=== PATIENT | female | born 1935 | race Caucasian/White ===

== ENCOUNTER → 2017-09-13 | Outpatient (CLI) | payer MEDICARE ==
--- NOTE | 2017-09-13 11:01 | US ---
EXAMINATION TYPE: US carotid duplex BILAT DATE OF EXAM: 09/13/2017 COMPARISON: NONE CLINICAL HISTORY: I10 Hypertension, R55 Syncope and collapse. Dizziness. Endarterectomy in the per patient. EXAM MEASUREMENTS: RIGHT: Peak Systolic Velocity (PSV) cm/sec ----- Right CCA: 43.5 ----- Right ICA: 120.0 ----- Right ECA: 59.2 ICA/CCA ratio: 2.8 RIGHT: End Diastole cm/sec ----- Right CCA: 9.5 ----- Right ICA: 27.4 ----- Right ECA: 5.4 LEFT: Peak Systolic Velocity (PSV) cm/sec ----- Left CCA: 72.3 ----- Left ICA: 87.1 ----- Left ECA: 61.1 ICA/CCA ratio: 0.8 LEFT: End Diastole cm/sec ----- Left CCA: 15.4 ----- Left ICA: 16.2 ----- Left ECA: 6.7 VERTEBRALS (direction of flow): Right Vertebral: Antegrade Left Vertebral: Antegrade Rhythm: Normal Tortuous vessels visualized on the right. Moderate amount of plaque visualized on the right. Severe a mount of plaque visualized on the left. Elevated velocities visualized in the left bulb. Elevated ICA /CCA ratio on the right. IMPRESSION: 1. Atherosclerotic plaque bilaterally with findings suggestive of a 50-69% stenosis involving the pro ximal right ICA. 2. Extensive atherosclerotic plaque in the left. Consider follow-up CTA of the carotid bifurcations.
--- NOTE | 2017-09-14 08:57 | ECHOF ---
Referral Reason:I10 Hypertension, R55 Syncope and collapse MEASUREMENTS -------- HEIGHT: 152.4 cm WEIGHT: 70.3 kg BP: RVIDd: 3.3 cm (< 3.3) IVSd: 1.4 cm (0.6 - 1.1) LVIDd: 4.4 cm (3.9 - 5.3) LVPWd: 1.0 cm (0.6 - 1.1) IVSs: 1.7 cm LVIDs: 3.6 cm LVPWs: 0.8 cm LA Diam: 4.7 cm (2.7 - 3.8) LAESV Index (A-L): 46.52 ml/m Ao Diam: 2.8 cm (2.0 - 3.7) AV Cusp: 1.5 cm (1.5 - 2.6) LA Diam: 4.3 cm (2.7 - 3.8) MV EXCURSION: 17.332 mm (> 18.000) MV EF SLOPE: 107 mm/s (70 - 150) EPSS: 1.1 cm MV E Himanshu: 0.75 m/s MV DecT: 200 ms MV A Himanshu: 0.86 m/s MV E/A Ratio: 0.87 AV maxP.97 mmHg AV meanP.36 mmHg RAP: 5.00 mmHg RVSP: 40.47 mmHg FINDINGS -------- Undetermined rhythm. This was a technically adequate study. The left ventricular size is normal. There is mild concentric left ventricular hypertrophy. Overa ll left ventricular systolic function is low-normal with, an EF between 50 - 55 %. The right ventricle is normal in size. LA is severely dilated >40 ml/m2 The right atrial size is normal. Peak/mean gradient across the Aortic Valve is 4.97mmHg / 2.36mmHg. Normally functioning bioprosthet ic valve. Mild mitral annular calcification present. Mild mitral regurgitation is present. Mild tricuspid regurgitation present. There is mild pulmonary hypertension. The right ventricular systolic pressure, as measured by Doppler, is 40.47mmHg. Trace/mild (physiologic) pulmonic regurgitation. The aortic root size is normal. There is no pericardial effusion. CONCLUSIONS -------- 1. The left ventricular size is normal. 2. There is mild concentric left ventricular hypertrophy. 3. Overall left ventricular systolic function is low-normal with, an EF between 50 - 55 %. 4. LA is severely dilated >40 ml/m2 5. Peak/mean gradient across the Aortic Valve is 4.97mmHg / 2.36mmHg. 6. Normally functioning bioprosthetic valve. 7. Mild mitral annular calcification present. 8. Mild mitral regurgitation is present. 9. Mild tricuspid regurgitation present. 10. There is mild pulmonary hypertension. 11. The right ventricular systolic pressure, as measured by Doppler, is 40.47mmHg. 12. Trace/mild (physiologic) pulmonic regurgitation. 13. The aortic root size is normal. 14. There is no pericardial effusion. GRIDDLE COOK: Jumana Knox RDCS
== END | disposition home or self-care (01) ==
LOC: RADECHMAIN 10:05
PROVIDERS: ATTEND Family Medicine
DX: I08.1 Rheumatic disorders of both mitral and tricuspid valves (principal); I65.23 Occlusion and stenosis of bilateral carotid arteries; I48.0 Paroxysmal atrial fibrillation; I27.20 Pulmonary hypertension, unspecified
CPT/HCPCS: 93225; 93226; 93306; 93880

== ENCOUNTER 2017-10-04 17:49 | Inpatient (IN) | payer MEDICARE ==
[2017-10-04] MEDS ORDERED: SODIUM CHLORIDE 0.9% 1,000 ML IV STA (18:13)
[2017-10-04] MEDS: ACETAMINOPHEN TAB 500 MG TAB PO STA ×2 (18:25→19:01)
[2017-10-04 18:30] LABS: Basophils # (A) 0.1 k/uL (0-0.2); Basophils % (A) 0 %; Eosinophils # (A) 0.1 k/uL (0-0.7); Eosinophils % (A) 1 %; HCT 43.4 % (34.0-46.0); HGB 14.3 gm/dL (11.4-16.0); Lymphocytes # (A) 0.8 k/uL (1.0-4.8); Lymphocytes % (A) 4 %; MCH 27.7 pg (25.0-35.0); MCHC 32.9 g/dL (31.0-37.0); MCV 84.3 fL (80.0-100.0); Mean Platelet Volume 6.4; Monocytes # (A) 0.7 k/uL (0-1.0); Monocytes % (A) 4 %; Neutrophils # (A) 16.3 k/uL (1.3-7.7); Neutrophils % (A) 91 %; Platelet Count 301 k/uL (150-450); RBC 5.15 m/uL (3.80-5.40); RDW 13.7 % (11.5-15.5)
[2017-10-04] MEDS ORDERED: ONDANSETRON 4 MG/2 ML VIAL IVP STA (18:35)
[2017-10-04] MEDS ORDERED: ACETAMINOPHEN IV (For NPO) 1,000 MG in EMPTY BAG 1 BAG IVPB STA (18:35)
--- NOTE | 2017-10-04 18:39 | ED ---
Weakness HPI - General Chief complaint: Weakness Stated complaint: poss CVA Time Seen by Provider: 10/04/17 18:05 Source: patient, family, RN notes reviewed Mode of arrival: wheelchair Limitations: no limitations - History of Present Illness Initial comments: This an 82-year-old female presents emergency department with family chief complaint weakness. Patient reportedly has been unsteady on her feet today, more weak than usual. Patient had no symptoms yesterday she does complain of a headache but has no specific focal weakness. Patient and family state that she started a fall earlier though sat down they did try to help her and they noticed that she seemed to be weak to her legs but not localized to one side. Patient states that she is unable to make it to the bathroom because of the weakness. She does complain of some lower abdominal and epigastric discomfort. Patient did not know that she had a fever at home she is febrile here she states that she has a slight cough. Denies back pain, chest pain, shortness of breath or any sick contacts. Family states that she had a brief period of confusion at home though she seems to be at her baseline currently. Patient is not taking any recent Tylenol Motrin. - Related Data Home Medications Medication Instructions Recorded Confirmed Clopidogrel [Plavix] 75 mg PO DAILY 11/06/15 10/04/17 Levothyroxine Sodium [Synthroid] 112 mcg PO DAILY 11/06/15 10/04/17 Metoprolol Tartrate [Lopressor] 25 mg PO BID 11/06/15 10/04/17 Pravastatin Sodium [Pravachol] 20 mg PO DAILY 11/06/15 10/04/17 Sertraline [Zoloft] 50 mg PO DAILY 11/06/15 10/04/17 Tiotropium 18 Mcg/Puff [Spiriva] 1 puff INHALATION RT-DAILY PRN 11/06/15 amLODIPine [Norvasc] 5 mg PO DAILY 11/06/15 10/04/17 Allergies Allergy/AdvReac Type Severity Reaction Status Date / Time Penicillins Allergy Swelling Verified 10/04/17 18:32 Review of Systems ROS Statement: Those systems with pertinent positive or pertinent negative responses have been documented in the HPI. ROS Other: All systems not noted in ROS Statement are negative. Past Medical History Past Medical History: Hypertension, Thyroid Disorder History of Any Multi-Drug Resistant Organisms: None Reported Past Surgical History: Cholecystectomy, Hysterectomy Additional Past Surgical History / Comment(s): aorta aneurysm repair Past Psychological History: No Psychological Hx Reported Smoking Status: Former smoker Past Alcohol Use History: None Reported Past Drug Use History: None Reported General Exam Limitations: no limitations General appearance: alert, in no apparent distress Head exam: Present: atraumatic, normocephalic, normal inspection Eye exam: Present: normal appearance, PERRL, EOMI. Absent: scleral icterus, conjunctival injection, periorbital swelling ENT exam: Present: normal exam, normal oropharynx, mucous membranes moist, TM's normal bilaterally, normal external ear exam Neck exam: Present: normal inspection, full ROM. Absent: tenderness, meningismus, lymphadenopathy Respiratory exam: Present: normal lung sounds bilaterally. Absent: respiratory distress, wheezes, rales, rhonchi, stridor Cardiovascular Exam: Present: regular rate, normal rhythm, normal heart sounds. Absent: systolic murmur, diastolic murmur, rubs, gallop, clicks GI/Abdominal exam: Present: soft, tenderness (Mild epigastric and suprapubic), normal bowel sounds. Absent: distended, guarding, rebound, rigid Extremities exam: Present: normal inspection, full ROM, normal capillary refill. Absent: tenderness, pedal edema, joint swelling, calf tenderness Neurological exam: Present: alert, oriented X3, CN II-XII intact, reflexes normal, other (Finger to nose intact bilaterally without over shooting.). Absent: motor sensory deficit Skin exam: Present: warm, dry, intact, normal color. Absent: rash Course Vital Signs 10/04/17 10/04/17 17:52 18:36 Temperature 101.1 F H Pulse Rate 87 81 Respiratory 20 18 Rate Blood Pressure 153/73 141/64 O2 Sat by Pulse 96 95 Oximetry EKG Findings - EKG Comments: EKG Findings:: EKG shows performed at 18:32 normal sinus rhythm with a left bundle, rate of 83 CA interval 176 QRS 152 QT/QTC 420 650 to Medical Decision Making - Medical Decision Making 82-year-old female presented for generalized weakness not feeling well. Patient 's found to have right midlung pneumonia. Patient will be started on Levaquin admitted for IV antibiotics, hydration. - Lab Data Result diagrams: 10/04/17 18:21 02/08/18 18:21 Lab Results 10/04/17 10/04/17 10/04/17 Range/Units 18:21 18:21 18:21 WBC 18.0 H (3.8-10.6) k/uL RBC 5.15 (3.80-5.40) m/uL Hgb 14.3 (11.4-16.0) gm/dL Hct 43.4 (34.0-46.0) % MCV 84.3 (80.0-100.0) fL MCH 27.7 (25.0-35.0) pg MCHC 32.9 (31.0-37.0) g/dL RDW 13.7 (11.5-15.5) % Plt Count 301 (150-450) k/uL Neutrophils % 91 % Lymphocytes % 4 % Monocytes % 4 % Eosinophils % 1 % Basophils % 0 % Neutrophils # 16.3 H (1.3-7.7) k/uL Lymphocytes # 0.8 L (1.0-4.8) k/uL Monocytes # 0.7 (0-1.0) k/uL Eosinophils # 0.1 (0-0.7) k/uL Basophils # 0.1 (0-0.2) k/uL PT (9.0-12.0) sec INR (<1.2) APTT (22.0-30.0) sec Sodium 136 L (137-145) mmol/L Potassium 5.2 H (3.5-5.1) mmol/L Chloride 102 (98-107) mmol/L Carbon Dioxide 23 (22-30) mmol/L Anion Gap 11 mmol/L BUN 28 H (7-17) mg/dL Creatinine 1.00 (0.52-1.04) mg/dL Est GFR (MDRD) Af Amer >60 (>60 ml/min/1.73 sqM) Est GFR (MDRD) Non-Af 53 (>60 ml/min/1.73 sqM) Glucose 136 H (74-99) mg/dL Plasma Lactic Acid Miguel (0.7-2.0) mmol/L Calcium 9.8 (8.4-10.2) mg/dL Magnesium 1.9 (1.6-2.3) mg/dL Total Bilirubin 0.7 (0.2-1.3) mg/dL AST 51 H (14-36) U/L ALT 32 (9-52) U/L Alkaline Phosphatase 131 H (38-126) U/L Total Creatine Kinase 53 (30-135) U/L CK-MB (CK-2) 0.8 (0.0-2.4) ng/mL CK-MB (CK-2) Rel Index 1.5 Troponin I <0.012 (0.000-0.034) ng/mL Total Protein 7.8 (6.3-8.2) g/dL Albumin 3.9 (3.5-5.0) g/dL Influenza Type A RNA (Not Detectd) Influenza Type B (PCR) (Not Detectd) 10/04/17 10/04/17 10/04/17 Range/Units 18:21 18:21 18:21 WBC (3.8-10.6) k/uL RBC (3.80-5.40) m/uL Hgb (11.4-16.0) gm/dL Hct (34.0-46.0) % MCV (80.0-100.0) fL MCH (25.0-35.0) pg MCHC (31.0-37.0) g/dL RDW (11.5-15.5) % Plt Count (150-450) k/uL Neutrophils % % Lymphocytes % % Monocytes % % Eosinophils % % Basophils % % Neutrophils # (1.3-7.7) k/uL Lymphocytes # (1.0-4.8) k/uL Monocytes # (0-1.0) k/uL Eosinophils # (0-0.7) k/uL Basophils # (0-0.2) k/uL PT 10.0 (9.0-12.0) sec INR 1.0 (<1.2) APTT 21.4 L (22.0-30.0) sec Sodium (137-145) mmol/L Potassium (3.5-5.1) mmol/L Chloride (98-107) mmol/L Carbon Dioxide (22-30) mmol/L Anion Gap mmol/L BUN (7-17) mg/dL Creatinine (0.52-1.04) mg/dL Est GFR (MDRD) Af Amer (>60 ml/min/1.73 sqM) Est GFR (MDRD) Non-Af (>60 ml/min/1.73 sqM) Glucose (74-99) mg/dL Plasma Lactic Acid Miguel 1.4 (0.7-2.0) mmol/L Calcium (8.4-10.2) mg/dL Magnesium (1.6-2.3) mg/dL Total Bilirubin (0.2-1.3) mg/dL AST (14-36) U/L ALT (9-52) U/L Alkaline Phosphatase (38-126) U/L Total Creatine Kinase (30-135) U/L CK-MB (CK-2) (0.0-2.4) ng/mL CK-MB (CK-2) Rel Index Troponin I (0.000-0.034) ng/mL Total Protein (6.3-8.2) g/dL Albumin (3.5-5.0) g/dL Influenza Type A RNA Not Detected (Not Detectd) Influenza Type B (PCR) Not Detected (Not Detectd) Disposition Clinical Impression: Generalized weakness, Pneumonia, Fever Disposition: ADMITTED IP TO THIS HOSP Condition: Fair Referrals: Dao Art Jr, [Primary Care Provider] - 1-2 days
[2017-10-04 18:42] LABS: ALT 32 U/L (9-52); AST 51 U/L (14-36); Albumin 3.9 g/dL (3.5-5.0); Alkaline Phosphatase 131 U/L (38-126); Anion Gap 11 mmol/L; Blood Urea Nitrogen 28 mg/dL (7-17); Calcium 9.8 mg/dL (8.4-10.2); Carbon Dioxide 23 mmol/L (22-30); Chloride 102 mmol/L (98-107); Glucose 136 mg/dL (74-99); Magnesium 1.9 mg/dL (1.6-2.3); Potassium 5.2 mmol/L (3.5-5.1); Sodium 136 mmol/L (137-145); Total Bilirubin 0.7 mg/dL (0.2-1.3); Total Protein 7.8 g/dL (6.3-8.2)
[2017-10-04 18:50] LABS: Creatine Kinase 53 U/L (30-135)
--- NOTE | 2017-10-04 18:58 | XR ---
EXAMINATION TYPE: XR chest 2V DATE OF EXAM: 10/04/2017 COMPARISON: Chest x-ray February 19, 2015 HISTORY: Weakness and fever. TECHNIQUE: Frontal and lateral views of the chest are obtained. FINDINGS: Osseous structures remain demineralized. Mild multilevel compression type fracture deformi ties in the thoracic spine are redemonstrated. Sternal wires are redemonstrated. There is persisting cardiomegaly with atherosclerotic and aneurysmal thoracic aorta redemonstrated. There is background c hronic emphysematous change with new right midlung opacity seen on frontal view less well-seen on lat eral view. Left lung remains clear. No pleural effusion or pneumothorax is seen bilaterally. Rounded density left axilla is redemonstrated of uncertain etiology presumed benign given no significant inte rval change perhaps postsurgical. IMPRESSION: Chronic emphysematous change and cardiomegaly with new right lateral midlung infiltrate and/or atelectasis.
--- NOTE | 2017-10-04 19:00 | CT ---
EXAMINATION TYPE: CT brain wo con DATE OF EXAM: 10/04/2017 HISTORY: WEAKNESS. CT DLP: 956.4 mGycm. Automated Exposure Control for Dose Reduction was Utilized. TECHNIQUE: CT scan of the head is performed without contrast. COMPARISON: None. FINDINGS: There is no acute intracranial hemorrhage or midline shift identified. There is diffuse v entricular and sulcal prominence consistent with diffuse age-related cerebral atrophy. There is low- attenuation in the periventricular white matter consistent with chronic small vessel ischemic change. Some scattered sulcal calcifications are noted bilaterally. These could be product of in utero infec tion. The globes are intact and the visualized sinuses are clear. Suspect tiny osteoma right ethmoi d sinuses axial image 6. Patchy opacity bilateral mastoid air cells is likely product of retained sec retions or chronic mastoiditis as there is some sclerosis seen inferiorly. There is vascular calcific ation distal internal carotid and vertebral arteries bilaterally. IMPRESSION: No acute intracranial hemorrhage or midline shift. There is diffuse mild age-related ce rebral atrophy and moderate to severe chronic small vessel ischemic change noted.
[2017-10-04 19:03] LABS: Creatine Kinase MB 0.8 ng/mL (0.0-2.4); Troponin I <0.012 ng/mL (0.000-0.034)
[2017-10-04] MEDS ORDERED: LEVOFLOXACIN 750MG-D5W PMX 750 MG in DEXTROSE/WATER 1 150ML.BAG IVPB STA ×2 (19:03→19:34)
[2017-10-04 19:14] LABS: Partial Thromboplastin Time 21.4 sec (22.0-30.0)
[2017-10-04] MEDS ORDERED: PNEUMONIA PROTOCOL UTILIZED 1 EACH MISC PO PRN (19:34)
[2017-10-04] MEDS ORDERED: IPRATROPIUM-ALBUTEROL 3 ML NEB INHALATION PRN (19:34)
[2017-10-04 21:47] VITALS: BMI 22.1
[2017-10-04] MEDS: SODIUM CHLORIDE 0.9% 1,000 ML IV SCH (22:08)
[2017-10-05] MEDS: HEPARIN SODIUM,PORCINE 5,000 UNIT/ML 1 ML VIAL SQ SCH ×3 (00:20→16:08)
[2017-10-05 08:43] LABS: Basophils % (A) 0 %; Eosinophils % (A) 0 %; HCT 41.7 % (34.0-46.0); Hypochromasia Slight; Lymphocytes # (A) 1.2 k/uL (1.0-4.8); Lymphocytes % (A) 9 %; MCH 27.8 pg (25.0-35.0); MCHC 31.2 g/dL (31.0-37.0); Mean Platelet Volume 6.5; Monocytes # (A) 0.9 k/uL (0-1.0); Monocytes % (A) 7 %; Neutrophils # (A) 10.7 k/uL (1.3-7.7); Neutrophils % (A) 82 %; Platelet Count 265 k/uL (150-450); RBC 4.68 m/uL (3.80-5.40); RDW 14.1 % (11.5-15.5); WBC 12.9 k/uL (3.8-10.6)
[2017-10-05] MEDS: SODIUM CHLORIDE 0.9% 1,000 ML IV SCH (09:05)
[2017-10-05] MEDS: PANTOPRAZOLE 40 MG TABLET PO SCH (09:05)
[2017-10-05 09:08] LABS: ALT 32 U/L (9-52); AST 46 U/L (14-36); Albumin 3.4 g/dL (3.5-5.0); Alkaline Phosphatase 98 U/L (38-126); Anion Gap 10 mmol/L; Blood Urea Nitrogen 26 mg/dL (7-17); Calcium 9.5 mg/dL (8.4-10.2); Carbon Dioxide 27 mmol/L (22-30); Chloride 104 mmol/L (98-107); Glucose 92 mg/dL (74-99); Potassium 4.3 mmol/L (3.5-5.1); Sodium 141 mmol/L (137-145); Total Bilirubin 0.8 mg/dL (0.2-1.3); Total Protein 6.8 g/dL (6.3-8.2)
--- NOTE | 2017-10-05 09:08 | XR ---
EXAMINATION TYPE: XR chest 2V DATE OF EXAM: 10/05/2017 COMPARISON: 10/04/2017 TECHNIQUE: PA and lateral views submitted. HISTORY: Fever and weakness FINDINGS: Hyperinflation suggests COPD. There is postsurgical changes. Aneurysm of the thoracic aorta suspected . Calcified mass overlying the left scapula. Cardiomegaly and underlying COPD noted with suspected right upper lobe infiltrate stable in appearanc e. Asymmetric edema less likely. Follow resolution to exclude underlying neoplasm. IMPRESSION: 1. Cardiomegaly, COPD and suspected right upper lobe infiltrate. 2. Correlate for thoracic aortic aneurysm. 3. Calcified mass overlying the left scapula
[2017-10-05 10:35] LABS: Appearance,Urine Clear (Clear); Bilirubin,Urine Negative (Negative); Blood,Urine Negative (Negative); Color,Urine Yellow; Glucose,Urine (UA) Negative (Negative); Ketones,Urine Negative (Negative); Leukocyte Esterase,Urine Negative (Negative); Nitrite,Urine Negative (Negative); Protein,Urine Trace (Negative); Specific Gravity,Urine 1.012 (1.001-1.035)
[2017-10-05] MEDS ORDERED: NON-FORMULARY DRUG (Tiotropium 18 Mcg/Puff 1 PUFF) INHALATION PRN (12:46)
[2017-10-05] MEDS ORDERED: IPRATROPIUM-ALBUTEROL 3 ML NEB INHALATION PRN (14:38)
--- NOTE | 2017-10-05 14:41 | P.HPIM ---
History of Present Illness H&P Date: 10/05/17 Chief Complaint: Shortness of breath 82-year-old female who presented to the emergency room with a chief complaint of shortness of breath and weakness. Patient also complaining of a nonproductive cough. Family states that they believe the patient has been confused the last few days. The patient has a history of hypertension, hypothyroidism, aortic aneurysm repair. The patient is a former cigarette smoker. Chest x-ray: Chronic emphysematous changes and cardiomegaly with new right lateral mid lung infiltrate and/or atelectasis CT of the brain: No acute intracranial hemorrhage or midline shift. There is diffuse mild age-related cerebral atrophy and moderate to severe chronic small vessel ischemic changes noted. Laboratory data: WBC 18. Hemoglobin 14.3. Platelet count 301. Sodium 136. Potassium 5.2. BUN 28. Creatinine 1.0. Glucose 136. Magnesium 1.9. Troponins negative 1 Testing for influenza A and B was negative Urinalysis reveals: Trace proteinuria, but otherwise negative The patient was admitted to the hospital under the care of Dr. Art. Review of Systems GENERAL: Positive for generalized weakness. Patient denies fever. Denies chills. EYES: Denies blurred vision. Denies vision changes. Denies eye pain. EARS, NOSE, MOUTH, & THROAT: Denies headache. Denies sore throat. Denies ear pain. RESPIRATORY: Positive for cough. Positive for shortness of breath. Denies sputum production. Denies hemoptysis. CARDIOVASCULAR: Denies chest pain or pressure. Denies palpitations. Denies arrhythmias. GASTROINTESTINAL: Denies abdominal pain. Denies diarrhea. Denies constipation. Denies nausea. Denies vomiting. Denies heartburn. Denies blood in the stool. GENITOURINARY: Denies urinary frequency. Denies burning. Denies dysuria. Denies cloudy urine. Denies blood in the urine. MUSCULOSKELETAL: Denies myalgias. Denies joint swelling. Denies decreased range of motion beyond patients baseline. INTEGUMENTARY: Denies pruitis. Denies rash. PSYCHIATRIC: Denies suicidal or homicial ideations. ENDOCRINE: Denies weight change. Denies polydipsia. Denies polyuria. HEMATOLOGIC: Denies bleeding disorders. Past Medical History Past Medical History: Hypertension, Thyroid Disorder History of Any Multi-Drug Resistant Organisms: None Reported Past Surgical History: Cholecystectomy, Hysterectomy Additional Past Surgical History / Comment(s): aorta aneurysm repair Past Psychological History: No Psychological Hx Reported Smoking Status: Former smoker Past Alcohol Use History: None Reported Past Drug Use History: None Reported Medications and Allergies Home Medications Medication Instructions Recorded Confirmed Type Clopidogrel [Plavix] 75 mg PO DAILY 11/06/15 10/04/17 History Levothyroxine Sodium [Synthroid] 112 mcg PO DAILY 11/06/15 10/04/17 History Metoprolol Tartrate [Lopressor] 25 mg PO BID 11/06/15 10/04/17 History Pravastatin Sodium [Pravachol] 20 mg PO DAILY 11/06/15 10/04/17 History Sertraline [Zoloft] 50 mg PO DAILY 11/06/15 10/04/17 History Tiotropium 18 Mcg/Puff [Spiriva] 1 puff INHALATION RT-DAILY PRN 11/06/15 History amLODIPine [Norvasc] 5 mg PO DAILY 11/06/15 10/04/17 History Allergies Allergy/AdvReac Type Severity Reaction Status Date / Time Penicillins Allergy Swelling Verified 10/04/17 18:32 Physical Exam Vitals: Vital Signs Temp Pulse Pulse Resp BP BP Pulse Ox 10/05/17 11:10 97 10/05/17 08:18 117/59 10/05/17 07:00 97.0 F L 66 18 117/59 98 10/05/17 02:20 18 10/04/17 22:00 97.6 F 72 16 104/54 92 L 10/04/17 19:58 100 F H 73 18 108/57 98 10/04/17 19:37 75 18 103/56 94 L 10/04/17 18:36 81 18 141/64 95 10/04/17 17:52 101.1 F H 87 20 153/73 96 Intake and Output 10/04/17 10/05/17 10/05/17 22:59 06:59 14:59 Other: # Voids 1 1 # Bowel Movements 1 Weight 70 kg GENERAL: This is a 82-year-old female in no apparent distress at the time of examination. Pleasant and cooperative. HEENT: Head is atraumatic, normocephalic. Pupils are equal, round, and reactive to light. Sclerae anicteric. Conjunctivae are clear. Mucus membranes of the mouth are moist. Neck is supple. RESPIRATORY: Frequent coughing noted. Respirations equal bilaterally. Left lung with rhonchi and expiratory wheezing. No use of accessory muscles. Patient maintaining oxygen saturation greater than 92% on 2L. No chest wall tenderness is noted on palpation or with deep breathing. CARDIOVASCULAR: Regular rate and rhythm. S1 and S2 noted. No systolic or diastolic murmur auscultated. No JVD noted. No S3 or S4 noted. GASTROINTESTINAL: No distention noted. Abdomen soft and round. Normal active bowel sounds auscultated x 4 quadrants. No pain or tenderness noted upon palpation. INTEGUMENTARY: No cyanosis. No jaundice. No rashes noted. No cellulitis noted. EXTREMITIES: 2+ peripheral pulses. No evidence of peripheral edema. No calf tenderness noted. NEUROLOGIC: Cranial nerves II-XII intact. PSYCHIATRIC: Awake, alert, and oriented X 3. Appropriate affect. Intact judgement and insight. Results CBC & Chem 7: 10/05/17 08:06 10/05/17 08:06 Labs: Abnormal Lab Results - Last 24 Hours (Table) 10/04/17 10/04/17 10/04/17 Range/Units 18:21 18:21 18:21 WBC 18.0 H (3.8-10.6) k/uL Neutrophils # 16.3 H (1.3-7.7) k/uL Lymphocytes # 0.8 L (1.0-4.8) k/uL APTT 21.4 L (22.0-30.0) sec Sodium 136 L (137-145) mmol/L Potassium 5.2 H (3.5-5.1) mmol/L BUN 28 H (7-17) mg/dL Creatinine (0.52-1.04) mg/dL Glucose 136 H (74-99) mg/dL AST 51 H (14-36) U/L Alkaline Phosphatase 131 H (38-126) U/L Albumin (3.5-5.0) g/dL Urine Protein (Negative) 10/05/17 10/05/17 10/05/17 Range/Units 08:06 08:06 10:05 WBC 12.9 H (3.8-10.6) k/uL Neutrophils # 10.7 H (1.3-7.7) k/uL Lymphocytes # (1.0-4.8) k/uL APTT (22.0-30.0) sec Sodium (137-145) mmol/L Potassium (3.5-5.1) mmol/L BUN 26 H (7-17) mg/dL Creatinine 1.05 H (0.52-1.04) mg/dL Glucose (74-99) mg/dL AST 46 H (14-36) U/L Alkaline Phosphatase (38-126) U/L Albumin 3.4 L (3.5-5.0) g/dL Urine Protein Trace H (Negative) Thrombosis Risk Factor Assmnt - Choose All That Apply Each Factor Represents 1 point: Sepsis (< 1month) Each Risk Factor Represents 3 Points: Age 75 years or older Thrombosis Risk Factor Assessment Total Risk Factor Score: 4 Thrombosis Risk Factor Assessment Level: Moderate Risk Assessment and Plan Plan: ASSESSMENT: Right midlung community acquired pneumonia, present on admission, sputum culture pending Essential hypertension Hypothyroidism Hyperkalemia, resolved History of aortic aneurysm repair History of nicotine dependence, in remission, patient is a former cigarette smoker PLAN: Continue Levaquin 750 mg daily Continue DuoNeb 4 times a day scheduled and PRN Await results of urine culture Await results of blood culture Await results of sputum culture Consults physical therapy and occupational therapy Home meds as appropriate Monitor labs GI prophylaxis: Protonix 40 mg PO Daily DVT prophylaxis: Heparin 5000 units subcu every 8 hours Monitor vital signs and address as appropriate Further recommendations pending patient's course Nurse practitioner note has been reviewed by physician. Signing provider agrees with the documented findings, assessment, and plan of care.
[2017-10-05] MEDS: ACETAMINOPHEN TAB 325 MG TAB PO PRN (15:05)
[2017-10-05] MEDS: IPRATROPIUM-ALBUTEROL 3 ML NEB INHALATION SCH ×2 (15:53→19:40)
[2017-10-05] MEDS: LEVOTHYROXINE 112 MCG TAB PO SCH (16:07)
[2017-10-05] MEDS: SERTRALINE 50 MG TAB PO SCH (16:07)
[2017-10-05] MEDS: amLODIPine 5 MG TAB PO SCH (16:07)
[2017-10-05] MEDS: METOPROLOL TARTRATE 25 MG TAB PO SCH ×2 (16:07→20:52)
[2017-10-05] MEDS: CLOPIDOGREL 75 MG TAB PO SCH (16:11)
[2017-10-05] MEDS: LEVOFLOXACIN 750MG-D5W PMX 750 MG in DEXTROSE/WATER 1 150ML.BAG IVPB SCH (20:43)
[2017-10-05] MEDS ORDERED: METOPROLOL TARTRATE 25 MG TAB PO SCH (21:00)
[2017-10-06] MEDS: HEPARIN SODIUM,PORCINE 5,000 UNIT/ML 1 ML VIAL SQ SCH ×4 (01:18→23:35)
[2017-10-06] MEDS: SODIUM CHLORIDE 0.9% 1,000 ML IV SCH ×2 (01:24→14:11)
[2017-10-06] MEDS: LEVOTHYROXINE 112 MCG TAB PO SCH (06:05)
[2017-10-06] MEDS ORDERED: LEVOTHYROXINE 112 MCG TAB PO SCH (06:30)
[2017-10-06] MEDS: IPRATROPIUM-ALBUTEROL 3 ML NEB INHALATION SCH ×4 (07:31→19:35)
[2017-10-06] MEDS: ONDANSETRON 4 MG/2 ML VIAL IVP PRN ×2 (08:52→20:44)
[2017-10-06] MEDS: PANTOPRAZOLE 40 MG TABLET PO SCH (08:54)
[2017-10-06] MEDS: METOPROLOL TARTRATE 25 MG TAB PO SCH ×2 (08:54→20:32)
[2017-10-06] MEDS: SERTRALINE 50 MG TAB PO SCH (08:54)
[2017-10-06] MEDS: amLODIPine 5 MG TAB PO SCH (08:54)
[2017-10-06] MEDS: CLOPIDOGREL 75 MG TAB PO SCH (08:55)
[2017-10-06] MEDS ORDERED: SERTRALINE 50 MG TAB PO SCH (09:00)
[2017-10-06] MEDS ORDERED: CLOPIDOGREL 75 MG TAB PO SCH (09:00)
[2017-10-06] MEDS ORDERED: amLODIPine 5 MG TAB PO SCH (09:00)
[2017-10-06 09:03] LABS: Basophils % (A) 0 %; Eosinophils % (A) 0 %; HCT 38.9 % (34.0-46.0); Lymphocytes # (A) 1.4 k/uL (1.0-4.8); Lymphocytes % (A) 14 %; MCH 26.8 pg (25.0-35.0); MCHC 30.8 g/dL (31.0-37.0); MCV 86.9 fL (80.0-100.0); Mean Platelet Volume 6.9; Monocytes # (A) 0.5 k/uL (0-1.0); Monocytes % (A) 5 %; Neutrophils # (A) 8.3 k/uL (1.3-7.7); Neutrophils % (A) 80 %; Platelet Count 248 k/uL (150-450); RBC 4.47 m/uL (3.80-5.40); RDW 13.8 % (11.5-15.5); WBC 10.3 k/uL (3.8-10.6)
[2017-10-06 09:13] LABS: ALT 39 U/L (9-52); AST 33 U/L (14-36); Albumin 2.9 g/dL (3.5-5.0); Alkaline Phosphatase 94 U/L (38-126); Anion Gap 9 mmol/L; Blood Urea Nitrogen 19 mg/dL (7-17); Calcium 9.2 mg/dL (8.4-10.2); Carbon Dioxide 25 mmol/L (22-30); Chloride 106 mmol/L (98-107); Glucose 134 mg/dL (74-99); Potassium 3.9 mmol/L (3.5-5.1); Sodium 140 mmol/L (137-145); Total Bilirubin 0.7 mg/dL (0.2-1.3); Total Protein 6.1 g/dL (6.3-8.2)
--- NOTE | 2017-10-06 13:23 | P.PN ---
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 Patient also complaining of a nonproductive cough. Family states that they believe the patient has been confused the last few days. The patient has a history of hypertension, hypothyroidism, aortic aneurysm repair. The patient is a former cigarette smoker. Chest x-ray: Chronic emphysematous changes and cardiomegaly with new right lateral mid lung infiltrate and/or atelectasis CT of the brain: No acute intracranial hemorrhage or midline shift. There is diffuse mild age-related cerebral atrophy and moderate to severe chronic small vessel ischemic changes noted. Laboratory data: WBC 18. Hemoglobin 14.3. Platelet count 301. Sodium 136. Potassium 5.2. BUN 28. Creatinine 1.0. Glucose 136. Magnesium 1.9. Troponins negative 1 Testing for influenza A and B was negative Urinalysis reveals: Trace proteinuria, but otherwise negative The patient was admitted to the hospital under the care of Dr. Art. 10/06/2017: Patient is feeling bit better, she continues to cough quite a bit. She is getting up without physical therapy and nursing. She is feeling better today than she did before admission. Objective - Vital Signs Vital signs: Vital Signs Temp 97.8 F 10/06/17 07:00 Pulse 77 10/06/17 11:20 Resp 16 10/06/17 07:00 BP 110/53 10/06/17 09:03 Pulse Ox 94 L 10/06/17 07:00 Intake & Output 10/05/17 10/06/17 10/06/17 18:59 06:59 18:59 Intake Total 680 Balance 680 Intake: Oral 680 Other: Voiding Method Bedside Commode # Voids 1 2 1 # Bowel Movements 0 - Exam General: The patient is awake and alert, in no distress, and looks her stated age Neck: The neck is supple, there is no thyromegaly, lymphadenopathy, tenderness or JVD. Cardiovascular: S1S2 is normal, There is a regular rate and rhythm. No murmur, rub or gallop is appreciated. Respiratory: Lungs are course with poor air exchange bilaterally due to her underlying lung disease, no active wheezes, respirations are non-labored, breath sounds are equal. Gastrointestinal: Soft, non-distended, non-tender abdomen without masses or organomegaly noted. There is no rebound or guarding present. Bowel sounds are unremarkable. Musculoskeletal: Normal ROM, no tenderness, There is no pedal edema. There is no calf tenderness or swelling. No cords were appreciated. Neurological: CN II-XII intact, there are no obvious motor or sensory deficits. Coordination appears grossly intact. Speech is normal. Skin: Skin is warm and dry and no rashes or lesions are noted. - Labs CBC & Chem 7: 10/06/17 08:41 10/06/17 08:41 Labs: Abnormal Lab Results - Last 24 Hours (Table) 10/06/17 10/06/17 Range/Units 08:41 08:41 MCHC 30.8 L (31.0-37.0) g/dL Neutrophils # 8.3 H (1.3-7.7) k/uL BUN 19 H (7-17) mg/dL Glucose 134 H (74-99) mg/dL Total Protein 6.1 L (6.3-8.2) g/dL Albumin 2.9 L (3.5-5.0) g/dL Microbiology - Last 24 Hours (Table) 10/04/17 18:21 Blood Culture - Preliminary Blood No Growth after 24 hours 10/05/17 10:05 Urine Culture - Preliminary Urine,Voided Assessment and Plan Plan: ASSESSMENT: Right midlung community acquired pneumonia, present on admission: sputum culture pending, DD Lan and Gita, we'll add some by mouth steroids Essential hypertension: Continue Lopressor , Plavix, aspirinand amlodipine Hypothyroidism: Continue Synthroid Hyperlipidemia: Continue pravastatin Hyperkalemia, resolved History of aortic aneurysm repair: Monitor History of nicotine dependence, in remission, patient is a former cigarette smoker depression: Continue sertraline GI prophylaxis: Continue point troponins all. DVT prophylaxis:continue heparin subcutaneous PLAN: continue physical therapy,continue current medications and treatments. We'll add some oral prednisone to her regimen. Urine and blood cultures. She will be reevaluated in the next 24 hours.
[2017-10-06] MEDS: predniSONE 10 MG TAB PO SCH (14:11)
[2017-10-06] MEDS: LEVOFLOXACIN 750MG-D5W PMX 750 MG in DEXTROSE/WATER 1 150ML.BAG IVPB SCH (20:33)
[2017-10-06] MEDS: PRAVASTATIN SODIUM 20 MG TAB PO SCH (20:33)
[2017-10-06] MEDS: ACETAMINOPHEN TAB 325 MG TAB PO PRN (20:44)
[2017-10-07] MEDS: SODIUM CHLORIDE 0.9% 1,000 ML IV SCH ×2 (01:49→15:44)
[2017-10-07] MEDS: LEVOTHYROXINE 112 MCG TAB PO SCH (06:01)
[2017-10-07] MEDS: predniSONE 10 MG TAB PO SCH (07:42)
[2017-10-07] MEDS: PANTOPRAZOLE 40 MG TABLET PO SCH (07:43)
[2017-10-07] MEDS: amLODIPine 5 MG TAB PO SCH (07:43)
[2017-10-07] MEDS: SERTRALINE 50 MG TAB PO SCH (07:43)
[2017-10-07] MEDS: HEPARIN SODIUM,PORCINE 5,000 UNIT/ML 1 ML VIAL SQ SCH ×3 (07:43→22:38)
[2017-10-07] MEDS: CLOPIDOGREL 75 MG TAB PO SCH (07:43)
[2017-10-07] MEDS: METOPROLOL TARTRATE 25 MG TAB PO SCH ×2 (07:43→20:29)
[2017-10-07] MEDS: IPRATROPIUM-ALBUTEROL 3 ML NEB INHALATION SCH ×4 (08:30→19:55)
[2017-10-07 09:59] LABS: WBC 7.5 k/uL (3.8-10.6)
[2017-10-07 10:00] LABS: Basophils % (A) 0 %; Eosinophils % (A) 0 %; HCT 37.8 % (34.0-46.0); HGB 11.7 gm/dL (11.4-16.0); Lymphocytes # (A) 0.8 k/uL (1.0-4.8); Lymphocytes % (A) 10 %; MCH 27.1 pg (25.0-35.0); MCHC 31.1 g/dL (31.0-37.0); MCV 87.1 fL (80.0-100.0); Mean Platelet Volume 6.8; Monocytes # (A) 0.4 k/uL (0-1.0); Monocytes % (A) 6 %; Neutrophils # (A) 6.3 k/uL (1.3-7.7); Neutrophils % (A) 83 %; Platelet Count 251 k/uL (150-450); RBC 4.33 m/uL (3.80-5.40); RDW 13.7 % (11.5-15.5)
[2017-10-07 10:14] LABS: Anion Gap 8 mmol/L; Carbon Dioxide 24 mmol/L (22-30); Chloride 109 mmol/L (98-107); Glucose 131 mg/dL (74-99); Sodium 141 mmol/L (137-145); Total Protein 6.3 g/dL (6.3-8.2)
[2017-10-07 10:15] LABS: ALT 30 U/L (9-52); AST 29 U/L (14-36); Alkaline Phosphatase 101 U/L (38-126); Blood Urea Nitrogen 20 mg/dL (7-17); Calcium 9.5 mg/dL (8.4-10.2); Total Bilirubin 0.4 mg/dL (0.2-1.3)
--- NOTE | 2017-10-07 11:18 | P.PN ---
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 Patient also complaining of a nonproductive cough. Family states that they believe the patient has been confused the last few days. The patient has a history of hypertension, hypothyroidism, aortic aneurysm repair. The patient is a former cigarette smoker. Chest x-ray: Chronic emphysematous changes and cardiomegaly with new right lateral mid lung infiltrate and/or atelectasis CT of the brain: No acute intracranial hemorrhage or midline shift. There is diffuse mild age-related cerebral atrophy and moderate to severe chronic small vessel ischemic changes noted. Laboratory data: WBC 18. Hemoglobin 14.3. Platelet count 301. Sodium 136. Potassium 5.2. BUN 28. Creatinine 1.0. Glucose 136. Magnesium 1.9. Troponins negative 1 Testing for influenza A and B was negative Urinalysis reveals: Trace proteinuria, but otherwise negative The patient was admitted to the hospital under the care of Dr. Art. 10/06/2017: Patient is feeling bit better, she continues to cough quite a bit. She is getting up without physical therapy and nursing. She is feeling better today than she did before admission. 10/07/2017: Patient continues feel better. I discussed her coughing up food with her nurse, Lindsey. Does have a long-standing history of this for the past 6 years and worked up at [facility] with swallow studies and multiple other evaluations. The patient does feel better. She's not had a bowel movement in several days. She denies any significant chest pains, pressures, or shortness of breath at this time. Objective - Vital Signs Vital signs: Vital Signs Temp 96.8 F L 10/07/17 07:00 Pulse 80 10/07/17 08:43 Resp 20 10/07/17 07:00 BP 143/70 10/07/17 07:00 Pulse Ox 97 10/07/17 08:33 Intake & Output 10/06/17 10/07/17 10/07/17 18:59 06:59 18:59 Intake Total 400 Balance 400 Weight 70 kg 70 kg Intake: Intake, IV Titration 400 Amount Sodium Chloride 0.9% 1, 400 000 ml @ 75 mls/hr IV . [id number] [facility] Rx#:[id number] Other: Voiding Method Bedside Commode Bedside Commode # Voids 2 2 1 - Labs CBC & Chem 7: 10/07/17 06:00 10/07/17 09:30 Labs: Abnormal Lab Results - Last 24 Hours (Table) 10/07/17 10/07/17 Range/Units 06:00 09:30 Lymphocytes # 0.8 L (1.0-4.8) k/uL Chloride 109 H (98-107) mmol/L BUN 20 H (7-17) mg/dL Glucose 131 H (74-99) mg/dL Albumin 3.0 L (3.5-5.0) g/dL Microbiology - Last 24 Hours (Table) 10/04/17 18:21 Blood Culture - Preliminary Blood No Growth after 48 hours 10/05/17 10:05 Urine Culture - Final Urine,Voided
--- NOTE | 2017-10-07 11:21 | P.PN ---
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 Patient also complaining of a nonproductive cough. Family states that they believe the patient has been confused the last few days. The patient has a history of hypertension, hypothyroidism, aortic aneurysm repair. The patient is a former cigarette smoker. Chest x-ray: Chronic emphysematous changes and cardiomegaly with new right lateral mid lung infiltrate and/or atelectasis CT of the brain: No acute intracranial hemorrhage or midline shift. There is diffuse mild age-related cerebral atrophy and moderate to severe chronic small vessel ischemic changes noted. Laboratory data: WBC 18. Hemoglobin 14.3. Platelet count 301. Sodium 136. Potassium 5.2. BUN 28. Creatinine 1.0. Glucose 136. Magnesium 1.9. Troponins negative 1 Testing for influenza A and B was negative Urinalysis reveals: Trace proteinuria, but otherwise negative The patient was admitted to the hospital under the care of Dr. Art. 10/06/2017: Patient is feeling bit better, she continues to cough quite a bit. She is getting up without physical therapy and nursing. She is feeling better today than she did before admission. 10/07/2017: Patient continues feel better. I discussed her coughing up food with her nurse, Lindsey. Does have a long-standing history of this for the past 6 years and worked up at [facility] with swallow studies and multiple other evaluations. The patient does feel better. She's not had a bowel movement in several days. She denies any significant chest pains, pressures, or shortness of breath at this time. The previous progress note was discontinued and saved accidentally: Please refer to this note for 10/07/2017 Objective - Vital Signs Vital signs: Vital Signs Temp 96.8 F L 10/07/17 07:00 Pulse 80 10/07/17 08:43 Resp 20 10/07/17 07:00 BP 143/70 10/07/17 07:00 Pulse Ox 97 10/07/17 08:33 Intake & Output 10/06/17 10/07/17 10/07/17 18:59 06:59 18:59 Intake Total 400 Balance 400 Weight 70 kg 70 kg Intake: Intake, IV Titration 400 Amount Sodium Chloride 0.9% 1, 400 000 ml @ 75 mls/hr IV . [id number] [facility] Rx#:[id number] Other: Voiding Method Bedside Commode Bedside Commode # Voids 2 2 1 - Exam General: The patient is awake and alert, in no distress, and looks her stated age Neck: The neck is supple, there is no thyromegaly, lymphadenopathy, tenderness or JVD. Cardiovascular: S1S2 is normal, There is a regular rate and rhythm. No murmur, rub or gallop is appreciated. Respiratory: Lungs are course with improved air exchange bilaterally due to her underlying lung disease, no active wheezes, respirations are non-labored, breath sounds are equal. Gastrointestinal: Soft, non-distended, non-tender abdomen without masses or organomegaly noted. There is no rebound or guarding present. Bowel sounds are unremarkable. Musculoskeletal: Normal ROM, no tenderness, There is no pedal edema. There is no calf tenderness or swelling. No cords were appreciated. Neurological: CN II-XII intact, there are no obvious motor or sensory deficits. Coordination appears grossly intact. Speech is normal. Skin: Skin is warm and dry and no rashes or lesions are noted. - Labs CBC & Chem 7: 10/07/17 06:00 10/07/17 09:30 Labs: Abnormal Lab Results - Last 24 Hours (Table) 10/07/17 10/07/17 Range/Units 06:00 09:30 Lymphocytes # 0.8 L (1.0-4.8) k/uL Chloride 109 H (98-107) mmol/L BUN 20 H (7-17) mg/dL Glucose 131 H (74-99) mg/dL Albumin 3.0 L (3.5-5.0) g/dL Microbiology - Last 24 Hours (Table) 10/04/17 18:21 Blood Culture - Preliminary Blood No Growth after 48 hours 10/05/17 10:05 Urine Culture - Final Urine,Voided Assessment and Plan Plan: ASSESSMENT: Right midlung community acquired pneumonia, present on admission: sputum culture pending, on Levaquin and DuoNeb, tinea by mouth steroids, blood and urine cultures are negative. Essential hypertension: Continue Lopressor , Plavix, aspirinand amlodipine Hypothyroidism: Continue Synthroid Hyperlipidemia: Continue pravastatin Hyperkalemia, resolved History of aortic aneurysm repair: Monitor History of nicotine dependence, in remission, patient is a former cigarette smoker depression: Continue sertraline GI prophylaxis: Continue point troponins all. DVT prophylaxis:continue heparin subcutaneous PLAN: continue physical therapy,continue current medications and treatments. She will be reevaluated in the next 24 hours. I'll review her office notes regarding her dysphagia.
[2017-10-07] MEDS: DOCUSATE 100 MG CAP PO SCH ×2 (13:31→20:28)
[2017-10-07] MEDS: PRAVASTATIN SODIUM 20 MG TAB PO SCH (20:28)
[2017-10-07] MEDS: LEVOFLOXACIN 750MG-D5W PMX 750 MG in DEXTROSE/WATER 1 150ML.BAG IVPB SCH (20:29)
[2017-10-08] MEDS: SODIUM CHLORIDE 0.9% 1,000 ML IV SCH (06:26)
[2017-10-08] MEDS: LEVOTHYROXINE 112 MCG TAB PO SCH (06:26)
[2017-10-08] MEDS: METOPROLOL TARTRATE 25 MG TAB PO SCH ×2 (07:50→22:44)
[2017-10-08] MEDS: CLOPIDOGREL 75 MG TAB PO SCH (07:50)
[2017-10-08] MEDS: DOCUSATE 100 MG CAP PO SCH ×2 (07:50→22:45)
[2017-10-08] MEDS: SERTRALINE 50 MG TAB PO SCH (07:50)
[2017-10-08] MEDS: PANTOPRAZOLE 40 MG TABLET PO SCH (07:50)
[2017-10-08] MEDS: amLODIPine 5 MG TAB PO SCH (07:50)
[2017-10-08] MEDS: predniSONE 10 MG TAB PO SCH (07:50)
[2017-10-08] MEDS: HEPARIN SODIUM,PORCINE 5,000 UNIT/ML 1 ML VIAL SQ SCH ×2 (07:51→15:29)
[2017-10-08 08:18] LABS: Basophils % (A) 0 %; Eosinophils % (A) 0 %; HCT 42.4 % (34.0-46.0); HGB 12.8 gm/dL (11.4-16.0); Hypochromasia Slight; Lymphocytes # (A) 1.1 k/uL (1.0-4.8); Lymphocytes % (A) 8 %; MCHC 30.3 g/dL (31.0-37.0); Mean Platelet Volume 6.6; Monocytes % (A) 7 %; Neutrophils # (A) 12.5 k/uL (1.3-7.7); Neutrophils % (A) 84 %; Platelet Count 315 k/uL (150-450); RBC 4.76 m/uL (3.80-5.40); RDW 13.8 % (11.5-15.5); WBC 14.8 k/uL (3.8-10.6)
[2017-10-08 08:30] LABS: Anion Gap 10 mmol/L; Blood Urea Nitrogen 21 mg/dL (7-17); Calcium 9.9 mg/dL (8.4-10.2); Carbon Dioxide 24 mmol/L (22-30); Chloride 108 mmol/L (98-107); Glucose 78 mg/dL (74-99); Magnesium 1.7 mg/dL (1.6-2.3); Potassium 4.6 mmol/L (3.5-5.1); Sodium 142 mmol/L (137-145)
--- NOTE | 2017-10-08 08:42 | XR ---
EXAMINATION TYPE: XR chest 2V DATE OF EXAM: 10/08/2017 COMPARISON: 10/05/2017 TECHNIQUE: PA and lateral views submitted. HISTORY: Pneumonia FINDINGS: Right-sided infiltrate is stable. There is atherosclerotic change aorta and suggestion of aneurysm. P ostsurgical changes are noted. Calcified mass overlying the left shoulder stable. Underlying COPD chaka pected. IMPRESSION: 1. Cardiomegaly, COPD and right-sided diffuse infiltrates are stable. 2. Correlate for thoracic aortic aneurysm.
[2017-10-08] MEDS: IPRATROPIUM-ALBUTEROL 3 ML NEB INHALATION SCH ×4 (09:06→21:34)
--- NOTE | 2017-10-08 12:42 | P.PN ---
Subjective Progress Note Date: 10/08/17 82-year-old female who presented to the emergency room with a chief complaint of shortness of breath and weakness. Patient also complaining of a nonproductive cough. Family states that they believe the patient has been confused the last few days. The patient has a history of hypertension, hypothyroidism, aortic aneurysm repair. The patient is a former cigarette smoker. Chest x-ray: Chronic emphysematous changes and cardiomegaly with new right lateral mid lung infiltrate and/or atelectasis CT of the brain: No acute intracranial hemorrhage or midline shift. There is diffuse mild age-related cerebral atrophy and moderate to severe chronic small vessel ischemic changes noted. Laboratory data: WBC 18. Hemoglobin 14.3. Platelet count 301. Sodium 136. Potassium 5.2. BUN 28. Creatinine 1.0. Glucose 136. Magnesium 1.9. Troponins negative 1 Testing for influenza A and B was negative Urinalysis reveals: Trace proteinuria, but otherwise negative The patient was admitted to the hospital under the care of Dr. Art. 10/06/2017: Note per Dr. Guardado Patient is feeling bit better, she continues to cough quite a bit. She is getting up without physical therapy and nursing. She is feeling better today than she did before admission. 10/07/2017: Note per Dr. uGardado Patient continues feel better. I discussed her coughing up food with her nurse , Lindsey. Does have a long-standing history of this for the past 6 years and worked up at [facility] with swallow studies and multiple other evaluations. The patient does feel better. She's not had a bowel movement in several days. She denies any significant chest pains, pressures, or shortness of breath at this time. 10/08/2017 Patient seen and examined at the bedside on rounds with Dr. Guardado. Patient is awake and alert. Patient denies shortness of breath. Denies chest pain or pressure. She continues to have cough and is bringing up her food at times. Patient states she had workup multiple times at [facility] she thinks. She states all studies came back normal. Dr. Guardado states he will review records at their office and will likely continue workup on an outpatient basis. Patient continues to require supplmental oxygen to maintain oxygen saturations greater than 92%. PT and OT have been consulted. Objective - Vital Signs Vital signs: Vital Signs Temp 97.2 F L 10/08/17 06:51 Pulse 80 10/08/17 09:16 Resp 16 10/08/17 09:16 BP 153/78 10/08/17 06:51 Pulse Ox 80 L 10/08/17 10:32 Intake & Output 10/07/17 10/08/17 10/08/17 18:59 06:59 18:59 Intake Total 1140 Balance 1140 Weight 70 kg Intake: Intake, IV Titration 900 Amount Sodium Chloride 0.9% 1, 900 000 ml @ 75 mls/hr IV . [id number] [facility] Rx#:[id number] Oral 240 Other: Voiding Method Bedside Commode Bedside Commode # Voids 1 3 - Exam GENERAL: This is a 82-year-old female in no apparent distress at the time of examination. Pleasant and cooperative. HEENT: Head is atraumatic, normocephalic. Pupils are equal, round, and reactive to light. Sclerae anicteric. Conjunctivae are clear. Mucus membranes of the mouth are moist. Neck is supple. RESPIRATORY: Frequent coughing noted. Respirations equal bilaterally. Lungs are coarse but significantly improved. No use of accessory muscles. Patient maintaining oxygen saturation greater than 92% on 5L. No chest wall tenderness is noted on palpation or with deep breathing. CARDIOVASCULAR: Regular rate and rhythm. S1 and S2 noted. No systolic or diastolic murmur auscultated. No JVD noted. No S3 or S4 noted. GASTROINTESTINAL: No distention noted. Abdomen soft and round. Normal active bowel sounds auscultated x 4 quadrants. No pain or tenderness noted upon palpation. INTEGUMENTARY: No cyanosis. No jaundice. No rashes noted. No cellulitis noted. EXTREMITIES: 2+ peripheral pulses. No evidence of peripheral edema. No calf tenderness noted. NEUROLOGIC: Cranial nerves II-XII intact. PSYCHIATRIC: Awake, alert, and oriented X 3. Appropriate affect. Intact judgement and insight. - Labs CBC & Chem 7: 10/08/17 07:54 10/08/17 07:54 Labs: Abnormal Lab Results - Last 24 Hours (Table) 10/08/17 10/08/17 Range/Units 07:54 07:54 WBC 14.8 H (3.8-10.6) k/uL MCHC 30.3 L (31.0-37.0) g/dL Neutrophils # 12.5 H (1.3-7.7) k/uL Chloride 108 H (98-107) mmol/L BUN 21 H (7-17) mg/dL Microbiology - Last 24 Hours (Table) 10/04/17 18:21 Blood Culture - Preliminary Blood No Growth after 72 hours Assessment and Plan Plan: ASSESSMENT: Right midlung community acquired pneumonia, present on admission, sputum culture pending Acute hypoxic respiratory failure, requiring supplemental oxygen to maintain saturations greater than 92% Essential hypertension Hypothyroidism Hyperkalemia, resolved History of aortic aneurysm repair History of nicotine dependence, in remission, patient is a former cigarette smoker Depression, unspecified PLAN: Continue Levaquin 750 mg daily Continue oral steroids Continue DuoNeb 4 times a day scheduled and PRN Patient will likely require home oxygen at the time of discharge Perform home oxygen assessment Will obtain nebulizer machine for patient at the time of discharge Spoke with piano case maker, Iman, regarding home oxygen and nebulizer machine PT/OT Home meds as appropriate Monitor labs GI prophylaxis: Protonix 40 mg PO Daily DVT prophylaxis: Heparin 5000 units subcu every 8 hours Monitor vital signs and address as appropriate Further recommendations pending patient's course Anticipate discharge home tomorrow if patient remains stable Nurse practitioner note has been reviewed by physician. Signing provider agrees with the documented findings, assessment, and plan of care.
[2017-10-08] MEDS ORDERED: LEVOFLOXACIN 750 MG TAB PO SCH (20:00)
[2017-10-08] MEDS: PRAVASTATIN SODIUM 20 MG TAB PO SCH (22:45)
[2017-10-09] MEDS: HEPARIN SODIUM,PORCINE 5,000 UNIT/ML 1 ML VIAL SQ SCH ×3 (00:19→16:50)
[2017-10-09] MEDS: LEVOTHYROXINE 112 MCG TAB PO SCH (06:41)
[2017-10-09] MEDS: PANTOPRAZOLE 40 MG TABLET PO SCH (06:41)
[2017-10-09] MEDS: IPRATROPIUM-ALBUTEROL 3 ML NEB INHALATION SCH ×3 (07:28→15:04)
[2017-10-09 08:11] VITALS: TEMP 97.9
[2017-10-09] MEDS: amLODIPine 5 MG TAB PO SCH (08:11)
[2017-10-09] MEDS: CLOPIDOGREL 75 MG TAB PO SCH (08:11)
[2017-10-09] MEDS: SERTRALINE 50 MG TAB PO SCH (08:12)
[2017-10-09] MEDS: METOPROLOL TARTRATE 25 MG TAB PO SCH (08:12)
[2017-10-09] MEDS: DOCUSATE 100 MG CAP PO SCH (08:12)
[2017-10-09] MEDS ORDERED: predniSONE 20 MG TAB PO SCH (09:00)
--- NOTE | 2017-10-09 10:01 | P.DS ---
Providers Date of admission: 10/04/17 19:42 Expected date of discharge: 10/09/17 Attending physician: Dao Art Primary care physician: [facility] Course: 82-year-old female who presented to the emergency room with a chief complaint of shortness of breath and weakness. Patient also complaining of a nonproductive cough. Family states that they believe the patient has been confused the last few days. The patient has a history of hypertension, hypothyroidism, aortic aneurysm repair. The patient is a former cigarette smoker. Chest x-ray: Chronic emphysematous changes and cardiomegaly with new right lateral mid lung infiltrate and/or atelectasis CT of the brain: No acute intracranial hemorrhage or midline shift. There is diffuse mild age-related cerebral atrophy and moderate to severe chronic small vessel ischemic changes noted. Laboratory data: WBC 18. Hemoglobin 14.3. Platelet count 301. Sodium 136. Potassium 5.2. BUN 28. Creatinine 1.0. Glucose 136. Magnesium 1.9. Troponins negative 1 Testing for influenza A and B was negative Urinalysis reveals: Trace proteinuria, but otherwise negative The patient was admitted to the hospital under the care of Dr. Art. The patient was started on levaquin, oral steroids, and breathing treatments. The patient continued to improve during hospitalization. Blood cultures have been negative. urine culture is negative. Patient has been afebrile. She continues to have a cough and is bringing up her food at times. Patient states she had workup multiple times at [facility] she thinks. She states all studies came back normal. Dr. Guardado states he will review records at their office and will likely continue workup on an outpatient basis. Speech was consulted and recommended modified barium swallow. Patient is to have modified barium swallow performed today before discharge. The patient was found to be hypoxic on room air. Arrangements were made for the patient to receive home oxygen at the time of discharge and a nebulizer machine. Physical therapy evaluated patient and recommended subacute rehab. Patient originally stated she had family at home 19/03 to help her and did not want to go to [facility]. However, patient changed her mind and is now agreeable to subacute rehab and states her family is usually working during the day. The patient was deemed stable for discharge per Dr. Guardado. DISCHARGE DIAGNOSIS: Right midlung community acquired pneumonia, present on admission, sputum culture pending Acute hypoxic respiratory failure, requiring supplemental oxygen to maintain saturations greater than 92% Leukocytosis, likely secondary to steroid initiation, no evidence of sepsis Essential hypertension Hypothyroidism Hyperkalemia, resolved History of aortic aneurysm repair History of nicotine dependence, in remission, patient is a former cigarette smoker Depression, unspecified Nurse practitioner note has been reviewed by physician. Signing provider agrees with the documented findings, assessment, and plan of care. Patient Condition at Discharge: Fair Plan - Discharge Summary Discharge Rx Participant: Yes New Discharge Prescriptions: New Ipratropium-Albuterol Nebulize [Duoneb 0.5 mg-3 mg/3 ml Soln] 3 ml INHALATION Q4H PRN #60 ampul.neb PRN Reason: shortness of breath Levofloxacin [Levaquin] 750 mg PO DAILY #7 tab predniSONE See Taper PO DIRECTED #30 tab Continue Clopidogrel [Plavix] 75 mg PO DAILY amLODIPine [Norvasc] 5 mg PO DAILY Levothyroxine Sodium [Synthroid] 112 mcg PO DAILY Sertraline [Zoloft] 50 mg PO DAILY Pravastatin Sodium [Pravachol] 20 mg PO DAILY Metoprolol Tartrate [Lopressor] 25 mg PO BID Tiotropium 18 Mcg/Puff [Spiriva] 1 puff INHALATION RT-DAILY PRN PRN Reason: Shortness Of Breath Discharge Medication List Clopidogrel [Plavix] 75 mg PO DAILY 11/06/15 [History] Levothyroxine Sodium [Synthroid] 112 mcg PO DAILY 11/06/15 [History] Metoprolol Tartrate [Lopressor] 25 mg PO BID 11/06/15 [History] Pravastatin Sodium [Pravachol] 20 mg PO DAILY 11/06/15 [History] Sertraline [Zoloft] 50 mg PO DAILY 11/06/15 [History] Tiotropium 18 Mcg/Puff [Spiriva] 1 puff INHALATION RT-DAILY PRN 11/06/15 [ History] amLODIPine [Norvasc] 5 mg PO DAILY 11/06/15 [History] Ipratropium-Albuterol Nebulize [Duoneb 0.5 mg-3 mg/3 ml Soln] 3 ml INHALATION Q4H PRN #60 ampul.neb 10/08/17 [Rx] Levofloxacin [Levaquin] 750 mg PO DAILY #7 tab 10/08/17 [Rx] predniSONE See Taper PO DIRECTED #30 tab 10/08/17 [Rx] Follow up Appointment(s)/Referral(s): Dao Art Jr, [Primary Care Provider] - 1 Week (one week after DC from ECF) Activity/Diet/Wound Care/Special Instructions: Activity as tolerated Nasal cannula to maintain oxygen saturations greater than 92% heart healthy diet Discharge Disposition: TRANSFER TO SNF/ECF
[2017-10-09 15:20] VITALS: BP 124/65; PULSE 83; RESP 18
--- NOTE | 2017-10-09 15:33 | FL ---
Modified barium swallow. HISTORY: Dysphagia. Modified barium swallow was performed with the department of speech pathology. The patient was prese nted with various consistencies of barium. Mild aspiration with thin liquid barium. Dilated piriform sinuses with pooling of ingested material n oted. Full report is to follow from the department of speech pathology. Impression: Mild aspiration with thin liquid barium. Prominence of the piriform sinuses.
== END 2017-10-09 17:42 | DRG 193 ==
LOC: EC 17:49 → 4MS4W 19:42
PROVIDERS: ADMIT Family Medicine; ATTEND Family Medicine
DX: J18.9 Pneumonia, unspecified organism (principal); J96.01 Acute respiratory failure with hypoxia; E03.9 Hypothyroidism, unspecified; E78.5 Hyperlipidemia, unspecified; E87.5 Hyperkalemia; F32.9 Major depressive disorder, single episode, unspecified; I10 Essential (primary) hypertension; T38.0X5A Adverse effect of glucocorticoids and synthetic analogues, initial encounter; Z79.899 Other long term (current) drug therapy; Z79.02 Long term (current) use of antithrombotics/antiplatelets; Z86.79 Personal history of other diseases of the circulatory system; Z87.891 Personal history of nicotine dependence; Z90.710 Acquired absence of both cervix and uterus; Z79.890 Hormone replacement therapy
CPT/HCPCS: 36415; 70450; 71046; 74230; 80048; 80053; 81003; 82550; 82553; 83605; 83735; 84484; 85025; 85610; 85730; 87040; 87070; 87086; 87205; 87502; 93005; 94640; 94760; 96360; 96365; 96367; 96375; 99285

== ENCOUNTER → 2017-10-23 | Outpatient (CLI) | payer MEDICARE ==
--- NOTE | 2017-10-23 20:53 | PN ---
PROGRESS NOTE Jennifer is 82, and the patient has obstructive sleep apnea severe with an AHI of 51, and the patient is currently on CPAP therapy at a pressure of 11 cm of water. She is currently in [facility] where she is rehabilitating from a recent hospitalization of a right lower lobe pneumonia. I checked her CPAP machine. The patient is wearing a CPAP every night. Her compliancy has been adequate and the patient has been averaging around 8.9 hours of CPAP use per night. Never the less, the mask that she is utilizing is quite dirty and needs to be replaced and this could have been possibly source of pneumonia or infection. No leaks around the mask. Her AHI while on treatment is down to 2.4 and the patient has is still benefitting from the treatment. No cough or sputum production. She has been having occasional difficulty with swallowing and she has been having occasional difficulty with swallowing. PHYSICAL EXAMINATION: BP is 123/53, pulse 72, respirations 16, temperature 98.2, saturation 93% on room air. Weight is 156, height is 5 feet 7 inches, BMI 23.4. General appearance: Calm and comfortable in no acute distress. Head is atraumatic, normocephalic. Neck is supple. There is no JVD. No goiter or neck masses. LUNGS: Diminished breath sounds bilaterally. Otherwise clear. Heart sounds are regular rate and rhythm. Normal S1, S2. No S3. No murmurs. Abdomen is soft, nontender. No organomegaly. EXTREMITIES: No edema. No cyanosis or clubbing. IMPRESSION: 1. Severe symptomatic obstructive sleep apnea with an AHI of 51. The patient continues to be successfully treated and she is benefitting from the treatment. 2. Recent hospitalization for pneumonia recovered. 3. Hypertension. 4. Hyperlipidemia. 5. Hypothyroidism. 6. Hiatal hernia. 7. Dysphagia. PLAN: 1. Provide the patient a new Simplus mask. 2. Continue CPAP therapy. 3. Follow up with the home treatment. If successful and the patient is compliant, then we will continue the treatment and the patient will be seen back in followup in the Pulmonary Clinic. TIMOTHY / RENUN: [id number] /
== END | disposition home or self-care (01) ==
LOC: SLEEP 15:32
PROVIDERS: ATTEND Internal Medicine Critical Care Medicine
DX: G47.33 Obstructive sleep apnea (adult) (pediatric) (principal); I10 Essential (primary) hypertension; E78.5 Hyperlipidemia, unspecified; E03.9 Hypothyroidism, unspecified; Z87.01 Personal history of pneumonia (recurrent); Z99.89 Dependence on other enabling machines and devices

== ENCOUNTER 2018-03-26 14:43 | Emergency (ER) | payer MEDICARE ==
[2018-03-26 14:54] VITALS: RESP 18
--- NOTE | 2018-03-26 17:07 | XR ---
EXAMINATION TYPE: XR knee complete RT DATE OF EXAM: 03/26/2018 CLINICAL HISTORY: Right knee pain. No stated injury. TECHNIQUE: Three views of the right knee are obtained. COMPARISON: None. FINDINGS: There is diffuse osseous demineralization of the right knee limiting evaluation. Additional ly there is moderate tricompartmental arthrosis with joint space narrowing, opposing surface sclerosi s and marginal osteophytes. Extensive atherosclerosis is also noted. There is a small suprapatellar j oint effusion seen. IMPRESSION: 1. No acute fracture or dislocation in the right knee. 2. Extensive osseous demineralization, moderate tricompartmental arthropathy and extensive atheroscle rosis. Small suprapatellar joint effusion.
--- NOTE | 2018-03-26 17:14 | ED ---
General Adult HPI - General Chief complaint: Extremity Problem,Nontraumatic Stated complaint: Dr Sent/Leg Pain Time Seen by Provider: 03/26/18 15:14 Source: patient, RN notes reviewed, old records reviewed Mode of arrival: wheelchair Limitations: physical limitation - History of Present Illness Initial comments: This is an 83-year-old female the ER for evaluation of a knee pain significant right knee pain and edema. Difficulty with ambulation. They were able to actively patient house and go to the emergency room but currently patient's pain is increasing in that right lower extremity. Patient has right knee edema. No significant recent travel history, she did have a drive up [place] and back, does complain of some swelling into her leg. Denies any trauma. Concern for blood clot. No shortness of breath no chest pain. No prior history of blood clot - Related Data Home Medications Medication Instructions Recorded Confirmed Clopidogrel [Plavix] 75 mg PO DAILY 11/06/15 03/26/18 Levothyroxine Sodium [Synthroid] 112 mcg PO DAILY 11/06/15 03/26/18 Metoprolol Tartrate [Lopressor] 25 mg PO BID 11/06/15 03/26/18 Pravastatin Sodium [Pravachol] 20 mg PO DAILY 11/06/15 03/26/18 Sertraline [Zoloft] 50 mg PO DAILY 11/06/15 03/26/18 Tiotropium 18 Mcg/Puff [Spiriva] 1 puff INHALATION RT-DAILY PRN 11/06/15 amLODIPine [Norvasc] 5 mg PO DAILY 11/06/15 03/26/18 HYDROcodone/APAP 7.5-325MG [Megargel 1 tab PO DIRECTED PRN 03/26/18 03/26/18 7.5-325] Ipratropium-Albuterol Nebulize 3 ml INHALATION RT-Q4H PRN 03/26/18 03/26/18 [Duoneb 0.5 mg-3 mg/3 ml Soln] Allergies Allergy/AdvReac Type Severity Reaction Status Date / Time Penicillins Allergy Swelling Verified 03/26/18 15:19 Review of Systems ROS Statement: Those systems with pertinent positive or pertinent negative responses have been documented in the HPI. ROS Other: All systems not noted in ROS Statement are negative. Past Medical History Past Medical History: Hypertension, Thyroid Disorder History of Any Multi-Drug Resistant Organisms: None Reported Past Surgical History: Cholecystectomy, Hysterectomy Additional Past Surgical History / Comment(s): aorta aneurysm repair Past Psychological History: No Psychological Hx Reported Smoking Status: Former smoker Past Alcohol Use History: None Reported Past Drug Use History: None Reported General Exam - General Exam Comments Initial Comments: Right significant knee edema Limitations: physical limitation General appearance: alert, in no apparent distress Head exam: Present: atraumatic, normocephalic, normal inspection Eye exam: Present: normal appearance, PERRL, EOMI. Absent: scleral icterus, conjunctival injection, periorbital swelling ENT exam: Present: normal exam, mucous membranes moist Neck exam: Present: normal inspection. Absent: tenderness, meningismus, lymphadenopathy Respiratory exam: Present: normal lung sounds bilaterally. Absent: respiratory distress, wheezes, rales, rhonchi, stridor Cardiovascular Exam: Present: regular rate, normal rhythm, normal heart sounds. Absent: systolic murmur, diastolic murmur, rubs, gallop, clicks GI/Abdominal exam: Present: soft, normal bowel sounds. Absent: distended, tenderness, guarding, rebound, rigid Extremities exam: Present: normal inspection, full ROM, normal capillary refill. Absent: tenderness, pedal edema, joint swelling, calf tenderness Back exam: Present: normal inspection Neurological exam: Present: alert, oriented X3, CN II-XII intact Psychiatric exam: Present: normal affect, normal mood Skin exam: Present: warm, dry, intact, normal color. Absent: rash Course Vital Signs 03/26/18 14:51 Temperature 98.2 F Pulse Rate 78 Respiratory 18 Rate Blood Pressure 165/74 O2 Sat by Pulse 96 Oximetry - Reevaluation(s) Reevaluation #1: 03/26/18 18:42 Patient's pain is improved prior to emergency room secondary to pain medication. Medical Decision Making - Medical Decision Making 83 female the ER with right knee effusion and pain. Patient can be discharged home follow-up with orthopedics. - Radiology Data Radiology results: report reviewed (Ultrasound right lower Shorty negative for acute disease, x-ray knee show significant arthritis but no significant disease) , image reviewed Disposition Clinical Impression: Effusion, right knee, Knee pain, right, Osteoarthritis Disposition: HOME SELF-CARE Condition: Good Instructions: Knee Pain (ED), Swollen Knee Joint (ED) Is patient prescribed a controlled substance at d/c from ED?: No Referrals: Rafael Guardado MD [Primary Care Provider] - 1-2 days
--- NOTE | 2018-03-26 18:39 | US ---
EXAMINATION TYPE: US venous doppler duplex LE RT DATE OF EXAM: 03/26/2018 4:05 PM COMPARISON: NONE CLINICAL HISTORY: Right lower extremity pain. SIDE PERFORMED: Right TECHNIQUE: The lower extremity deep venous system is examined utilizing real time linear array sonog jessica with graded compression, doppler sonography and color-flow sonography. VESSELS IMAGED: External Iliac Vein (EIV) Common Femoral Vein Deep Femoral Vein Greater Saphenous Vein * Femoral Vein Popliteal Vein Small Saphenous Vein * Proximal Calf Veins (* superficial vessels) Technically difficult study, patient scanned in wheelchair. Patient unable to get into a bed due to p ain Right Leg: Negative for DVT There appears to be 3 separate masses in the popliteal fossa. The more superior mass is more complex, largest mass is hypoechoic measuring 4.1 x 2.6 x 4.0cm. This does not have the typical appearance of a Ridley's cyst. Grayscale, color doppler, spectral doppler imaging performed of the deep veins of the right lower ext remity. There is normal flow, compressibility, vascular waveforms. IMPRESSION: 1. Technically limited evaluation, however there is no gross evidence of deep venous arthrosis within the right lower extremity. 2. Solid-appearing right popliteal fossa mass with peripheral vascular flow. This could represent a h ematoma or neoplasm and full evaluation with enhanced MRI is recommended on a nonemergent basis.
[2018-03-26] MEDS ORDERED: HYDROmorphone 1 MG/ML 1 ML SYRINGE IM STA (18:49)
[2018-03-26] MEDS ORDERED: predniSONE 20 MG TAB PO STA (18:51)
[2018-03-26 19:06] VITALS: BP 134/80; PULSE 88; TEMP 98
== END 2018-03-26 19:06 | disposition home or self-care (01) ==
LOC: EC 14:43
DX: M17.11 Unilateral primary osteoarthritis, right knee (principal); R60.0 Localized edema; I10 Essential (primary) hypertension; E07.9 Disorder of thyroid, unspecified; Z87.891 Personal history of nicotine dependence; Z79.01 Long term (current) use of anticoagulants; Z79.899 Other long term (current) drug therapy; Z88.0 Allergy status to penicillin
CPT/HCPCS: 99284 ×2; 96372 ×2; 73562; 93971; J1170; J7512

== ENCOUNTER → 2018-12-17 | Outpatient (CLI) | payer MEDICARE | LOC: RADMRIMAIN 10:09 | PROVIDERS: ATTEND Family Medicine | DX: Z53.9 Procedure and treatment not carried out, unspecified reason (principal) ==

== ENCOUNTER → 2019-02-03 | Outpatient (CLI) | payer MEDICARE ==
--- NOTE | 2019-02-03 12:32 | FL ---
MODIFIED SWALLOW / DEGLUTITION STUDY DATE OF EXAM: 02/03/2019 CLINICAL HISTORY: 84-year-old female with recent stroke with feeding tube. Dysphagia. TECHNIQUE: Deglutition study is performed utilizing thin liquid barium, nectar thick liquid barium, and barium thick pudding. COMPARISON: None. Total fluoroscopy time: 3 minutes 3 seconds. Total images: None. Real-time fluoroscopy support was provided to speech pathology. FINDINGS: There is premature spillage into the piriform sinuses with profound, progressively increasing pirifor m sinus residuals especially with higher viscosity substances. Large vallecular residuals are also no vishnu along with absent pharyngeal peristalsis and incomplete swallow at times. Thin liquids demonstrat ed deep penetration to the level of the vocal folds. IMPRESSION: 1. Deep penetration to the level of the vocal folds with thin liquids. 2. Premature spillage to the piriform sinuses with profound, progressively increasing piriform sinus residuals especially with higher viscosity substances. 3. Absent pharyngeal peristalsis and incomplete swallow at times. Please refer to speech therapist notes for further details if necessary.
== END | disposition home or self-care (01) ==
LOC: RADFLMAIN 11:35
PROVIDERS: ATTEND Nurse Practitioner Acute Care
DX: R13.10 Dysphagia, unspecified (principal); Z88.0 Allergy status to penicillin
CPT/HCPCS: 74230

== ENCOUNTER 2019-03-18 07:07 | Inpatient (IN) | payer MEDICARE ==
[2019-03-18] MEDS ORDERED: PANTOPRAZOLE 40 MG/10 ML VIAL IVP STA (07:46)
[2019-03-18] MEDS ORDERED: ONDANSETRON 4 MG/2 ML VIAL IVP STA (07:46)
[2019-03-18] MEDS ORDERED: MORPHINE SULFATE 2 MG/ML SYRINGE IVP STA (07:46)
[2019-03-18] MEDS ORDERED: SODIUM CHLORIDE 0.9% 1,000 ML IV STA (07:46)
[2019-03-18] MEDS ORDERED: IPRATROPIUM-ALBUTEROL 3 ML NEB INHALATION STA (07:50)
--- NOTE | 2019-03-18 07:51 | ED ---
Abdominal Pain HPI - General Source: patient, EMS, RN notes reviewed Mode of arrival: EMS Limitations: no limitations <Ton Longo - Last Filed: 03/18/19 12:05> <Pavan Shay - Last Filed: 03/18/19 12:14> - General Chief Complaint: Abdominal Pain Stated Complaint: abdominal pain Time Seen by Provider: 03/18/19 07:35 - History of Present Illness Initial Comments: 84-year-old female presents emergency department via EMS chief complaint of left lower quadrant abdominal pain. Patient reportedly has been having worsening pain in this area. Family states that she seems to be pale just on her usual self. Patient states the pain is left side and she feels constipated. Patient does have history of CVA early feet on a feeding tube. Patient said no reported fever. Patient denies any dysuria or hematuria. Patient has a brief on with stool in it. Patient states nothing makes the pain feel better or worse. Patient denies any current chest pain. Patient has underlying COPD, has constant shortness of breath. Patient's had no prior bowel obstructions. Family states that they believe that she has a history of diverticulitis. (Ton Longo) - Related Data Home Medications Medication Instructions Recorded Confirmed Sertraline [Zoloft] 75 mg PO DAILY 11/06/15 03/18/19 Ipratropium-Albuterol Nebulize 3 ml INHALATION RT-Q4H PRN 03/26/18 03/18/19 [Duoneb 0.5 mg-3 mg/3 ml Soln] Apixaban [Eliquis] 5 mg PO BID 03/18/19 03/18/19 Aspirin EC [Ecotrin Low Dose] 81 mg PO W/SUPPER 03/18/19 03/18/19 Atorvastatin Calcium [Lipitor] 40 mg PO HS 03/18/19 03/18/19 Carboxymethylcellulose Sodium 1 drop BOTH EYES DAILY PRN 03/18/19 03/18/19 [Refresh Tears] Famotidine 20 mg PO DAILY 03/18/19 03/18/19 Furosemide [Lasix] 40 mg PO DAILY 03/18/19 03/18/19 Levothyroxine Sodium [Synthroid] 100 mcg PO DAILY 03/18/19 03/18/19 Lidocaine 5% Patch [Lidoderm] 1 patch TOPICAL DAILY 03/18/19 03/18/19 Metoprolol Tartrate [Lopressor] 75 mg PO BID 03/18/19 03/18/19 Mometasone/Formoterol [Dulera 100 2 puff INHALATION BID 03/18/19 03/18/19 Mcg/5 Mcg Inhaler] Allergies Allergy/AdvReac Type Severity Reaction Status Date / Time Penicillins Allergy Swelling Verified 03/18/19 07:54 Review of Systems ROS Other: All systems not noted in ROS Statement are negative. <Ton Longo - Last Filed: 03/18/19 12:05> ROS Other: All systems not noted in ROS Statement are negative. <Pavan Shay - Last Filed: 03/18/19 12:14> ROS Statement: Those systems with pertinent positive or pertinent negative responses have been documented in the HPI. Past Medical History Past Medical History: CVA/TIA, Hypertension, Thyroid Disorder Additional Past Medical History / Comment(s): feeding tube History of Any Multi-Drug Resistant Organisms: None Reported Past Surgical History: Cholecystectomy, Hysterectomy Additional Past Surgical History / Comment(s): aorta aneurysm repair Past Psychological History: No Psychological Hx Reported Smoking Status: Former smoker Past Alcohol Use History: None Reported Past Drug Use History: None Reported <Ton Longo - Last Filed: 03/18/19 12:05> General Exam Limitations: no limitations General appearance: alert, in no apparent distress Head exam: Present: atraumatic, normocephalic, normal inspection ENT exam: Present: normal exam, mucous membranes moist Neck exam: Present: normal inspection, full ROM. Absent: tenderness, meningismus, lymphadenopathy Respiratory exam: Present: wheezes. Absent: normal lung sounds bilaterally, respiratory distress, rales, rhonchi, stridor Cardiovascular Exam: Present: regular rate, normal rhythm, normal heart sounds. Absent: systolic murmur, diastolic murmur, rubs, gallop, clicks GI/Abdominal exam: Present: soft, tenderness (Moderate left lower quadrant tenderness), normal bowel sounds. Absent: distended, guarding, rebound, rigid Back exam: Absent: CVA tenderness (R), CVA tenderness (L) Neurological exam: Present: alert, oriented X3, CN II-XII intact Skin exam: Present: warm, dry, intact, normal color. Absent: rash <Ton Longo - Last Filed: 03/18/19 12:05> Course <Pavan Shay - Last Filed: 03/18/19 12:14> Vital Signs 03/18/19 03/18/19 03/18/19 07:10 08:03 09:20 Temperature 98.2 F Pulse Rate 74 68 67 Respiratory 20 16 Rate Blood Pressure 164/96 136/63 O2 Sat by Pulse 100 Oximetry 03/18/19 03/18/19 03/18/19 09:30 09:40 10:00 Temperature 97.4 F L 97.4 F L 97.5 F L Pulse Rate 66 65 66 Respiratory 14 15 16 Rate Blood Pressure 134/40 127/47 120/83 O2 Sat by Pulse 100 99 Oximetry 03/18/19 03/18/19 03/18/19 10:30 11:00 11:37 Temperature 97.6 F 97 F L 97 F L Pulse Rate 68 75 74 Respiratory 16 18 18 Rate Blood Pressure 135/68 146/66 135/64 O2 Sat by Pulse 100 100 100 Oximetry - Reevaluation(s) Reevaluation #1: 03/18/19 12:13 PA supervision: I proceeded [id number] evaluation the patient discussed findings with the patient family members. Patient be admitted the case is discussed with Dr. Art. (Pavan Shay) Medical Decision Making - Lab Data Result diagrams: 03/18/19 07:25 03/18/19 07:25 <Ton Longo - Last Filed: 03/18/19 12:05> - Lab Data Result diagrams: 03/18/19 07:25 03/18/19 07:25 <Pavan Shay - Last Filed: 03/18/19 12:14> - Medical Decision Making 84-year-old female presented for abdominal pain. Patient and hemoglobin 5.6. Patient will be admitted for transfusion, further evaluation. There is no evidence of diverticulitis or bowel obstruction Patient stable for admission (Ton Longo) - Lab Data Lab Results 03/18/19 03/18/19 03/18/19 Range/Units 07:20 07:25 07:25 WBC 11.9 H (3.8-10.6) k/uL RBC 2.32 L (3.80-5.40) m/uL Hgb 5.6 L* D (11.4-16.0) gm/dL Hct 19.3 L* (34.0-46.0) % MCV 83.0 (80.0-100.0) fL MCH 24.0 L (25.0-35.0) pg MCHC 28.9 L (31.0-37.0) g/dL RDW 17.7 H (11.5-15.5) % Plt Count 574 H (150-450) k/uL Neutrophils % 82 % Lymphocytes % 9 % Monocytes % 7 % Eosinophils % 1 % Basophils % 0 % Neutrophils # 9.8 H (1.3-7.7) k/uL Lymphocytes # 1.1 (1.0-4.8) k/uL Monocytes # 0.8 (0-1.0) k/uL Eosinophils # 0.1 (0-0.7) k/uL Basophils # 0.1 (0-0.2) k/uL Hypochromasia Marked Poikilocytosis Moderate Anisocytosis Slight PT (9.0-12.0) sec INR (<1.2) APTT (22.0-30.0) sec Sodium 136 L (137-145) mmol/L Potassium 4.3 (3.5-5.1) mmol/L Chloride 97 L (98-107) mmol/L Carbon Dioxide 28 (22-30) mmol/L Anion Gap 11 mmol/L BUN 60 H (7-17) mg/dL Creatinine 0.85 (0.52-1.04) mg/dL Est GFR (CKD-EPI)AfAm 73 (>60 ml/min/1.73 sqM) Est GFR (CKD-EPI)NonAf 63 (>60 ml/min/1.73 sqM) Glucose 169 H (74-99) mg/dL Lactic Ac Sepsis Rflx Plasma Lactic Acid Miguel (0.7-2.0) mmol/L Calcium 9.2 (8.4-10.2) mg/dL Total Bilirubin 0.6 (0.2-1.3) mg/dL AST 24 (14-36) U/L ALT 15 (9-52) U/L Alkaline Phosphatase 101 (38-126) U/L Troponin I (0.000-0.034) ng/mL Total Protein 7.1 (6.3-8.2) g/dL Albumin 3.7 (3.5-5.0) g/dL Amylase 95 (30-110) U/L Lipase 173 (23-300) U/L Urine Color Urine Appearance (Clear) Urine pH (5.0-8.0) Ur Specific [place] (1.001-1.035) Urine Protein (Negative) Urine Glucose (UA) (Negative) Urine Ketones (Negative) Urine Blood (Negative) Urine Nitrite (Negative) Urine Bilirubin (Negative) Urine Urobilinogen (<2.0) mg/dL Ur Leukocyte Esterase (Negative) Urine RBC (0-5) /hpf Urine WBC (0-5) /hpf Ur Squamous Epith Cells (0-4) /hpf Urine Bacteria (None) /hpf Urine Mucus (None) /hpf Stool Occult Blood (Negative) Blood Type O Positive Blood Type Confirm Blood Type Recheck CABO Indicated Antibody Screen NEGATIVE Crossmatch See Detail Spec Expiration Date 03/21/2019232403/18/19 03/18/19 03/18/19 Range/Units 07:25 07:25 07:25 WBC (3.8-10.6) k/uL RBC (3.80-5.40) m/uL Hgb (11.4-16.0) gm/dL Hct (34.0-46.0) % MCV (80.0-100.0) fL MCH (25.0-35.0) pg MCHC (31.0-37.0) g/dL RDW (11.5-15.5) % Plt Count (150-450) k/uL Neutrophils % % Lymphocytes % % Monocytes % % Eosinophils % % Basophils % % Neutrophils # (1.3-7.7) k/uL Lymphocytes # (1.0-4.8) k/uL Monocytes # (0-1.0) k/uL Eosinophils # (0-0.7) k/uL Basophils # (0-0.2) k/uL Hypochromasia Poikilocytosis Anisocytosis PT 10.6 (9.0-12.0) sec INR 1.0 (<1.2) APTT 22.6 (22.0-30.0) sec Sodium (137-145) mmol/L Potassium (3.5-5.1) mmol/L Chloride (98-107) mmol/L Carbon Dioxide (22-30) mmol/L Anion Gap mmol/L BUN (7-17) mg/dL Creatinine (0.52-1.04) mg/dL Est GFR (CKD-EPI)AfAm (>60 ml/min/1.73 sqM) Est GFR (CKD-EPI)NonAf (>60 ml/min/1.73 sqM) Glucose (74-99) mg/dL Lactic Ac Sepsis Rflx Plasma Lactic Acid Miguel 2.7 H* (0.7-2.0) mmol/L Calcium (8.4-10.2) mg/dL Total Bilirubin (0.2-1.3) mg/dL AST (14-36) U/L ALT (9-52) U/L Alkaline Phosphatase (38-126) U/L Troponin I <0.012 (0.000-0.034) ng/mL Total Protein (6.3-8.2) g/dL Albumin (3.5-5.0) g/dL Amylase (30-110) U/L Lipase (23-300) U/L Urine Color Urine Appearance (Clear) Urine pH (5.0-8.0) Ur Specific [place] (1.001-1.035) Urine Protein (Negative) Urine Glucose (UA) (Negative) Urine Ketones (Negative) Urine Blood (Negative) Urine Nitrite (Negative) Urine Bilirubin (Negative) Urine Urobilinogen (<2.0) mg/dL Ur Leukocyte Esterase (Negative) Urine RBC (0-5) /hpf Urine WBC (0-5) /hpf Ur Squamous Epith Cells (0-4) /hpf Urine Bacteria (None) /hpf Urine Mucus (None) /hpf Stool Occult Blood (Negative) Blood Type Blood Type Confirm Blood Type Recheck Antibody Screen Crossmatch Spec Expiration Date 03/18/19 03/18/19 03/18/19 Range/Units 07:25 07:25 08:56 WBC (3.8-10.6) k/uL RBC (3.80-5.40) m/uL Hgb (11.4-16.0) gm/dL Hct (34.0-46.0) % MCV (80.0-100.0) fL MCH (25.0-35.0) pg MCHC (31.0-37.0) g/dL RDW (11.5-15.5) % Plt Count (150-450) k/uL Neutrophils % % Lymphocytes % % Monocytes % % Eosinophils % % Basophils % % Neutrophils # (1.3-7.7) k/uL Lymphocytes # (1.0-4.8) k/uL Monocytes # (0-1.0) k/uL Eosinophils # (0-0.7) k/uL Basophils # (0-0.2) k/uL Hypochromasia Poikilocytosis Anisocytosis PT (9.0-12.0) sec INR (<1.2) APTT (22.0-30.0) sec Sodium (137-145) mmol/L Potassium (3.5-5.1) mmol/L Chloride (98-107) mmol/L Carbon Dioxide (22-30) mmol/L Anion Gap mmol/L BUN (7-17) mg/dL Creatinine (0.52-1.04) mg/dL Est GFR (CKD-EPI)AfAm (>60 ml/min/1.73 sqM) Est GFR (CKD-EPI)NonAf (>60 ml/min/1.73 sqM) Glucose (74-99) mg/dL Lactic Ac Sepsis Rflx Y Plasma Lactic Acid Miguel (0.7-2.0) mmol/L Calcium (8.4-10.2) mg/dL Total Bilirubin (0.2-1.3) mg/dL AST (14-36) U/L ALT (9-52) U/L Alkaline Phosphatase (38-126) U/L Troponin I (0.000-0.034) ng/mL Total Protein (6.3-8.2) g/dL Albumin (3.5-5.0) g/dL Amylase (30-110) U/L Lipase (23-300) U/L Urine Color Urine Appearance (Clear) Urine pH (5.0-8.0) Ur Specific [place] (1.001-1.035) Urine Protein (Negative) Urine Glucose (UA) (Negative) Urine Ketones (Negative) Urine Blood (Negative) Urine Nitrite (Negative) Urine Bilirubin (Negative) Urine Urobilinogen (<2.0) mg/dL Ur Leukocyte Esterase (Negative) Urine RBC (0-5) /hpf Urine WBC (0-5) /hpf Ur Squamous Epith Cells (0-4) /hpf Urine Bacteria (None) /hpf Urine Mucus (None) /hpf Stool Occult Blood Positive H (Negative) Blood Type Blood Type Confirm O Positive Blood Type Recheck Antibody Screen Crossmatch Spec Expiration Date 03/18/19 Range/Units 11:30 WBC (3.8-10.6) k/uL RBC (3.80-5.40) m/uL Hgb (11.4-16.0) gm/dL Hct (34.0-46.0) % MCV (80.0-100.0) fL MCH (25.0-35.0) pg MCHC (31.0-37.0) g/dL RDW (11.5-15.5) % Plt Count (150-450) k/uL Neutrophils % % Lymphocytes % % Monocytes % % Eosinophils % % Basophils % % Neutrophils # (1.3-7.7) k/uL Lymphocytes # (1.0-4.8) k/uL Monocytes # (0-1.0) k/uL Eosinophils # (0-0.7) k/uL Basophils # (0-0.2) k/uL Hypochromasia Poikilocytosis Anisocytosis PT (9.0-12.0) sec INR (<1.2) APTT (22.0-30.0) sec Sodium (137-145) mmol/L Potassium (3.5-5.1) mmol/L Chloride (98-107) mmol/L Carbon Dioxide (22-30) mmol/L Anion Gap mmol/L BUN (7-17) mg/dL Creatinine (0.52-1.04) mg/dL Est GFR (CKD-EPI)AfAm (>60 ml/min/1.73 sqM) Est GFR (CKD-EPI)NonAf (>60 ml/min/1.73 sqM) Glucose (74-99) mg/dL Lactic Ac Sepsis Rflx Plasma Lactic Acid Miguel (0.7-2.0) mmol/L Calcium (8.4-10.2) mg/dL Total Bilirubin (0.2-1.3) mg/dL AST (14-36) U/L ALT (9-52) U/L Alkaline Phosphatase (38-126) U/L Troponin I (0.000-0.034) ng/mL Total Protein (6.3-8.2) g/dL Albumin (3.5-5.0) g/dL Amylase (30-110) U/L Lipase (23-300) U/L Urine Color Yellow Urine Appearance Clear (Clear) Urine pH 7.0 (5.0-8.0) Ur Specific [place] 1.014 (1.001-1.035) Urine Protein Negative (Negative) Urine Glucose (UA) Negative (Negative) Urine Ketones Negative (Negative) Urine Blood Negative (Negative) Urine Nitrite Negative (Negative) Urine Bilirubin Negative (Negative) Urine Urobilinogen 2.0 (<2.0) mg/dL Ur Leukocyte Esterase Trace H (Negative) Urine RBC 1 (0-5) /hpf Urine WBC 2 (0-5) /hpf Ur Squamous Epith Cells 1 (0-4) /hpf Urine Bacteria Rare H (None) /hpf Urine Mucus Rare H (None) /hpf Stool Occult Blood (Negative) Blood Type Blood Type Confirm Blood Type Recheck Antibody Screen Crossmatch Spec Expiration Date Critical Care Time Critical Care Time: Yes Total Critical Care Time: 35 <Ton Longo - Last Filed: 03/18/19 12:05> Critical Care Time: Total 35 minutes of critical care time were used to initially evaluated patient, review past medical history, discussed patient's history of family. Patient had initial labs including CBC, CMP, lactate, type and screen, urinalysis along with CT abdomen and pelvis and chest x-ray ordered. Patient found to have a hemoglobin less than 6. Patient was ordered 2 units of blood. She is Hemoccult positive Protonix was ordered and will be continuing patient. Patient's case discussed with admitting physician patient be admitted for further evaluation, stabilization and treatment. (Ton Longo) Disposition <Ton Longo - Last Filed: 03/18/19 12:05> <Pavan Shay - Last Filed: 03/18/19 12:14> Clinical Impression: Anemia, GI bleed, Weakness, Abdominal pain Disposition: ADMITTED IP TO THIS HOSP Condition: Fair Referrals: Dao Art Jr, DO [Primary Care Provider] - 1-2 days
[2019-03-18 08:10] LABS: Albumin 3.7 g/dL (3.5-5.0); Calcium 9.2 mg/dL (8.4-10.2); Potassium 4.3 mmol/L (3.5-5.1); Total Bilirubin 0.6 mg/dL (0.2-1.3); Total Protein 7.1 g/dL (6.3-8.2)
[2019-03-18 08:16] LABS: Anisocytosis Slight; Basophils # (A) 0.1 k/uL (0-0.2); Basophils % (A) 0 %; Eosinophils # (A) 0.1 k/uL (0-0.7); Eosinophils % (A) 1 %; Hypochromasia Marked; Lymphocytes # (A) 1.1 k/uL (1.0-4.8); Lymphocytes % (A) 9 %; MCHC 28.9 g/dL (31.0-37.0); Mean Platelet Volume 7.4; Monocytes # (A) 0.8 k/uL (0-1.0); Monocytes % (A) 7 %; Neutrophils # (A) 9.8 k/uL (1.3-7.7); Neutrophils % (A) 82 %; Platelet Count 574 k/uL (150-450); Poikilocytosis Moderate; RBC 2.32 m/uL (3.80-5.40); RDW 17.7 % (11.5-15.5); WBC 11.9 k/uL (3.8-10.6)
[2019-03-18 08:19] LABS: HGB 5.6 gm/dL (11.4-16.0)
[2019-03-18 08:20] LABS: HCT 19.3 % (34.0-46.0)
--- NOTE | 2019-03-18 08:29 | XR ---
EXAMINATION TYPE: XR chest 1V DATE OF EXAM: 03/18/2019 COMPARISON: 10/08/2017 HISTORY: Chest pain TECHNIQUE: Single frontal view of the chest is obtained. FINDINGS: High density lesion again is noted just medial to the coracoid process. This is similar to the prior of 10/08/2017 radiographically. Post CABG changes are seen of the chest. There is an enlarg ed cardiomediastinal silhouette as noted on the prior exam. There is improved aeration of the right l stella-standing comparison to the prior. Interstitial prominence remains throughout. No focal consolidat ion, pleural effusion or pneumothorax. Diffuse osseous demineralization is seen. IMPRESSION: 1. Chronic interstitial prominence. Given cardiomegaly mild interstitial pulmonary edema is possible or interstitial lung disease. 2. Similar appearing high density lesion just medial to the coracoid process. Left shoulder joint bod y is possible. 3. Improved aeration of the right lung base with no remaining focal consolidation.
[2019-03-18] MEDS ORDERED: ACETAMINOPHEN ORAL SUSP 160 MG/5 ML CUP PEG/G-TUBE ONE (08:33)
[2019-03-18 08:42] LABS: Partial Thromboplastin Time 22.6 sec (22.0-30.0); Prothrombin Time 10.6 sec (9.0-12.0)
--- NOTE | 2019-03-18 11:36 | CT ---
EXAMINATION TYPE: CT abdomen pelvis w con DATE OF EXAM: 03/18/2019 HISTORY: LLQ pain history of cholecystectomy, hysterectomy, enteric tube, and abdominal aortic aneury sm repair. History also includes cardiac surgery. CT DLP: 833.8mGycm Automated Exposure Control for Dose Reduction was Utilized. CONTRAST: CT scan of the abdomen and pelvis is performed with IV Contrast, patient injected with 80 mL of Isovu e 300. COMPARISON: None. FINDINGS: VASCULATURE: There is severe calcific and noncalcific atheromatous plaquing of the visualized descend ing thoracic aorta and abdominal aorta. At the diaphragmatic hiatus and the transition between the th oracic aorta and upper abdominal aorta there is a large fusiform aneurysm. Given obliquity this measu res approximately 6.8 x 5.8 x 7.9 cm in transverse by anterior posterior by craniocaudal dimension. A marilu the level of the renal arteries at the takeoff of the SMA and celiac artery the aorta is tortuou s but of normal caliber. At the level the renal arteries there is surgical change with vascular stent graft. The [place] aortic lumen measures 7.2 x 7.7 cm. No priors available for stability of size. Mayo cified chronic dissection flap to the [place] aorta is seen. The [place] common iliac arteries and thei r branches are patent and with stents placed with anastomosis at the femoral arteries. These stents a ppear patent. LUNG BASES: Bibasilar geographic groundglass opacities are present as well as trace pleural effusions and bibasilar atelectasis. The heart is enlarged. Some fluid is seen within the mediastinum surround ing the descending thoracic aorta although no contrast extravasation is seen. LIVER/GB: There is marked intrahepatic biliary ductal dilatation and scattered punctate to small to a ccurately characterize hypoattenuated hepatic lesions. Angiographic phase of the liver slightly limit s evaluation as does delayed phase. Extrahepatic biliary ductal dilatation is also marked. The main p ancreatic duct does not appear dilated. PANCREAS: No main pancreatic ductal dilatation. Extensive atherosclerosis of the splenic artery adjac ent to the pancreas. Pancreas is grossly unremarkable. SPLEEN: No significant abnormality is seen. ADRENALS: Uniform thickening of the adrenal glands likely relates to adrenal gland hyperplasia. KIDNEYS: There are multiple bilateral renal cysts measuring up to 7 cm on the left there is also a 1. 4 cm mid pole left renal lesion that is solid in nature within average Hounsfield unit of 43 and imag e 31. Some smaller subcentimeter too small to accurately characterize cysts are seen. On the right th ere is a 1 cm solid lesion emanating laterally from the inferior pole on image 41. Numerous renal cys ts measure up to 6.0 cm. No hydronephrosis is suspected however there renal pelvises sees are slightl y full and there is minimal uroepithelial thickening on the right. The urinary bladder is distended w ith anterior diverticulum. Ureterovesicular reflux is possible. BOWEL: Severe degree colonic fecal stasis. Sigmoid colon is redundant. Percutaneous enteric gastric t ube is seen. Colonic spasm or possible colonic neoplasm is seen at the splenic flexure as there is fo mayo luminal narrowing on image 13. The cecum is low-lying extending towards the inguinal canal. UTERUS/ADNEXA: Uterus appears surgically absent. There is pelvic floor relaxation. LYMPH NODES: No greater than 1cm abdominal or pelvic lymph nodes are appreciated. OSSEOUS STRUCTURES: Mild multilevel degenerative change of the spine and dextroscoliosis of the thora columbar spine are seen. Old fracture deformity of the right inferior pubic ramus is healed.. OTHER: Surgical clip is present within the pelvis near the sigmoid colon. Phleboliths are seen within the pelvis. Injection granulomas are present within the gluteal folds. There is paraspinal muscular atrophy noted. IMPRESSION: 1. Large fusiform aortic aneurysm at the junction of the thoracic aorta and upper abdominal aorta mian suring up to 6.8 x 5.8 x 7.9 cm in transverse by anterior posterior by craniocaudal dimension. 2. 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 3. Polycystic kidney disease with few solid bilateral renal lesions for which CT with contrast is rec ommended for further evaluation. If the patient cannot undergo exam with contrast initial evaluation with ultrasound would be recommended. 4. Severe degree colonic fecal stasis and colonic spasm versus neoplasm of the splenic flexure. Corre late with any recent colonoscopy to determine the need for colonoscopy. 5. Marked intrahepatic and extra hepatic biliary ductal dilatation. Correlate with serum laboratory v alues or prior outside examinations to determine the need for MRCP. 6. Geographic groundglass opacities of the lung bases could represent fluid overload, atelectasis, or pneumonitis. 7. Limited evaluation for hydronephrosis however uroepithelial thickening is seen within the right re nal pelvis and the urinary bladder is distended. Ureterovesicular reflux is possible.
[2019-03-18] MEDS ORDERED: HYDROmorphone 0.5 MG/0.5 ML SYRINGE IVP STA (11:43)
[2019-03-18] MEDS ORDERED: NALOXONE 0.4 MG/ML 1 ML VIAL IV PRN (11:47)
[2019-03-18 11:51] LABS: Appearance,Urine Clear (Clear); Bacteria,Urine Rare /hpf; Bilirubin,Urine Negative (Negative); Blood,Urine Negative (Negative); Color,Urine Yellow; Glucose,Urine (UA) Negative (Negative); Ketones,Urine Negative (Negative); Leukocyte Esterase,Urine Trace (Negative); Mucus,Urine Rare /hpf; Nitrite,Urine Negative (Negative); Protein,Urine Negative (Negative); RBC,Urine 1 /hpf (0-5); Specific Gravity,Urine 1.014 (1.001-1.035); Squamous Epithelial Cell,Urine 1 /hpf (0-4); WBC,Urine 2 /hpf (0-5)
[2019-03-18] MEDS: SODIUM CHLORIDE 0.9% 1,000 ML IV SCH (15:36)
[2019-03-18] MEDS ORDERED: ARTIFICIAL TEARS-HYPROMELLOSE DROPS 15 ML BTL BOTH EYES PRN (16:15)
[2019-03-18 19:29] LABS: Anisocytosis Slight; Basophils % (A) 0 %; Eosinophils # (A) 0.1 k/uL (0-0.7); Eosinophils % (A) 0 %; HCT 26.6 % (34.0-46.0); Hypochromasia Marked; Lymphocytes # (A) 1.3 k/uL (1.0-4.8); Lymphocytes % (A) 11 %; MCH 26.5 pg (25.0-35.0); MCHC 29.7 g/dL (31.0-37.0); Monocytes # (A) 0.9 k/uL (0-1.0); Monocytes % (A) 8 %; Neutrophils # (A) 9.5 k/uL (1.3-7.7); Neutrophils % (A) 80 %; Platelet Count 418 k/uL (150-450); Poikilocytosis Moderate; RBC 2.98 m/uL (3.80-5.40); RDW 16.9 % (11.5-15.5); WBC 11.9 k/uL (3.8-10.6)
[2019-03-18 19:32] LABS: HGB 7.9 gm/dL (11.4-16.0)
[2019-03-18 19:33] LABS: MCV 89.2 fL (80.0-100.0)
[2019-03-18 19:37] LABS: Calcium 9.1 mg/dL (8.4-10.2); Potassium 5.2 mmol/L (3.5-5.1)
[2019-03-18] MEDS: ATORVASTATIN 40 MG TAB PO SCH (21:28)
[2019-03-18] MEDS: METOPROLOL TARTRATE 25 MG TAB PO SCH (21:28)
[2019-03-18] MEDS: PANTOPRAZOLE 40 MG/10 ML VIAL IV SCH (21:40)
[2019-03-18] MEDS: IPRATROPIUM-ALBUTEROL 3 ML NEB INHALATION SCH (21:44)
[2019-03-18] MEDS: SYMBICORT 80-4.5 MCG INHALER INHALATION SCH (21:53)
--- NOTE | 2019-03-18 22:27 | XR ---
EXAMINATION: XR chest 1V DATE AND TIME: 03/18/2019 7:00 PM CLINICAL INDICATION: PHH; sepsis risk; TECHNIQUE: AP portable upright COMPARISON: 03/18/2019 FINDINGS: When compared to with the study from 8:21 AM this morning the overall lung inflation patter n is unchanged. There is an interstitial pattern with marked enlargement of the cardiac silhouette, s uggesting cardiogenic mild interstitial phase pulmonary edema. There is no focal lung consolidation to suggest pneumonia or atelectasis. The pleural spaces are negative. No acute skeletal or soft tissue findings. IMPRESSION: SIMILAR LUNG INFLATION PATTERN WHEN COMPARED TO THIS MORNING'S EXAMINATION.
[2019-03-19] MEDS: IPRATROPIUM-ALBUTEROL 3 ML NEB INHALATION SCH ×5 (00:59→19:07)
[2019-03-19 01:46] LABS: Appearance,Urine Clear (Clear); Bilirubin,Urine Negative (Negative); Blood,Urine Negative (Negative); Color,Urine Yellow; Glucose,Urine (UA) Negative (Negative); Ketones,Urine Negative (Negative); Leukocyte Esterase,Urine Negative (Negative); Nitrite,Urine Negative (Negative); PH, Urine 7.5 (5.0-8.0); Protein,Urine Negative (Negative); Specific Gravity,Urine 1.018 (1.001-1.035)
[2019-03-19] MEDS: SODIUM CHLORIDE 0.9% 1,000 ML IV SCH ×2 (05:24→18:07)
[2019-03-19] MEDS: LEVOTHYROXINE 100 MCG TAB PO SCH (06:09)
[2019-03-19] MEDS: SYMBICORT 80-4.5 MCG INHALER INHALATION SCH ×2 (07:53→19:07)
[2019-03-19] MEDS: METOPROLOL TARTRATE 25 MG TAB PO SCH ×2 (12:35→21:58)
[2019-03-19] MEDS: SERTRALINE 25 MG TAB PO SCH (12:35)
[2019-03-19] MEDS: PANTOPRAZOLE 40 MG/10 ML VIAL IV SCH ×2 (12:35→21:58)
[2019-03-19] MEDS: FUROSEMIDE 40 MG TAB PO SCH (12:35)
[2019-03-19] MEDS: LIDOCAINE 5% PATCH TOPICAL SCH (17:07)
--- NOTE | 2019-03-19 17:21 | P.HPIM ---
History of Present Illness H&P Date: 03/19/19 Chief Complaint: Shortness of breath anemia Anger is an 84-year-old female well-known to my practice who presented presented to the emergency room , yesterday with complaint of abdominal pain left lower quadrant. Patient states the pain has been worsening over last couple of days family states she was pale and not her usual self. Patient also states she feels constipated. Patient has a history of CVA recently and has a feeding tube patient reports no fever denies dysuria hematuria patient has been moving her bowels she states the bleeding she has been doing his made her feel better or worse denies current chest pain denies underlying nausea or vomiting. Patient has steroid-dependent COPD, O2 dependent COPD however she doesn't like to use her oxygen. Known history of diverticulitis Review of Systems Constitutional: Reports as per HPI, Reports fatigue, Reports malaise Eyes: bilateral bulging eye (Senescent exophthalmos) Ears: bilateral: decreased hearing (Chronic hearing loss) Ears, nose, mouth and throat: Reports as per HPI, Reports dysphagia (Patient is also unable to swallow secondary to previous stroke) Cardiovascular: Reports as per HPI (Known coronary artery bypass surgery, known abdominal aortic aneurysm repair, known recurrent abdominal aortic aneurysm being watched, patient is a poor candidate for repair of both because of advanced age and because of respiratory status) Respiratory: Reports dyspnea, Reports home oxygen, Reports wheezing Gastrointestinal: Reports abdominal pain, Reports hematochezia, Reports melena Genitourinary: Reports as per HPI Menstruation: Reports postmenopausal Musculoskeletal: Reports myalgias Integumentary: Reports as per HPI Neurological: Reports as per HPI Psychiatric: Reports as per HPI Past Medical History Past Medical History: CVA/TIA, Hypertension, Thyroid Disorder Additional Past Medical History / Comment(s): feeding tube History of Any Multi-Drug Resistant Organisms: None Reported Past Surgical History: Cholecystectomy, Coronary Bypass/CABG, Hysterectomy Additional Past Surgical History / Comment(s): aorta aneurysm repair Past Anesthesia/Blood Transfusion Reactions: No Reported Reaction Past Psychological History: No Psychological Hx Reported Smoking Status: Former smoker Past Alcohol Use History: None Reported Past Drug Use History: None Reported - Past Family History Father Family Medical History: Coronary Artery Disease (CAD), Thyroid Disorder Medications and Allergies Home Medications Medication Instructions Recorded Confirmed Type RX: Sertraline [Zoloft] 75 mg PO DAILY 11/06/15 03/18/19 History RX: Ipratropium-Albuterol Nebulize 3 ml INHALATION RT-Q4H PRN 03/26/18 03/18/19 History [Duoneb 0.5 mg-3 mg/3 ml Soln] Apixaban [Eliquis] 5 mg PO BID 03/18/19 03/18/19 History Aspirin EC [Ecotrin Low Dose] 81 mg PO W/SUPPER 03/18/19 03/18/19 History Atorvastatin Calcium [Lipitor] 40 mg PO HS 03/18/19 03/18/19 History Carboxymethylcellulose Sodium 1 drop BOTH EYES DAILY PRN 03/18/19 03/18/19 History [Refresh Tears] Furosemide [Lasix] 40 mg PO DAILY 03/18/19 03/18/19 History Levothyroxine Sodium [Synthroid] 100 mcg PO DAILY 03/18/19 03/18/19 History Lidocaine 5% Patch [Lidoderm] 1 patch TOPICAL DAILY 03/18/19 03/18/19 History Metoprolol Tartrate [Lopressor] 75 mg PO BID 03/18/19 03/18/19 History Mometasone/Formoterol [Dulera 100 2 puff INHALATION BID 03/18/19 03/18/19 History Mcg/5 Mcg Inhaler] RX: Famotidine 20 mg PO DAILY 03/18/19 03/18/19 History Allergies Allergy/AdvReac Type Severity Reaction Status Date / Time Penicillins Allergy Swelling Verified 03/18/19 07:54 Physical Exam Osteopathic Statement: *. No significant issues noted on an osteopathic structural exam other than those noted in the History and Physical/Consult. Vitals: Vital Signs Temp Pulse Pulse Resp BP Pulse Ox 03/19/19 15:36 68 03/19/19 15:27 68 03/19/19 12:00 73 17 141/63 100 03/19/19 11:22 76 03/19/19 11:12 72 03/19/19 08:10 68 03/19/19 08:00 97.5 F L 75 16 136/63 97 03/19/19 07:53 68 03/19/19 00:00 63 17 112/53 97 03/18/19 21:56 70 03/18/19 21:49 68 03/18/19 20:00 98.5 F 81 17 116/59 97 Intake and Output 03/19/19 03/19/19 03/19/19 06:59 14:59 22:59 Intake Total 0 Output Total 300 200 Balance -300 -200 Intake: Oral 0 Output: Urine 300 200 Other: Voiding Method Bedpan # Voids 1 1 Weight 72.5 kg 72.5 kg General: [Patient awake, alert and oriented times 3. Patient in no acute distress.] Pale in color, conjunctiva are pale as well HEENT: [PERRL. EOMI. No pharyngeal erythema or exudate.] Unable to swallow or guard airway Neck: [No adenopathy.] Cardiac: [Heart regular in rate and rhythm. No S3. No S4. No clicks, rubs. No murmur.] Mid sternal scarring mid abdominal scarring from bypass surgery, from aneurysm repair surgery Lungs: Coarse breath sounds but diminished bibasilar wheezes Abdomen: [No mass. No organomegaly. Bowel sounds presnt and normoactive in all 4 quadrants.] Extremes: [No edema no cyanosis no claudication normal pulses] : [] Musculoskeletal: [No joint erythema, edema or tenderness.] Skin: [No rash.] Neurologic: [No lateralizing deficits. CN II - XII grossly intact.] Lymphatic: [No adenopathy.] Results CBC & Chem 7: 03/18/19 17:08 03/18/19 17:08 Labs: Abnormal Lab Results - Last 24 Hours (Table) 03/18/19 03/18/19 03/18/19 Range/Units 17:08 17:08 17:08 WBC 11.9 H (3.8-10.6) k/uL RBC 2.98 L (3.80-5.40) m/uL Hgb 7.9 L D (11.4-16.0) gm/dL Hct 26.6 L (34.0-46.0) % MCHC 29.7 L (31.0-37.0) g/dL RDW 16.9 H (11.5-15.5) % Neutrophils # 9.5 H (1.3-7.7) k/uL Potassium 5.2 H (3.5-5.1) mmol/L BUN 51 H (7-17) mg/dL Glucose 101 H (74-99) mg/dL Plasma Lactic Acid Miguel 4.2 H* (0.7-2.0) mmol/L 03/18/19 Range/Units 20:35 WBC (3.8-10.6) k/uL RBC (3.80-5.40) m/uL Hgb (11.4-16.0) gm/dL Hct (34.0-46.0) % MCHC (31.0-37.0) g/dL RDW (11.5-15.5) % Neutrophils # (1.3-7.7) k/uL Potassium (3.5-5.1) mmol/L BUN (7-17) mg/dL Glucose (74-99) mg/dL Plasma Lactic Acid Miguel 2.2 H* (0.7-2.0) mmol/L Microbiology - Last 24 Hours (Table) 03/19/19 01:14 Urine Culture - Preliminary Urine,Voided Thrombosis Risk Factor Assmnt - DVT/VTE Prophylaxis DVT/VTE Prophylaxis: Contraindicated - See note - Choose All That Apply Each Factor Represents 1 point: Abnormal pulmonary function (COPD) Each Risk Factor Represents 3 Points: Age 75 years or older Thrombosis Risk Factor Assessment Total Risk Factor Score: 4 Thrombosis Risk Factor Assessment Level: Moderate Risk Assessment and Plan (1) Abdominal pain Current Visit: Yes Status: Acute Code(s): R10.9 - UNSPECIFIED ABDOMINAL PAIN SNOMED Code(s): 60076689 (2) Anemia Current Visit: Yes Status: Acute Code(s): D64.9 - ANEMIA, UNSPECIFIED SNOMED Code(s): 801011898 (3) GI bleed Current Visit: Yes Status: Acute Code(s): K92.2 - GASTROINTESTINAL HEMORRHAGE, UNSPECIFIED SNOMED Code(s): 27173488 Plan: Patient admitted Transfused 2 units packed red cells CAT scan from abdomen and pelvis performed and reviewed Consultation with GI requested secondary to anemia and GI bleed At abdominal aortic aneurysm by history, as well as new aneurysmal site Chronic obstructive pulmonary disease O2 dependent steroid-dependent, patient noncompliant at times with oxygen Status post CVA patient unable to guard airway poor swallow, tube feeds PEG tube in place Hypothyroidism Hypertension Abdominal pain possible colonic neoplasm Hypercholesterolemia Plan; Transfuse Consultation with GI Optimize medical therapy Time with Patient: Greater than 30
[2019-03-19 18:48] LABS: Bilirubin, Delta 0.1 mg/dL (0.0-0.2); Bilirubin,Unconjugated 0.8 mg/dL (0.0-1.1); Total Bilirubin 0.9 mg/dL (0.2-1.3)
[2019-03-19] MEDS: ATORVASTATIN 40 MG TAB PO SCH (21:58)
--- NOTE | 2019-03-19 22:57 | P.CONS ---
History of Present Illness - Reason for Consult Consult date: 03/19/19 Anemia Requesting physician: Dao Art Jr - History of Present Illness 84-year-old female with multiple medical comorbidities including diverticulosis, oxygen-dependent COPD, recent CVA with residual oropharyngeal dysphagia requiring PEG tube who presented to the hospital for evaluation of abdominal pain. The patient had been experiencing abdominal pain in her lower abdomen, predominantly left lower quadrant. She felt the pain as cramping in nature and felt it was related to constipation. At baseline the patient suffers from constipation. She denied any bright red blood per rectum but does report that his stools have been dark. The patient has undergone EGD with PEG tube placement after her CVA and is currently receiving feedings through the PEG tube. Currently in bed she is reporting that abdominal pain is improved. Evaluation in the emergency department initially significant for hemoglobin 5.6 which improved to 7.9 after transfusion, WBC 11.9, platelet count 418,000, INR 1, stool positive for occult blood, or enzymes which were initially within normal limits trended up on repeat with total bilirubin 0.6-0.9, alkaline phosphatase 101-152, AST 24-192, and ALT 15-190. Computed tomography scan performed in evaluation with multiple findings including severe colonic stasis, as well as intra-and extra hepatic biliary dilation. Review of Systems REVIEW OF SYSTEMS: CONSTITUTIONAL: Denies any fevers, chills, weight change or fatigue. CARDIOVASCULAR: Denies any chest pain, palpitations high or low blood pressures RESPIRATORY: No history of oxygen-dependent COPD. GENITOURINARY: No dysuria or hematuria. MUSCULOSKELETAL: No weakness reported. SKIN: Denies any new rashes or lesions, jaundice or pallor. PSYCHIATRIC: Denies any depression or anxiety. NEUROLOGY: Denies headache, patient is status post recent CVA with residual deficits including oropharyngeal dysphagia requiring PEG tube. EARS/NOSE/THROAT: No recent hearing change, congestion, nasal discharge or sore throat. EYES: No pain in eyes, discharge or change in vision. GASTROINTESTINAL: As per HPI. Past Medical History Past Medical History: CVA/TIA, Hypertension, Thyroid Disorder Additional Past Medical History / Comment(s): feeding tube History of Any Multi-Drug Resistant Organisms: None Reported Past Surgical History: Cholecystectomy, Coronary Bypass/CABG, Hysterectomy Additional Past Surgical History / Comment(s): aorta aneurysm repair Past Anesthesia/Blood Transfusion Reactions: No Reported Reaction Past Psychological History: No Psychological Hx Reported Smoking Status: Former smoker Past Alcohol Use History: None Reported Past Drug Use History: None Reported - Past Family History Father Family Medical History: Coronary Artery Disease (CAD), Thyroid Disorder Medications and Allergies Home Medications Medication Instructions Recorded Confirmed Type Sertraline [Zoloft] 75 mg PO DAILY 11/06/15 03/18/19 History Ipratropium-Albuterol Nebulize 3 ml INHALATION RT-Q4H PRN 03/26/18 03/18/19 History [Duoneb 0.5 mg-3 mg/3 ml Soln] Apixaban [Eliquis] 5 mg PO BID 03/18/19 03/18/19 History Aspirin EC [Ecotrin Low Dose] 81 mg PO W/SUPPER 03/18/19 03/18/19 History Atorvastatin Calcium [Lipitor] 40 mg PO HS 03/18/19 03/18/19 History Carboxymethylcellulose Sodium 1 drop BOTH EYES DAILY PRN 03/18/19 03/18/19 History [Refresh Tears] Famotidine 20 mg PO DAILY 03/18/19 03/18/19 History Furosemide [Lasix] 40 mg PO DAILY 03/18/19 03/18/19 History Levothyroxine Sodium [Synthroid] 100 mcg PO DAILY 03/18/19 03/18/19 History Lidocaine 5% Patch [Lidoderm] 1 patch TOPICAL DAILY 03/18/19 03/18/19 History Metoprolol Tartrate [Lopressor] 75 mg PO BID 03/18/19 03/18/19 History Mometasone/Formoterol [Dulera 100 2 puff INHALATION BID 03/18/19 03/18/19 History Mcg/5 Mcg Inhaler] Allergies Allergy/AdvReac Type Severity Reaction Status Date / Time Penicillins Allergy Swelling Verified 03/18/19 07:54 Physical Exam Vitals: Vital Signs Temp Pulse Pulse Resp BP BP Pulse Ox 03/19/19 11:22 76 03/19/19 11:12 72 03/19/19 08:10 68 03/19/19 08:00 97.5 F L 75 16 136/63 97 03/19/19 07:53 68 03/19/19 00:00 63 17 112/53 97 03/18/19 21:56 70 03/18/19 21:49 68 03/18/19 20:00 98.5 F 81 17 116/59 97 03/18/19 13:29 98 F 72 18 152/72 100 03/18/19 12:45 97.8 F 72 18 152/72 100 03/18/19 12:43 97.9 F 75 17 148/75 100 03/18/19 12:15 97.5 F L 70 18 140/65 100 Intake and Output 03/18/19 03/19/19 03/19/19 22:59 06:59 14:59 Intake Total 0 Output Total 300 Balance -300 Intake: Oral 0 Output: Urine 300 Other: Voiding Method Bedpan Bedpan # Voids 1 1 Weight 72.5 kg 72.5 kg On physical examination, patient appears comfortable in no apparent distress. HEAD: Normocephalic, atraumatic. EYES: No scleral icterus. No conjunctival injection. MOUTH: No lesions, tongue midline. NECK: Trachea midline, no gross abnormalities. CHEST: Decreased air entry in all lung trevino HEART: S1-S2 appreciated ABDOMEN: Soft, PEG tube in place and appears clean/dry/intact around PEG site. Bowel sounds are positive. No organomegaly. No guarding or rigidity. EXTREMITIES: No pedal edema. SKIN: No rashes, no jaundice. NEUROLOGIC: Alert and oriented x3. Results CBC & Chem 7: 03/18/19 17:08 03/18/19 17:08 Labs: Abnormal Lab Results - Last 24 Hours (Table) 03/18/19 03/18/19 03/18/19 Range/Units 07:20 12:20 17:08 WBC (3.8-10.6) k/uL RBC (3.80-5.40) m/uL Hgb (11.4-16.0) gm/dL Hct (34.0-46.0) % MCHC (31.0-37.0) g/dL RDW (11.5-15.5) % Neutrophils # (1.3-7.7) k/uL Potassium (3.5-5.1) mmol/L BUN (7-17) mg/dL Glucose (74-99) mg/dL Plasma Lactic Acid Miguel 2.1 H* 4.2 H* (0.7-2.0) mmol/L Crossmatch See Detail 03/18/19 03/18/1903/18/19 Range/Units 17:08 17:08 20:35 WBC 11.9 H (3.8-10.6) k/uL RBC 2.98 L (3.80-5.40) m/uL Hgb 7.9 L D (11.4-16.0) gm/dL Hct 26.6 L (34.0-46.0) % MCHC 29.7 L (31.0-37.0) g/dL RDW 16.9 H (11.5-15.5) % Neutrophils # 9.5 H (1.3-7.7) k/uL Potassium 5.2 H (3.5-5.1) mmol/L BUN 51 H (7-17) mg/dL Glucose 101 H (74-99) mg/dL Plasma Lactic Acid Miguel 2.2 H* (0.7-2.0) mmol/L Crossmatch Microbiology - Last 24 Hours (Table) 03/19/19 01:14 Urine Culture - Preliminary Urine,Voided CT scan - abdomen: report reviewed (Computed tomography scan performed in evaluation with multiple findings including severe colonic stasis, as well as intra-and extra hepatic biliary dilation.) Assessment and Plan (1) GI bleed Narrative/Plan: 84-year-old female with multiple medical comorbidities including recent CVA requiring PEG tube for oropharyngeal dysphagia who presented to the hospital with abdominal pain. She was also noted to have stool testing which was positive for occult blood and fall in hemoglobin. Patient is on anticoagulation therapy at home. Unclear etiology, may relate to upper GI pathology including ulceration around PEG tube site, peptic ulcer disease, gastritis/esophagitis or other etiology. Current Visit: Yes Status: Acute Code(s): K92.2 - GASTROINTESTINAL HEMORRHAG E, UNSPECIFIED SNOMED Code(s): 69569686 (2) Elevated liver enzymes Narrative/Plan: Liver enzymes normal on admission, subsequently developed a hepatocellular elevation in liver enzymes. Likely related to hypoperfusion of the liver or medication effects given the acuity of the elevation. She did have findings on computed tomography scan of the intra-and extrahepatic biliary dilation, however bilirubin has remained normal. Further evaluation of CT findings can be performed with MRI. At this time will order acute viral serology. Current Visit: Yes Status: Acute Code(s): R74.8 - ABNORMAL LEVELS OF OTHER SERUM ENZYMES SNOMED Code(s): 032765790 (3) Abdominal pain Narrative/Plan: Likely related to constipation, with patient reporting a regular bowel movements and fecal stasis noted on CT imaging. Current Visit: Yes Status: Acute Code(s): R10.9 - UNSPECIFIED ABDOMINAL PAIN SNOMED Code(s): 23882362 (4) Anemia Current Visit: Yes Status: Acute Code(s): D64.9 - ANEMIA, UNSPECIFIED SNOMED Code(s): 623615931 Plan: Supportive care Nothing by mouth Speech language pathology has evaluated the patient Okay for tube feeds Protonix 40 mg IV twice a day Continue to monitor hemoglobin and hematocrit and transfuse as needed Patient's multiple medical comorbidities per at high risk for endoscopic evaluation, discussed with the patient and her sister at length and at this time we will optimize medical therapy and watch hemoglobin, in the setting of recent EGD with PEG tube placement Bowel regimen started with MiraLAX daily through PEG tube, can titrate to bowel movements Repeat liver enzymes, an acute viral hepatitis panel ordered, suspicion is for medication related etiology of elevated hepatocellular liver enzymes versus hypoperfusion/ischemia, versus other etiology Can consider MRI abdomen if further evaluation of dilated intra-and extrahepatic biliary ducts is desired, however no evidence of obstruction on lab evaluation with normal bilirubin Thank you for allowing us to participate in care of the patient we will continue to follow
[2019-03-20 00:04] LABS: Alpha Fetoprotein, Tumor Mkr 5.7 ng/mL (0.0-7.9)
[2019-03-20 00:35] LABS: Cancer Antigen 19-9 22.9 U/mL (0.0-34.9)
--- NOTE | 2019-03-20 01:04 | P.CONS ---
History of Present Illness - Reason for Consult Consult date: 03/19/19 Sepsis risk Requesting physician: Dao Art Jr - Chief Complaint Abdominal pain x few days - History of Present Illness Patient is 84-year-old female with his been brought into the ER at [facility] for evaluation of abdominal pain that has been going on for a day or 2 before presentation to the hospital patient described the pain to the lower abdominal area he does aching pain intensity 6-7 out of 10 with no radiation some associated nausea but no vomiting and the patient has constipation , pt deneis burning or frequency of urine with the symptoms the patient was evaluated by the ER physician patient did have CT of abdominal pelvis which was some evidence of pneumonitis aortic aneurysm and significant constipation but no evidence of any diverticulitis this patient did have mildly elevated white count and elevated lactic acid UA has been negative ID was consulted for recommendations regarding sepsis risk, patient did have a PEG tube for feeding which according to family member has been secondary to previous oral surgery to decrease her risk of aspiration which apparently did not work patient seemed to have been eating some food at home however speech patholgy who was recommending no oral intake and high risk of aspiration Review of Systems Positive points has been mentioned in HPI rest of the systems are negative Past Medical History Past Medical History: CVA/TIA, Hypertension, Thyroid Disorder Additional Past Medical History / Comment(s): feeding tube History of Any Multi-Drug Resistant Organisms: None Reported Past Surgical History: Cholecystectomy, Coronary Bypass/CABG, Hysterectomy Additional Past Surgical History / Comment(s): aorta aneurysm repair Past Anesthesia/Blood Transfusion Reactions: No Reported Reaction Past Psychological History: No Psychological Hx Reported Smoking Status: Former smoker Past Alcohol Use History: None Reported Past Drug Use History: None Reported - Past Family History Father Family Medical History: Coronary Artery Disease (CAD), Thyroid Disorder Medications and Allergies Home Medications Medication Instructions Recorded Confirmed Type Sertraline [Zoloft] 75 mg PO DAILY 11/06/15 03/18/19 History Ipratropium-Albuterol Nebulize 3 ml INHALATION RT-Q4H PRN 03/26/18 03/18/19 History [Duoneb 0.5 mg-3 mg/3 ml Soln] Apixaban [Eliquis] 5 mg PO BID 03/18/19 03/18/19 History Aspirin EC [Ecotrin Low Dose] 81 mg PO W/SUPPER 03/18/19 03/18/19 History Atorvastatin Calcium [Lipitor] 40 mg PO HS 03/18/19 03/18/19 History Carboxymethylcellulose Sodium 1 drop BOTH EYES DAILY PRN 03/18/19 03/18/19 History [Refresh Tears] Famotidine 20 mg PO DAILY 03/18/19 03/18/19 History Furosemide [Lasix] 40 mg PO DAILY 03/18/19 03/18/19 History Levothyroxine Sodium [Synthroid] 100 mcg PO DAILY 03/18/19 03/18/19 History Lidocaine 5% Patch [Lidoderm] 1 patch TOPICAL DAILY 03/18/19 03/18/19 History Metoprolol Tartrate [Lopressor] 75 mg PO BID 03/18/19 03/18/19 History Mometasone/Formoterol [Dulera 100 2 puff INHALATION BID 03/18/19 03/18/19 History Mcg/5 Mcg Inhaler] Allergies Allergy/AdvReac Type Severity Reaction Status Date / Time Penicillins Allergy Swelling Verified 03/18/19 07:54 Physical Exam Vitals: Vital Signs Temp Pulse Pulse Resp BP Pulse Ox 03/19/19 19:17 76 03/19/19 19:07 72 03/19/19 16:00 65 19 125/78 100 03/19/19 15:36 68 03/19/19 15:27 68 03/19/19 12:00 73 17 141/63 100 03/19/19 11:22 76 03/19/19 11:12 72 03/19/19 08:10 68 03/19/19 08:00 97.5 F L 75 16 136/63 97 03/19/19 07:53 68 03/19/19 00:00 63 17 112/53 97 Intake and Output 03/19/19 03/19/19 03/20/19 14:59 22:59 06:59 Intake Total 0 10 Output Total 300 400 Balance -300 -390 Intake: Oral 0 Tube Feeding 10 Output: Urine 300 400 Other: Voiding Method Bedpan Bedpan # Voids 1 1 Weight 72.5 kg GENERAL DESCRIPTION: An elderly female lying in bed, no distress. No tachypnea or accessory muscle of respiration use. HEENT: Shows Pallor , no scleral icterus. Oral mucous membrane is dry. No phar yngeal erythema or thrush NECK: Trachea central, no thyromegaly. LUNGS: Unlabored breathing. Decreased present at the base. No wheeze or crackle. HEART: S1, S2, regular rate and rhythm. No loud murmur ABDOMEN: Soft, no tenderness , guarding or rigidity, no organomegaly EXTREMITIES: No edema of feet. SKIN: No rash, no masses palpable. NEUROLOGICAL: The patient is awake, alert, oriented x3, mood and affect normal. Results CBC & Chem 7: 03/18/19 17:08 03/18/19 17:08 Labs: Abnormal Lab Results - Last 24 Hours (Table) 03/19/19 Range/Units 16:07 AST 192 H (14-36) U/L ALT 190 H (9-52) U/L Alkaline Phosphatase 152 H (38-126) U/L Microbiology - Last 24 Hours (Table) 03/19/19 01:14 Urine Culture - Preliminary Urine,Voided Assessment and Plan Assessment: 1-patient presenting to the hospital abdominal pain in this patient who did have evidence of constipation on the CT it also shows some evidence of pneumonitis at the lung bases could have been atelectasis as the patient currently not running any fever and no significant cough or sputum production 2-patient did have mildly elevated white count and lactic acid could have been related to underlying dehydration clinically doubt active source of infection in this patient currently with no fever and does not look toxic 3-penicillin ALLERGY--limiting choices of antibiotic Plan: 1-management of underlying constipation abdominal pain per admitting in GI services 2-gentle IV fluid 3-hold on any systemic antibiotics as currently no clinical focus of infection we will follow on clinical condition and culture to further adjust medication if needed Thank you for this consultation will follow this patient along with you Time with Patient: Greater than 30
[2019-03-20] MEDS: SODIUM CHLORIDE 0.9% 1,000 ML IV SCH ×2 (06:26→18:11)
[2019-03-20] MEDS: LEVOTHYROXINE 100 MCG TAB PO SCH (06:26)
[2019-03-20 07:23] LABS: Bilirubin, Delta 0.2 mg/dL (0.0-0.2); Bilirubin,Unconjugated 0.7 mg/dL (0.0-1.1); Total Bilirubin 0.9 mg/dL (0.2-1.3)
[2019-03-20] MEDS: SYMBICORT 80-4.5 MCG INHALER INHALATION SCH ×2 (08:29→20:41)
[2019-03-20] MEDS: IPRATROPIUM-ALBUTEROL 3 ML NEB INHALATION SCH ×4 (08:29→20:42)
[2019-03-20] MEDS ORDERED: POLYETHYLENE GLYCOL 3350 17 GM POWD.PACK PO SCH (09:00)
[2019-03-20] MEDS: SERTRALINE 25 MG TAB PO SCH (09:01)
[2019-03-20] MEDS: METOPROLOL TARTRATE 25 MG TAB PO SCH ×2 (09:02→21:59)
[2019-03-20] MEDS: FUROSEMIDE 40 MG TAB PO SCH (09:03)
[2019-03-20] MEDS: PANTOPRAZOLE 40 MG/10 ML VIAL IV SCH ×2 (09:04→21:59)
[2019-03-20] MEDS: LIDOCAINE 5% PATCH TOPICAL SCH (09:17)
[2019-03-20 12:29] LABS: Hepatitis A Antibody IgM Non-Reactive (Non-Reactive); Hepatitis B Core IgM Non-Reactive (Non-Reactive); Hepatitis B Surface Antigen Non-Reactive (Non-Reactive); Hepatitis C IgG Antibody Non-Reactive (Non-Reactive)
[2019-03-20 13:11] LABS: Potassium 4.4 mmol/L (3.5-5.1)
--- NOTE | 2019-03-20 21:04 | PN ---
PROGRESS NOTE DATE OF SERVICE: 03/20/2019. REASON FOR FOLLOWUP: Leukocytosis, elevated lactic acid and a question of infection. INTERVAL HISTORY: The patient is currently afebrile. Patient has been breathing comfortably. Denies having any chest pain. She did have some cough but not bringing up any sputum. No nausea, vomiting. No abdominal pain or any diarrhea. PHYSICAL EXAMINATION: Blood pressure is 134/63 with a pulse of 72, temperature 98. She is 97% on 2 L nasal cannula. General description is an elderly female, lying in bed in no distress. Respiratory system: Unlabored breathing with decreased breath sounds in the bases. HEART: S1, S2. Regular rate and rhythm. Abdomen soft. No tenderness. Extremities: No edema of the feet. LABS: The patient did have elevated liver enzymes. Urine cultures have been negative so far. DIAGNOSTIC IMPRESSION AND PLAN: Patient admitted to the hospital with abdominal pain, did have evidence of constipation. The patient's abdominal pain has resolved. Did have mildly elevated white count and lactic acid. However, no clinical source of an infection. The patient did have elevated liver enzymes with evidence of marked intrahepatic biliary dilatation. We will obtain ultrasound of the liver, gallbladder area, and monitor clinical course closely. Continue supportive care. MMODL / IJN: [id number] /
[2019-03-20] MEDS: ATORVASTATIN 40 MG TAB PO SCH (21:59)
--- NOTE | 2019-03-20 23:10 | P.PN ---
Subjective Progress Note Date: 03/20/19 Principal diagnosis: GI bleed, abdominal pain, elevated liver enzymes Patient seen lying in bed denying any abdominal pain at this time, but did report some earlier in the day. His tolerated tube feeds. No bowel movements or signs or symptoms of GI bleeding at this time. Objective - Vital Signs Vital signs: Vital Signs Temp 98 F 03/20/19 15:51 Pulse 74 03/20/19 20:57 Resp 20 03/20/19 15:51 BP 134/63 03/20/19 15:51 Pulse Ox 97 03/20/19 16:33 Intake & Output 03/20/19 03/20/19 03/21/19 06:59 18:59 06:59 Intake Total 80 880 Output Total 1000 Balance 80 -120 Intake: Intake, IV Titration 490 Amount Sodium Chloride 0.9% 1, 490 000 ml @ 75 mls/hr IV . [id number] [facility] Rx#:[id number] Tube Feeding 80 390 Output: Urine 1000 Other: Voiding Method Bedside Commode Bedside Commode Bedpan Bedpan # Voids 3 - Exam On physical examination, patient appears comfortable in no apparent distress. HEAD: Normocephalic, atraumatic. EYES: No scleral icterus. No conjunctival injection. MOUTH: No lesions, tongue midline. NECK: Trachea midline, no gross abnormalities. CHEST: Decreased air entry bilaterally. HEART: S1-S2 appreciated. ABDOMEN: Soft, PEG tube site is clean dry and intact. Bowel sounds are positive. No organomegaly. No guarding or rigidity. EXTREMITIES: No pedal edema. SKIN: No rashes, no jaundice. NEUROLOGIC: Alert and oriented to person and place. - Labs CBC & Chem 7: 03/18/19 17:08 03/20/19 06:15 Labs: Abnormal Lab Results - Last 24 Hours (Table) 03/20/19 03/20/19 Range/Units 06:15 06:15 BUN 39 H (7-17) mg/dL Glucose 107 H (74-99) mg/dL AST 127 H (14-36) U/L ALT 152 H (9-52) U/L Alkaline Phosphatase 141 H (38-126) U/L Total Protein 6.0 L (6.3-8.2) g/dL Albumin 3.0 L (3.5-5.0) g/dL Microbiology - Last 24 Hours (Table) 03/19/19 01:14 Urine Culture - Final Urine,Voided Assessment and Plan (1) GI bleed Narrative/Plan: 84-year-old female with multiple medical comorbidities including recent CVA requiring PEG tube for oropharyngeal dysphagia who presented to the hospital with abdominal pain. She was also noted to have stool testing which was positive for occult blood and fall in hemoglobin. Patient is on anticoagulation therapy at home. Unclear etiology, may relate to upper GI pathology including ulceration around PEG tube site, peptic ulcer disease, gastritis/esophagitis or other etiology. Current Visit: Yes Status: Acute Code(s): K92.2 - GASTROINTESTINAL HEMORRHAGE, UNSPECIFIED SNOMED Code(s): 90507060 (2) Elevated liver enzymes Narrative/Plan: Liver enzymes normal on admission, subsequently developed a hepatocellular elevation in liver enzymes. Likely related to hypoperfusion of the liver or medication effects given the acuity of the elevation. She did have findings on computed tomography scan of the intra-and extrahepatic biliary dilation, however bilirubin has remained normal. Further evaluation of CT findings can be performed with MRI. Viral hepatitis panel negative. Current Visit: Yes Status: Acute Code(s): R74.8 - ABNORMAL LEVELS OF OTHER SERUM ENZYMES SNOMED Code(s): 343570725 (3) Abdominal pain Narrative/Plan: Likely related to constipation, with patient reporting a regular bowel movements and fecal stasis noted on CT imaging. Current Visit: Yes Status: Acute Code(s): R10.9 - UNSPECIFIED ABDOMINAL PAIN SNOMED Code(s): 19986486 (4) Anemia Current Visit: Yes Status: Acute Code(s): D64.9 - ANEMIA, UNSPECIFIED SNOMED Code(s): 055979639 Plan: Supportive care Nothing by mouth Speech language pathology has evaluated the patient Okay for tube feeds Protonix 40 mg IV twice a day Continue to monitor hemoglobin and hematocrit and transfuse as needed Patient's multiple medical comorbidities per at high risk for endoscopic evaluat ion, discussed with the patient and her sister at length and at this time we will optimize medical therapy and watch hemoglobin, in the setting of recent EGD with PEG tube placement Bowel regimen started with MiraLAX daily through PEG tube, will increase will increase dosing to twice daily and if no bowel movement tomorrow will consider enema Repeat liver enzymes, an acute viral hepatitis panel negative, suspicion is for medication related etiology of elevated hepatocellular liver enzymes versus hypoperfusion/ischemia, versus other etiology Can consider MRI abdomen if further evaluation of dilated intra-and extrahepatic biliary ducts is desired, however no evidence of obstruction on lab evaluation with normal bilirubin Thank you for allowing us to participate in care of the patient we will continue to follow
[2019-03-21] MEDS: LEVOTHYROXINE 100 MCG TAB PO SCH (06:32)
[2019-03-21 07:08] LABS: African American GFR (CKD) >90 (>60 ml/min/1.73 sqM); Anion Gap 6 mmol/L; Blood Urea Nitrogen 40 mg/dL (7-17); Calcium 8.9 mg/dL (8.4-10.2); Carbon Dioxide 28 mmol/L (22-30); Chloride 106 mmol/L (98-107); Glucose 101 mg/dL (74-99); Non-African American GFR(CKD) 81 (>60 ml/min/1.73 sqM); Potassium 4.1 mmol/L (3.5-5.1); Sodium 140 mmol/L (137-145)
[2019-03-21 07:10] LABS: Anisocytosis Slight; Basophils % (A) 0 %; Eosinophils # (A) 0.1 k/uL (0-0.7); Eosinophils % (A) 1 %; Hypochromasia Marked; Lymphocytes # (A) 0.8 k/uL (1.0-4.8); Lymphocytes % (A) 10 %; MCH 26.2 pg (25.0-35.0); MCHC 29.8 g/dL (31.0-37.0); MCV 87.9 fL (80.0-100.0); Mean Platelet Volume 6.9; Monocytes # (A) 0.7 k/uL (0-1.0); Monocytes % (A) 8 %; Neutrophils # (A) 6.7 k/uL (1.3-7.7); Neutrophils % (A) 79 %; Platelet Count 375 k/uL (150-450); Poikilocytosis Moderate; RDW 16.8 % (11.5-15.5); WBC 8.5 k/uL (3.8-10.6)
[2019-03-21] MEDS: SYMBICORT 80-4.5 MCG INHALER INHALATION SCH ×2 (07:19→20:00)
[2019-03-21] MEDS: IPRATROPIUM-ALBUTEROL 3 ML NEB INHALATION SCH ×4 (07:19→20:00)
[2019-03-21 07:36] LABS: HGB 6.6 gm/dL (11.4-16.0)
[2019-03-21] MEDS: LIDOCAINE 5% PATCH TOPICAL SCH (08:45)
[2019-03-21 08:49] LABS: Anisocytosis Slight; HCT 20.7 % (34.0-46.0); Hypochromasia Marked; MCH 26.1 pg (25.0-35.0); MCHC 30.2 g/dL (31.0-37.0); MCV 86.3 fL (80.0-100.0); Mean Platelet Volume 6.5; Platelet Count 368 k/uL (150-450); Poikilocytosis Moderate; RDW 17.5 % (11.5-15.5); WBC 8.3 k/uL (3.8-10.6)
[2019-03-21] MEDS: METOPROLOL TARTRATE 25 MG TAB PO SCH ×2 (08:50→20:30)
[2019-03-21] MEDS: PANTOPRAZOLE 40 MG/10 ML VIAL IV SCH ×2 (08:50→20:30)
[2019-03-21] MEDS: POLYETHYLENE GLYCOL 3350 17 GM POWD.PACK PO SCH ×2 (08:50→20:31)
[2019-03-21] MEDS: SERTRALINE 25 MG TAB PO SCH (08:50)
[2019-03-21] MEDS: FUROSEMIDE 40 MG TAB PO SCH (08:50)
[2019-03-21 08:51] LABS: HGB 6.3 gm/dL (11.4-16.0)
--- NOTE | 2019-03-21 12:12 | P.PN ---
Subjective Progress Note Date: 03/20/19 Siddhartha is an 84-year-old female well-known to my practice who presented presented to the emergency room , yesterday with complaint of abdominal pain left lower quadrant. Patient states the pain has been worsening over last couple of days family states she was pale and not her usual self. Patient also states she feels constipated. Patient has a history of CVA recently and has a feeding tube patient reports no fever denies dysuria hematuria patient has been moving her bowels she states the bleeding she has been doing his made her feel better or worse denies current chest pain denies underlying nausea or vomiting. Patient has steroid-dependent COPD, O2 dependent COPD however she doesn't like to use her oxygen. Known history of diverticulitis 03/20/2019 abdominal pain resolved .maintained on gentle IV fluid hydration .currently no antibiotics recommended as per ID. Development increased pulmo nary congestion; new onset rhonchi. Failed modified barium swallow, strict nothing by mouth, strict aspiration precautions maintained. PEG tube feedings currently at 30, goal 65. CT suggestive of constipation versus neoplasm mass, will eventually need colonoscopy. No bowel movement today. Bowel movement yesterday, tested positive for occult blood T bili normal,. Elevated LFTs,,hepatitis panel negative Telemetry sinus rhythm. Denies chest pain, palpitations. Objective - Vital Signs Vital signs: Vital Signs Temp 98 F 03/20/19 15:51 Pulse 72 03/20/19 16:46 Resp 20 03/20/19 15:51 BP 134/63 03/20/19 15:51 Pulse Ox 97 03/20/19 16:33 Intake & Output 03/19/19 03/20/19 03/20/19 18:59 06:59 18:59 Intake Total 10 80 880 Output Total 700 1000 Balance -690 80 -120 Weight 72.5 kg Intake: Intake, IV Titration 490 Amount Sodium Chloride 0.9% 1, 490 000 ml @ 75 mls/hr IV . [id number] [facility] Rx#:[id number] Oral 0 Tube Feeding 10 80 390 Output: Urine 700 1000 Other: Voiding Method Bedpan Bedside Commode Bedside Commode Bedpan Bedpan # Voids 1 3 - Exam General: awake, alert and oriented times 3, no acute distress HEENT: [PERRL. pale conjunctiva, EOMI. No pharyngeal erythema or exudate.] Unable to swallow or guard airway Neck: [No adenopathy.] Cardiac: [Heart regular in rate and rhythm. No S3. No S4. No clicks, rubs. No murmur.] Mid sternal scarring mid abdominal scarring from bypass surgery, from aneurysm repair surgery Lungs: Coarse breath sounds but diminished bibasilar, scattered rhonchi throughout Abdomen: [No mass. No organomegaly. Bowel sounds presnt and normoactive in all 4 quadrants.] Extremes: [No edema no cyanosis no claudication normal pulses] Musculoskeletal: [No joint erythema, edema or tenderness.] Skin: [No rash.] Neurologic: [No lateralizing deficits. CN II - XII grossly intact.] Lymphatic: [No adenopathy.] - Labs CBC & Chem 7: 03/21/19 08:23 03/21/19 05:37 Labs: Abnormal Lab Results - Last 24 Hours (Table) 03/19/19 03/20/19 03/20/19 Range/Units 16:07 06:15 06:15 BUN 39 H (7-17) mg/dL Glucose 107 H (74-99) mg/dL AST 192 H 127 H (14-36) U/L ALT 190 H 152 H (9-52) U/L Alkaline Phosphatase 152 H 141 H (38-126) U/L Total Protein 6.0 L (6.3-8.2) g/dL Albumin 3.0 L (3.5-5.0) g/dL Microbiology - Last 24 Hours (Table) 03/19/19 01:14 Urine Culture - Final Urine,Voided Assessment and Plan Assessment: (1) Abdominal pain Current Visit: Yes Status: Acute Code(s): R10.9 - UNSPECIFIED ABDOMINAL PAIN SNOMED Code(s): 60153754 (2) Anemia Current Visit: Yes Status: Acute Code(s): D64.9 - ANEMIA, UNSPECIFIED SNOMED Code(s): 265411399 (3) GI bleed Current Visit: Yes Status: Acute Code(s): K92.2 - GASTROINTESTINAL HE MORRHAGE, UNSPECIFIED SNOMED Code(s): 84133276 -Dehydration -Possible pneumonitis, doubtful as patient without fever, congestion or cough, probably atelectasis -History of abdominal aortic aneurysm as well as new aneurysmal site -COPD, steroid-dependent -Chronic hypoxic respiratory failure, noncompliant at times with O2 -Status post CVA, failed swallow eval, recent PEG tube placement -Hypothyroidism -Hypertension -Abdominal pain, constipation, possible colonic neoplasm -Hypercholesterolemia -Elevated LFTs, possibly medication induced, possible secondary to hypoperfusion Plan: Continue on current medication regime ,monitoring and symptomatic treatment. Strict aspiration precautions.NPO, PEG tube feedings only. IV fluids KVO'd, developing increased lung congestion. PPI in place. Close monitoring of hemoglobin, electro lites with repeat labs ordered for a.m. High risk for endoscopy, continue monitoring as per GI. Bowel regimen with MiraLAX initiated. Follow closely with GI and infectious disease. Further recommendations to follow. The impression and plan of care has been dictated as directed. : I performed a history and examination of this patient, discussed the same with the dictator. I agree with the dictator's note ,documented as a scribe. Any additional findings or plans will be noted.
[2019-03-21] MEDS ORDERED: NA PHOS,M-B/NA PHOS,DI-BA 133 ML ENEMA RECTAL ONE (12:29)
--- NOTE | 2019-03-21 17:35 | P.PN ---
Subjective Progress Note Date: 03/21/19 Siddhartha is an 84-year-old female well-known to my practice who presented presented to the emergency room , yesterday with complaint of abdominal pain left lower quadrant. Patient states the pain has been worsening over last couple of days family states she was pale and not her usual self. Patient also states she feels constipated. Patient has a history of CVA recently and has a feeding tube patient reports no fever denies dysuria hematuria patient has been moving her bowels she states the bleeding she has been doing his made her feel better or worse denies current chest pain denies underlying nausea or vomiting. Patient has steroid-dependent COPD, O2 dependent COPD however she doesn't like to use her oxygen. Known history of diverticulitis 03/20/2019 abdominal pain resolved .maintained on gentle IV fluid hydration .currently no antibiotics recommended as per ID. Development increased pulmo nary congestion; new onset rhonchi. Failed modified barium swallow, strict nothing by mouth, strict aspiration precautions maintained. PEG tube feedings currently at 30, goal 65. CT suggestive of constipation versus neoplasm mass, will eventually need colonoscopy. No bowel movement today. Bowel movement yesterday, tested positive for occult blood T bili normal,. Elevated LFTs,,hepatitis panel negative Telemetry sinus rhythm. Denies chest pain, palpitations. 03/21/2019 hemoglobin dropped to 6.3, receiving one unit of packed RBCs currently. Denies chest pain, palpitations or shortness of breath.VSS. Objective - Vital Signs Vital signs: Vital Signs Temp 98.1 F 03/21/19 11:49 Pulse 75 03/21/19 11:49 Resp 20 03/21/19 11:49 BP 128/54 03/21/19 11:49 Pulse Ox 99 03/21/19 11:49 Intake & Output 03/20/19 03/21/19 03/21/19 18:59 06:59 18:59 Intake Total 880 140 120 Output Total 1000 500 Balance -120 140 -380 Weight 69.4 kg Intake: Intake, IV Titration 490 Amount Sodium Chloride 0.9% 1, 490 000 ml @ 20 mls/hr IV . Q24H [facility] Rx#:[id number] Tube Feeding 390 140 120 Output: Urine 1000 500 Other: Voiding Method Bedside Commode Bedside Commode Bedside Commode Bedpan Bedpan Bedpan - Exam General: awake, alert and oriented times 3, no acute distress HEENT: [PERRL. pale conjunctiva, EOMI. No pharyngeal erythema or exudate.] Unable to swallow or guard airway Neck: [No adenopathy.] Cardiac: [Heart regular in rate and rhythm. No S3. No S4. No clicks, rubs. No murmur.] Mid sternal scarring mid abdominal scarring from bypass surgery, from aneurysm repair surgery Lungs: Coarse breath sounds but diminished bibasilar, scattered rhonchi throughout Abdomen: [No mass. No organomegaly. Bowel sounds presnt and normoactive in all 4 quadrants.] Extremes: [No edema no cyanosis no claudication normal pulses] Musculoskeletal: [No joint erythema, edema or tenderness.] Skin: [No rash.] Neurologic: [No lateralizing deficits. CN II - XII grossly intact.] Lymphatic: [No adenopathy.] - Labs CBC & Chem 7: 03/21/19 08:23 03/21/19 05:37 Labs: Abnormal Lab Results - Last 24 Hours (Table) 03/20/19 03/21/19 03/21/19 Range/Units 06:15 05:37 05:37 RBC 2.50 L (3.80-5.40) m/uL Hgb 6.6 L* (11.4-16.0) gm/dL Hct 22.0 L (34.0-46.0) % MCHC 29.8 L (31.0-37.0) g/dL RDW 16.8 H (11.5-15.5) % Lymphocytes # 0.8 L (1.0-4.8) k/uL BUN 39 H 40 H (7-17) mg/dL Glucose 107 H 101 H (74-99) mg/dL Crossmatch 03/21/19 03/21/19 Range/Units 08:23 09:09 RBC 2.40 L (3.80-5.40) m/uL Hgb 6.3 L* (11.4-16.0) gm/dL Hct 20.7 L (34.0-46.0) % MCHC 30.2 L (31.0-37.0) g/dL RDW 17.5 H (11.5-15.5) % Lymphocytes # (1.0-4.8) k/uL BUN (7-17) mg/dL Glucose (74-99) mg/dL Crossmatch See Detail Microbiology - Last 24 Hours (Table) 03/19/19 01:14 Urine Culture - Final Urine,Voided Assessment and Plan Assessment: (1) Abdominal pain Current Visit: Yes Status: Acute Code(s): R10.9 - UNSPECIFIED ABDOMINAL PAIN SNOMED Code(s): 28618558 (2) Anemia, acute blood loss, etiology unclear, possible colonic neoplasm. GI following Current Visit: Yes Status: Acute Code(s): D64.9 - ANEMIA, UNSPECIFIED SNOMED Code(s): 737505210 (3) GI bleed Current Visit: Yes Status: Acute Code(s): K92.2 - GASTROINTESTINAL HEMORRHAGE, UNSPECIFIED SNOMED Code(s): 71603908 -Dehydration -Possible pneumonitis, doubtful as patient without fever, congestion or cough, probably atelectasis -History of abdominal aortic aneurysm as well as new aneurysmal site -COPD, steroid-dependent -Chronic hypoxic respiratory failure, noncompliant at times with O2 -Status post CVA, failed swallow eval, recent PEG tube placement -Hypothyroidism -Hypertension -Abdominal pain, constipation, possible colonic neoplasm- -Hypercholesterolemia -Elevated LFTs, possibly medication induced, possible secondary to hypoperfusion -Chronic diastolic CHF Plan: Continue on current medication regime ,monitoring and symptomatic treat ment. Scheduled for EGD tomorrow. Patient will need a colonoscopy, secondary to possible colonic neoplasm, but is high risk as per GI. Maintained Strict aspiration precautions.NPO, PEG tube feedings only. Close monitoring of hemoglobin, electro lites with repeat labs ordered for a.m. Follow closely with GI and infectious disease. Further recommendations to follow. The impression and plan of care has been dictated as directed. : I performed a history and examination of this patient, discussed the same with the dictator. I agree with the dictator's note ,documented as a scribe. Any additional findings or plans will be noted.
[2019-03-21] MEDS: ATORVASTATIN 40 MG TAB PO SCH (20:30)
--- NOTE | 2019-03-21 21:19 | P.PN ---
Subjective Progress Note Date: 03/21/19 Principal diagnosis: GI bleed, abdominal pain, elevated liver enzymes Patient is lying in bed still reporting no bowel movements. Tolerating tube feeds. No nausea or vomiting. Objective - Vital Signs Vital signs: Vital Signs Temp 97.7 F 03/21/19 15:58 Pulse 84 03/21/19 20:10 Resp 20 03/21/19 15:58 BP 144/65 03/21/19 15:58 Pulse Ox 95 03/21/19 20:01 Intake & Output 03/21/19 03/21/19 03/22/19 06:59 18:59 06:59 Intake Total 140 1365 Output Total 1000 Balance 140 365 Weight 69.4 kg Intake: Intake, IV Titration 80 Amount Sodium Chloride 0.9% 1, 80 000 ml @ 20 mls/hr IV . Q24H [facility] Rx#:[id number] Tube Feeding 140 665 Blood Product 620 Rc As-1 Unit 310 [id number] Output: Urine 1000 Other: Voiding Method Bedside Commode Bedside Commode Bedpan Bedpan # Bowel Movements 1 - Exam On physical examination, patient appears comfortable in no apparent distress. HEAD: Normocephalic, atraumatic. EYES: No scleral icterus. No conjunctival injection. MOUTH: No lesions, tongue midline. NECK: Trachea midline, no gross abnormalities. CHEST: Decreased air entry bilaterally. HEART: S1-S2 appreciated. ABDOMEN: Soft, PEG tube site is clean dry and intact. Bowel sounds are positive. No organomegaly. No guarding or rigidity. EXTREMITIES: No pedal edema. SKIN: No rashes, no jaundice. NEUROLOGIC: Alert and oriented to person and place. - Labs CBC & Chem 7: 03/21/19 08:23 03/21/19 05:37 Labs: Abnormal Lab Results - Last 24 Hours (Table) 03/18/19 03/21/19 03/21/19 Range/Units 07:20 05:37 05:37 RBC 2.50 L (3.80-5.40) m/uL Hgb 6.6 L* (11.4-16.0) gm/dL Hct 22.0 L (34.0-46.0) % MCHC 29.8 L (31.0-37.0) g/dL RDW 16.8 H (11.5-15.5) % Lymphocytes # 0.8 L (1.0-4.8) k/uL BUN 40 H (7-17) mg/dL Glucose 101 H (74-99) mg/dL Crossmatch See Detail 03/21/19 03/21/19 Range/Units 08:23 09:09 RBC 2.40 L (3.80-5.40) m/uL Hgb 6.3 L* (11.4-16.0) gm/dL Hct 20.7 L (34.0-46.0) % MCHC 30.2 L (31.0-37.0) g/dL RDW 17.5 H (11.5-15.5) % Lymphocytes # (1.0-4.8) k/uL BUN (7-17) mg/dL Glucose (74-99) mg/dL Crossmatch See Detail Assessment and Plan (1) GI bleed Narrative/Plan: 84-year-old female with multiple medical comorbidities including recent CVA requiring PEG tube for oropharyngeal dysphagia who presented to the hospital with abdominal pain. She was also noted to have stool testing which was positive for occult blood and fall in hemoglobin. Patient is on anticoagulation therapy at home. Unclear etiology, may relate to upper GI pathology including ulceration around PEG tube site, peptic ulcer disease, gastritis/esophagitis or other etiology. Current Visit: Yes Status: Acute Code(s): K92.2 - GASTROINTESTINAL HEMORRHAGE, UNSPECIFIED SNOMED Code(s): 04237118 (2) Elevated liver enzymes Narrative/Plan: Liver enzymes normal on admission, subsequently developed a hepatocellular elevation in liver enzymes. Likely related to hypoperfusion of the liver or medication effects given the acuity of the elevation. She did have findings on computed tomography scan of the intra-and extrahepatic biliary dilation, however bilirubin has remained normal. Further evaluation of CT findings can be performed with MRI. Viral hepatitis panel negative. Improved today. Current Visit: Yes Status: Acute Code(s): R74.8 - ABNORMAL LEVELS OF OTHER SERUM ENZYMES SNOMED Code(s): 207036369 (3) Abdominal pain Narrative/Plan: Likely related to constipation, with patient reporting a regular bowel movements and fecal stasis noted on CT imaging. Current Visit: Yes Status: Acute Code(s): R10.9 - UNSPECIFIED ABDOMINAL PAIN SNOMED Code(s): 35577717 (4) Anemia Current Visit: Yes Status: Acute Code(s): D64.9 - ANEMIA, UNSPECIFIED SNOMED Code(s): 015548360 Plan: Supportive care Nothing by mouth Okay for tube feeds Protonix 40 mg IV twice a day Continue to monitor hemoglobin and hematocrit and transfuse as needed EGD plan for tomorrow for evaluation of anemia If concern for colonic mass persists can consider CT barium enema to rule out malignancy MiraLAX twice daily, with tapwater enema ordered today Repeat liver enzymes improved, an acute viral hepatitis panel negative, suspicion is for medication related etiology of elevated hepatocellular liver enzymes versus hypoperfusion/ischemia, versus other etiology Can consider MRI abdomen if further evaluation of dilated intra-and extrahepatic biliary ducts is desired, however no evidence of obstruction on lab evaluation with normal bilirubin Thank you for allowing us to participate in care of the patient we will continue to follow
[2019-03-22 07:18] LABS: Anisocytosis Slight; Basophils % (A) 1 %; Eosinophils # (A) 0.2 k/uL (0-0.7); Eosinophils % (A) 3 %; Hypochromasia Marked; Lymphocytes # (A) 0.9 k/uL (1.0-4.8); Lymphocytes % (A) 11 %; MCH 27.8 pg (25.0-35.0); MCHC 30.6 g/dL (31.0-37.0); MCV 90.8 fL (80.0-100.0); Mean Platelet Volume 6.8; Monocytes # (A) 0.6 k/uL (0-1.0); Monocytes % (A) 8 %; Neutrophils # (A) 6.5 k/uL (1.3-7.7); Neutrophils % (A) 77 %; Platelet Count 347 k/uL (150-450); Poikilocytosis Moderate; RBC 2.97 m/uL (3.80-5.40); RDW 17.2 % (11.5-15.5); WBC 8.4 k/uL (3.8-10.6)
[2019-03-22 07:22] LABS: HGB 8.3 gm/dL (11.4-16.0)
[2019-03-22 07:40] LABS: African American GFR (CKD) >90 (>60 ml/min/1.73 sqM); Anion Gap 8 mmol/L; Blood Urea Nitrogen 34 mg/dL (7-17); Calcium 9.1 mg/dL (8.4-10.2); Carbon Dioxide 28 mmol/L (22-30); Chloride 106 mmol/L (98-107); Glucose 106 mg/dL (74-99); Non-African American GFR(CKD) 81 (>60 ml/min/1.73 sqM); Potassium 4.2 mmol/L (3.5-5.1); Sodium 142 mmol/L (137-145)
[2019-03-22] MEDS: SYMBICORT 80-4.5 MCG INHALER INHALATION SCH ×2 (08:10→19:16)
[2019-03-22] MEDS: IPRATROPIUM-ALBUTEROL 3 ML NEB INHALATION SCH ×4 (08:10→19:16)
[2019-03-22] MEDS: LEVOTHYROXINE 100 MCG TAB PO SCH (09:46)
[2019-03-22] MEDS: SODIUM CHLORIDE 0.9% 1,000 ML IV SCH ×2 (09:46→19:28)
[2019-03-22] MEDS: LIDOCAINE 5% PATCH TOPICAL SCH (09:51)
[2019-03-22] MEDS: PANTOPRAZOLE 40 MG/10 ML VIAL IV SCH ×2 (09:55→19:57)
[2019-03-22] MEDS ORDERED: PROPOFOL 10 MG/ML 20 ML VIAL IV ONE (10:12)
[2019-03-22] MEDS ORDERED: IV FLUID CONTINUATION 500 ML IV ONE (10:12)
[2019-03-22] MEDS ORDERED: LIDOCAINE 1% INJ 10MG/ML (20 ML MDV) ONE (10:12)
--- NOTE | 2019-03-22 10:43 | P.PCN ---
Date of Procedure: 03/22/19 Description of Procedure: BRIEF HISTORY: 84-year-old female with multiple medical comorbidities including recent CVA requiring PEG tube for oropharyngeal dysphagia who presented to the hospital with abdominal pain. She was also noted to have stool testing which was positive for occult blood and fall in hemoglobin. Patient is on anticoagulation therapy at home. Unclear etiology, may relate to upper GI pathology including ulceration around PEG tube site, peptic ulcer disease, gastritis/esophagitis or other etiology. PROCEDURE PERFORMED: Esophagogastroduodenoscopy. PREOPERATIVE DIAGNOSIS: Anemia of acute blood loss, stool positive for occult blood. ESTIMATED BLOOD LOSS: Minimal. IV sedation per anesthesia. PROCEDURE: After informed consent was obtained, the patient was brought into the endoscopy unit. IV sedation was administered by Anesthesia under continuous monitoring. Initially the Olympus GIF-190 video endoscope was inserted into the mouth. Esophagus intubated without any difficulty. It was gradually advanced into the stomach and duodenum and carefully examined. The bulb and the second part of the duodenum appeared normal. The scope at this time was withdrawn to the stomach, adequately insufflated with air, and upon careful examination, mucosa of the antrum, body, cardia and the fundus appeared normal, with bumper from a PEG tube located in the body of the stomach. The scope was then withdrawn into the esophagus. Small hiatal hernia noted. The GE junction was located at 39 cm from the incisors. The esophagus appeared normal. There were no erosions or ulcerations seen and the patient tolerated the procedure well. IMPRESSION: 1. No active bleeding or old blood noted. 2. PEG tube bumper located in the body of the stomach. 3. Small hiatal hernia. RECOMMENDATIONS: The findings of this examination were discussed with the patient, her sister and brother. Okay to resume tube feeds. Continue Protonix therapy. Continue to monitor hemoglobin and hematocrit and transfuse as needed. Of note, the patient would be high risk for aspiration due to a severely limited gag reflex if attempt is made to prep for colonoscopy, can consider x-ray barium enema for further evaluation of colon if anemia persists.
[2019-03-22] MEDS: POLYETHYLENE GLYCOL 3350 17 GM POWD.PACK PO SCH ×2 (12:02→19:57)
[2019-03-22] MEDS: FUROSEMIDE 40 MG TAB PO SCH (15:42)
[2019-03-22] MEDS: SERTRALINE 25 MG TAB PO SCH (15:42)
[2019-03-22] MEDS: METOPROLOL TARTRATE 25 MG TAB PO SCH ×2 (15:42→19:57)
[2019-03-22] MEDS: ATORVASTATIN 40 MG TAB PO SCH (19:57)
[2019-03-23] MEDS: ACETAMINOPHEN TAB 325 MG TAB PEG/G-TUBE PRN (03:22)
[2019-03-23] MEDS: SYMBICORT 80-4.5 MCG INHALER INHALATION SCH ×2 (06:17→19:42)
[2019-03-23] MEDS: IPRATROPIUM-ALBUTEROL 3 ML NEB INHALATION SCH ×3 (06:17→19:42)
[2019-03-23] MEDS: LEVOTHYROXINE 100 MCG TAB PO SCH (06:26)
[2019-03-23] MEDS: METOPROLOL TARTRATE 25 MG TAB PO SCH ×2 (08:29→20:43)
[2019-03-23] MEDS: PANTOPRAZOLE 40 MG/10 ML VIAL IV SCH ×2 (08:29→20:44)
[2019-03-23] MEDS: SERTRALINE 25 MG TAB PO SCH (08:29)
[2019-03-23] MEDS: POLYETHYLENE GLYCOL 3350 17 GM POWD.PACK PO SCH ×2 (08:30→21:02)
[2019-03-23] MEDS: FUROSEMIDE 40 MG TAB PO SCH (08:30)
[2019-03-23] MEDS: LIDOCAINE 5% PATCH TOPICAL SCH (08:30)
--- NOTE | 2019-03-23 13:07 | P.PN ---
Subjective Progress Note Date: 03/23/19 Principal diagnosis: GI bleed, anemia Mrs. willis well-known patient to [facility] with a GI bleed and abdominal pain and elevated liver enzymes. Patient is feeling improved had recent stroke is not currently guarding airway . Feeding tube in place for tube feeds, patient has poor oral hygiene and comfort, history of AAA repair with a new aneurysm noted, CT dated 03/18/2019 suggests severe degree colonic hemostasis and colonic spasm versus neoplasm of the splenic flexure, she had a tumor markers were completely normal and certainly not within norm for diagnosis for GI cancers however this patient is significantly debilitated and less invasive the procedure the better. We'll recommend her contrast barium enema to at least attempt to identify whether or not patient has neoplasm GI tract or just constipation Objective - Vital Signs Vital signs: Vital Signs Temp 97.9 F 03/23/19 07:00 Pulse 76 03/23/19 11:33 Resp 16 03/23/19 07:00 BP 125/88 03/23/19 07:00 Pulse Ox 96 03/23/19 07:00 Intake & Output 03/22/19 03/23/19 03/23/19 18:59 06:59 18:59 Intake Total 425 220 520 Output Total 400 Balance 425 -180 520 Weight 70 kg Intake: IV 100 Intake, IV Titration 20 Amount Sodium Chloride 0.9% 1, 20 000 ml @ 20 mls/hr IV . Q24H [facility] Rx#:[id number] Tube Feeding 325 130 520 Other 70 Output: Urine 400 Other: Voiding Method Bedside Commode Bedside Commode Bedside Commode Bedpan Bedpan Bedpan - Exam General: [Patient awake, alert and oriented times 3. Patient in no acute distress.] HEENT: [PERRL. EOMI. No pharyngeal erythema or exudate.] Neck: [No adenopathy.] Cardiac: [Heart regular in rate and rhythm. No S3. No S4. No clicks, rubs. No murmur.] Midsternal surgical scar with lower abdominal scar Lungs: Coarse breath sounds improved from yesterday Abdomen: [No mass. No organomegaly. Bowel sounds presnt and normoactive in all 4 quadrants.] Animal tenderness Extremes: [No edema no cyanosis no claudication normal pulses] : normal female genitalia Musculoskeletal: [No joint erythema, edema or tenderness.] Skin: [No rash.] Neurologic: [No lateralizing deficits. CN II - XII grossly intact.] Lymphatic: [No adenopathy.] - Labs CBC & Chem 7: 03/22/19 06:44 03/22/19 06:44 Assessment and Plan (1) Abdominal pain Current Visit: Yes Status: Acute Code(s): R10.9 - UNSPECIFIED ABDOMINAL PAIN SNOMED Code(s): 35560537 (2) Anemia Current Visit: Yes Status: Acute Code(s): D64.9 - ANEMIA, UNSPECIFIED SNOMED Code(s): 101149278 (3) GI bleed Current Visit: Yes Status: Acute Code(s): K92.2 - GASTROINTESTINAL HEMORRHAGE, UNSPECIFIED SNOMED Code(s): 98156255 Plan: EGD yesterday essentially unremarkable Patient improved hemoglobin stable Recommend air-contrast PE to assess for possible lower GI neoplasm versus fecal stasis We will also obtain repeat CBC to assess bleeding Reevaluate in the morning Time with Patient: Greater than 30
--- NOTE | 2019-03-23 19:45 | P.PN ---
Subjective Progress Note Date: 03/23/19 Principal diagnosis: GI bleed, abdominal pain, elevated liver enzymes Patient seen lying in bed with her son and [id number] bedside. No signs or symptoms of GI bleeding reported. She is tolerated tube feeds. No abdominal pain reported. Objective - Vital Signs Vital signs: Vital Signs Temp 97.9 F 03/23/19 15:00 Pulse 72 03/23/19 19:42 Resp 16 03/23/19 15:00 BP 146/63 03/23/19 15:00 Pulse Ox 98 03/23/19 15:00 Intake & Output 03/23/19 03/23/19 03/24/19 06:59 18:59 06:59 Intake Total 220 780 Output Total 400 900 Balance -180 -120 Weight 70 kg Intake: Intake, IV Titration 20 Amount Sodium Chloride 0.9% 1, 20 000 ml @ 20 mls/hr IV . Q24H [facility] Rx#:[id number] Tube Feeding 130 780 Other 70 Output: Urine 400 900 Other: Voiding Method Bedside Commode Bedside Commode Bedpan Bedpan - Exam On physical examination, patient appears comfortable in no apparent distress. HEAD: Normocephalic, atraumatic. EYES: No scleral icterus. No conjunctival injection. MOUTH: No lesions, tongue midline. NECK: Trachea midline, no gross abnormalities. CHEST: Decreased air entry bilaterally. HEART: S1-S2 appreciated. ABDOMEN: Soft, PEG tube site is clean dry and intact. Bowel sounds are positive. No organomegaly. No guarding or rigidity. EXTREMITIES: No pedal edema. SKIN: No rashes, no jaundice. NEUROLOGIC: Alert and oriented to person and place. - Labs CBC & Chem 7: 03/22/19 06:44 03/22/19 06:44 Assessment and Plan (1) GI bleed Narrative/Plan: 84-year-old female with multiple medical comorbidities including recent CVA requiring PEG tube for oropharyngeal dysphagia who presented to the hospital with abdominal pain. She was also noted to have stool testing which was positive for occult blood and fall in hemoglobin. Patient is on anticoagulation therapy at home. No findings of old blood or active bleeding on EGD, the patient has plan for a barium enema for further evaluation of stool versus rectal mass seen on computed tomography scan. Current Visit: Yes Status: Acute Code(s): K92.2 - GASTROINTESTINAL HEMORRHAGE, UNSPECIFIED SNOMED Code(s): 75795832 (2) Elevated liver enzymes Narrative/Plan: Liver enzymes normal on admission, subsequently developed a hepatocellular elevation in liver enzymes. Likely related to hypoperfusion of the liver or medication effects given the acuity of the elevation. She did have findings on computed tomography scan of the intra-and extrahepatic biliary dilation, however bilirubin has remained normal. Further evaluation of CT findings can be performed with MRI. Viral hepatitis panel negative. Improved today. Current Visit: Yes Status: Acute Code(s): R74.8 - ABNORMAL LEVELS OF OTHER SERUM ENZYMES SNOMED Code(s): 959283953 (3) Abdominal pain Narrative/Plan: Likely related to constipation, with patient reporting a regular bowel movements and fecal stasis noted on CT imaging. Current Visit: Yes Status: Acute Code(s): R10.9 - UNSPECIFIED ABDOMINAL PAIN SNOMED Code(s): 49457847 (4) Anemia Current Visit: Yes Status: Acute Code(s): D64.9 - ANEMIA, UNSPECIFIED SNOMED Code(s): 366696539 Plan: Supportive care Nothing by mouth Okay for tube feeds Protonix 40 mg IV twice a day Continue to monitor hemoglobin and hematocrit and transfuse as needed X-ray barium enema plan for tomorrow for further evaluation of possible colonic mass seen on computed tomography scan MiraLAX twice daily Repeat liver enzymes improved, an acute viral hepatitis panel negative, suspicion is for medication related etiology of elevated hepatocellular liver enzymes versus hypoperfusion/ischemia, versus other etiology Thank you for allowing us to participate in care of the patient we will continue to follow
[2019-03-23] MEDS: ATORVASTATIN 40 MG TAB PO SCH (20:44)
[2019-03-24] MEDS: IPRATROPIUM-ALBUTEROL 3 ML NEB INHALATION SCH ×5 (02:36→19:46)
[2019-03-24] MEDS: SODIUM CHLORIDE 0.9% 1,000 ML IV SCH ×2 (04:53→19:11)
[2019-03-24] MEDS: LEVOTHYROXINE 100 MCG TAB PO SCH (06:32)
[2019-03-24] MEDS: SYMBICORT 80-4.5 MCG INHALER INHALATION SCH ×2 (07:23→19:46)
[2019-03-24 07:37] LABS: Anisocytosis Slight; Basophils % (A) 0 %; Eosinophils # (A) 0.3 k/uL (0-0.7); Eosinophils % (A) 3 %; HCT 28.2 % (34.0-46.0); HGB 8.5 gm/dL (11.4-16.0); Hypochromasia Marked; Lymphocytes # (A) 1.1 k/uL (1.0-4.8); Lymphocytes % (A) 12 %; MCH 27.2 pg (25.0-35.0); MCHC 30.3 g/dL (31.0-37.0); MCV 89.8 fL (80.0-100.0); Monocytes # (A) 0.7 k/uL (0-1.0); Monocytes % (A) 8 %; Neutrophils # (A) 6.9 k/uL (1.3-7.7); Neutrophils % (A) 76 %; Platelet Count 323 k/uL (150-450); Poikilocytosis Moderate; RBC 3.14 m/uL (3.80-5.40); RDW 17.3 % (11.5-15.5); WBC 9.2 k/uL (3.8-10.6)
[2019-03-24] MEDS: FUROSEMIDE 40 MG TAB PO SCH (09:02)
[2019-03-24] MEDS: SERTRALINE 25 MG TAB PO SCH (09:02)
[2019-03-24] MEDS: METOPROLOL TARTRATE 25 MG TAB PO SCH ×2 (09:02→20:17)
[2019-03-24] MEDS: LIDOCAINE 5% PATCH TOPICAL SCH (09:03)
[2019-03-24] MEDS: PANTOPRAZOLE 40 MG/10 ML VIAL IV SCH ×2 (09:04→20:17)
[2019-03-24] MEDS: POLYETHYLENE GLYCOL 3350 17 GM POWD.PACK PO SCH ×2 (09:04→20:17)
[2019-03-24] MEDS ORDERED: MAGNESIUM CITRATE 296 ML BOTTLE PO ONE (18:53)
[2019-03-24] MEDS: DEXTROSE 5%-0.9% NACL 1,000 ML IV SCH (19:10)
[2019-03-24] MEDS: ATORVASTATIN 40 MG TAB PO SCH (20:17)
[2019-03-25] MEDS: LEVOTHYROXINE 100 MCG TAB PO SCH (05:53)
[2019-03-25] MEDS: IPRATROPIUM-ALBUTEROL 3 ML NEB INHALATION SCH ×4 (08:20→21:07)
[2019-03-25] MEDS: SYMBICORT 80-4.5 MCG INHALER INHALATION SCH ×2 (08:20→21:07)
--- NOTE | 2019-03-25 10:13 | FL ---
EXAMINATION TYPE: FL barium enema w air contrast DATE OF EXAM: 03/25/2019 COMPARISON: CT 03/18/2019 HISTORY: Anemia, abnormal CT TECHNIQUE: A single contrast barium enema study is performed. FINDINGS: Ict Help Desk Officer view of the abdomen shows overall non-obstructive bowel gas pattern. There is abdomi nal aortic aneurysm, thoracic aortic aneurysm. Postop changes are noted to the abdomen aortic aneurys m. Surgical clips present in the left and right groin and pelvis. There is a feeding tube present in the left upper quadrant. There is a spinal curvature. 1 minute 54 seconds fluoroscopy time. 18 intraoperative images. Patient's colon was filled in a retrograde manner with high density barium. There is no obstruction t o flow. No extravasation or fistula formation. Exam is limited by patient's inability to retain the c ontrast material. At the level of the splenic fracture I question a persistent area of reduced calibe r within the colon. IMPRESSION: Exam is limited by patient's inability to cooperate with exam. Cannot exclude annular le teddy at the splenic flexure as noted on CT. Consider direct visualization for better evaluation. Abdo kalia and thoracic aortic aneurysms.
[2019-03-25] MEDS: DEXTROSE 5%-0.9% NACL 1,000 ML IV SCH ×2 (10:36→19:08)
[2019-03-25] MEDS: TETRAHYDROZOLINE 0.05% OPHTH DROPS 15 ML BTL BOTH EYES PRN ×2 (10:54→20:16)
[2019-03-25] MEDS: LIDOCAINE 5% PATCH TOPICAL SCH (10:54)
[2019-03-25] MEDS: PANTOPRAZOLE 40 MG/10 ML VIAL IV SCH ×2 (12:24→20:17)
[2019-03-25] MEDS: POLYETHYLENE GLYCOL 3350 17 GM POWD.PACK PO SCH ×2 (12:24→20:17)
[2019-03-25] MEDS: FUROSEMIDE 40 MG TAB PO SCH (12:24)
[2019-03-25] MEDS: METOPROLOL TARTRATE 25 MG TAB PO SCH ×2 (12:24→20:17)
--- NOTE | 2019-03-25 12:42 | P.PN ---
Subjective Progress Note Date: 03/25/19 Principal diagnosis: GI bleed anemia elevated liver enzymes No active bleeding per nursing. Barium enema study today to cannot definitively rule out colonic lesion. Hemoglobin yesterday 8.5. Denies abdominal pain. Receiving tube feeds via G-tube. Afebrile. No current CMP to review. CEA, CA-19-9, AFP within normal limits. Objective - Vital Signs Vital signs: Vital Signs Temp 98.7 F 03/25/19 09:48 Pulse 94 03/25/19 12:22 Resp 14 03/25/19 09:48 BP 130/76 03/25/19 12:22 Pulse Ox 100 03/25/19 09:48 Intake & Output 03/24/19 03/25/19 03/25/19 18:59 06:59 18:59 Intake Total 30 1200 Output Total 1000 1300 Balance -970 -100 Weight 67.6 kg 67.6 kg Intake: IV 30 Invasive Line 2 30 Intake, IV Titration 1000 Amount Dextrose 5%-0.9% NaCl 1, 1000 000 ml @ 75 mls/hr IV . [id number] [facility] Rx#:[id number] Other 200 Output: Urine 1000 300 Stool 1000 Other: Voiding Method Bedside Commode Bedpan Bedpan Incontinent # Voids 2 1 - Exam General appearance: The patient is alert, oriented, in no acute distress. HET: Head is normocephalic and atraumatic. Pupils are equal and reactive. Oropharynx is clear without lesions. Neck: Supple without lymphadenopathy. Trachea midline. Heart: S1 S2. Regular rate and rhythm. Lungs: No crackles or wheezes are heard. Abdomen: Soft, nontender, nondistended with bowel sounds. G-tube with feeds. No peritoneal signs. No palpable organomegaly or masses. Extremities: Normal skin color and turgor. No cyanosis, rash, ulceration, clubbing, or edema. Radial and pedal pulses are 2/4 bilaterally. Neurological: No focal deficits. Strength and sensation are grossly intact. - Labs CBC & Chem 7: 03/24/19 06:38 03/22/19 06:44 Assessment and Plan (1) Normocytic hypochromic anemia Narrative/Plan: 84 year old female admitted with acute abdominal pain acute hypochromic normocytic anemia positive guaiac with reports of dark-colored bowel movements suggestive of an underlying acute GI bleed with a component of acute blood loss anemia. Status post inpatient EGD with no evidence of GI bleeding or sources of bleeding. Clinically no evidence of active GI bleeding. Underlying history of CVA oropharyngeal dysphagia requiring PEG tube and colonic diverticulosis. CT abdomen and pelvis could not rule out colonic lesion. Barium enema exam limited patient's inability to cooperate could not exclude an underlying colonic lesion. Current Visit: Yes Status: Acute Code(s): D50.9 - IRON DEFICIENCY ANEMIA, UNSPECIFIED SNOMED Code(s): 75739792 (2) Transaminitis Narrative/Plan: Hepatocellular elevation since admission possible medication-induced possible hypoperfusion versus other etiology. CT reported extra and intrahepatic biliary dilatation with normal bilirubin. Hepatitis serology nonreactive. Current Visit: Yes Status: Acute Code(s): R74.0 - NONSPEC ELEV OF LEVELS OF TRANSAMNS & LACTIC ACID DEHYDRGNSE SNOMED Code(s): 605886823 (3) Oropharyngeal dysphagia Current Visit: Yes Status: Acute Code(s): R13.12 - DYSPHAGIA, OROPHARYNGEAL PHASE SNOMED Code(s): 63898185 (4) G tube feedings Current Visit: Yes Status: Acute Code(s): Z93.1 - GASTROSTOMY STATUS SNOMED Code(s): 574123909 (5) History of CVA (cerebrovascular accident) Current Visit: Yes Status: Acute Code(s): Z86.73 - PRSNL HX OF TIA (TIA), AND CEREB INFRC W/O RESID DEFICITS SNOMED Code(s): 095862962 (6) Colon, diverticulosis Current Visit: Yes Status: Acute Code(s): K57.30 - DVRTCLOS OF LG INT W/O PERFORATION OR ABSCESS W/O BLEEDING SNOMED Code(s): 626915422 (7) COPD (chronic obstructive pulmonary disease) Current Visit: Yes Status: Acute Code(s): J44.9 - CHRONIC OBSTRUCTIVE PULMONARY DISEASE, UNSPECIFIED SNOMED Code(s): 65273201 (8) O2 dependent Current Visit: Yes Status: Acute Code(s): Z99.81 - DEPENDENCE ON SUPPLEMENTAL OXYGEN SNOMED Code(s): 320538022734 Plan: 1. Continue with tube feeds. CBC CMP monitoring. Colonoscopy recommended patient would to like to think it over and discussed with family. We'll continue to follow with you. Assessment and plan a care discussed with Dr. Luther
[2019-03-25] MEDS: SODIUM CHLORIDE 0.9% 1,000 ML IV SCH (14:18)
[2019-03-25] MEDS: SERTRALINE 25 MG TAB PO SCH (14:19)
--- NOTE | 2019-03-25 16:31 | P.PN ---
Subjective Progress Note Date: 03/24/19 Siddhartha is an 84-year-old female well-known to my practice who presented presented to the emergency room , yesterday with complaint of abdominal pain left lower quadrant. Patient states the pain has been worsening over last couple of days family states she was pale and not her usual self. Patient also states she feels constipated. Patient has a history of CVA recently and has a feeding tube patient reports no fever denies dysuria hematuria patient has been moving her bowels she states the bleeding she has been doing his made her feel better or worse denies current chest pain denies underlying nausea or vomiting. Patient has steroid-dependent COPD, O2 dependent COPD however she doesn't like to use her oxygen. Known history of diverticulitis 03/20/2019 abdominal pain resolved .maintained on gentle IV fluid hydration .currently no antibiotics recommended as per ID. Development increased pulmo nary congestion; new onset rhonchi. Failed modified barium swallow, strict nothing by mouth, strict aspiration precautions maintained. PEG tube feedings currently at 30, goal 65. CT suggestive of constipation versus neoplasm mass, will eventually need colonoscopy. No bowel movement today. Bowel movement yesterday, tested positive for occult blood T bili normal,. Elevated LFTs,,hepatitis panel negative Telemetry sinus rhythm. Denies chest pain, palpitations. 03/21/2019 hemoglobin dropped to 6.3, receiving one unit of packed RBCs currently. Denies chest pain, palpitations or shortness of breath.VSS. 03/24/19 status post EGD over the weekend, and slightly unremarkable receiving prep for a BE with air contrast to rule out possible colonic neoplasm. Tumor markers within normal limits. Denies abdominal pain. Hemoglobin 8.5. Denies chest pain, palpitations or shortness of breath. Objective - Vital Signs Vital signs: Vital Signs Temp 98.2 F 03/24/19 15:36 Pulse 65 03/24/19 16:00 Resp 16 03/24/19 16:00 BP 127/58 03/24/19 15:36 Pulse Ox 98 03/24/19 15:36 Intake & Output 03/23/19 03/24/19 03/24/19 18:59 06:59 18:59 Intake Total 780 30 Output Total 900 1000 Balance -120 -970 Weight 67.6 kg 67.6 kg Intake: IV 30 Invasive Line 2 30 Tube Feeding 780 Output: Urine 900 1000 Other: Voiding Method Bedside Commode Bedside Commode Bedpan Bedpan # Voids 2 2 # Bowel Movements 4 - Exam General: awake, alert and oriented times 3, no acute distress HEENT: [PERRL. pale conjunctiva, EOMI. No pharyngeal erythema or exudate.] Unable to swallow or guard airway Neck: Supple, No adenopathy. Cardiac: [Heart regular in rate and rhythm. No S3. No S4. No clicks, rubs. No murmur.] Mid sternal scarring mid abdominal scarring from bypass surgery, from aneurysm repair surgery Lungs: Coarse breath sounds but diminished bibasilar, scattered rhonchi throughout Abdomen: Soft, nontender, nondistended, no palpable mass. No organomegaly. Positive bowel sounds. Extremes: [No edema, no cyanosis, no claudication normal pulses] Skin: [No rash.] Neurologic: [No lateralizing deficits. CN II - XII grossly intact.] - Labs CBC & Chem 7: 03/24/19 06:38 03/22/19 06:44 Labs: Abnormal Lab Results - Last 24 Hours (Table) 03/24/19 Range/Units 06:38 RBC 3.14 L (3.80-5.40) m/uL Hgb 8.5 L (11.4-16.0) gm/dL Hct 28.2 L (34.0-46.0) % MCHC 30.3 L (31.0-37.0) g/dL RDW 17.3 H (11.5-15.5) % Assessment and Plan Assessment: (1) Abdominal pain Current Visit: Yes Status: Acute Code(s): R10.9 - UNSPECIFIED ABDOMINAL PAIN SNOMED Code(s): 26321214 (2) Anemia, acute blood loss, etiology unclear, possible colonic neoplasm. GI following Current Visit: Yes Status: Acute Code(s): D64.9 - ANEMIA, UNSPECIFIED SNOMED Code(s): 208568207 (3) GI bleed Current Visit: Yes Status: Acute Code(s): K92.2 - GASTROINTESTINAL HEMORRHAGE, UNSPECIFIED SNOMED Code(s): 18272130 -Dehydration -Possible pneumonitis, doubtful as patient without fever, congestion or cough, probably atelectasis -History of abdominal aortic aneurysm as well as new aneurysmal site -COPD, steroid-dependent -Chronic hypoxic respiratory failure, noncompliant at times with O2 -Status post CVA, failed swallow eval, recent PEG tube placement -Hypothyroidism -Hypertension -Abdominal pain, constipation, possible colonic neoplasm- -Hypercholesterolemia -Elevated LFTs, possibly medication induced, possible secondary to hypoperfusion -Hepatitis serology nonreactive -Chronic diastolic CHF Plan: Continue on current medication regime ,monitoring and symptomatic treatment. BE with air contrast pending. Maintain strict aspiration precau tions. Close monitoring of electrolytes, hemoglobin, LFTs with labs ordered for a.m. follow closely with GI. Further recommendations to follow. The impression and plan of care has been dictated as directed. : I performed a history and examination of this patient, discussed the same with the dictator. I agree with the dictator's note ,documented as a scribe. Any additional findings or plans will be noted.
--- NOTE | 2019-03-25 16:54 | P.PN ---
Subjective Progress Note Date: 03/25/19 Siddhartha is an 84-year-old female well-known to my practice who presented presented to the emergency room , yesterday with complaint of abdominal pain left lower quadrant. Patient states the pain has been worsening over last couple of days family states she was pale and not her usual self. Patient also states she feels constipated. Patient has a history of CVA recently and has a feeding tube patient reports no fever denies dysuria hematuria patient has been moving her bowels she states the bleeding she has been doing his made her feel better or worse denies current chest pain denies underlying nausea or vomiting. Patient has steroid-dependent COPD, O2 dependent COPD however she doesn't like to use her oxygen. Known history of diverticulitis 03/20/2019 abdominal pain resolved .maintained on gentle IV fluid hydration .currently no antibiotics recommended as per ID. Development increased pulmo nary congestion; new onset rhonchi. Failed modified barium swallow, strict nothing by mouth, strict aspiration precautions maintained. PEG tube feedings currently at 30, goal 65. CT suggestive of constipation versus neoplasm mass, will eventually need colonoscopy. No bowel movement today. Bowel movement yesterday, tested positive for occult blood T bili normal,. Elevated LFTs,,hepatitis panel negative Telemetry sinus rhythm. Denies chest pain, palpitations. 03/21/2019 hemoglobin dropped to 6.3, receiving one unit of packed RBCs currently. Denies chest pain, palpitations or shortness of breath.VSS. 03/24/19 status post EGD over the weekend, and slightly unremarkable receiving prep for a BE with air contrast to rule out possible colonic neoplasm. Tumor markers within normal limits. Denies abdominal pain. Hemoglobin 8.5. Denies chest pain, palpitations or shortness of breath. 03/25/19 BE completed today, limited exam, cannot rule out colonic lesion at the splenic flexure as noted on CT. Colonoscopy recommended as per GI. Patient discussed with family and wishes to proceed, but not until -Requesting a short break from the prep, which is reasonable. Labs pending. No active bleeding reported. Denies abdominal pain. Objective - Vital Signs Vital signs: Vital Signs Temp 98.7 F 03/25/19 09:48 Pulse 90 03/25/19 09:48 Resp 14 03/25/19 09:48 BP 154/81 03/25/19 09:16 Pulse Ox 100 03/25/19 09:48 Intake & Output 03/24/19 03/25/19 03/25/19 18:59 06:59 18:59 Intake Total 30 1200 Output Total 1000 1300 Balance -970 -100 Weight 67.6 kg 67.6 kg Intake: IV 30 Invasive Line 2 30 Intake, IV Titration 1000 Amount Dextrose 5%-0.9% NaCl 1, 1000 000 ml @ 75 mls/hr IV . [id number] NO Rx#:[id number] Other 200 Output: Urine 1000 300 Stool 1000 Other: Voiding Method Bedside Commode Bedpan Bedpan Incontinent # Voids 2 1 - Exam General: awake, alert and oriented times 3, no acute distress HEENT: [PERRL. pale conjunctiva, EOMI. No pharyngeal erythema or exudate.] Unable to swallow or guard airway Neck: Supple, No adenopathy. Cardiac: [Heart regular in rate and rhythm. No S3. No S4. No clicks, rubs. No murmur.] Mid sternal scarring mid abdominal scarring from bypass surgery, from aneurysm repair surgery Lungs: Coarse breath sounds but diminished bibasilar, scattered rhonchi throughout Abdomen: Soft, nontender, nondistended, no palpable mass. No organomegaly. Positive bowel sounds. Extremes: [No edema, no cyanosis, no claudication normal pulses] Skin: [No rash.] Neurologic: [No lateralizing deficits. CN II - XII grossly intact. No focal deficits] - Labs CBC & Chem 7: 03/24/19 06:38 03/22/19 06:44 Assessment and Plan Assessment: (1) Abdominal pain Current Visit: Yes Status: Acute Code(s): R10.9 - UNSPECIFIED ABDOMINAL PAIN SNOMED Code(s): 65877425 (2) Anemia, acute blood loss, etiology unclear, possible colonic neoplasm. GI following Current Visit: Yes Status: Acute Code(s): D64.9 - ANEMIA, UNSPECIFIED SNOMED Code(s): 230693719 (3) GI bleed Current Visit: Yes Status: Acute Code(s): K92.2 - GASTROINTESTINAL HEMORRHAGE, UNSPECIFIED SNOMED Code(s): 72172023 -Dehydration -Possible pneumonitis, doubtful as patient without fever, congestion or cough, probably atelectasis -History of abdominal aortic aneurysm as well as new aneurysmal site -COPD, steroid-dependent -Chronic hypoxic respiratory failure, noncompliant at times with O2 -Status post CVA, failed swallow eval, recent PEG tube placement -Hypothyroidism -Hypertension -Abdominal pain, constipation, possible colonic neoplasm. -BE Limited exam, unable to rule out underlying colonic lesion. -Hypercholesterolemia -Elevated LFTs, possibly medication induced, possible secondary to hypoperfusion -Hepatitis serology nonreactive -Chronic diastolic CHF Plan: Continue on current medication regime ,monitoring and symptomatic treatment.Strict aspiration precautions. PEG tube feedings have been resumed . no prep for colonoscopy until tomorrow as per GI with colonoscopy scheduled for . Labs pending. Close monitoring of electrolytes, hemoglobin, LFTs with labs ordered for a.m. follow closely with GI. The impression and plan of care has been dictated as directed. : I performed a history and examination of this patient, discussed the same with the dictator. I agree with the dictator's note ,documented as a scribe. Any additional findings or plans will be noted.
[2019-03-25 17:34] LABS: Anisocytosis Slight; HCT 27.9 % (34.0-46.0); HGB 8.5 gm/dL (11.4-16.0); Hypochromasia Marked; MCH 27.6 pg (25.0-35.0); MCHC 30.5 g/dL (31.0-37.0); MCV 90.6 fL (80.0-100.0); Mean Platelet Volume 7.1; Platelet Count 344 k/uL (150-450); Poikilocytosis Moderate; RBC 3.08 m/uL (3.80-5.40); RDW 17.1 % (11.5-15.5); WBC 12.4 k/uL (3.8-10.6)
[2019-03-25 17:44] LABS: ALT 32 U/L (9-52); AST 21 U/L (14-36); African American GFR (CKD) >90 (>60 ml/min/1.73 sqM); Albumin 3.3 g/dL (3.5-5.0); Alkaline Phosphatase 93 U/L (38-126); Anion Gap 8 mmol/L; Blood Urea Nitrogen 23 mg/dL (7-17); Calcium 8.9 mg/dL (8.4-10.2); Carbon Dioxide 28 mmol/L (22-30); Chloride 103 mmol/L (98-107); Glucose 119 mg/dL (74-99); Non-African American GFR(CKD) 81 (>60 ml/min/1.73 sqM); Potassium 3.9 mmol/L (3.5-5.1); Sodium 139 mmol/L (137-145); Total Bilirubin 0.8 mg/dL (0.2-1.3); Total Protein 6.6 g/dL (6.3-8.2)
[2019-03-25] MEDS: ATORVASTATIN 40 MG TAB PO SCH (20:17)
[2019-03-26] MEDS: IPRATROPIUM-ALBUTEROL 3 ML NEB INHALATION PRN ×2 (00:38→05:34)
[2019-03-26] MEDS: LEVOTHYROXINE 100 MCG TAB PO SCH (07:06)
[2019-03-26] MEDS: SYMBICORT 80-4.5 MCG INHALER INHALATION SCH ×2 (07:11→19:19)
[2019-03-26] MEDS: IPRATROPIUM-ALBUTEROL 3 ML NEB INHALATION SCH ×4 (07:11→19:19)
[2019-03-26 08:41] LABS: ALT 30 U/L (9-52); AST 19 U/L (14-36); African American GFR (CKD) >90 (>60 ml/min/1.73 sqM); Albumin 3.1 g/dL (3.5-5.0); Alkaline Phosphatase 99 U/L (38-126); Anion Gap 8 mmol/L; Blood Urea Nitrogen 25 mg/dL (7-17); Calcium 8.8 mg/dL (8.4-10.2); Carbon Dioxide 26 mmol/L (22-30); Chloride 105 mmol/L (98-107); Glucose 135 mg/dL (74-99); Non-African American GFR(CKD) 79 (>60 ml/min/1.73 sqM); Potassium 3.9 mmol/L (3.5-5.1); Sodium 139 mmol/L (137-145); Total Bilirubin 0.6 mg/dL (0.2-1.3); Total Protein 6.4 g/dL (6.3-8.2)
[2019-03-26] MEDS: DEXTROSE 5%-0.9% NACL 1,000 ML IV SCH (09:00)
[2019-03-26] MEDS: FUROSEMIDE 40 MG TAB PO SCH (09:03)
[2019-03-26] MEDS: METOPROLOL TARTRATE 25 MG TAB PO SCH ×2 (09:03→20:07)
[2019-03-26] MEDS: LIDOCAINE 5% PATCH TOPICAL SCH (09:03)
[2019-03-26] MEDS: TETRAHYDROZOLINE 0.05% OPHTH DROPS 15 ML BTL BOTH EYES PRN ×2 (09:03→20:24)
[2019-03-26] MEDS: PANTOPRAZOLE 40 MG/10 ML VIAL IV SCH ×2 (09:03→20:06)
[2019-03-26] MEDS: SERTRALINE 25 MG TAB PO SCH (09:04)
[2019-03-26] MEDS: POLYETHYLENE GLYCOL 3350 17 GM POWD.PACK PO SCH ×2 (09:04→20:54)
[2019-03-26 09:05] LABS: Anisocytosis Slight; Basophils % (A) 0 %; Eosinophils # (A) 0.1 k/uL (0-0.7); Eosinophils % (A) 1 %; HCT 26.5 % (34.0-46.0); HGB 7.8 gm/dL (11.4-16.0); Hypochromasia Marked; Lymphocytes # (A) 0.7 k/uL (1.0-4.8); Lymphocytes % (A) 7 %; MCH 26.7 pg (25.0-35.0); MCHC 29.5 g/dL (31.0-37.0); MCV 90.5 fL (80.0-100.0); Mean Platelet Volume 7.3; Monocytes # (A) 0.8 k/uL (0-1.0); Monocytes % (A) 7 %; Neutrophils # (A) 9.1 k/uL (1.3-7.7); Neutrophils % (A) 84 %; Platelet Count 296 k/uL (150-450); Poikilocytosis Moderate; RBC 2.93 m/uL (3.80-5.40); RDW 17.3 % (11.5-15.5); WBC 10.9 k/uL (3.8-10.6)
--- NOTE | 2019-03-26 10:01 | XR ---
EXAMINATION TYPE: XR chest 2V DATE OF EXAM: 03/26/2019 COMPARISON: Prior chest x-ray 03/18/2019 HISTORY: Shortness of breath TECHNIQUE: Frontal and lateral views of the chest are obtained. FINDINGS: There are prominent lung volume suggesting underlying COPD. Patient is post median sternoto my. Aorta is dense. The heart is enlarged. Interstitium is increased. No evident pneumothorax. No siz able effusion. Patchy basilar airspace disease is present greater on the right as well as some right upper lobe patchy density. There are coronary artery calcifications. There is a thoracic aortic aneur ysm. 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 There is contrast within the bowel in the abdomen. IMPRESSION: Findings could represent an atypical presentation of congestive heart failure patient wi th pre-existing COPD, pneumonia is not excluded. Thoracic aortic aneurysm.
--- NOTE | 2019-03-26 10:51 | P.PN ---
Subjective Progress Note Date: 03/26/19 Siddhartha is an 84-year-old female well-known to my practice who presented presented to the emergency room , yesterday with complaint of abdominal pain left lower quadrant. Patient states the pain has been worsening over last couple of days family states she was pale and not her usual self. Patient also states she feels constipated. Patient has a history of CVA recently and has a feeding tube patient reports no fever denies dysuria hematuria patient has been moving her bowels she states the bleeding she has been doing his made her feel better or worse denies current chest pain denies underlying nausea or vomiting. Patient has steroid-dependent COPD, O2 dependent COPD however she doesn't like to use her oxygen. Known history of diverticulitis 03/20/2019 abdominal pain resolved .maintained on gentle IV fluid hydration .currently no antibiotics recommended as per ID. Development increased pulmo nary congestion; new onset rhonchi. Failed modified barium swallow, strict nothing by mouth, strict aspiration precautions maintained. PEG tube feedings currently at 30, goal 65. CT suggestive of constipation versus neoplasm mass, will eventually need colonoscopy. No bowel movement today. Bowel movement yesterday, tested positive for occult blood T bili normal,. Elevated LFTs,,hepatitis panel negative Telemetry sinus rhythm. Denies chest pain, palpitations. 03/21/2019 hemoglobin dropped to 6.3, receiving one unit of packed RBCs currently. Denies chest pain, palpitations or shortness of breath.VSS. 03/24/19 status post EGD over the weekend, and slightly unremarkable receiving prep for a BE with air contrast to rule out possible colonic neoplasm. Tumor markers within normal limits. Denies abdominal pain. Hemoglobin 8.5. Denies chest pain, palpitations or shortness of breath. 03/25/19 BE completed today, limited exam, cannot rule out colonic lesion at the splenic flexure as noted on CT. Colonoscopy recommended as per GI. Patient discussed with family and wishes to proceed, but not until -Requesting a short break from the prep, which is reasonable. Labs pending. No active bleeding reported. Denies abdominal pain. 03/26/2019 early this morning developed an episode of shortness of breath, received nebulized bronchodilators in a dose of Lasix IV push. Currently wheezy, exhausted from loss of sleep. Maintaining O2 sats of high 90s on 2 L nasal cannula. Outpatient colonoscopy offered but patient requesting to proceed with colonoscopy tomorrow. Denies abdominal pain. LFTs within normal limits .Denies chest pain, palpitations or increased shortness of breath. Denies lightheadedness, dizziness or focal deficits. Objective - Vital Signs Vital signs: Vital Signs Temp 97.9 F 03/26/19 07:28 Pulse 80 03/26/19 08:59 Resp 16 03/26/19 07:28 BP 135/80 03/26/19 08:59 Pulse Ox 97 03/26/19 08:59 Intake & Output 03/25/19 03/26/19 03/26/19 18:59 06:59 18:59 Intake Total 870 90 285 Output Total 300 Balance 570 90 285 Weight 70.5 kg Intake: Intake, IV Titration 650 Amount Dextrose 5%-0.9% NaCl 1, 650 000 ml @ 75 mls/hr IV . [id number] [facility] Rx#:[id number] Tube Feeding 220 285 Other 90 Output: Urine 300 Other: Voiding Method Bedpan Bedpan # Voids 1 - Exam General: awake, alert and oriented times 3, no acute distress, fatigued HEENT: [PERRL. pale conjunctiva, EOMI. No pharyngeal erythema or exudate.] Unable to swallow or guard airway Neck: Supple, No adenopathy. Cardiac: [Heart regular in rate and rhythm. No S3. No S4. No clicks, rubs. No murmur.] Mid sternal scarring mid abdominal scarring from bypass surgery, from aneurysm repair surgery Lungs: Coarse breath sounds but diminished bibasilar, scattered rhonchi throughout with expiratory wheezing Abdomen: Soft, nontender, nondistended, no palpable mass. No organomegaly. Positive bowel sounds. Extremes: [No edema, no cyanosis, no claudication normal pulses] Skin: [No rash.] Neurologic: [No lateralizing deficits. CN II - XII grossly intact. No focal deficits] - Labs CBC & Chem 7: 03/26/19 07:33 03/26/19 07:33 Labs: Abnormal Lab Results - Last 24 Hours (Table) 03/25/19 03/25/19 03/26/19 Range/Units 16:56 16:56 07:33 WBC 12.4 H 10.9 H (3.8-10.6) k/uL RBC 3.08 L 2.93 L (3.80-5.40) m/uL Hgb 8.5 L 7.8 L (11.4-16.0) gm/dL Hct 27.9 L 26.5 L (34.0-46.0) % MCHC 30.5 L 29.5 L (31.0-37.0) g/dL RDW 17.1 H 17.3 H (11.5-15.5) % Neutrophils # 9.1 H (1.3-7.7) k/uL Lymphocytes # 0.7 L (1.0-4.8) k/uL BUN 23 H (7-17) mg/dL Glucose 119 H (74-99) mg/dL Albumin 3.3 L (3.5-5.0) g/dL 03/26/19 Range/Units 07:33 WBC (3.8-10.6) k/uL RBC (3.80-5.40) m/uL Hgb (11.4-16.0) gm/dL Hct (34.0-46.0) % MCHC (31.0-37.0) g/dL RDW (11.5-15.5) % Neutrophils # (1.3-7.7) k/uL Lymphocytes # (1.0-4.8) k/uL BUN 25 H (7-17) mg/dL Glucose 135 H (74-99) mg/dL Albumin 3.1 L (3.5-5.0) g/dL Assessment and Plan Assessment: (1) Abdominal pain Current Visit: Yes Status: Acute Code(s): R10.9 - UNSPECIFIED ABDOMINAL PAIN SNOMED Code(s): 80063818 (2) Anemia, acute blood loss, etiology unclear, possible colonic neoplasm. GI following Current Visit: Yes Status: Acute Code(s): D64.9 - ANEMIA, UNSPECIFIED SNOMED Code(s): 768944544 (3) GI bleed Current Visit: Yes Status: Acute Code(s): K92.2 - GASTROINTESTINAL HEMORRHAGE, UNSPECIFIED SNOMED Code(s): 40126294 -Dehydration -Possible pneumonitis, doubtful as patient without fever, congestion or cough, probably atelectasis -History of abdominal aortic aneurysm as well as new aneurysmal site -COPD, steroid-dependent -Chronic hypoxic respiratory failure, noncompliant at times with O2 -Status post CVA, failed swallow eval, recent PEG tube placement -Hypothyroidism -Hypertension -Abdominal pain, constipation, possible colonic neoplasm. -BE Limited exam, unable to rule out underlying colonic lesion. -Hypercholesterolemia -Elevated LFTs, possibly medication induced, possible secondary to hypoperfusion, resolved -Hepatitis serology nonreactive -Chronic diastolic CHF Plan: Continue on current medication regime ,monitoring and symptomatic treatment.Strict aspiration precautions. Chest x-ray ordered. Prep for colono scopy later today as per GI for colonoscopy tomorrow. Close monitoring of electrolytes, hemoglobin with labs ordered for a.m. follow closely with GI. The impression and plan of care has been dictated as directed. : I performed a history and examination of this patient, discussed the same with the dictator. I agree with the dictator's note ,documented as a scribe. Any additional findings or plans will be noted.
[2019-03-26] MEDS ORDERED: PEG 3350-NA SULF,BICARB,CL/KCL 4,000 ML BOTTLE PO ONE (16:00)
[2019-03-26] MEDS: SODIUM CHLORIDE 0.9% 1,000 ML IV SCH (17:44)
[2019-03-26] MEDS: ATORVASTATIN 40 MG TAB PO SCH (20:07)
[2019-03-27] MEDS: IPRATROPIUM-ALBUTEROL 3 ML NEB INHALATION PRN (02:47)
[2019-03-27 03:02] LABS: Glucose,Whole Blood 109 mg/dL (75-99)
[2019-03-27 03:42] LABS: Potassium 3.8 mmol/L (3.5-5.1)
[2019-03-27 03:43] LABS: African American GFR (CKD) >90 (>60 ml/min/1.73 sqM); Anion Gap 9 mmol/L; Blood Urea Nitrogen 23 mg/dL (7-17); Calcium 8.9 mg/dL (8.4-10.2); Carbon Dioxide 29 mmol/L (22-30); Chloride 100 mmol/L (98-107); Glucose 110 mg/dL (74-99); Non-African American GFR(CKD) 82 (>60 ml/min/1.73 sqM); Sodium 138 mmol/L (137-145)
[2019-03-27] MEDS: DEXTROSE 5%-0.9% NACL 1,000 ML IV SCH ×2 (03:51→16:43)
[2019-03-27] MEDS: LEVOTHYROXINE 100 MCG TAB PO SCH (05:08)
[2019-03-27] MEDS: IPRATROPIUM-ALBUTEROL 3 ML NEB INHALATION SCH ×5 (06:56→22:54)
[2019-03-27] MEDS: SYMBICORT 80-4.5 MCG INHALER INHALATION SCH (06:56)
[2019-03-27] MEDS ORDERED: FUROSEMIDE 10 MG/ML 4 ML VIAL IV STA (08:03)
[2019-03-27] MEDS: POLYETHYLENE GLYCOL LYTES SOLN 4,000 ML SOLN.RECON PO ONE ×2 (08:12→12:26)
[2019-03-27] MEDS: FUROSEMIDE 40 MG TAB PO SCH (08:12)
[2019-03-27] MEDS ORDERED: Potassium Replacement Protocol 1 EACH MISC MISCELLANE PRN (08:45)
[2019-03-27] MEDS ORDERED: PIPERACILLIN-TAZOBACTAM 3.375 GM in SODIUM CHLORIDE 0.9% 100 ML IVPB SCH (09:00)
--- NOTE | 2019-03-27 09:00 | P.PN ---
Subjective Progress Note Date: 03/27/19 Siddhartha is an 84-year-old female well-known to my practice who presented presented to the emergency room , yesterday with complaint of abdominal pain left lower quadrant. Patient states the pain has been worsening over last couple of days family states she was pale and not her usual self. Patient also states she feels constipated. Patient has a history of CVA recently and has a feeding tube patient reports no fever denies dysuria hematuria patient has been moving her bowels she states the bleeding she has been doing his made her feel better or worse denies current chest pain denies underlying nausea or vomiting. Patient has steroid-dependent COPD, O2 dependent COPD however she doesn't like to use her oxygen. Known history of diverticulitis 03/20/2019 abdominal pain resolved .maintained on gentle IV fluid hydration .currently no antibiotics recommended as per ID. Development increased pulmo nary congestion; new onset rhonchi. Failed modified barium swallow, strict nothing by mouth, strict aspiration precautions maintained. PEG tube feedings currently at 30, goal 65. CT suggestive of constipation versus neoplasm mass, will eventually need colonoscopy. No bowel movement today. Bowel movement yesterday, tested positive for occult blood T bili normal,. Elevated LFTs,,hepatitis panel negative Telemetry sinus rhythm. Denies chest pain, palpitations. 03/21/2019 hemoglobin dropped to 6.3, receiving one unit of packed RBCs currently. Denies chest pain, palpitations or shortness of breath.VSS. 03/24/19 status post EGD over the weekend, and slightly unremarkable receiving prep for a BE with air contrast to rule out possible colonic neoplasm. Tumor markers within normal limits. Denies abdominal pain. Hemoglobin 8.5. Denies chest pain, palpitations or shortness of breath. 03/25/19 BE completed today, limited exam, cannot rule out colonic lesion at the splenic flexure as noted on CT. Colonoscopy recommended as per GI. Patient discussed with family and wishes to proceed, but not until -Requesting a short break from the prep, which is reasonable. Labs pending. No active bleeding reported. Denies abdominal pain. 03/26/2019 early this morning developed an episode of shortness of breath, received nebulized bronchodilators in a dose of Lasix IV push. Currently wheezy, exhausted from loss of sleep. Maintaining O2 sats of high 90s on 2 L nasal cannula. Outpatient colonoscopy offered but patient requesting to proceed with colonoscopy tomorrow. Denies abdominal pain. LFTs within normal limits .Denies chest pain, palpitations or increased shortness of breath. Denies lightheadedness, dizziness or focal deficits. 03/27/19 NPO. Aspirated, Colonscopy cancelled. VSS,O2 increased up to 3 l NC to maintain O2 sats in the 90s. Denies Chest pain, palpitations. Denies light headedness.Labs pending. Objective - Vital Signs Vital signs: Vital Signs Temp 99.0 F 03/27/19 07:00 Pulse 106 H 03/27/19 07:09 Resp 21 03/27/19 07:00 BP 148/77 03/27/19 07:00 Pulse Ox 93 L 03/27/19 07:04 Intake & Output 03/26/19 03/27/19 03/27/19 18:59 06:59 18:59 Intake Total 651 Output Total 875 400 Balance -224 -400 Weight 71 kg Intake: Intake, IV Titration 160 Amount Dextrose 5%-0.9% NaCl 1, 160 000 ml @ 75 mls/hr IV . [id number] NO Rx#:[id number] Tube Feeding 491 Output: Urine 875 Stool 400 Other: Voiding Method Bedpan # Voids 1 1 # Bowel Movements 0 1 - Exam General: awake, sitting up in bed, respiratory effort mildly increased,alert and oriented times 3, [place] HEENT: [PERRL. pale conjunctiva, EOMI. No pharyngeal erythema or exudate.] Unable to swallow or guard airway Neck: Supple, No adenopathy. Cardiac: [Heart regular in rate and rhythm. No S3. No S4.Mild tachycardia, No clicks, rubs. No murmur.] Mid sternal scarring mid abdominal scarring from bypass surgery, from aneurysm repair surgery Lungs: Coarse breath sounds but diminished bibasilar, scattered rhonchi And crackles throughout, greater on the right, with expiratory wheezing Abdomen: Soft, nontender, nondistended, no palpable mass. No organomegaly. Positive bowel sounds. Extremes: [No edema, no cyanosis, no claudication normal pulses] Skin: [No rash.] Neurologic: [No lateralizing deficits. CN II - XII grossly intact. No focal deficits] - Labs CBC & Chem 7: 07/31/19 07:33 03/27/19 03:07 Labs: Abnormal Lab Results - Last 24 Hours (Table) 03/26/19 03/27/19 03/27/19 Range/Units 07:33 02:50 03:07 WBC 10.9 H (3.8-10.6) k/uL RBC 2.93 L (3.80-5.40) m/uL Hgb 7.8 L (11.4-16.0) gm/dL Hct 26.5 L (34.0-46.0) % MCHC 29.5 L (31.0-37.0) g/dL RDW 17.3 H (11.5-15.5) % Neutrophils # 9.1 H (1.3-7.7) k/uL Lymphocytes # 0.7 L (1.0-4.8) k/uL BUN 23 H (7-17) mg/dL Glucose 110 H (74-99) mg/dL POC Glucose (mg/dL) 109 H (75-99) mg/dL Assessment and Plan Assessment: (1) Abdominal pain Current Visit: Yes Status: Acute Code(s): R10.9 - UNSPECIFIED ABDOMINAL PAIN SNOMED Code(s): 15993347 (2) Anemia, acute blood loss, etiology unclear, possible colonic neoplasm. GI following Current Visit: Yes Status: Acute Code(s): D64.9 - ANEMIA, UNSPECIFIED SNOMED Code(s): 715793741 (3) GI bleed Current Visit: Yes Status: Acute Code(s): K92.2 - GASTROINTESTINAL HEMORRHAGE, UNSPECIFIED SNOMED Code(s): 48141075 -Dehydration -Possible aspiration Pneumonia, CXR in progress -History of abdominal aortic aneurysm as well as new aneurysmal site -COPD, steroid-dependent -Chronic hypoxic respiratory failure, noncompliant at times with O2 -Status post CVA, failed swallow eval, recent PEG tube placement -Hypothyroidism -Hypertension -Abdominal pain, constipation, possible colonic neoplasm. -BE Limited exam, unable to rule out underlying colonic lesion. -Hypercholesterolemia -Elevated LFTs, possibly medication induced, possible secondary to hypoperfusion, resolved -Hepatitis serology nonreactive -Chronic diastolic CHF Plan: Continue on current medication regime ,monitoring and symptomatic treatment.Strict aspiration precautions. Chest x-ray ordered. Lasix 40mg IVP x 1 now. Empiric Cleocin initiated. NPO, Check residual. STRICT ASPIRATION PRECAUTIONS at all times. Colonoscopy cancelled as per GI. Lytes supplements as per replacement protocols.CBC, magnesium pending. Close monitoring of electrolytes, hemoglobin with labs ordered for a.m. follow closely with GI. The impression and plan of care has been dictated as directed. : I performed a history and examination of this patient, discussed the same with the dictator. I agree with the dictator's note ,documented as a scribe. Any additional findings or plans will be noted.
[2019-03-27 09:04] LABS: Anisocytosis Slight; Basophils % (A) 0 %; Eosinophils # (A) 0.1 k/uL (0-0.7); Eosinophils % (A) 1 %; HGB 8.7 gm/dL (11.4-16.0); Hypochromasia Marked; Lymphocytes # (A) 0.5 k/uL (1.0-4.8); Lymphocytes % (A) 5 %; MCH 26.6 pg (25.0-35.0); MCV 88.8 fL (80.0-100.0); Mean Platelet Volume 7.5; Monocytes # (A) 0.6 k/uL (0-1.0); Monocytes % (A) 6 %; Neutrophils # (A) 9.4 k/uL (1.3-7.7); Neutrophils % (A) 88 %; Platelet Count 315 k/uL (150-450); Poikilocytosis Moderate; RBC 3.27 m/uL (3.80-5.40); RDW 17.2 % (11.5-15.5); WBC 10.7 k/uL (3.8-10.6)
[2019-03-27] MEDS: METOPROLOL TARTRATE 25 MG TAB PO SCH ×2 (10:07→20:45)
[2019-03-27] MEDS: POLYETHYLENE GLYCOL 3350 17 GM POWD.PACK PO SCH ×2 (10:07→21:25)
[2019-03-27] MEDS: PANTOPRAZOLE 40 MG/10 ML VIAL IV SCH ×2 (10:07→20:53)
[2019-03-27] MEDS: SERTRALINE 25 MG TAB PO SCH (10:07)
--- NOTE | 2019-03-27 10:48 | ECHOF ---
Referral Reason:LV fx MEASUREMENTS -------- HEIGHT: 177.8 cm WEIGHT: 70.3 kg BP: 135/80 RVIDd: 3.7 cm (< 3.3) IVSd: 1.2 cm (0.6 - 1.1) LVIDd: 5.1 cm (3.9 - 5.3) LVPWd: 1.3 cm (0.6 - 1.1) IVSs: 1.2 cm LVIDs: 3.8 cm LVPWs: 1.7 cm LA Diam: 4.3 cm (2.7 - 3.8) LAESV Index (A-L): 58.86 ml/m Ao Diam: 3.6 cm (2.0 - 3.7) MV EXCURSION: 13.189 mm (> 18.000) MV EF SLOPE: 100 mm/s (70 - 150) EPSS: 1.3 cm MV E Himanshu: 1.37 m/s MV DecT: 140 ms MV A Himanshu: 0.92 m/s MV E/A Ratio: 1.48 AV maxP.80 mmHg AV meanP.47 mmHg RAP: 5.00 mmHg RVSP: 52.13 mmHg FINDINGS -------- Sinus rhythm. This was a technically adequate study. The left ventricular size is normal. There is mild concentric left ventricular hypertrophy. Overa ll left ventricular systolic function is mild-moderately impaired with, an EF between 40 - 45 %. Se ptal wall motion is delayed and consistent with prior cardiac surgery. The right ventricle is mildly enlarged. LA is severely dilated >40 ml/m2 The right atrium is normal in size. There is mild aortic valve sclerosis. Peak/mean gradient across the Aortic Valve is 10.80mmHg / 4.4 7mmHg. Normally functioning bioprosthetic valve. Afthsuvy-sf-jexhoo mitral regurgitation is present. Moderate tricuspid regurgitation present. There is moderate pulmonary hypertension. The right ranta tricular systolic pressure, as measured by Doppler, is 52.13mmHg. There is no pulmonic regurgitation present. The aortic root size is normal. There is no pericardial effusion. CONCLUSIONS -------- 1. Sinus rhythm. 2. This was a technically adequate study. 3. The left ventricular size is normal. 4. There is mild concentric left ventricular hypertrophy. 5. Septal wall motion is delayed and consistent with prior cardiac surgery. 6. The right ventricle is mildly enlarged. 7. LA is severely dilated >40 ml/m2 8. The right atrium is normal in size. 9. There is mild aortic valve sclerosis. 10. Peak/mean gradient across the Aortic Valve is 10.80mmHg / 4.47mmHg. 11. Normally functioning bioprosthetic valve. 12. Ayvcyzkq-do-cfdnna mitral regurgitation is present. 13. Moderate tricuspid regurgitation present. 14. There is moderate pulmonary hypertension. 15. The right ventricular systolic pressure, as measured by Doppler, is 52.13mmHg. 16. There is no pulmonic regurgitation present. 17. The aortic root size is normal. 18. There is no pericardial effusion. LACER AND TIER: Martha Spear RDCS
--- NOTE | 2019-03-27 12:18 | P.PN ---
Subjective Progress Note Date: 03/27/19 Principal diagnosis: GI bleed anemia elevated liver enzymes No active bleeding per nursing. Patient received full GoLYTELY prep yesterday however still passing bowel movements are not clear. Additional bowel prep ordered however this morning nursing palpation may have aspirated. Per attending Dr. Guardado chest x-ray was reviewed no evidence of aspiration. Patient denies shortness of breath. Oxygen saturations within normal limits. Reports right foot pain. Objective - Vital Signs Vital signs: Vital Signs Temp 99.0 F 03/27/19 07:00 Pulse 104 H 03/27/19 10:45 Resp 21 03/27/19 08:00 BP 148/77 03/27/19 07:00 Pulse Ox 93 L 03/27/19 07:04 Intake & Output 03/26/19 03/27/19 03/27/19 18:59 06:59 18:59 Intake Total 651 Output Total 875 400 Balance -224 -400 Weight 71 kg Intake: Intake, IV Titration 160 Amount Dextrose 5%-0.9% NaCl 1, 160 000 ml @ 75 mls/hr IV . [id number] [facility] Rx#:[id number] Tube Feeding 491 Output: Urine 875 Stool 400 Other: Voiding Method Bedpan # Voids 1 1 1 # Bowel Movements 0 1 1 - Exam General appearance: The patient is alert, oriented, in no acute distress. HET: Head is normocephalic and atraumatic. Pupils are equal and reactive. Oropharynx is clear without lesions. Neck: Supple without lymphadenopathy. Trachea midline. Heart: S1 S2. Regular rate and rhythm. Lungs: No crackles or wheezes are heard. Abdomen: Soft, nontender, nondistended with bowel sounds. G-tube with feeds. No peritoneal signs. No palpable organomegaly or masses. Extremities: Normal skin color and turgor. No cyanosis, rash, ulceration, clubbing, or edema. Radial and pedal pulses are 2/4 bilaterally. Neurological: No focal deficits. Strength and sensation are grossly intact. - Labs CBC & Chem 7: 03/27/19 08:46 03/27/19 03:07 Labs: Abnormal Lab Results - Last 24 Hours (Table) 03/27/19 03/27/19 03/27/19 Range/Units 02:50 03:07 08:46 WBC 10.7 H (3.8-10.6) k/uL RBC 3.27 L (3.80-5.40) m/uL Hgb 8.7 L (11.4-16.0) gm/dL Hct 29.0 L (34.0-46.0) % MCHC 30.0 L (31.0-37.0) g/dL RDW 17.2 H (11.5-15.5) % Neutrophils # 9.4 H (1.3-7.7) k/uL Lymphocytes # 0.5 L (1.0-4.8) k/uL BUN 23 H (7-17) mg/dL Glucose 110 H (74-99) mg/dL POC Glucose (mg/dL) 109 H (75-99) mg/dL Assessment and Plan (1) Normocytic hypochromic anemia Narrative/Plan: 84 year old female admitted with acute abdominal pain acute hypochromic normocytic anemia positive guaiac with reports of dark-colored bowel movements suggestive of an underlying acute GI bleed with a component of acute blood loss anemia. Status post inpatient EGD with no evidence of GI bleeding or sources of bleeding. Clinically no evidence of active GI bleeding. Underlying history of CVA oropharyngeal dysphagia requiring PEG tube and colonic diverticulosis. CT a bdomen and pelvis could not rule out colonic lesion. Barium enema exam limited patient's inability to cooperate could not exclude an underlying colonic lesion. Current Visit: Yes Status: Acute Code(s): D50.9 - IRON DEFICIENCY ANEMIA, UNSPECIFIED SNOMED Code(s): 27082273 (2) Transaminitis Narrative/Plan: Hepatocellular elevation since admission possible medication-induced possible hypoperfusion versus other etiology. CT reported extra and intrahepatic biliary dilatation with normal bilirubin. Hepatitis serology nonreactive. LFTs have normalized. Current Visit: Yes Status: Acute Code(s): R74.0 - NONSPEC ELEV OF LEVELS OF TRANSAMNS & LACTIC ACID DEHYDRGNSE SNOMED Code(s): 832064098 (3) Oropharyngeal dysphagia Current Visit: Yes Status: Acute Code(s): R13.12 - DYSPHAGIA, OROPHARYNGEAL PHASE SNOMED Code(s): 88061601 (4) G tube feedings Current Visit: Yes Status: Acute Code(s): Z93.1 - GASTROSTOMY STATUS SNOMED Code(s): 461043523 (5) History of CVA (cerebrovascular accident) Current Visit: Yes Status: Acute Code(s): Z86.73 - PRSNL HX OF TIA (TIA), AND CEREB INFRC W/O RESID DEFICITS SNOMED Code(s): 840559367 (6) Colon, diverticulosis Current Visit: Yes Status: Acute Code(s): K57.30 - DVRTCLOS OF LG INT W/O PERFORATION OR ABSCESS W/O BLEEDING SNOMED Code(s): 337104480 (7) COPD (chronic obstructive pulmonary disease) Current Visit: Yes Status: Acute Code(s): J44.9 - CHRONIC OBSTRUCTIVE PULMONARY DISEASE, UNSPECIFIED SNOMED Code(s): 46726283 (8) O2 dependent Current Visit: Yes Status: Acute Code(s): Z99.81 - DEPENDENCE ON SUPPLEMENTAL OXYGEN SNOMED Code(s): 845251946178 Plan: 1. Long discussion was held at bedside with family they still want to proceed with colonoscopy evaluation with Dr. Ramos. Clearance was obtained by anesthesia Dr. Bautista as well as the attending Dr. Guardado. Will provide additional 1 hour bowel prep and proceed with inpatient colonoscopy in the next few hours per anesthesia recommendations. Patient is increased risk secondary to her age as well as underlying comorbidities including a AAA patient and family are aware of this but still want to proceed despite known risks. CBC CMP monitoring. 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 The patient has indicated understanding and acceptance of the risks and procedures discussed. Assessment and plan a care discussed with Dr. Luther
[2019-03-27] MEDS: CLINDAMYCIN 600 MG in DEXTROSE 5% IN WATER 50 ML IVPB SCH ×4 (12:25→20:53)
[2019-03-27 12:26] LABS: C Reactive Protein 56.1 mg/L (<10.0); Uric Acid 5.6 mg/dL (3.7-7.4)
[2019-03-27] MEDS ORDERED: PROPOFOL 10 MG/ML 20 ML VIAL IV ONE (13:38)
[2019-03-27] MEDS ORDERED: PHENYLEPHRINE-0.9% NACL SYG 1 MG/10 ML SYRINGE ONE (13:38)
[2019-03-27] MEDS ORDERED: IV FLUID CONTINUATION 700 ML IV ONE (14:01)
[2019-03-27] MEDS ORDERED: Magnesium Replacement Protocol 1 EACH MISC MISCELLANE PRN (14:31)
--- NOTE | 2019-03-27 14:37 | P.PCN ---
Date of Procedure: 03/27/19 Description of Procedure: BRIEF HISTORY: 84 year old female admitted with acute abdominal pain acute hypochromic normocytic anemia positive guaiac with reports of dark-colored bowel movements suggestive of an underlying acute GI bleed with a component of acute blood loss anemia. Status post inpatient EGD with no evidence of GI bleeding or sources of bleeding. Clinically no evidence of active GI bleeding. Underlying history of CVA oropharyngeal dysphagia requiring PEG tube and colonic diverticulosis. CT abdomen and pelvis could not rule out colonic lesion. Barium enema exam limited patient's inability to cooperate could not exclude an underlying colonic lesion. PROCEDURE PERFORMED: Colonoscopy. PREOPERATIVE DIAGNOSIS: Abnormal CT imaging of colon, acute blood loss anemia, melena. ESTIMATED BLOOD LOSS: Minimal. IV sedation per Anesthesia. PROCEDURE: After informed consent was obtained, the patient, was brought into the endoscopy unit. IV sedation was administered by Anesthesia under continuous monitoring. Digital rectal examination was normal. Initially the pediatric flexible video colonoscope was then inserted in the rectum, gradually advanced into the cecum without any difficulty. Careful examination was performed as the scope was gradually being withdrawn. Ileocecal valve and the appendiceal orifice were visualized and appeared normal. Prep was fair, with a large amount of liquid stool throughout the colon which was lavaged and suctioned. Mucosa of the cecum, ascending colon, transverse colon, descending colon, sigmoid colon, and rectum appeared normal. Retroflexion was performed in the rectum and no lesions were seen. The patient tolerated the procedure well. IMPRESSION: No masses or mucosal abnormalities to correlate with CT findings. Fair prep, with a large amount of liquid stool which was lavaged and suctioned. Diverticulosis. Internal hemorrhoids. RECOMMENDATIONS: Findings of this examination were discussed with the patient family. Okay to resume tube feeds. Okay to resume anticoagulation therapy if hemoglobin is stab le. Continue to monitor for signs and symptoms of GI bleeding. No further endoscopy planned at this time.
[2019-03-27] MEDS ORDERED: LORazepam 2 MG/ML INJ IV STA (15:48)
[2019-03-27] MEDS: PROPOFOL 1,000 MG in EMPTY BAG 1 BAG IV SCH ×4 (15:50→23:45)
--- NOTE | 2019-03-27 15:58 | XR ---
EXAMINATION TYPE: XR chest 2V DATE OF EXAM: 03/27/2019 COMPARISON: Prior chest x-ray 03/26/2019, chest x-ray 10/08/2017, CT abdomen 03/18/2019 HISTORY: Possible aspiration TECHNIQUE: Frontal and lateral views of the chest are obtained. FINDINGS: Findings are similar to prior exam. The aorta is aneurysmal. The abnormal density left mamadou g base may be due to some chronic pleural parenchymal changes rather than represent airspace disease. Interstitium remains increased. Patient is post median sternotomy and the heart is enlarged. No pneu mothorax. Density over the left scapula persists. Prominent lung volumes and pulmonary artery may be indicative of underlying COPD, pulmonary artery hypertension. IMPRESSION: Findings could represent pulmonary venous hypertension and interstitial edema. Possible left lower lobe pneumonia posteriorly versus chronic pleural parenchymal changes, correlate. Addition al findings above.
--- NOTE | 2019-03-27 16:16 | XR ---
EXAMINATION TYPE: XR chest 1V DATE OF EXAM: 03/27/2019 COMPARISON: Prior chest x-ray 03/27/2019 at earlier time HISTORY: Status post intubation TECHNIQUE: Single frontal view of the chest is obtained. FINDINGS: There has been interval placement of an endotracheal tube. Patient is post median sternoto my. Tube is overlying the tracheal air column. Perihilar airspace disease has developed in the left. No pneumothorax or sizable effusion. Heart remains enlarged. Interstitium is increased. Aorta is aneu rysmal. IMPRESSION: Endotracheal tube overlying appropriate position. Perihilar airspace disease on the left appears new. Correlate for pneumonia, congestive heart failure. Aortic aneurysm.
[2019-03-27 16:19] LABS: ABG HCO3 28 mmol/L (21-25); ABG PCO2 53 mmHg (35-45); ABG PH 7.33 (7.35-7.45); ABG PO2 74 mmHg (83-108); Allen Test Performed? Yes
[2019-03-27 16:20] LABS: ABG Base Excess 1.9 mmol/L; ABG Oxygen Saturation 93.5 % (94-97); ABG TCO2 29 mmol/L (19-24)
--- NOTE | 2019-03-27 16:21 | XR ---
"Abdomen HISTORY: Abdominal distention following endoscopy Single frontal view of the abdomen Aortic aneurysm is noted in the descending thoracic aorta and abdominal region. Postop changes are no vishnu to the abdominal aneurysm. Surgical clips are present right upper quadrant, feeding tube present in the left upper quadrant. There is a lucency present beneath the left hemidiaphragm on the supine v iew. Gas distended loops of bowel are noted within the abdomen. There are dense vascular calcificatio ns. IMPRESSION: Gas distended loops of bowel likely postprocedural. Lucency beneath the left hemidiaphrag m is indeterminate on the supine view, pneumoperitoneum not excluded. Follow-up recommended. A Red level critical message alert has been initiated for Dao Art Jr, DO via the Load [employer] 36 0 | Critical Results System on 03/27/2019 4:19 PM. This message alert has been sent to Dao bingham DO via the preferences provided by the clinician for the receipt of Radiology Critical Findings. Fernando essage ID [id number]."
[2019-03-27] MEDS ORDERED: AMIODARONE 360 MG in DEXTROSE 5% IN WATER 200 ML IV ONE ×2 (16:24)
[2019-03-27] MEDS ORDERED: DEXTROSE 5% IN WATER 100 ML with AMIODARONE 150 MG IV ONE ×2 (16:24→18:30)
--- NOTE | 2019-03-27 16:28 | XR ---
EXAMINATION TYPE: XR foot complete RT DATE OF EXAM: 03/27/2019 COMPARISON: NONE HISTORY: Swelling TECHNIQUE: Three views are submitted. FINDINGS: Diffuse osteopenia noted with arthropathy of the first MTP joint. Hammertoe deformities result in a m arkedly limited exam of the phalanges. Grossly no destructive changes. Osseous structures grossly int act. Spurring at the base of the fifth metatarsal. Arthropathy of the tarsometatarsal junction. It does ap pear to be soft tissue edema and a moderate-sized plantar calcaneal spur. Soft tissue calcifications are likely vascular. IMPRESSION: 1. No acute fracture or dislocation. If symptoms persist, follow-up exam in 7 to 10 days could be ob tained. 2. Diffuse osteopenia with arthropathy. No destructive changes.
[2019-03-27] MEDS: NOREPINEPHRINE 4 MG in SODIUM CHLORIDE 0.9% 250 ML IV SCH ×2 (16:30→22:19)
[2019-03-27] MEDS ORDERED: SODIUM CHLORIDE 0.9% 1,000 ML IV ONE ×2 (16:30→17:40)
[2019-03-27] MEDS: SODIUM CHLORIDE 0.9% 1,000 ML IV SCH (16:42)
[2019-03-27] MEDS: DICLOFENAC SODIUM GEL 100 GM TUBE TOPICAL SCH ×2 (16:58→21:48)
--- NOTE | 2019-03-27 16:58 | P.CNPUL ---
History of Present Illness Consult date: 03/27/19 Requesting physician: Dao Art Jr Reason for consult: dyspnea, abnormal CXR/CT (Aspiration) Chief complaint: Shortness of breath History of present illness: This is an 84-year-old female patient who follows with Dr. Art as her primary care physician. She has a history of CVA/TIA, dysphagia status post PEG tube insertion, hypertension, hypothyroidism, coronary artery disease with previous coronary artery artery bypass grafting, former smoker, steroid dependent, oxygen dependent COPD. She was admitted back on 03/18/2019 with shortness of breath and anemia. She was having left lower quadrant abdominal pain. Guaiac positive and dark colored bowel movements. Presenting hemoglobin 5.6. She is status post 3 units of packed red blood cells this admission. Current hemoglobin 8.7. This morning she was to go for a colonoscopy however earlier she was found by the nurse laying flat in bed and having cough and congestion with emesis and suspicion for possible aspiration. Chest x-ray was performed and was reviewed by medicine and she was also evaluated by anesthesia and cleared for colonoscopy later today. She did undergo colonoscopy at approximately 2:30 today. There were no masses or mucosal abnormalities. There is a large amount of liquid stool that was lavaged and suctioned. There was some diverticulosis. Internal hemorrhoids. No active bleeding noted. She was returned to the regular medical floor from the endoscopy suite. Shortly after her arrival to the floor she became quite hypoxic and tachypneic. An A team was called and the patient ended up requiring intubation and mechanical ventilation. We are seeing her now in consultation in the ICU. Current vent settings assist-control of 16, tidal volume 400, FiO2 100% and a PEEP of 5. Blood gases reveal a P O2 of 73, pCO2 53 and a pH is 7.33. She is also in atrial fibrillation with a rapid ventricular response. She is hypotensive. Chest x-ray reveals good position of the endotracheal tube. There was some perihilar disease on the left which is new. Suspect aspiration pneumonia. Abdominal x-ray revealed gas distended loops of bowel likely postprocedural. There is lucency beneath the left hemidiaphragm indeterminant. Pneumoperitoneum is not excluded. She is currently sedated on propofol at 40 mcg/kg/m. Receiving 0.9 normal saline at 75 ML's per hour. On antibiotics in the form of Levaquin. Review of Systems ROS unobtainable: due to endotracheal tube Past Medical History Past Medical History: CVA/TIA, Hypertension, Thyroid Disorder Additional Past Medical History / Comment(s): feeding tube History of Any Multi-Drug Resistant Organisms: None Reported Past Surgical History: Cholecystectomy, Coronary Bypass/CABG, Hysterectomy Additional Past Surgical History / Comment(s): aorta aneurysm repair Past Anesthesia/Blood Transfusion Reactions: No Reported Reaction Past Psychological History: No Psychological Hx Reported Smoking Status: Former smoker Past Alcohol Use History: None Reported Past Drug Use History: None Reported - Past Family History Father Family Medical History: Coronary Artery Disease (CAD), Thyroid Disorder Medications and Allergies Home Medications Medication Instructions Recorded Confirmed Type Sertraline [Zoloft] 75 mg PO DAILY 11/06/15 03/18/19 History Ipratropium-Albuterol Nebulize 3 ml INHALATION RT-Q4H PRN 03/26/18 03/18/19 History [Duoneb 0.5 mg-3 mg/3 ml Soln] Apixaban [Eliquis] 5 mg PO BID 03/18/19 03/18/19 History Aspirin EC [Ecotrin Low Dose] 81 mg PO W/SUPPER 03/18/19 03/18/19 History Atorvastatin Calcium [Lipitor] 40 mg PO HS 03/18/19 03/18/19 History Carboxymethylcellulose Sodium 1 drop BOTH EYES DAILY PRN 03/18/19 03/18/19 History [Refresh Tears] Famotidine 20 mg PO DAILY 03/18/19 03/18/19 History Furosemide [Lasix] 40 mg PO DAILY 03/18/19 03/18/19 History Levothyroxine Sodium [Synthroid] 100 mcg PO DAILY 03/18/19 03/18/19 History Lidocaine 5% Patch [Lidoderm] 1 patch TOPICAL DAILY 03/18/19 03/18/19 History Metoprolol Tartrate [Lopressor] 75 mg PO BID 03/18/19 03/18/19 History Mometasone/Formoterol [Dulera 100 2 puff INHALATION BID 03/18/19 03/18/19 History Mcg/5 Mcg Inhaler] Allergies Allergy/AdvReac Type Severity Reaction Status Date / Time Penicillins Allergy Swelling Verified 03/18/19 07:54 Physical Exam Vitals: Vital Signs Temp Pulse Pulse Resp BP Pulse Ox 03/27/19 15:35 125 H 81/51 84 L 03/27/19 15:33 122 H 102/69 92 L 03/27/19 15:30 136 H 140 H 138/86 87 L 03/27/19 15:23 138 H 03/27/19 15:15 133 H 145/66 80 L 03/27/19 15:00 98.7 F 116 H 34 H 145/74 82 L 03/27/19 10:45 104 H 03/27/19 10:36 100 03/27/19 08:00 99 21 03/27/19 07:09 106 H 03/27/19 07:04 114 H 93 L 03/27/19 07:00 99.0 F 99 21 148/77 97 03/27/19 03:12 97.7 F 85 26 H 146/78 96 03/27/19 02:58 92 03/27/19 02:47 88 03/26/19 19:59 97.8 F 83 24 123/70 98 03/26/19 19:35 94 03/26/19 19:19 90 Intake and Output 03/27/19 03/27/19 03/27/19 06:59 14:59 22:59 Intake Total 400 Output Total 400 Balance -400 400 Intake: IV 400 Output: Stool 400 Other: # Voids 1 1 # Bowel Movements 1 1 Weight 71 kg GENERAL EXAM: Intubated, sedated. HEAD: Normocephalic. EYES: Sluggish reaction of pupils, equal size. NOSE: Clear with pink turbinates. THROAT: No erythema or exudates. NECK: No masses, no JVD. CHEST: No chest wall deformity. LUNGS: Equal air entry with bilateral scattered rhonchi more so on the left.. CVS: S1 and S2 normal with no audible murmur, irregular with tachycardia. ABDOMEN: No hepatosplenomegaly, normal bowel sounds, no guarding or rigidity. SPINE: No scoliosis or deformity SKIN: No rashes CENTRAL NERVOUS SYSTEM: Sedated, tone is normal in all 4 extremities. EXTREMITIES: There is no peripheral edema. No clubbing, no cyanosis. Peripheral pulses are intact. Results - Laboratory Findings CBC and BMP: 03/27/19 08:46 03/27/19 03:07 ABG ABG pH 7.33 (7.35-7.45) L 03/27/19 16:13 ABG pCO2 53 mmHg (35-45) H 03/27/19 16:13 ABG pO2 74 mmHg (83-108) L 03/27/19 16:13 ABG O2 Saturation 93.5 % (94-97) L 03/27/19 16:13 PT/INR, D-dimer PT 10.6 sec (9.0-12.0) 03/18/19 07:25 INR 1.0 (<1.2) 03/18/19 07:25 Abnormal lab findings: Abnormal Labs 03/18/19 03/18/19 03/18/19 07:20 07:25 07:25 WBC 11.9 H RBC 2.32 L Hgb 5.6 L* D Hct 19.3 L* MCH 24.0 L MCHC 28.9 L RDW 17.7 H Plt Count 574 H Neutrophils # 9.8 H Lymphocytes # ESR ABG pH ABG pCO2 ABG pO2 ABG HCO3 ABG Total CO2 ABG O2 Saturation Sodium 136 L Potassium Chloride 97 L BUN 60 H Glucose 169 H POC Glucose (mg/dL) Plasma Lactic Acid Miguel AST ALT Alkaline Phosphatase C-Reactive Protein Total Protein Albumin Ur Leukocyte Esterase Urine Bacteria Urine Mucus Stool Occult Blood Crossmatch See Detail 03/18/19 03/18/19 03/18/19 07:25 07:25 11:30 WBC RBC Hgb Hct MCH MCHC RDW Plt Count Neutrophils # Lymphocytes # ESR ABG pH ABG pCO2 ABG pO2 ABG HCO3 ABG Total CO2 ABG O2 Saturation Sodium Potassium Chloride BUN Glucose POC Glucose (mg/dL) Plasma Lactic Acid Miguel 2.7 H* AST ALT Alkaline Phosphatase C-Reactive Protein Total Protein Albumin Ur Leukocyte Esterase Trace H Urine Bacteria Rare H Urine Mucus Rare H Stool Occult Blood Positive H Crossmatch 03/18/19 03/18/19 03/18/19 12:20 17:08 17:08 WBC 11.9 H RBC 2.98 L Hgb 7.9 L D Hct 26.6 L MCH MCHC 29.7 L RDW 16.9 H Plt Count Neutrophils # 9.5 H Lymphocytes # ESR ABG pH ABG pCO2 ABG pO2 ABG HCO3 ABG Total CO2 ABG O2 Saturation Sodium Potassium Chloride BUN Glucose POC Glucose (mg/dL) Plasma Lactic Acid Miguel 2.1 H* 4.2 H* AST ALT Alkaline Phosphatase C-Reactive Protein Total Protein Albumin Ur Leukocyte Esterase Urine Bacteria Urine Mucus Stool Occult Blood Crossmatch 03/18/19 03/18/19 03/19/19 17:08 20:35 16:07 WBC RBC Hgb Hct MCH MCHC RDW Plt Count Neutrophils # Lymphocytes # ESR ABG pH ABG pCO2 ABG pO2 ABG HCO3 ABG Total CO2 ABG O2 Saturation Sodium Potassium 5.2 H Chloride BUN 51 H Glucose 101 H POC Glucose (mg/dL) Plasma Lactic Acid Miguel 2.2 H* AST 192 H ALT 190 H Alkaline Phosphatase 152 H C-Reactive Protein Total Protein Albumin Ur Leukocyte Esterase Urine Bacteria Urine Mucus Stool Occult Blood Crossmatch 03/20/19 03/20/19 03/21/19 06:15 06:15 05:37 WBC RBC 2.50 L Hgb 6.6 L* Hct 22.0 L MCH MCHC 29.8 L RDW 16.8 H Plt Count Neutrophils # Lymphocytes # 0.8 L ESR ABG pH ABG pCO2 ABG pO2 ABG HCO3 ABG Total CO2 ABG O2 Saturation Sodium Potassium Chloride BUN 39 H Glucose 107 H POC Glucose (mg/dL) Plasma Lactic Acid Miguel AST 127 H ALT 152 H Alkaline Phosphatase 141 H C-Reactive Protein Total Protein 6.0 L Albumin 3.0 L Ur Leukocyte Esterase Urine Bacteria Urine Mucus Stool Occult Blood Crossmatch 03/21/19 03/21/19 03/21/19 05:37 08:23 09:09 WBC RBC 2.40 L Hgb 6.3 L* Hct 20.7 L MCH MCHC 30.2 L RDW 17.5 H Plt Count Neutrophils # Lymphocytes # ESR ABG pH ABG pCO2 ABG pO2 ABG HCO3 ABG Total CO2 ABG O2 Saturation Sodium Potassium Chloride BUN 40 H Glucose 101 H POC Glucose (mg/dL) Plasma Lactic Acid Miguel AST ALT Alkaline Phosphatase C-Reactive Protein Total Protein Albumin Ur Leukocyte Esterase Urine Bacteria Urine Mucus Stool Occult Blood Crossmatch See Detail 03/22/19 03/22/19 03/24/19 06:44 06:44 06:38 WBC RBC 2.97 L 3.14 L Hgb 8.3 L D 8.5 L Hct 27.0 L 28.2 L MCH MCHC 30.6 L 30.3 L RDW 17.2 H 17.3 H Plt Count Neutrophils # Lymphocytes # 0.9 L ESR ABG pH ABG pCO2 ABG pO2 ABG HCO3 ABG Total CO2 ABG O2 Saturation Sodium Potassium Chloride BUN 34 H Glucose 106 H POC Glucose (mg/dL) Plasma Lactic Acid Miguel AST ALT Alkaline Phosphatase C-Reactive Protein Total Protein Albumin Ur Leukocyte Esterase Urine Bacteria Urine Mucus Stool Occult Blood Crossmatch 03/25/19 03/25/19 03/26/19 16:56 16:56 07:33 WBC 12.4 H 10.9 H RBC 3.08 L 2.93 L Hgb 8.5 L 7.8 L Hct 27.9 L 26.5 L MCH MCHC 30.5 L 29.5 L RDW 17.1 H 17.3 H Plt Count Neutrophils # 9.1 H Lymphocytes # 0.7 L ESR ABG pH ABG pCO2 ABG pO2 ABG HCO3 ABG Total CO2 ABG O2 Saturation Sodium Potassium Chloride BUN 23 H Glucose 119 H POC Glucose (mg/dL) Plasma Lactic Acid Miguel AST ALT Alkaline Phosphatase C-Reactive Protein Total Protein Albumin 3.3 L Ur Leukocyte Esterase Urine Bacteria Urine Mucus Stool Occult Blood Crossmatch 03/26/19 03/27/19 03/27/19 07:33 02:50 03:07 WBC RBC Hgb Hct MCH MCHC RDW Plt Count Neutrophils # Lymphocytes # ESR ABG pH ABG pCO2 ABG pO2 ABG HCO3 ABG Total CO2 ABG O2 Saturation Sodium Potassium Chloride BUN 25 H 23 H Glucose 135 H 110 H POC Glucose (mg/dL) 109 H Plasma Lactic Acid Miguel AST ALT Alkaline Phosphatase C-Reactive Protein Total Protein Albumin 3.1 L Ur Leukocyte Esterase Urine Bacteria Urine Mucus Stool Occult Blood Crossmatch 03/27/19 03/27/19 03/27/19 08:46 08:46 08:46 WBC 10.7 H RBC 3.27 L Hgb 8.7 L Hct 29.0 L MCH MCHC 30.0 L RDW 17.2 H Plt Count Neutrophils # 9.4 H Lymphocytes # 0.5 L ESR 80 H ABG pH ABG pCO2 ABG pO2 ABG HCO3 ABG Total CO2 ABG O2 Saturation Sodium Potassium Chloride BUN Glucose POC Glucose (mg/dL) Plasma Lactic Acid Miguel AST ALT Alkaline Phosphatase C-Reactive Protein 56.1 H Total Protein Albumin Ur Leukocyte Esterase Urine Bacteria Urine Mucus Stool Occult Blood Crossmatch 03/27/19 16:13 WBC RBC Hgb Hct MCH MCHC RDW Plt Count Neutrophils # Lymphocytes # ESR ABG pH 7.33 L ABG pCO2 53 H ABG pO2 74 L ABG HCO3 28 H ABG Total CO2 29 H ABG O2 Saturation 93.5 L Sodium Potassium Chloride BUN Glucose POC Glucose (mg/dL) Plasma Lactic Acid Miguel AST ALT Alkaline Phosphatase C-Reactive Protein Total Protein Albumin Ur Leukocyte Esterase Urine Bacteria Urine Mucus Stool Occult Blood Crossmatch - Diagnostic Findings Chest x-ray: image reviewed Assessment and Plan Assessment: Impression: #1 Acute hypoxemic respiratory failure secondary to suspected aspiration during or post colonoscopy. #2 Intubation and mechanical ventilatory support, an unexpected outcome of procedure. #3 Atrial fibrillation with a rapid ventricular response. #4 Hypotension requiring norepinephrine. #5 History of CVA with residual dysphagia as with PEG tube placement. #6 Acute blood loss anemia requiring 3 units of packed red blood cells this admission. Current hemoglobin 8.7. #7 History of hypertension. #8 Hypothyroidism. #9 Hyperlipidemia. #10 Poor overall functional performance based on the above-mentioned multiple comorbidities. Plan: The patient was seen and evaluated by Dr. Malone. Chest x-ray, ABGs and labs all reviewed. Ventilator adjustments will include assist-control of 16, increased tidal volume to 450, continue FiO2 and 100%, increase the PEEP to 8. Increase propofol to 75 mcg/kg/m. Initiate amiodarone drip per protocol. Consult cardiology. And clindamycin, continue Levaquin. Continue bronchodilators every 4 hours. Add Pulmicort and Perforomist. Another fluid bolus and increased 0.9 NS to 125 ML's per hour. Initiate Levophed for signifi cant hypotension. Patient's overall prognosis is quite critical at this point. We'll continue to monitor her closely here in the intensive care unit. We'll continue to follow and make further recommendations based on her clinical status. The patient's family has been updated. I, the cosigning physician, performed a history & physical examination of the patient. Lungs sounds with bilateral scattered rhonchi more so on the left Maintaining good O2 saturations in the 90s on 100% FiO2 per mechanical ventilator. I discussed the assessment and plan of care with my nurse pract Leilani mckay. I attest to the above consultation as dictated by her. Time with Patient: Greater than 30
[2019-03-27] MEDS ORDERED: DIGOXIN 250 MCG/ML 2 ML AMP IVP ONE ×2 (17:19→21:51)
[2019-03-27 17:55] LABS: Glucose,Whole Blood 160 mg/dL (75-99)
[2019-03-27] MEDS: POTASSIUM CHLORIDE 10 MEQ in WATER FOR INJECTION 1 100ML.BAG IVPB SCH ×2 (18:23→19:42)
[2019-03-27] MEDS: LEVOFLOXACIN 500MG-D5W PMX 500 MG in DEXTROSE/WATER 1 100ML.BAG IVPB SCH (18:24)
[2019-03-27 18:33] LABS: Anisocytosis Slight; Basophils % (A) 0 %; Eosinophils # (A) 0.1 k/uL (0-0.7); Eosinophils % (A) 1 %; HCT 28.6 % (34.0-46.0); HGB 8.4 gm/dL (11.4-16.0); Hypochromasia Marked; Lymphocytes # (A) 0.4 k/uL (1.0-4.8); Lymphocytes % (A) 3 %; MCH 26.1 pg (25.0-35.0); MCHC 29.4 g/dL (31.0-37.0); MCV 88.9 fL (80.0-100.0); Mean Platelet Volume 7.6; Monocytes # (A) 0.4 k/uL (0-1.0); Monocytes % (A) 3 %; Neutrophils # (A) 11.2 k/uL (1.3-7.7); Neutrophils % (A) 92 %; Platelet Count 333 k/uL (150-450); Poikilocytosis Slight; RBC 3.21 m/uL (3.80-5.40); RDW 17.7 % (11.5-15.5); WBC 12.1 k/uL (3.8-10.6)
[2019-03-27] MEDS: CISATRACURIUM 2 MG/ML 5 ML VIAL IV ONE (18:46)
[2019-03-27 18:48] LABS: African American GFR (CKD) >90 (>60 ml/min/1.73 sqM); Anion Gap 10 mmol/L; Blood Urea Nitrogen 17 mg/dL (7-17); Calcium 7.6 mg/dL (8.4-10.2); Carbon Dioxide 23 mmol/L (22-30); Chloride 102 mmol/L (98-107); Glucose 316 mg/dL (74-99); Magnesium 1.5 mg/dL (1.6-2.3); Non-African American GFR(CKD) 81 (>60 ml/min/1.73 sqM); Phosphorus 3.2 mg/dL (2.5-4.5); Potassium 2.9 mmol/L (3.5-5.1); Sodium 135 mmol/L (137-145)
[2019-03-27] MEDS: BUDESONIDE 1 MG/2 ML NEBU INHALATION SCH (19:17)
[2019-03-27] MEDS: LIDOCAINE 5% PATCH TOPICAL SCH (19:37)
[2019-03-27] MEDS: MAGNESIUM SULFATE-D5W PMX 1 GM in DEXTROSE/WATER 1 100ML.BAG IVPB SCH ×2 (19:42→20:52)
[2019-03-27 19:54] LABS: D-Dimer 15.73 mg/L FEU (<0.60); INR 1.1 (<1.2); Partial Thromboplastin Time 24.1 sec (22.0-30.0); Prothrombin Time 11.1 sec (9.0-12.0)
[2019-03-27 19:59] LABS: ABG Base Excess -2.5 mmol/L; ABG HCO3 25 mmol/L (21-25); ABG Oxygen Saturation 99.4 % (94-97); ABG PCO2 55 mmHg (35-45); ABG PH 7.26 (7.35-7.45); ABG PO2 154 mmHg (83-108); ABG TCO2 26 mmol/L (19-24)
[2019-03-27] MEDS: CHLORHEXIDINE GLUCONATE 15 ML CUP MUCOUS MEM SCH (20:53)
[2019-03-27] MEDS: POTASSIUM CHLORIDE 20 MEQ in WATER FOR INJECTION 1 100ML.BAG IVPB SCH (20:53)
[2019-03-27] MEDS: ATORVASTATIN 40 MG TAB PO SCH (21:49)
[2019-03-27 22:01] LABS: Appearance,Urine Cloudy (Clear); Bilirubin,Urine Negative (Negative); Blood,Urine Trace (Negative); Color,Urine Yellow; Glucose,Urine (UA) Negative (Negative); Hyaline Casts,Urine 18 /lpf (0-2); Ketones,Urine Negative (Negative); Leukocyte Esterase,Urine Small (Negative); Mucus,Urine Rare /hpf; Nitrite,Urine Negative (Negative); Protein,Urine Trace (Negative); RBC,Urine 16 /hpf (0-5); Specific Gravity,Urine 1.009 (1.001-1.035); Squamous Epithelial Cell,Urine 1 /hpf (0-4); Urobilinogen,Urine <2.0 mg/dL (<2.0); WBC,Urine 9 /hpf (0-5)
--- NOTE | 2019-03-27 22:28 | US ---
EXAMINATION TYPE: US venous doppler duplex LE DATE OF EXAM: 03/27/2019 9:50 PM COMPARISON: US CLINICAL HISTORY: elevated d-dimer. Elevated d-dimer. Pt unable to give history. SIDE PERFORMED: Bilateral TECHNIQUE: The lower extremity deep venous system is examined utilizing real time linear array sonog jessica with graded compression, doppler sonography and color-flow sonography. VESSELS IMAGED: External Iliac Vein (EIV) Common Femoral Vein Deep Femoral Vein Greater Saphenous Vein * Femoral Vein Popliteal Vein Proximal Calf Veins (* superficial vessels) Very limited study due to patient's inability to move leg to scan popliteal vein and groin cathete rs. Swelling. RIGHT LOWER EXTREMITY IMPRESSION: No evidence of DVT in vessels imaged, however very limited exam. EIV, CFV, and DFV not visualized. LEFT LOWER EXTREMITY IMPRESSION: No evidence of DVT in vessels imaged, however very limited exam. Color imaging and compressions of po pliteal vein and prox calf veins limited.
--- NOTE | 2019-03-27 22:37 | P.GSCN ---
History of Present Illness Consult date: 03/27/19 History of present illness: CHIEF COMPLAINT: Abnormal CT HISTORY OF PRESENT ILLNESS: The patient is a 84 year old female who initially had a CT of the abdomen and pelvis showing very large abdominal aneurysm. Additionally patient had barium study showing questionable lesion at the splenic flexure. She had a colonoscopy showing moderate stool and no lesions. She then had acute hypoxia with additional abdominal xray showing dilated loops of bowel from colonoscopy and questionable free air. As a result of radiological film, general surgery is consulted for evaluation of free air. PAST MEDICAL HISTORY: See list. PAST SURGICAL HISTORY: See list. MEDICATIONS: See list. ALLERGIES: See list. SOCIAL HISTORY: See list. FAMILY HISTORY: See list. REVIEW OF ORGAN SYSTEMS: CONSTITUTIONAL: No fevers or chills. No recent weight loss. EYES: Denies any trouble with vision. No glasses. HEENT: No difficulties with hearing. No nosebleeds. No difficulty swallowing. RESPIRATORY: Past pneumonia. Has COPD CARDIOVASCULAR: Denies any chest pain, palpitations, or recent heart attacks. GASTROINTESTINAL: Denies fatty food intolerance. Denies change in bowel habits and gas bloat. Has GERD. GENITOURINARY: Denies any blood in urine or increased urinary frequency. NEUROLOGICAL: Denies any numbness or tingling along the distal extremities. No seizure disorders or headaches. MUSCULOSKELETAL: Denies any back pain, stiffness or joint arthritis. SKIN: No current skin cancer. No rash. PSYCHIATRIC: Has depression. No suicidal thoughts. ENDOCRINE: Has thyroid disorders. Denies any blood sugar glucose intolerance. HEME/LYMPHATIC: Denies any lumps and bumps around the neck. No recent deep venous thrombosis. ALLERGY/IMMUNOLOGY: No immunoglobulin therapy. No immune deficiencies. BREAST: Denies current breast lumps, pain or nipple discharge. PHYSICAL EXAM: VITALS: Reviewed CONSTITUTIONAL: Well developed and in no acute distress. EYES: Conjuctivae without sclera icterus. Pupils are equally round and reactive to light. Extraocular movements grossly intact. HEAD, EARS, NOSE, THROAT: Moist buccal mucosa. Head is atraumatic, normocephalic. Hears conversational speech. No nasal drainage NECK: Supple. No JV distention. No thyroidomegaly. RESPIRATORY: Non-labored respirations and equal bilateral excursions. No gross wheezes. CARDIOVASCULAR: Regular rate and rhythm. Extremities without moderate edema. Palpable 2+ radial pulses. ABDOMEN: No hepatomegaly. Soft. Non-tender. Nondistended. LYMPH: No neck lymphadenopathy. No axillary lymphadenopathy. MUSCULOSKELETAL: Nail and fingers with good capillary refill. SKIN: Warm and well perfused with good skin turgor. NEUROLOGIC: Cranial nerves I through XII grossly intact. Sensation upper and extremities intact. No focal or lateralizing signs. PSYCH: Appropriate affect. Alert and oriented to person, place and time. Displays appropriate insight. CLINCAL LABS: Reviewed RADIOLOGY: Report reviewed IMAGING: Independently reviewed alongside with patient. I personally reviewed all studies including CT, barium enema, and colonoscopy including abdominal xray and chest xray, I see no evidence of free air. ASSESSMENT: 1. Abnormal computed tomography scan 2. Abdominal aneurysm 3. Colonic mass/lesion at splenic flexure 4. Aspiration pneumonia PLAN: 1. On clinical exam, abdomen is soft, non-distended and without peritonitis. 2. No need for surgical intervention as there is no clinical exam finding of free air or peritonitis. Thank you for this kind consultation. Past Medical History Past Medical History: CVA/TIA, Hypertension, Thyroid Disorder Additional Past Medical History / Comment(s): feeding tube History of Any Multi-Drug Resistant Organisms: None Reported Past Surgical History: Cholecystectomy, Coronary Bypass/CABG, Hysterectomy Additional Past Surgical History / Comment(s): aorta aneurysm repair Past Anesthesia/Blood Transfusion Reactions: No Reported Reaction Past Psychological History: No Psychological Hx Reported Smoking Status: Former smoker Past Alcohol Use History: None Reported Past Drug Use History: None Reported - Past Family History Father Family Medical History: Coronary Artery Disease (CAD), Thyroid Disorder Medications and Allergies Home Medications Medication Instructions Recorded Confirmed Type Sertraline [Zoloft] 75 mg PO DAILY 11/06/15 03/18/19 History Atorvastatin Calcium [Lipitor] 40 mg PO HS 03/18/19 03/18/19 History Carboxymethylcellulose Sodium 1 drop BOTH EYES DAILY PRN 03/18/19 03/18/19 History [Refresh Tears] Furosemide [Lasix] 40 mg PO DAILY 03/18/19 03/18/19 History Levothyroxine Sodium [Synthroid] 100 mcg PO DAILY 03/18/19 03/18/19 History Lidocaine 5% Patch [Lidoderm 5% 1 patch TOPICAL DAILY 03/18/19 03/18/19 History Patch] Metoprolol Tartrate [Lopressor] 75 mg PO BID 03/18/19 03/18/19 History Mometasone/Formoterol [Dulera 100 2 puff INHALATION BID 03/18/19 03/18/19 History Mcg/5 Mcg Inhaler] Acetaminophen Tab [Tylenol] 650 mg PEG/G-TUBE Q6HR PRN tab 04/07/19 Rx Ipratropium-Albuterol Nebulize 3 ml INHALATION Q4H PRN ampul.neb 04/07/19 Rx [Duoneb 0.5 mg-3 mg/3 ml Soln] Ipratropium-Albuterol Nebulize 3 ml INHALATION RT-QID ampul.neb 04/07/19 Rx [Duoneb 0.5 mg-3 mg/3 ml Soln] Levofloxacin [Levaquin] 500 mg PO Q24H #7 tab 04/07/19 Rx Pantoprazole Sodium [Protonix] 40 mg PO BID #1 tablet.dr 04/07/19 Rx Polyethylene Glycol 3350 [Miralax] 17 gm PO BID powd.pack 04/07/19 Rx amLODIPine [Norvasc] 5 mg PO DAILY tab 04/07/19 Rx hydrALAZINE HCL [Apresoline] 25 mg PO TID tab 04/07/19 Rx predniSONE 10 mg PO DIRECTED #30 tab 04/07/19 Rx Allergies Allergy/AdvReac Type Severity Reaction Status Date / Time Penicillins Allergy Swelling Verified 03/18/19 07:54 Surgical - Exam Vital Signs Pulse Resp BP Pulse Ox 74 20 164/96 100 03/18/19 07:10 03/18/19 07:10 03/18/19 07:10 03/18/19 07:10 Results - Labs 04/04/19 06:56 04/04/19 06:56 Abnormal Lab Results - Last 24 Hours (Table) 03/27/19 03/27/19 03/27/19 Range/Units 02:50 03:07 08:46 WBC 10.7 H (3.8-10.6) k/uL RBC 3.27 L (3.80-5.40) m/uL Hgb 8.7 L (11.4-16.0) gm/dL Hct 29.0 L (34.0-46.0) % MCHC 30.0 L (31.0-37.0) g/dL RDW 17.2 H (11.5-15.5) % Neutrophils # 9.4 H (1.3-7.7) k/uL Lymphocytes # 0.5 L (1.0-4.8) k/uL ESR (0-20) mm/hr D-Dimer (<0.60) mg/L FEU ABG pH (7.35-7.45) ABG pCO2 (35-45) mmHg ABG pO2 (83-108) mmHg ABG HCO3 (21-25) mmol/L ABG Total CO2 (19-24) mmol/L ABG O2 Saturation (94-97) % Sodium (137-145) mmol/L Potassium (3.5-5.1) mmol/L BUN 23 H (7-17) mg/dL Glucose 110 H (74-99) mg/dL POC Glucose (mg/dL) 109 H (75-99) mg/dL Calcium (8.4-10.2) mg/dL Magnesium (1.6-2.3) mg/dL C-Reactive Protein (<10.0) mg/L Urine Appearance (Clear) Urine Protein (Negative) Urine Blood (Negative) Ur Leukocyte Esterase (Negative) Urine RBC (0-5) /hpf Urine WBC (0-5) /hpf Hyaline Casts (0-2) /lpf Urine Mucus (None) /hpf 03/27/19 03/27/19 03/27/19 Range/Units 08:46 08:46 16:13 WBC (3.8-10.6) k/uL RBC (3.80-5.40) m/uL Hgb (11.4-16.0) gm/dL Hct (34.0-46.0) % MCHC (31.0-37.0) g/dL RDW (11.5-15.5) % Neutrophils # (1.3-7.7) k/uL Lymphocytes # (1.0-4.8) k/uL ESR 80 H (0-20) mm/hr D-Dimer (<0.60) mg/L FEU ABG pH 7.33 L (7.35-7.45) ABG pCO2 53 H (35-45) mmHg ABG pO2 74 L (83-108) mmHg ABG HCO3 28 H (21-25) mmol/L ABG Total CO2 29 H (19-24) mmol/L ABG O2 Saturation 93.5 L (94-97) % Sodium (137-145) mmol/L Potassium (3.5-5.1) mmol/L BUN (7-17) mg/dL Glucose (74-99) mg/dL POC Glucose (mg/dL) (75-99) mg/dL Calcium (8.4-10.2) mg/dL Magnesium (1.6-2.3) mg/dL C-Reactive Protein 56.1 H (<10.0) mg/L Urine Appearance (Clear) Urine Protein (Negative) Urine Blood (Negative) Ur Leukocyte Esterase (Negative) Urine RBC (0-5) /hpf Urine WBC (0-5) /hpf Hyaline Casts (0-2) /lpf Urine Mucus (None) /hpf 03/27/19 03/27/19 03/27/19 Range/Units 17:44 18:23 18:23 WBC 12.1 H (3.8-10.6) k/uL RBC 3.21 L (3.80-5.40) m/uL Hgb 8.4 L (11.4-16.0) gm/dL Hct 28.6 L (34.0-46.0) % MCHC 29.4 L (31.0-37.0) g/dL RDW 17.7 H (11.5-15.5) % Neutrophils # 11.2 H (1.3-7.7) k/uL Lymphocytes # 0.4 L (1.0-4.8) k/uL ESR (0-20) mm/hr D-Dimer (<0.60) mg/L FEU ABG pH (7.35-7.45) ABG pCO2 (35-45) mmHg ABG pO2 (83-108) mmHg ABG HCO3 (21-25) mmol/L ABG Total CO2 (19-24) mmol/L ABG O2 Saturation (94-97) % Sodium 135 L (137-145) mmol/L Potassium 2.9 L (3.5-5.1) mmol/L BUN (7-17) mg/dL Glucose 316 H (74-99) mg/dL POC Glucose (mg/dL) 160 H (75-99) mg/dL Calcium 7.6 L (8.4-10.2) mg/dL Magnesium 1.5 L (1.6-2.3) mg/dL C-Reactive Protein (<10.0) mg/L Urine Appearance (Clear) Urine Protein (Negative) Urine Blood (Negative) Ur Leukocyte Esterase (Negative) Urine RBC (0-5) /hpf Urine WBC (0-5) /hpf Hyaline Casts (0-2) /lpf Urine Mucus (None) /hpf 03/27/19 03/27/19 03/27/19 Range/Units 19:15 19:55 21:50 WBC (3.8-10.6) k/uL RBC (3.80-5.40) m/uL Hgb (11.4-16.0) gm/dL Hct (34.0-46.0) % MCHC (31.0-37.0) g/dL RDW (11.5-15.5) % Neutrophils # (1.3-7.7) k/uL Lymphocytes # (1.0-4.8) k/uL ESR (0-20) mm/hr D-Dimer 15.73 H (<0.60) mg/L FEU ABG pH 7.26 L (7.35-7.45) ABG pCO2 55 H (35-45) mmHg ABG pO2 154 H (83-108) mmHg ABG HCO3 (21-25) mmol/L ABG Total CO2 26 H (19-24) mmol/L ABG O2 Saturation 99.4 H (94-97) % Sodium (137-145) mmol/L Potassium (3.5-5.1) mmol/L BUN (7-17) mg/dL Glucose (74-99) mg/dL POC Glucose (mg/dL) (75-99) mg/dL Calcium (8.4-10.2) mg/dL Magnesium (1.6-2.3) mg/dL C-Reactive Protein (<10.0) mg/L Urine Appearance Cloudy H (Clear) Urine Protein Trace H (Negative) Urine Blood Trace H (Negative) Ur Leukocyte Esterase Small H (Negative) Urine RBC 16 H (0-5) /hpf Urine WBC 9 H (0-5) /hpf Hyaline Casts 18 H (0-2) /lpf Urine Mucus Rare H (None) /hpf Microbiology - Last 24 Hours (Table) 03/27/19 15:54 Sputum Culture - Preliminary Sputum Diabetes panel 03/27/19 03/27/19 Range/Units 03:07 18:23 Sodium 138 135 L (137-145) mmol/L Potassium 3.8 2.9 L (3.5-5.1) mmol/L Chloride 100 102 (98-107) mmol/L Carbon Dioxide 29 23 (22-30) mmol/L BUN 23 H 17 (7-17) mg/dL Creatinine 0.64 0.66 (0.52-1.04) mg/dL Glucose 110 H 316 H (74-99) mg/dL Calcium 8.9 7.6 L (8.4-10.2) mg/dL Calcium panel 03/27/19 03/27/19 Range/Units 03:07 18:23 Calcium 8.9 7.6 L (8.4-10.2) mg/dL Phosphorus 3.2 (2.5-4.5) mg/dL Pituitary panel 03/27/19 03/27/19 Range/Units 03:07 18:23 Sodium 138 135 L (137-145) mmol/L Potassium 3.8 2.9 L (3.5-5.1) mmol/L Chloride 100 102 (98-107) mmol/L Carbon Dioxide 29 23 (22-30) mmol/L BUN 23 H 17 (7-17) mg/dL Creatinine 0.64 0.66 (0.52-1.04) mg/dL Glucose 110 H 316 H (74-99) mg/dL Calcium 8.9 7.6 L (8.4-10.2) mg/dL Adrenal panel 03/27/19 03/27/19 Range/Units 03:07 18:23 Sodium 138 135 L (137-145) mmol/L Potassium 3.8 2.9 L (3.5-5.1) mmol/L Chloride 100 102 (98-107) mmol/L Carbon Dioxide 29 23 (22-30) mmol/L BUN 23 H 17 (7-17) mg/dL Creatinine 0.64 0.66 (0.52-1.04) mg/dL Glucose 110 H 316 H (74-99) mg/dL Calcium 8.9 7.6 L (8.4-10.2) mg/dL
[2019-03-27 22:51] LABS: Glucose,Whole Blood 206 mg/dL (75-99)
[2019-03-27] MEDS: AMIODARONE 300 MG in DEXTROSE 5% IN WATER 250 ML IV SCH ×2 (23:40)
[2019-03-28] MEDS: POTASSIUM CHLORIDE 20 MEQ in WATER FOR INJECTION 1 100ML.BAG IVPB SCH (00:12)
[2019-03-28] MEDS: DICLOFENAC SODIUM GEL 100 GM TUBE TOPICAL SCH ×5 (00:15→21:57)
[2019-03-28] MEDS: INSULIN ASPART (NovoLOG) 100 UNIT/ML VIAL SQ SCH ×4 (00:23→18:16)
[2019-03-28 00:33] LABS: Glucose,Whole Blood 174 mg/dL (75-99)
--- NOTE | 2019-03-28 01:33 | PCN ---
PROCEDURE NOTE done of the OR in the operative report with respect to the right femoral triple-lumen catheter. Preop. DIAGNOSES: Acute respiratory failure secondary to aspiration pneumonia and hypotension. POSTOPERATIVE DIAGNOSES: Acute respiratory failure secondary to aspiration pneumonia and hypotension. ANESTHESIA USED: 2 mL of 1% lidocaine. DESCRIPTION OF PROCEDURE: The patient was placed in a supine position, the right groin was prepared in a sterile fashion and drapes were applied. The right femoral vein was easily cannulated, and a guidewire was placed. The area around the guidewire was . A triple-lumen catheter was inserted over the guidewire, the guidewire was removed. Good blood flow noted in the 3 different ports of the triple-lumen catheter and no evidence of any immediate complication. The line was secured using 2-0 silk sutures, and a sterile dressing was applied. TIMOTHY / RENUN: [id number] /
[2019-03-28] MEDS: DEXTROSE 5%-0.9% NACL 1,000 ML IV SCH ×2 (01:40→16:20)
[2019-03-28] MEDS: IPRATROPIUM-ALBUTEROL 3 ML NEB INHALATION SCH ×6 (02:55→22:53)
[2019-03-28] MEDS: CLINDAMYCIN 600 MG in DEXTROSE 5% IN WATER 50 ML IVPB SCH ×6 (03:27→20:40)
[2019-03-28 04:35] LABS: Anisocytosis Slight; Basophils % (A) 0 %; Eosinophils % (A) 0 %; HCT 26.4 % (34.0-46.0); Hypochromasia Marked; Lymphocytes # (A) 0.8 k/uL (1.0-4.8); Lymphocytes % (A) 3 %; MCHC 30.1 g/dL (31.0-37.0); MCV 86.5 fL (80.0-100.0); Mean Platelet Volume 7.2; Monocytes # (A) 1.3 k/uL (0-1.0); Monocytes % (A) 5 %; Neutrophils % (A) 90 %; Platelet Count 289 k/uL (150-450); Poikilocytosis Moderate; RBC 3.06 m/uL (3.80-5.40); WBC 24.4 k/uL (3.8-10.6)
[2019-03-28 04:44] LABS: Calcium 7.8 mg/dL (8.4-10.2); Potassium 3.8 mmol/L (3.5-5.1)
[2019-03-28] MEDS: PROPOFOL 1,000 MG in EMPTY BAG 1 BAG IV SCH ×2 (05:15→22:42)
--- NOTE | 2019-03-28 06:19 | PCN ---
PROCEDURE NOTE The operative report is placement of a left brachial arterial line. PREOPERATIVE DIAGNOSIS: Hypotension and respiratory failure secondary to aspiration pneumonia. POSTOPERATIVE DIAGNOSIS: Hypotension and respiratory failure secondary to aspiration pneumonia. ANESTHESIA USED: None deployed. PROCEDURE: The patient was placed in a supine position, the left arm was placed on the table, and the brachial artery was palpated, cannulated, and a guidewire was placed. A Cook catheter was inserted over the guidewire, and the guidewire was removed. Good blood flow and good waveform were noted. No evidence of any immediate complication. Line was secured using 3.0 silk suture. MMODL / IJN: [id number] /
[2019-03-28 06:55] LABS: Glucose,Whole Blood 151 mg/dL (75-99)
[2019-03-28] MEDS ORDERED: Potassium Replacement Protocol 1 EACH MISC MISCELLANE PRN (06:55)
[2019-03-28] MEDS: NOREPINEPHRINE 4 MG in SODIUM CHLORIDE 0.9% 250 ML IV SCH (07:00)
[2019-03-28] MEDS: LEVOTHYROXINE 100 MCG TAB PO SCH (07:13)
[2019-03-28 07:21] LABS: ABG Base Excess -4.4 mmol/L; ABG HCO3 22 mmol/L (21-25); ABG Oxygen Saturation 98.5 % (94-97); ABG PCO2 43 mmHg (35-45); ABG PH 7.32 (7.35-7.45); ABG PO2 105 mmHg (83-108); ABG TCO2 23 mmol/L (19-24); Allen Test Performed? Yes
[2019-03-28] MEDS: BUDESONIDE 1 MG/2 ML NEBU INHALATION SCH ×2 (08:00→19:24)
--- NOTE | 2019-03-28 08:17 | XR ---
EXAMINATION TYPE: XR chest 1V portable DATE OF EXAM: 03/28/2019 COMPARISON: 03/27/2019 HISTORY: Tube placement TECHNIQUE: Single frontal view of the chest is obtained. FINDINGS: Left-sided consolidation and pleural effusion has progressed. Right lung clear. Underlying COPD noted. Postsurgical changes noted there is prominence of the thoracic aorta with atheroscleroti c changes. Heart size stable. ET tube noted. IMPRESSION: 1. Progression of left-sided consolidation and pleural effusion correlate for pneumonia.
[2019-03-28] MEDS: AMIODARONE 300 MG in DEXTROSE 5% IN WATER 250 ML IV SCH ×2 (09:40)
[2019-03-28] MEDS: FUROSEMIDE 40 MG TAB PO SCH (09:58)
[2019-03-28] MEDS: CHLORHEXIDINE GLUCONATE 15 ML CUP MUCOUS MEM SCH ×3 (09:59→21:55)
[2019-03-28] MEDS: PANTOPRAZOLE 40 MG/10 ML VIAL IV SCH ×2 (10:01→21:55)
[2019-03-28] MEDS: METOPROLOL TARTRATE 25 MG TAB PO SCH ×2 (10:05→21:55)
[2019-03-28] MEDS: POLYETHYLENE GLYCOL 3350 17 GM POWD.PACK PO SCH ×2 (10:08→21:56)
[2019-03-28] MEDS: SERTRALINE 25 MG TAB PO SCH (10:09)
[2019-03-28] MEDS: LIDOCAINE 5% PATCH TOPICAL SCH (10:19)
[2019-03-28] MEDS: CISATRACURIUM 2 MG/ML 5 ML VIAL IV ONE (10:23)
[2019-03-28] MEDS: HYDROmorphone 0.5 MG/0.5 ML SYRINGE IVP PRN (10:24)
[2019-03-28] MEDS: POTASSIUM CHLORIDE 10 MEQ in WATER FOR INJECTION 1 100ML.BAG IVPB SCH ×2 (10:47→11:48)
--- NOTE | 2019-03-28 10:50 | P.PN ---
Subjective Progress Note Date: 03/28/19 Principal diagnosis: GI bleed anemia elevated liver enzymes Status post colonoscopy yesterday with Dr. Boudreaux subsequently developed acute abdominal pain followed by respiratory distress postprocedure transferred to the ICU intubated. Possible aspiration. Presently she is intubated sedated IV pressors. Bronchoscopy scheduled today. Per nursing reports of hematemesis hematochezia or melena. Post-colonoscopy abdominal x-ray could not exclude pneumoperitoneum. Follow-up chest x-rays reported no evidence of pneumoperitoneum. No surgery has evaluated patient no surgical plans at this time. White count 24.4. Hemoglobin 8. Objective - Vital Signs Vital signs: Vital Signs Temp 97.6 F 03/28/19 04:00 Pulse 85 03/28/19 08:27 Resp 34 H 03/28/19 06:00 BP 106/49 03/27/19 20:15 Pulse Ox 97 03/28/19 06:00 Intake & Output 03/27/19 03/28/19 03/28/19 18:59 06:59 18:59 Intake Total 2667.067 2551.093 364.427 Output Total 760 400 Balance 9849.512 0311.093 364.427 Weight 75 kg Intake: IV 2400 1700 Clindamycin 600 mg In 100 Dextrose 5% in Water 50 ml @ 50 mls/hr IVPB Q8H NO Rx#:[id number] Dextrose 5%-0.9% NaCl 1, 525 000 ml @ 75 mls/hr IV . [id number] NO Rx#:[id number] Levofloxacin 500Mg-D5w 100 Pmx 500 mg In Dextrose/ Water 1 100ml.bag @ 100 mls/hr IVPB Q24H NO Rx#: [id number] Magnesium Sulfate-D5w Pmx 200 1 gm In Dextrose/Water 1 100ml.bag @ 100 mls/hr IVPB Q1H NO Rx#: [id number] Potassium Chloride 10 meq 200 In Water For Injection 1 100ml.bag @ 100 mls/hr IVPB Q1H NO Rx#: [id number] Potassium Chloride 20 meq 200 In Water For Injection 1 100ml.bag @ 50 mls/hr IVPB Q2H NO Rx#: [id number] Sodium Chloride 0.9% 1, 375 000 ml @ 75 mls/hr IV . [id number] NO Rx#:[id number] Sodium Chloride 0.9% 1, 2000 000 ml @ 999 mls/hr IV . Q1H1M ONE Rx#:[id number] Intake, IV Titration 267.067 851.093 364.427 Amount Amiodarone 300 mg In 250 Dextrose 5% in Water 250 ml @ 0.5 MG/MIN 25 mls/hr IV .Q10H [facility] Rx#: [id number] Dextrose 5% in Water 100 100 100 ml @ 618 mls/hr IV .Q10M ONE with Amiodarone 150 mg Rx#:[id number] Norepinephrine 4 mg In 43.282 464.718 14.427 Sodium Chloride 0.9% 250 ml @ 0.05 MCG/KG/MIN 13. 526 mls/hr IV .[id number] [facility] Rx#:[id number] Potassium Chloride 10 meq 100 In Water For Injection 1 100ml.bag @ 100 mls/hr IVPB Q1H NO Rx#: [id number] Propofol 1,000 mg In 23.785 286.375 100 Empty Bag 1 bag @ Titrate IV .Q0M [facility] Rx#: [id number] Output: Urine 760 400 Other: Voiding Method Indwelling Catheter Indwelling Catheter # Voids 1 # Bowel Movements 1 ABP, PAP, CO, CI - Last Documented Arterial Blood Pressure 149/63 - Exam General appearance: Intubated sedated HEENT: Head is normocephalic and atraumatic. Pupils are equal and reactive. Th e nares are patent. Endotracheal tube intact. Neck: Supple without lymphadenopathy. Trachea midline. Heart: S1 S2. Regular rate and rhythm. Lungs: Diminished in bases. Abdomen: Soft, G-tube. Without erythema or drainage nontender, nondistended with good bowel sounds. No peritoneal signs. No palpable organomegaly or masses. Extremities: Normal skin color and turgor. No cyanosis, rash, ulceration, clubbing, or edema. Radial and pedal pulses are 2/4 bilaterally. Olsen with clear yellow urine. Neurological: Cannot be assessed at this time since the patient is intubated and sedated.am - Labs CBC & Chem 7: 03/28/19 04:15 03/28/19 04:15 Labs: Abnormal Lab Results - Last 24 Hours (Table) 03/27/19 03/27/19 03/27/19 Range/Units 08:46 08:46 16:13 WBC (3.8-10.6) k/uL RBC (3.80-5.40) m/uL Hgb (11.4-16.0) gm/dL Hct (34.0-46.0) % MCHC (31.0-37.0) g/dL RDW (11.5-15.5) % Neutrophils # (1.3-7.7) k/uL Lymphocytes # (1.0-4.8) k/uL Monocytes # (0-1.0) k/uL ESR 80 H (0-20) mm/hr D-Dimer (<0.60) mg/L FEU ABG pH 7.33 L (7.35-7.45) ABG pCO2 53 H (35-45) mmHg ABG pO2 74 L (83-108) mmHg ABG HCO3 28 H (21-25) mmol/L ABG Total CO2 29 H (19-24) mmol/L ABG O2 Saturation 93.5 L (94-97) % Sodium (137-145) mmol/L Potassium (3.5-5.1) mmol/L Carbon Dioxide (22-30) mmol/L BUN (7-17) mg/dL Glucose (74-99) mg/dL POC Glucose (mg/dL) (75-99) mg/dL Calcium (8.4-10.2) mg/dL Magnesium (1.6-2.3) mg/dL C-Reactive Protein 56.1 H (<10.0) mg/L Urine Appearance (Clear) Urine Protein (Negative) Urine Blood (Negative) Ur Leukocyte Esterase (Negative) Urine RBC (0-5) /hpf Urine WBC (0-5) /hpf Hyaline Casts (0-2) /lpf Urine Mucus (None) /hpf 03/27/19 03/27/19 03/27/19 Range/Units 17:44 18:23 18:23 WBC 12.1 H (3.8-10.6) k/uL RBC 3.21 L (3.80-5.40) m/uL Hgb 8.4 L (11.4-16.0) gm/dL Hct 28.6 L (34.0-46.0) % MCHC 29.4 L (31.0-37.0) g/dL RDW 17.7 H (11.5-15.5) % Neutrophils # 11.2 H (1.3-7.7) k/uL Lymphocytes # 0.4 L (1.0-4.8) k/uL Monocytes # (0-1.0) k/uL ESR (0-20) mm/hr D-Dimer (<0.60) mg/L FEU ABG pH (7.35-7.45) ABG pCO2 (35-45) mmHg ABG pO2 (83-108) mmHg ABG HCO3 (21-25) mmol/L ABG Total CO2 (19-24) mmol/L ABG O2 Saturation (94-97) % Sodium 135 L (137-145) mmol/L Potassium 2.9 L (3.5-5.1) mmol/L Carbon Dioxide (22-30) mmol/L BUN (7-17) mg/dL Glucose 316 H (74-99) mg/dL POC Glucose (mg/dL) 160 H (75-99) mg/dL Calcium 7.6 L (8.4-10.2) mg/dL Magnesium 1.5 L (1.6-2.3) mg/dL C-Reactive Protein (<10.0) mg/L Urine Appearance (Clear) Urine Protein (Negative) Urine Blood (Negative) Ur Leukocyte Esterase (Negative) Urine RBC (0-5) /hpf Urine WBC (0-5) /hpf Hyaline Casts (0-2) /lpf Urine Mucus (None) /hpf 03/27/19 03/27/19 03/27/19 Range/Units 19:15 19:55 21:50 WBC (3.8-10.6) k/uL RBC (3.80-5.40) m/uL Hgb (11.4-16.0) gm/dL Hct (34.0-46.0) % MCHC (31.0-37.0) g/dL RDW (11.5-15.5) % Neutrophils # (1.3-7.7) k/uL Lymphocytes # (1.0-4.8) k/uL Monocytes # (0-1.0) k/uL ESR (0-20) mm/hr D-Dimer 15.73 H (<0.60) mg/L FEU ABG pH 7.26 L (7.35-7.45) ABG pCO2 55 H (35-45) mmHg ABG pO2 154 H (83-108) mmHg ABG HCO3 (21-25) mmol/L ABG Total CO2 26 H (19-24) mmol/L ABG O2 Saturation 99.4 H (94-97) % Sodium (137-145) mmol/L Potassium (3.5-5.1) mmol/L Carbon Dioxide (22-30) mmol/L BUN (7-17) mg/dL Glucose (74-99) mg/dL POC Glucose (mg/dL) (75-99) mg/dL Calcium (8.4-10.2) mg/dL Magnesium (1.6-2.3) mg/dL C-Reactive Protein (<10.0) mg/L Urine Appearance Cloudy H (Clear) Urine Protein Trace H (Negative) Urine Blood Trace H (Negative) Ur Leukocyte Esterase Small H (Negative) Urine RBC 16 H (0-5) /hpf Urine WBC 9 H (0-5) /hpf Hyaline Casts 18 H (0-2) /lpf Urine Mucus Rare H (None) /hpf 03/27/19 03/28/19 03/28/19 Range/Units 22:40 00:20 04:15 WBC 24.4 H (3.8-10.6) k/uL RBC 3.06 L (3.80-5.40) m/uL Hgb 8.0 L (11.4-16.0) gm/dL Hct 26.4 L (34.0-46.0) % MCHC 30.1 L (31.0-37.0) g/dL RDW 18.0 H (11.5-15.5) % Neutrophils # 22.0 H (1.3-7.7) k/uL Lymphocytes # 0.8 L (1.0-4.8) k/uL Monocytes # 1.3 H (0-1.0) k/uL ESR (0-20) mm/hr D-Dimer (<0.60) mg/L FEU ABG pH (7.35-7.45) ABG pCO2 (35-45) mmHg ABG pO2 (83-108) mmHg ABG HCO3 (21-25) mmol/L ABG Total CO2 (19-24) mmol/L ABG O2 Saturation (94-97) % Sodium (137-145) mmol/L Potassium (3.5-5.1) mmol/L Carbon Dioxide (22-30) mmol/L BUN (7-17) mg/dL Glucose (74-99) mg/dL POC Glucose (mg/dL) 206 H 174 H (75-99) mg/dL Calcium (8.4-10.2) mg/dL Magnesium (1.6-2.3) mg/dL C-Reactive Protein (<10.0) mg/L Urine Appearance (Clear) Urine Protein (Negative) Urine Blood (Negative) Ur Leukocyte Esterase (Negative) Urine RBC (0-5) /hpf Urine WBC (0-5) /hpf Hyaline Casts (0-2) /lpf Urine Mucus (None) /hpf 03/28/19 03/28/19 03/28/19 Range/Units 04:15 06:43 07:16 WBC (3.8-10.6) k/uL RBC (3.80-5.40) m/uL Hgb (11.4-16.0) gm/dL Hct (34.0-46.0) % MCHC (31.0-37.0) g/dL RDW (11.5-15.5) % Neutrophils # (1.3-7.7) k/uL Lymphocytes # (1.0-4.8) k/uL Monocytes # (0-1.0) k/uL ESR (0-20) mm/hr D-Dimer (<0.60) mg/L FEU ABG pH 7.32 L (7.35-7.45) ABG pCO2 (35-45) mmHg ABG pO2 (83-108) mmHg ABG HCO3 (21-25) mmol/L ABG Total CO2 (19-24) mmol/L ABG O2 Saturation 98.5 H (94-97) % Sodium (137-145) mmol/L Potassium (3.5-5.1) mmol/L Carbon Dioxide 21 L (22-30) mmol/L BUN 18 H (7-17) mg/dL Glucose 134 H (74-99) mg/dL POC Glucose (mg/dL) 151 H (75-99) mg/dL Calcium 7.8 L (8.4-10.2) mg/dL Magnesium (1.6-2.3) mg/dL C-Reactive Protein (<10.0) mg/L Urine Appearance (Clear) Urine Protein (Negative) Urine Blood (Negative) Ur Leukocyte Esterase (Negative) Urine RBC (0-5) /hpf Urine WBC (0-5) /hpf Hyaline Casts (0-2) /lpf Urine Mucus (None) /hpf Microbiology - Last 24 Hours (Table) 03/27/19 15:54 Gram Stain - Preliminary Sputum Sputum Culture - Preliminary Assessment and Plan (1) Acute respiratory failure Narrative/Plan: Acute respiratory failure secondary to suspected aspiration during or post colonoscopy per pulmonary evaluation presently intubated on IV pressors. Status post colonoscopy yesterday for evaluation of anemia rule out colonic mass per CT findings. Colonoscopy findings indicated no masses or mucosal abnormalities to correlate with CT. Diverticulosis and internal hemorrhoids. Current Visit: Yes Status: Acute Code(s): J96.00 - ACUTE RESPIRATORY FAILURE, UNSP W HYPOXIA OR HYPERCAPNIA SNOMED Code(s): 38888299 (2) Normocytic hypochromic anemia Current Visit: Yes Status: Acute Code(s): D50.9 - IRON DEFICIENCY ANEMIA, UNSPECIFIED SNOMED Code(s): 90316123 (3) Oropharyngeal dysphagia Current Visit: Yes Status: Acute Code(s): R13.12 - DYSPHAGIA, OROPHARYNGEAL PHASE SNOMED Code(s): 60908281 (4) G tube feedings Current Visit: Yes Status: Acute Code(s): Z93.1 - GASTROSTOMY STATUS SNOMED Code(s): 856431546 (5) History of CVA (cerebrovascular accident) Current Visit: Yes Status: Acute Code(s): Z86.73 - PRSNL HX OF TIA (TIA), AND CEREB INFRC W/O RESID DEFICITS SNOMED Code(s): 316711067 (6) Colon, diverticulosis Current Visit: Yes Status: Acute Code(s): K57.30 - DVRTCLOS OF LG INT W/O PERFORATION OR ABSCESS W/O BLEEDING SNOMED Code(s): 842523933 (7) COPD (chronic obstructive pulmonary disease) Current Visit: Yes Status: Acute Code(s): J44.9 - CHRONIC OBSTRUCTIVE PULMONARY DISEASE, UNSPECIFIED SNOMED Code(s): 87596166 (8) O2 dependent Current Visit: Yes Status: Acute Code(s): Z99.81 - DEPENDENCE ON SUPPLEMENTAL OXYGEN SNOMED Code(s): 590218151450 Plan: 1. Bronchoscopy scheduled today. Continue with symptomatic supportive m easures. Multiple consultants following. We'll follow on an as-needed basis. We'll be available for questions and concerns. Assessment and plan a care discussed with Dr. Luther
--- NOTE | 2019-03-28 11:24 | P.PN ---
Subjective Progress Note Date: 03/28/19 CHIEF COMPLAINT: possible free air HISTORY OF PRESENT ILLNESS: Patient examined at the bedside in the ICU. She remains sedated on mechanical ventilation. Remains on vasopressor support with levophed at 0.16mcg/kg/min. PEG to suction. Chest xray this morning is negative for free air. Progression of left sided consolidation and pleural effusion. Correlate for pneumonia. WBC today 24.4. Hemoglobin 8.0. PHYSICAL EXAM: VITAL SIGNS: Reviewed. GENERAL: Well-developed in no acute distress-sedated on mechanical ventilation. HEENT: ET tube noted. No sclera icterus. Extraocular movements grossly intact. Moist buccal mucosa. Head is atraumatic, normocephalic. Hears conversational speech. No nasal drainage. NECK: Supple without lymphadenopathy. CHEST: Non-labored respirations and equal bilateral excursions on mechanical ventilation. CARDIOVASCULAR: Regular rate with regular rhythm. Palpable 2+ radial pulses. ABDOMEN: Soft. Nondistended. Nontender. PEG to suction. Positive bowel sounds. No signs of peritonitis. MUSCULOSKELETAL: No clubbing, cyanosis or edema. NEUROLOGIC: Sedated on mechanical ventilation PSYCH: Sedated on mechanical ventilation SKIN: Well perfused. Good skin turgor. ASSESSMENT: 1. Acute hypoxic respiratory failure 2. S/P colonoscopy PLAN: XR today without evidence of free air. Patients examination negative for clinical signs of free air or peritonitis. No surgical intervention recommended. We will sign off. Please reconsult if needed Nurse practitioner note has been reviewed by physician. Signing provider agrees with the documented findings, assessment, and plan of care. Objective - Vital Signs Vital signs: Vital Signs Temp 97.6 F 03/28/19 04:00 Pulse 85 03/28/19 08:27 Resp 34 H 03/28/19 06:00 BP 106/49 03/27/19 20:15 Pulse Ox 97 03/28/19 06:00 Intake & Output 03/27/19 03/28/19 03/28/19 18:59 06:59 18:59 Intake Total 2667.067 2551.093 114.427 Output Total 760 400 Balance 7969.433 2492.093 114.427 Weight 75 kg Intake: IV 2400 1700 Clindamycin 600 mg In 100 Dextrose 5% in Water 50 ml @ 50 mls/hr IVPB Q8H [facility] Rx#:[id number] Dextrose 5%-0.9% NaCl 1, 525 000 ml @ 75 mls/hr IV . [id number] [facility] Rx#:[id number] Levofloxacin 500Mg-D5w 100 Pmx 500 mg In Dextrose/ Water 1 100ml.bag @ 100 mls/hr IVPB Q24H [facility] Rx#: [id number] Magnesium Sulfate-D5w Pmx 200 1 gm In Dextrose/Water 1 100ml.bag @ 100 mls/hr IVPB Q1H [facility] Rx#: [id number] Potassium Chloride 10 meq 200 In Water For Injection 1 100ml.bag @ 100 mls/hr IVPB Q1H [facility] Rx#: [id number] Potassium Chloride 20 meq 200 In Water For Injection 1 100ml.bag @ 50 mls/hr IVPB Q2H [facility] Rx#: [id number] Sodium Chloride 0.9% 1, 375 000 ml @ 75 mls/hr IV . [id number] [facility] Rx#:[id number] Sodium Chloride 0.9% 1, 2000 000 ml @ 999 mls/hr IV . Q1H1M [facility] Rx#:[id number] Intake, IV Titration 267.067 851.093 114.427 Amount Dextrose 5% in Water 100 100 100 ml @ 618 mls/hr IV .Q10M [facility] with Amiodarone 150 mg Rx#:[id number] Norepinephrine 4 mg In 43.282 464.718 14.427 Sodium Chloride 0.9% 250 ml @ 0.05 MCG/KG/MIN 13. 526 mls/hr IV .[id number] [facility] Rx#:[id number] Potassium Chloride 10 meq 100 In Water For Injection 1 100ml.bag @ 100 mls/hr IVPB Q1H [facility] Rx#: [id number] Propofol 1,000 mg In 23.785 286.375 100 Empty Bag 1 bag @ Titrate IV .Q0M [facility] Rx#: [id number] Output: Urine 760 400 Other: Voiding Method Indwelling Catheter Indwelling Catheter # Voids 1 # Bowel Movements 1 ABP, PAP, CO, CI - Last Documented Arterial Blood Pressure 149/63 - Labs CBC & Chem 7: 03/28/19 04:15 03/28/19 04:15 Labs: Abnormal Lab Results - Last 24 Hours (Table) 03/27/19 03/27/19 03/27/19 Range/Units 08:46 08:46 16:13 WBC (3.8-10.6) k/uL RBC (3.80-5.40) m/uL Hgb (11.4-16.0) gm/dL Hct (34.0-46.0) % MCHC (31.0-37.0) g/dL RDW (11.5-15.5) % Neutrophils # (1.3-7.7) k/uL Lymphocytes # (1.0-4.8) k/uL Monocytes # (0-1.0) k/uL ESR 80 H (0-20) mm/hr D-Dimer (<0.60) mg/L FEU ABG pH 7.33 L (7.35-7.45) ABG pCO2 53 H (35-45) mmHg ABG pO2 74 L (83-108) mmHg ABG HCO3 28 H (21-25) mmol/L ABG Total CO2 29 H (19-24) mmol/L ABG O2 Saturation 93.5 L (94-97) % Sodium (137-145) mmol/L Potassium (3.5-5.1) mmol/L Carbon Dioxide (22-30) mmol/L BUN (7-17) mg/dL Glucose (74-99) mg/dL POC Glucose (mg/dL) (75-99) mg/dL Calcium (8.4-10.2) mg/dL Magnesium (1.6-2.3) mg/dL C-Reactive Protein 56.1 H (<10.0) mg/L Urine Appearance (Clear) Urine Protein (Negative) Urine Blood (Negative) Ur Leukocyte Esterase (Negative) Urine RBC (0-5) /hpf Urine WBC (0-5) /hpf Hyaline Casts (0-2) /lpf Urine Mucus (None) /hpf 03/27/19 03/27/19 03/27/19 Range/Units 17:44 18:23 18:23 WBC 12.1 H (3.8-10.6) k/uL RBC 3.21 L (3.80-5.40) m/uL Hgb 8.4 L (11.4-16.0) gm/dL Hct 28.6 L (34.0-46.0) % MCHC 29.4 L (31.0-37.0) g/dL RDW 17.7 H (11.5-15.5) % Neutrophils # 11.2 H (1.3-7.7) k/uL Lymphocytes # 0.4 L (1.0-4.8) k/uL Monocytes # (0-1.0) k/uL ESR (0-20) mm/hr D-Dimer (<0.60) mg/L FEU ABG pH (7.35-7.45) ABG pCO2 (35-45) mmHg ABG pO2 (83-108) mmHg ABG HCO3 (21-25) mmol/L ABG Total CO2 (19-24) mmol/L ABG O2 Saturation (94-97) % Sodium 135 L (137-145) mmol/L Potassium 2.9 L (3.5-5.1) mmol/L Carbon Dioxide (22-30) mmol/L BUN (7-17) mg/dL Glucose 316 H (74-99) mg/dL POC Glucose (mg/dL) 160 H (75-99) mg/dL Calcium 7.6 L (8.4-10.2) mg/dL Magnesium 1.5 L (1.6-2.3) mg/dL C-Reactive Protein (<10.0) mg/L Urine Appearance (Clear) Urine Protein (Negative) Urine Blood (Negative) Ur Leukocyte Esterase (Negative) Urine RBC (0-5) /hpf Urine WBC (0-5) /hpf Hyaline Casts (0-2) /lpf Urine Mucus (None) /hpf 03/27/19 03/27/19 03/27/19 Range/Units 19:15 19:55 21:50 WBC (3.8-10.6) k/uL RBC (3.80-5.40) m/uL Hgb (11.4-16.0) gm/dL Hct (34.0-46.0) % MCHC (31.0-37.0) g/dL RDW (11.5-15.5) % Neutrophils # (1.3-7.7) k/uL Lymphocytes # (1.0-4.8) k/uL Monocytes # (0-1.0) k/uL ESR (0-20) mm/hr D-Dimer 15.73 H (<0.60) mg/L FEU ABG pH 7.26 L (7.35-7.45) ABG pCO2 55 H (35-45) mmHg ABG pO2 154 H (83-108) mmHg ABG HCO3 (21-25) mmol/L ABG Total CO2 26 H (19-24) mmol/L ABG O2 Saturation 99.4 H (94-97) % Sodium (137-145) mmol/L Potassium (3.5-5.1) mmol/L Carbon Dioxide (22-30) mmol/L BUN (7-17) mg/dL Glucose (74-99) mg/dL POC Glucose (mg/dL) (75-99) mg/dL Calcium (8.4-10.2) mg/dL Magnesium (1.6-2.3) mg/dL C-Reactive Protein (<10.0) mg/L Urine Appearance Cloudy H (Clear) Urine Protein Trace H (Negative) Urine Blood Trace H (Negative) Ur Leukocyte Esterase Small H (Negative) Urine RBC 16 H (0-5) /hpf Urine WBC 9 H (0-5) /hpf Hyaline Casts 18 H (0-2) /lpf Urine Mucus Rare H (None) /hpf 03/27/19 03/28/19 03/28/19 Range/Units 22:40 00:20 04:15 WBC 24.4 H (3.8-10.6) k/uL RBC 3.06 L (3.80-5.40) m/uL Hgb 8.0 L (11.4-16.0) gm/dL Hct 26.4 L (34.0-46.0) % MCHC 30.1 L (31.0-37.0) g/dL RDW 18.0 H (11.5-15.5) % Neutrophils # 22.0 H (1.3-7.7) k/uL Lymphocytes # 0.8 L (1.0-4.8) k/uL Monocytes # 1.3 H (0-1.0) k/uL ESR (0-20) mm/hr D-Dimer (<0.60) mg/L FEU ABG pH (7.35-7.45) ABG pCO2 (35-45) mmHg ABG pO2 (83-108) mmHg ABG HCO3 (21-25) mmol/L ABG Total CO2 (19-24) mmol/L ABG O2 Saturation (94-97) % Sodium (137-145) mmol/L Potassium (3.5-5.1) mmol/L Carbon Dioxide (22-30) mmol/L BUN (7-17) mg/dL Glucose (74-99) mg/dL POC Glucose (mg/dL) 206 H 174 H (75-99) mg/dL Calcium (8.4-10.2) mg/dL Magnesium (1.6-2.3) mg/dL C-Reactive Protein (<10.0) mg/L Urine Appearance (Clear) Urine Protein (Negative) Urine Blood (Negative) Ur Leukocyte Esterase (Negative) Urine RBC (0-5) /hpf Urine WBC (0-5) /hpf Hyaline Casts (0-2) /lpf Urine Mucus (None) /hpf 03/28/19 03/28/19 03/28/19 Range/Units 04:15 06:43 07:16 WBC (3.8-10.6) k/uL RBC (3.80-5.40) m/uL Hgb (11.4-16.0) gm/dL Hct (34.0-46.0) % MCHC (31.0-37.0) g/dL RDW (11.5-15.5) % Neutrophils # (1.3-7.7) k/uL Lymphocytes # (1.0-4.8) k/uL Monocytes # (0-1.0) k/uL ESR (0-20) mm/hr D-Dimer (<0.60) mg/L FEU ABG pH 7.32 L (7.35-7.45) ABG pCO2 (35-45) mmHg ABG pO2 (83-108) mmHg ABG HCO3 (21-25) mmol/L ABG Total CO2 (19-24) mmol/L ABG O2 Saturation 98.5 H (94-97) % Sodium (137-145) mmol/L Potassium (3.5-5.1) mmol/L Carbon Dioxide 21 L (22-30) mmol/L BUN 18 H (7-17) mg/dL Glucose 134 H (74-99) mg/dL POC Glucose (mg/dL) 151 H (75-99) mg/dL Calcium 7.8 L (8.4-10.2) mg/dL Magnesium (1.6-2.3) mg/dL C-Reactive Protein (<10.0) mg/L Urine Appearance (Clear) Urine Protein (Negative) Urine Blood (Negative) Ur Leukocyte Esterase (Negative) Urine RBC (0-5) /hpf Urine WBC (0-5) /hpf Hyaline Casts (0-2) /lpf Urine Mucus (None) /hpf Microbiology - Last 24 Hours (Table) 03/27/19 15:54 Gram Stain - Preliminary Sputum Sputum Culture - Preliminary
--- NOTE | 2019-03-28 11:40 | PCN ---
PROCEDURE NOTE The operative report is a bronchoscopy and bronchoalveolar lavage of the left lower lobe and lingula. PREOPERATIVE DIAGNOSIS: Respiratory failure, aspiration pneumonia, with extensive airspace disease involving the left lower lobe and lingula. POSTOPERATIVE DIAGNOSIS: Respiratory failure, aspiration pneumonia, with extensive airspace disease involving the left lower lobe and lingula. ANESTHESIA USED: Patient was already on mechanical ventilation, propofol drip, and she was given before the procedure 0.5 mg of Dilaudid, and 10 mg of Nimbex. PROCEDURE: Patient was placed in a supine position, she was already on mechanical ventilation, and an adapter was applied to the endotracheal tube. Her FiO2 was placed on 100%. We monitored during the procedure her blood pressure continuously, cardiac rhythm was continuously monitored, and O2 saturation was continuously monitored. After adequate IV conscious sedation and paralysis with Nimbex, the bronchoscope was advanced through the adapter down to the distal end of the endotracheal tube. The radha was noted to be sharp. Thorough examination was done of the distal trachea, radha, right upper lobe, right middle lobe, right lower lobe, left upper lobe, lingula and left lower lobe. There was some minimal purulent secretions noted in the left lower lobe and lingula. Lavage/bronchoalveolar lavage of the left lower lobe and lingula was done. Roughly 30 mL of fluid obtained from the left lower lobe and lingula, and it was sent for different diagnostic studies. No evidence of any immediate complications. Procedure was well tolerated. MMODL / IJN: [id number] /
--- NOTE | 2019-03-28 11:49 | P.PN ---
Subjective Progress Note Date: 03/28/19 Principal diagnosis: Acute GI bleed This is an 84-year-old female patient who follows with Dr. Art as her primary care physician. She has a history of CVA/TIA, dysphagia status post PEG tube insertion, hypertension, hypothyroidism, coronary artery disease with previous coronary artery artery bypass grafting, former smoker, steroid dependent, oxygen dependent COPD. She was admitted back on 03/18/2019 with shortness of breath and anemia. She was having left lower quadrant abdominal pain. Guaiac positive and dark colored bowel movements. Presenting hemoglobin 5.6. She is status post 3 units of packed red blood cells this admission. Current hemoglobin 8.7. This morning she was to go for a colonoscopy however earlier she was found by the nurse laying flat in bed and having cough and congestion with emesis and suspicion for possible aspiration. Chest x-ray was performed and was reviewed by medicine and she was also evaluated by anesthesia and cleared for colonoscopy later today. She did undergo colonoscopy at approximately 2:30 today. There were no masses or mucosal abnormalities. There is a large amount of liquid stool that was lavaged and suctioned. There was some diverticulosis. Internal hemorrhoids. No active bleeding noted. She was returned to the regular medical floor from the endoscopy suite. Shortly after her arrival to the floor she be came quite hypoxic and tachypneic. An A team was called and the patient ended up requiring intubation and mechanical ventilation. We are seeing her now in consultation in the ICU. Current vent settings assist-control of 16, tidal volume 400, FiO2 100% and a PEEP of 5. Blood gases reveal a P O2 of 73, pCO2 53 and a pH is 7.33. She is also in atrial fibrillation with a rapid ventricular response. She is hypotensive. Chest x-ray reveals good position of the endotracheal tube. There was some perihilar disease on the left which is new. Suspect aspiration pneumonia. Abdominal x-ray revealed gas distended loops of bowel likely postprocedural. There is lucency beneath the left hemidiaphragm indeterminant. Pneumoperitoneum is not excluded. She is currently sedated on propofol at 40 mcg/kg/m. Receiving 0.9 normal saline at 75 ML's per hour. On antibiotics in the form of Levaquin. Reevaluated today on 03/28/2019, patient is now in the ICU, mechanically ventilated, her ventilator settings are assist control rate of 20 tidal volume of 450 FiO2 45% and PEEP is 8 however I cut it down to 5 after reviewing her ABG. Patient remains on propofol, 70 mcg/kg/m, norepinephrine at 0.16 mcg/kg/m, she is also on amiodarone 0.5 mg/m. Chest x-ray showed significant airspace disease involving the left lower lobe and lingula, hence I recommended bronchoscopy and lavage of the left lower lobe and lingula, and this was performed. Fluid was sent for different diagnostic studies. Chest x-ray is much worse today compared to yesterday. ABG this morning showed a pO2 of 105 pCO2 of 43 pH of 7.32, hence her PEEP was cut down to 5. CBC showed leukocytosis with WBC count of 24.4 hemoglobin is 8 holding and hematocrit is 26.4. Electrolytes are normal renal profile is normal blood sugar is 134. Today, the patient is not ready for any form of weaning. Chest x-ray is much worse, and she remains relatively hemodynamically unstable requiring norepinephrine. Family was updated on her condition. She was seen by surgery on consultation yesterday for abnormal abdominal film, and clinically it was felt the patient does not have a surgical abdomen. Objective - Vital Signs Vital signs: Vital Signs Temp 97.5 F L 03/28/19 08:00 Pulse 86 03/28/19 11:19 Resp 20 03/28/19 11:00 BP 100/59 03/28/19 06:15 Pulse Ox 99 03/28/19 11:00 Intake & Output 03/27/19 03/28/19 03/28/19 18:59 06:59 18:59 Intake Total 2667.067 2551.093 739.427 Output Total 760 400 375 Balance 6283.661 6392.093 364.427 Weight 75 kg Intake: IV 2400 1700 375 Clindamycin 600 mg In 100 Dextrose 5% in Water 50 ml @ 50 mls/hr IVPB Q8H [facility] Rx#:[id number] Dextrose 5%-0.9% NaCl 1, 525 375 000 ml @ 75 mls/hr IV . [id number] [facility] Rx#:[id number] Levofloxacin 500Mg-D5w 100 Pmx 500 mg In Dextrose/ Water 1 100ml.bag @ 100 mls/hr IVPB Q24H [facility] Rx#: [id number] Magnesium Sulfate-D5w Pmx 200 1 gm In Dextrose/Water 1 100ml.bag @ 100 mls/hr IVPB Q1H [facility] Rx#: [id number] Potassium Chloride 10 meq 200 In Water For Injection 1 100ml.bag @ 100 mls/hr IVPB Q1H [facility] Rx#: [id number] Potassium Chloride 20 meq 200 In Water For Injection 1 100ml.bag @ 50 mls/hr IVPB Q2H [facility] Rx#: [id number] Sodium Chloride 0.9% 1, 375 000 ml @ 75 mls/hr IV . [id number] [facility] Rx#:[id number] Sodium Chloride 0.9% 1, 2000 000 ml @ 999 mls/hr IV . Q1H1M [facility] Rx#:[id number] Intake, IV Titration 267.067 851.093 364.427 Amount Amiodarone 300 mg In 250 Dextrose 5% in Water 250 ml @ 0.5 MG/MIN 25 mls/hr IV .Q10H [facility] Rx#: [id number] Dextrose 5% in Water 100 100 100 ml @ 618 mls/hr IV .Q10M [facility] with Amiodarone 150 mg Rx#:[id number] Norepinephrine 4 mg In 43.282 464.718 14.427 Sodium Chloride 0.9% 250 ml @ 0.05 MCG/KG/MIN 13. 526 mls/hr IV .[id number] [facility] Rx#:[id number] Potassium Chloride 10 meq 100 In Water For Injection 1 100ml.bag @ 100 mls/hr IVPB Q1H [facility] Rx#: [id number] Propofol 1,000 mg In 23.785 286.375 100 Empty Bag 1 bag @ Titrate IV .Q0M [facility] Rx#: [id number] Output: Urine 760 400 375 Other: Voiding Method Indwelling Catheter Indwelling Catheter # Voids 1 # Bowel Movements 1 ABP, PAP, CO, CI - Last Documented Arterial Blood Pressure 111/46 - Exam Physical Exam: Revealed 84-year-old female intubated, on mechanical ventilation, sedated, in no distress. Head: Atraumatic, normocephalic. HEENT:[Neck is supple.] [No neck masses.] [No thyromegaly.] [No JVD.] PERRLA, EOMI, no icterus. Dry mucous membranes. Chest: [Symmetrical chest expansion, scattered rhonchi and crackles at the bases especially at the left base. Cardiac Exam: [Irregular rhythm, Normal S1 and S2, no S3 gallop, 2/6 systolic murmur thought the precordium. Abdomen: [Soft, nontender, no megaly, no rebound, no guarding, normal bowel sounds.] PEG tube is noted. Extremities: [No clubbing, no edema, no cyanosis.] Neurological Exam: Cannot be assessed today, patient is on propofol, fully sedated. Psychiatric cannot be assessed. Skin: No rashes. Lymphatics: No lymphadenopathy. - Labs CBC & Chem 7: 03/28/19 04:15 03/28/19 04:15 Labs: Abnormal Lab Results - Last 24 Hours (Table) 03/27/19 03/27/19 03/27/19 Range/Units 08:46 08:46 16:13 WBC (3.8-10.6) k/uL RBC (3.80-5.40) m/uL Hgb (11.4-16.0) gm/dL Hct (34.0-46.0) % MCHC (31.0-37.0) g/dL RDW (11.5-15.5) % Neutrophils # (1.3-7.7) k/uL Lymphocytes # (1.0-4.8) k/uL Monocytes # (0-1.0) k/uL ESR 80 H (0-20) mm/hr D-Dimer (<0.60) mg/L FEU ABG pH 7.33 L (7.35-7.45) ABG pCO2 53 H (35-45) mmHg ABG pO2 74 L (83-108) mmHg ABG HCO3 28 H (21-25) mmol/L ABG Total CO2 29 H (19-24) mmol/L ABG O2 Saturation 93.5 L (94-97) % Sodium (137-145) mmol/L Potassium (3.5-5.1) mmol/L Carbon Dioxide (22-30) mmol/L BUN (7-17) mg/dL Glucose (74-99) mg/dL POC Glucose (mg/dL) (75-99) mg/dL Calcium (8.4-10.2) mg/dL Magnesium (1.6-2.3) mg/dL C-Reactive Protein 56.1 H (<10.0) mg/L Urine Appearance (Clear) Urine Protein (Negative) Urine Blood (Negative) Ur Leukocyte Esterase (Negative) Urine RBC (0-5) /hpf Urine WBC (0-5) /hpf Hyaline Casts (0-2) /lpf Urine Mucus (None) /hpf 03/27/19 03/27/19 03/27/19 Range/Units 17:44 18:23 18:23 WBC 12.1 H (3.8-10.6) k/uL RBC 3.21 L (3.80-5.40) m/uL Hgb 8.4 L (11.4-16.0) gm/dL Hct 28.6 L (34.0-46.0) % MCHC 29.4 L (31.0-37.0) g/dL RDW 17.7 H (11.5-15.5) % Neutrophils # 11.2 H (1.3-7.7) k/uL Lymphocytes # 0.4 L (1.0-4.8) k/uL Monocytes # (0-1.0) k/uL ESR (0-20) mm/hr D-Dimer (<0.60) mg/L FEU ABG pH (7.35-7.45) ABG pCO2 (35-45) mmHg ABG pO2 (83-108) mmHg ABG HCO3 (21-25) mmol/L ABG Total CO2 (19-24) mmol/L ABG O2 Saturation (94-97) % Sodium 135 L (137-145) mmol/L Potassium 2.9 L (3.5-5.1) mmol/L Carbon Dioxide (22-30) mmol/L BUN (7-17) mg/dL Glucose 316 H (74-99) mg/dL POC Glucose (mg/dL) 160 H (75-99) mg/dL Calcium 7.6 L (8.4-10.2) mg/dL Magnesium 1.5 L (1.6-2.3) mg/dL C-Reactive Protein (<10.0) mg/L Urine Appearance (Clear) Urine Protein (Negative) Urine Blood (Negative) Ur Leukocyte Esterase (Negative) Urine RBC (0-5) /hpf Urine WBC (0-5) /hpf Hyaline Casts (0-2) /lpf Urine Mucus (None) /hpf 03/27/19 03/27/19 03/27/19 Range/Units 19:15 19:55 21:50 WBC (3.8-10.6) k/uL RBC (3.80-5.40) m/uL Hgb (11.4-16.0) gm/dL Hct (34.0-46.0) % MCHC (31.0-37.0) g/dL RDW (11.5-15.5) % Neutrophils # (1.3-7.7) k/uL Lymphocytes # (1.0-4.8) k/uL Monocytes # (0-1.0) k/uL ESR (0-20) mm/hr D-Dimer 15.73 H (<0.60) mg/L FEU ABG pH 7.26 L (7.35-7.45) ABG pCO2 55 H (35-45) mmHg ABG pO2 154 H (83-108) mmHg ABG HCO3 (21-25) mmol/L ABG Total CO2 26 H (19-24) mmol/L ABG O2 Saturation 99.4 H (94-97) % Sodium (137-145) mmol/L Potassium (3.5-5.1) mmol/L Carbon Dioxide (22-30) mmol/L BUN (7-17) mg/dL Glucose (74-99) mg/dL POC Glucose (mg/dL) (75-99) mg/dL Calcium (8.4-10.2) mg/dL Magnesium (1.6-2.3) mg/dL C-Reactive Protein (<10.0) mg/L Urine Appearance Cloudy H (Clear) Urine Protein Trace H (Negative) Urine Blood Trace H (Negative) Ur Leukocyte Esterase Small H (Negative) Urine RBC 16 H (0-5) /hpf Urine WBC 9 H (0-5) /hpf Hyaline Casts 18 H (0-2) /lpf Urine Mucus Rare H (None) /hpf 03/27/19 03/28/19 03/28/19 Range/Units 22:40 00:20 04:15 WBC 24.4 H (3.8-10.6) k/uL RBC 3.06 L (3.80-5.40) m/uL Hgb 8.0 L (11.4-16.0) gm/dL Hct 26.4 L (34.0-46.0) % MCHC 30.1 L (31.0-37.0) g/dL RDW 18.0 H (11.5-15.5) % Neutrophils # 22.0 H (1.3-7.7) k/uL Lymphocytes # 0.8 L (1.0-4.8) k/uL Monocytes # 1.3 H (0-1.0) k/uL ESR (0-20) mm/hr D-Dimer (<0.60) mg/L FEU ABG pH (7.35-7.45) ABG pCO2 (35-45) mmHg ABG pO2 (83-108) mmHg ABG HCO3 (21-25) mmol/L ABG Total CO2 (19-24) mmol/L ABG O2 Saturation (94-97) % Sodium (137-145) mmol/L Potassium (3.5-5.1) mmol/L Carbon Dioxide (22-30) mmol/L BUN (7-17) mg/dL Glucose (74-99) mg/dL POC Glucose (mg/dL) 206 H 174 H (75-99) mg/dL Calcium (8.4-10.2) mg/dL Magnesium (1.6-2.3) mg/dL C-Reactive Protein (<10.0) mg/L Urine Appearance (Clear) Urine Protein (Negative) Urine Blood (Negative) Ur Leukocyte Esterase (Negative) Urine RBC (0-5) /hpf Urine WBC (0-5) /hpf Hyaline Casts (0-2) /lpf Urine Mucus (None) /hpf 03/28/19 03/28/19 03/28/19 Range/Units 04:15 06:43 07:16 WBC (3.8-10.6) k/uL RBC (3.80-5.40) m/uL Hgb (11.4-16.0) gm/dL Hct (34.0-46.0) % MCHC (31.0-37.0) g/dL RDW (11.5-15.5) % Neutrophils # (1.3-7.7) k/uL Lymphocytes # (1.0-4.8) k/uL Monocytes # (0-1.0) k/uL ESR (0-20) mm/hr D-Dimer (<0.60) mg/L FEU ABG pH 7.32 L (7.35-7.45) ABG pCO2 (35-45) mmHg ABG pO2 (83-108) mmHg ABG HCO3 (21-25) mmol/L ABG Total CO2 (19-24) mmol/L ABG O2 Saturation 98.5 H (94-97) % Sodium (137-145) mmol/L Potassium (3.5-5.1) mmol/L Carbon Dioxide 21 L (22-30) mmol/L BUN 18 H (7-17) mg/dL Glucose 134 H (74-99) mg/dL POC Glucose (mg/dL) 151 H (75-99) mg/dL Calcium 7.8 L (8.4-10.2) mg/dL Magnesium (1.6-2.3) mg/dL C-Reactive Protein (<10.0) mg/L Urine Appearance (Clear) Urine Protein (Negative) Urine Blood (Negative) Ur Leukocyte Esterase (Negative) Urine RBC (0-5) /hpf Urine WBC (0-5) /hpf Hyaline Casts (0-2) /lpf Urine Mucus (None) /hpf Microbiology - Last 24 Hours (Table) 03/27/19 15:54 Gram Stain - Preliminary Sputum Sputum Culture - Preliminary Assessment and Plan Assessment: Impression: 1 acute hypoxic respiratory failure secondary to aspiration pneumonia requiring intubation and mechanical ventilation. 2 atrial fibrillation with RVR, presently the patient is on amiodarone, and the rate seems to be much better controlled. 3 hypotension requiring norepinephrine, multifactorial, likely hypovolemic in nature, although sepsis and septic shock is not entirely ruled out but felt to be less likely. It is also related to the atrial fibrillation with RVR. 4 acute GI bleeding and anemia requiring 3 units of packed RBCs since admission, being investigated by gastroenterology on the case. 5 history of dysphagia and previous PEG tube placement. 6 multiple comorbidities including hypertension, hypothyroidism, hyperlipidemia, and overall poor functional performance. Recommendation: Discussed and updated family members on her condition. Continue antibiotics for presumptive aspiration pneumonia. Patient is on clindamycin because she is ALLERGIC to penicillin. She is also on Levaquin. Continue bronchodilators, added steroids/Solu-Medrol, continue GI and DVT prophylaxis, bronchoscopy was performed, and fluid was sent for different diagnostic studies. Titrate norepinephrine down and maintain a mean arterial pressure of 65 or higher. Continue amiodarone for her atrial fibrillation with RVR, and that is being addressed by cardiology on the case. Continue propofol, no plans to wean the patient as her chest x-ray seems to be much worse today. Critical care time is 35 minutes not including time spent on bronchoscopy/procedure. Prognosis is definitely poor and guarded. Time with Patient: Greater than 30
[2019-03-28 11:58] LABS: Glucose,Whole Blood 125 mg/dL (75-99)
[2019-03-28] MEDS: methylPREDNISolone SOD SUCCI 40 MG/ML 1 ML VIAL IV SCH ×2 (12:06→18:16)
[2019-03-28 14:02] LABS: Appearance,BF Cloudy; Color,BF Pink; Nucleated Cells, Body Fluid 1745 /uL; RBC, Body Fluid 1585 /uL
[2019-03-28 14:07] LABS: Mononuclear WBC,Body Fluid 9 %; Polynuclear WBC,Body Fluid 91 %; Total Cells Counted,Body Fluid 100
--- NOTE | 2019-03-28 14:49 | CONS ---
CONSULTATION CHIEF COMPLAINT: Atrial fibrillation. This is an 84-year-old lady who is admitted to hospital with shortness of breath, has history of CVA, had a PEG tube placement, has hypertension, dyslipidemia, known CAD and prior bypass surgery. On initial presentation, she was found to have a hemoglobin of 5.6. She was transfused. Patient had a colonoscopy following which she became hypoxic and tachypneic, ended up being intubated and on vent. Last night she went into atrial fibrillation with poorly controlled ventricular rate for which Cardiology had been consulted. At the time of my evaluation, she is on IV amiodarone with better controlled heart rate. She is not a candidate for anticoagulation at this time. She had an echocardiogram that shows [id number] LV dysfunction with an ejection fraction of around 45%. PAST MEDICAL HISTORY: Significant for hypothyroidism, hypertension and atrial fibrillation along with dyslipidemia. MEDICATIONS: At home include Lopressor 75 b.i.d., Synthroid, Lasix, aspirin, Eliquis, Zoloft, DuoNeb, Lipitor. ALLERGIES: To PENICILLIN. FAMILY HISTORY, SOCIAL HISTORY, REVIEW OF SYSTEMS: I am unable to obtain from the patient. PHYSICAL EXAM: Patient is intubated on vent. Heart rate is 83 beats per minute. Blood pressure is 122/50, respiratory rate is 18. Chest exam reveals diminished air entry at the bases. Heart exam reveals first and second heart sounds. Regular rhythm. No murmur. Abdomen is soft. Exam of the extremities reveals mild edema. Peripheral pulses are diminished. LABS: Show a hemoglobin of 8, potassium is 3.8, creatinine is 0.8. ASSESSMENT: 1. Persistent atrial fibrillation. 2. Anemia secondary to gastrointestinal blood loss. 3. History of paroxysmal atrial fibrillation. 4. Coronary artery disease, status post coronary artery bypass grafting. PLAN: Patient will continue with IV amiodarone for now. If necessary, will start her on intravenous Cardizem. She is not a candidate for anticoagulation. Prognosis is guarded. MMODL / IJN: [id number] /
[2019-03-28] MEDS: LEVOFLOXACIN 500MG-D5W PMX 500 MG in DEXTROSE/WATER 1 100ML.BAG IVPB SCH (16:23)
[2019-03-28 17:08] LABS: Glucose,Whole Blood 129 mg/dL (75-99)
[2019-03-28] MEDS: ATORVASTATIN 40 MG TAB PO SCH (21:56)
[2019-03-29] LABS: Glucose,Whole Blood 126 mg/dL (75-99)
[2019-03-29] MEDS: methylPREDNISolone SOD SUCCI 40 MG/ML 1 ML VIAL IV SCH ×5 (00:12→23:36)
[2019-03-29] MEDS: INSULIN ASPART (NovoLOG) 100 UNIT/ML VIAL SQ SCH ×5 (01:07→23:28)
[2019-03-29] MEDS: NOREPINEPHRINE 4 MG in SODIUM CHLORIDE 0.9% 250 ML IV SCH (02:20)
[2019-03-29] MEDS: IPRATROPIUM-ALBUTEROL 3 ML NEB INHALATION SCH ×6 (02:59→23:04)
[2019-03-29] MEDS: CLINDAMYCIN 600 MG in DEXTROSE 5% IN WATER 50 ML IVPB SCH ×6 (03:45→20:45)
[2019-03-29] MEDS: PROPOFOL 1,000 MG in EMPTY BAG 1 BAG IV SCH ×3 (03:46→09:34)
[2019-03-29] MEDS: DEXTROSE 5%-0.9% NACL 1,000 ML IV SCH ×2 (03:47→09:35)
[2019-03-29] MEDS: LEVOTHYROXINE 100 MCG TAB PO SCH (05:48)
[2019-03-29 05:50] LABS: Glucose,Whole Blood 183 mg/dL (75-99)
[2019-03-29 05:52] LABS: Anisocytosis Slight; Basophils % (A) 0 %; Eosinophils % (A) 0 %; HCT 24.7 % (34.0-46.0); Hypochromasia Marked; Lymphocytes # (A) 0.3 k/uL (1.0-4.8); Lymphocytes % (A) 1 %; MCH 24.5 pg (25.0-35.0); MCHC 28.4 g/dL (31.0-37.0); MCV 86.5 fL (80.0-100.0); Mean Platelet Volume 6.8; Monocytes # (A) 0.4 k/uL (0-1.0); Monocytes % (A) 2 %; Neutrophils # (A) 18.1 k/uL (1.3-7.7); Neutrophils % (A) 96 %; Platelet Count 247 k/uL (150-450); Poikilocytosis Moderate; RBC 2.86 m/uL (3.80-5.40); RDW 17.6 % (11.5-15.5); WBC 18.9 k/uL (3.8-10.6)
[2019-03-29 06:03] LABS: Calcium 8.1 mg/dL (8.4-10.2)
[2019-03-29] MEDS: BUDESONIDE 1 MG/2 ML NEBU INHALATION SCH ×2 (07:06→18:53)
--- NOTE | 2019-03-29 07:30 | XR ---
EXAMINATION TYPE: XR chest 1V portable DATE OF EXAM: 03/29/2019 HISTORY: Tube placement. REFERENCE: Previous study dated 03/28/2019. FINDINGS: There has been a midline sternotomy. Patient remains intubated. ET tube is in satisfactory position and unchanged in appearance. There is extensive left basilar airspace disease. This is very similar to the previous study. I canno t exclude a left-sided effusion. There is a tiny right-sided effusion. Heart size is obscured. IMPRESSION: CONTINUING LEFT BASILAR AIRSPACE DISEASE +/- A SMALL EFFUSION.
[2019-03-29 08:02] LABS: ABG Base Excess -6.8 mmol/L; ABG HCO3 20 mmol/L (21-25); ABG Oxygen Saturation 99.5 % (94-97); ABG PCO2 42 mmHg (35-45); ABG PH 7.29 (7.35-7.45); ABG PO2 138 mmHg (83-108); ABG TCO2 21 mmol/L (19-24); Allen Test Performed? Yes
[2019-03-29] MEDS: CHLORHEXIDINE GLUCONATE 15 ML CUP MUCOUS MEM SCH ×2 (09:34→20:45)
[2019-03-29] MEDS: PANTOPRAZOLE 40 MG/10 ML VIAL IV SCH ×2 (09:34→20:45)
[2019-03-29] MEDS: LIDOCAINE 5% PATCH TOPICAL SCH ×2 (09:34→15:29)
[2019-03-29] MEDS: DICLOFENAC SODIUM GEL 100 GM TUBE TOPICAL SCH ×4 (09:46→20:45)
[2019-03-29 09:56] LABS: Glucose,Whole Blood 158 mg/dL (75-99)
--- NOTE | 2019-03-29 10:21 | P.PN ---
Subjective Progress Note Date: 03/29/19 Principal diagnosis: Acute GI bleed This is an 84-year-old female patient who follows with Dr. Art as her primary care physician. She has a history of CVA/TIA, dysphagia status post PEG tube insertion, hypertension, hypothyroidism, coronary artery disease with previous coronary artery artery bypass grafting, former smoker, steroid dependent, oxygen dependent COPD. She was admitted back on 03/18/2019 with shortness of breath and anemia. She was having left lower quadrant abdominal pain. Guaiac positive and dark colored bowel movements. Presenting hemoglobin 5.6. She is status post 3 units of packed red blood cells this admission. Current hemoglobin 8.7. This morning she was to go for a colonoscopy however earlier she was found by the nurse laying flat in bed and having cough and congestion with emesis and suspicion for possible aspiration. Chest x-ray was performed and was reviewed by medicine and she was also evaluated by anesthesia and cleared for colonoscopy later today. She did undergo colonoscopy at approximately 2:30 today. There were no masses or mucosal abnormalities. There is a large amount of liquid stool that was lavaged and suctioned. There was some diverticulosis. Internal hemorrhoids. No active bleeding noted. She was returned to the regular medical floor from the endoscopy suite. Shortly after her arrival to the floor she be came quite hypoxic and tachypneic. An A team was called and the patient ended up requiring intubation and mechanical ventilation. We are seeing her now in consultation in the ICU. Current vent settings assist-control of 16, tidal volume 400, FiO2 100% and a PEEP of 5. Blood gases reveal a P O2 of 73, pCO2 53 and a pH is 7.33. She is also in atrial fibrillation with a rapid ventricular response. She is hypotensive. Chest x-ray reveals good position of the endotracheal tube. There was some perihilar disease on the left which is new. Suspect aspiration pneumonia. Abdominal x-ray revealed gas distended loops of bowel likely postprocedural. There is lucency beneath the left hemidiaphragm indeterminant. Pneumoperitoneum is not excluded. She is currently sedated on propofol at 40 mcg/kg/m. Receiving 0.9 normal saline at 75 ML's per hour. On antibiotics in the form of Levaquin. Reevaluated today on 03/28/2019, patient is now in the ICU, mechanically ventilated, her ventilator settings are assist control rate of 20 tidal volume of 450 FiO2 45% and PEEP is 8 however I cut it down to 5 after reviewing her ABG. Patient remains on propofol, 70 mcg/kg/m, norepinephrine at 0.16 mcg/kg/m, she is also on amiodarone 0.5 mg/m. Chest x-ray showed significant airspace disease involving the left lower lobe and lingula, hence I recommended bronchoscopy and lavage of the left lower lobe and lingula, and this was performed. Fluid was sent for different diagnostic studies. Chest x-ray is much worse today compared to yesterday. ABG this morning showed a pO2 of 105 pCO2 of 43 pH of 7.32, hence her PEEP was cut down to 5. CBC showed leukocytosis with WBC count of 24.4 hemoglobin is 8 holding and hematocrit is 26.4. Electrolytes are normal renal profile is normal blood sugar is 134. Today, the patient is not ready for any form of weaning. Chest x-ray is much worse, and she remains relatively hemodynamically unstable requiring norepinephrine. Family was updated on her condition. She was seen by surgery on consultation yesterday for abnormal abdominal film, and clinically it was felt the patient does not have a surgical abdomen. Patient was reevaluated and seen today on 03/29/2019, remains in the ICU, mechanically ventilated, and her ventilator settings are tidal volume of 450, assist control rate of 20 FiO2 45%, and PEEP of 5. ABG showed a pO2 of 138 pCO2 of 42 pH of 7.29, hence I cut down her FiO2 to 40%. Patient remains on propofol, and on norepinephrine. Her norepinephrine dose is 0.04 mcg/kg/m, and propofol is 60 mcg/kg/m. Patient is sedated, continues to remain nothing by mouth, PEG tube is connected to suction, her labs showed WBC count of 18.9 hemo globin of 7, her basic metabolic profile is normal renal profile is normal. Bicarb is 20. Since admission the patient had received a total of 3 units of packed RBCs, may consider giving her another unit if her hemoglobin goes down below 7. Urine output is excellent. Patient has been in a positive balance over the last 24 hours. Chest x-ray continues to show extensivedisease involving the left lower lobe and left midlung. Not much change since yesterday. Objective - Vital Signs Vital signs: Vital Signs Temp 97.5 F L 03/29/19 03:30 Pulse 68 03/29/19 08:15 Resp 20 03/29/19 08:15 BP 100/59 03/29/19 08:15 Pulse Ox 100 03/29/19 08:15 Intake & Output 03/28/19 03/29/19 03/29/19 18:59 06:59 18:59 Intake Total 1773.688 7493.570 172.2 Output Total 1120 790 75 Balance 144.427 713.570 97.2 Weight 75 kg Intake: IV 900 1000 75 Clindamycin 600 mg In 100 Dextrose 5% in Water 50 ml @ 50 mls/hr IVPB Q8H NO Rx#:[id number] Dextrose 5%-0.9% NaCl 1, 900 900 75 000 ml @ 75 mls/hr IV . [id number] NO Rx#:[id number] Intake, IV Titration 364.427 503.570 97.2 Amount Amiodarone 300 mg In 250 Dextrose 5% in Water 250 ml @ 0.5 MG/MIN 25 mls/hr IV .Q10H NO Rx#: [id number] Norepinephrine 4 mg In 14.427 344.170 Sodium Chloride 0.9% 250 ml @ 0.05 MCG/KG/MIN 13. 526 mls/hr IV .[id number] NO Rx#:[id number] Propofol 1,000 mg In 100 159.4 97.2 Empty Bag 1 bag @ Titrate IV .Q0M NO Rx#: [id number] Output: Urine 1120 790 75 Other: Voiding Method Indwelling Catheter Indwelling Catheter # Voids 1 ABP, PAP, CO, CI - Last Documented Arterial Blood Pressure 61/56 - Exam Physical Exam: Revealed 84-year-old female intubated, on mechanical ventilation, sedated, in no distress. Head: Atraumatic, normocephalic. HEENT:[Neck is supple.] [No neck masses.] [No thyromegaly.] [No JVD.] Extremely dry mucous membranes noted. Pupils are unequal, right pupil is 3 mm and left is 1. Chest: [Symmetrical chest expansion, good breath sound bilaterally, minimal crackles at the left base Cardiac Exam: [Irregular rhythm, Normal S1 and S2, no S3 gallop, 2/6 systolic murmur thought the precordium. Abdomen: [Soft, nontender, no megaly, no rebound, no guarding, normal bowel sounds.] PEG tube is noted. Extremities: [No clubbing, no edema, no cyanosis.] Neurological Exam: Cannot be assessed today, patient is on propofol, fully sedated. Plan to hold sedation today and assess mental status. Psychiatric cannot be assessed. Skin: No rashes. Lymphatics: No lymphadenopathy. - Labs CBC & Chem 7: 03/29/19 05:40 03/29/19 05:40 Labs: Abnormal Lab Results - Last 24 Hours (Table) 03/28/19 03/28/19 03/28/19 Range/Units 11:46 17:06 23:49 WBC (3.8-10.6) k/uL RBC (3.80-5.40) m/uL Hgb (11.4-16.0) gm/dL Hct (34.0-46.0) % MCH (25.0-35.0) pg MCHC (31.0-37.0) g/dL RDW (11.5-15.5) % Neutrophils # (1.3-7.7) k/uL Lymphocytes # (1.0-4.8) k/uL ABG pH (7.35-7.45) ABG pO2 (83-108) mmHg ABG HCO3 (21-25) mmol/L ABG O2 Saturation (94-97) % Chloride (98-107) mmol/L Carbon Dioxide (22-30) mmol/L Glucose (74-99) mg/dL POC Glucose (mg/dL) 125 H 129 H 126 H (75-99) mg/dL Calcium (8.4-10.2) mg/dL 03/29/19 03/29/19 03/29/19 Range/Units 05:39 05:40 05:40 WBC 18.9 H (3.8-10.6) k/uL RBC 2.86 L (3.80-5.40) m/uL Hgb 7.0 L (11.4-16.0) gm/dL Hct 24.7 L (34.0-46.0) % MCH 24.5 L (25.0-35.0) pg MCHC 28.4 L (31.0-37.0) g/dL RDW 17.6 H (11.5-15.5) % Neutrophils # 18.1 H (1.3-7.7) k/uL Lymphocytes # 0.3 L (1.0-4.8) k/uL ABG pH (7.35-7.45) ABG pO2 (83-108) mmHg ABG HCO3 (21-25) mmol/L ABG O2 Saturation (94-97) % Chloride 113 H (98-107) mmol/L Carbon Dioxide 20 L (22-30) mmol/L Glucose 172 H (74-99) mg/dL POC Glucose (mg/dL) 183 H (75-99) mg/dL Calcium 8.1 L (8.4-10.2) mg/dL 03/29/19 03/29/19 Range/Units 08:00 09:27 WBC (3.8-10.6) k/uL RBC (3.80-5.40) m/uL Hgb (11.4-16.0) gm/dL Hct (34.0-46.0) % MCH (25.0-35.0) pg MCHC (31.0-37.0) g/dL RDW (11.5-15.5) % Neutrophils # (1.3-7.7) k/uL Lymphocytes # (1.0-4.8) k/uL ABG pH 7.29 L (7.35-7.45) ABG pO2 138 H (83-108) mmHg ABG HCO3 20 L (21-25) mmol/L ABG O2 Saturation 99.5 H (94-97) % Chloride (98-107) mmol/L Carbon Dioxide (22-30) mmol/L Glucose (74-99) mg/dL POC Glucose (mg/dL) 158 H (75-99) mg/dL Calcium (8.4-10.2) mg/dL Microbiology - Last 24 Hours (Table) 03/28/19 10:00 Gram Stain - Preliminary Bronchial Washings - Left Bronchial Washings Culture - Preliminary 03/28/19 10:00 Fungal Culture - Preliminary Bronchial Washings - Left 03/27/19 15:54 Gram Stain - Preliminary Sputum Sputum Culture - Preliminary Gram Neg Bacilli Assessment and Plan Assessment: Impression: 1 acute hypoxic respiratory failure secondary to aspiration pneumonia requiring intubation and mechanical ventilation. 2 atrial fibrillation with RVR, presently the patient is off IV amiodarone. On metoprolol. Rate seems to be better controlled. 3 hypotension requiring norepinephrine, remains on norepinephrine at 0.04 mcg/kg/m today. multifactorial, likely hypovolemic in nature, although sepsis and septic shock is not entirely ruled out but felt to be less likely. It is also related to the atrial fibrillation with RVR. We'll likely taper and discontinue norepinephrine today if tolerated. And would hold diuretics. 4 acute GI bleeding and anemia requiring 3 units of packed RBCs since admission, being investigated by gastroenterology on the case. May transfuse the patient if hemoglobin drops below 7. 5 history of dysphagia and previous PEG tube placement. 6 multiple comorbidities including hypertension, hypothyroidism, hyperlipidemia, and overall poor functional performance. Recommendation: Continue ventilatory support Continue antibiotics for presumptive aspiration pneumonia based on the clinical case scenario. Continue hemodynamic support, hopefully taper and discontinue norepinephrine today. Continue GI and DVT prophylaxis Consider transfusing the patient if hemoglobin drops below 7 Hydrate the patient cautiously, will discontinue diuretics, will increase IV fluid rate to 100 mL per hour. Continue bronchodilators and steroids Awaiting cultures from her bronchoscopy and BAL Taper propofol today, and assess mental status,/sedation interruption. Discussed with family her condition and updated on her status, made aware that the patient is not ready to be weaned and extubated at this point, but will likely assess mental status today. Considering the difference in the size of the pupils today, we will arrange for a CT of the brain without contrast make sure there is no evidence of CVA. Critical care time is 34 minutes Time with Patient: Greater than 30
--- NOTE | 2019-03-29 11:40 | CT ---
EXAMINATION TYPE: CT brain wo con DATE OF EXAM: 03/29/2019 COMPARISON: Previous study dated 10/04/2017 HISTORY: Anemia, GI bleed, weakness and abdominal pain. Pupils unequal CT DLP: 1196.4 mGycm Automated exposure control for dose reduction was used. FINDINGS: There are generalized changes of sulcal prominence and ventriculomegaly, compatible with atrophic camila nge. There is diffuse periventricular white matter lucency, compatible with chronic white matter isch emic change. There is no acute focal lesion, mass effect or midline shift identified. I do not see ev idence of intracranial blood. Visualized portions of the paranasal sinuses and mastoids are clear. The bony calvarium is intact. IMPRESSION: 1. NO ACUTE INTRACRANIAL ABNORMALITY. 2. ATROPHIC CHANGE. 3. CHRONIC WHITE MATTER ISCHEMIC CHANGE.
[2019-03-29] MEDS: SERTRALINE 25 MG TAB PO SCH (11:47)
[2019-03-29] MEDS: POLYETHYLENE GLYCOL 3350 17 GM POWD.PACK PO SCH ×2 (11:47→22:03)
[2019-03-29] MEDS: METOPROLOL TARTRATE 25 MG TAB PO SCH ×2 (11:47→20:46)
[2019-03-29 12:20] LABS: Glucose,Whole Blood 158 mg/dL (75-99)
--- NOTE | 2019-03-29 12:30 | P.PN ---
Subjective Progress Note Date: 03/29/19 Jennifer is an 84-year-old female well-known to my practice who presented presented to the emergency room , yesterday with complaint of abdominal pain left lower quadrant. Patient states the pain has been worsening over last couple of days family states she was pale and not her usual self. Patient also states she feels constipated. Patient has a history of CVA recently and has a feeding tube patient reports no fever denies dysuria hematuria patient has been moving her bowels she states the bleeding she has been doing his made her feel better or worse denies current chest pain denies underlying nausea or vomiting. Patient has steroid-dependent COPD, O2 dependent COPD however she doesn't like to use her oxygen. Known history of diverticulitis 03/20/2019 abdominal pain resolved .maintained on gentle IV fluid hydration .currently no antibiotics recommended as per ID. Development increased pulm onary congestion; new onset rhonchi. Failed modified barium swallow, strict nothing by mouth, strict aspiration precautions maintained. PEG tube feedings currently at 30, goal 65. CT suggestive of constipation versus neoplasm mass, will eventually need colonoscopy. No bowel movement today. Bowel movement yesterday, tested positive for occult blood T bili normal,. Elevated LFTs,,hepatitis panel negative Telemetry sinus rhythm. Denies chest pain, palpitations. 03/21/2019 hemoglobin dropped to 6.3, receiving one unit of packed RBCs currently. Denies chest pain, palpitations or shortness of breath.VSS. 03/24/19 status post EGD over the weekend, and slightly unremarkable receiving prep for a BE with air contrast to rule out possible colonic neoplasm. Tumor markers within normal limits. Denies abdominal pain. Hemoglobin 8.5. Denies chest pain, palpitations or shortness of breath. 03/25/19 BE completed today, limited exam, cannot rule out colonic lesion at the splenic flexure as noted on CT. Colonoscopy recommended as per GI. Patient discussed with family and wishes to proceed, but not until -Requesting a short break from the prep, which is reasonable. Labs pending. No active bleeding reported. Denies abdominal pain. 03/26/2019 early this morning developed an episode of shortness of breath, received nebulized bronchodilators in a dose of Lasix IV push. Currently wheezy, exhausted from loss of sleep. Maintaining O2 sats of high 90s on 2 L nasal cannula. Outpatient colonoscopy offered but patient requesting to proceed with colonoscopy tomorrow. Denies abdominal pain. LFTs within normal limits .Denies chest pain, palpitations or increased shortness of breath. Denies lightheadedness, dizziness or focal deficits. 03/27/19 NPO. Aspirated, Colonscopy cancelled. VSS,O2 increased up to 3 l NC to maintain O2 sats in the 90s. Denies Chest pain, palpitations. Denies light headedness.Labs pending. 03/28/2019underwent colonoscopy yesterday reporting no masses, or mucosa abnormalities to correlate with CT, diverticulosis and internal hemorrhoids.[facility] began complaining of abdominal pain. Shortly after transferring patient from stretcher to bed,patient developed acute respiratory distress, required intubation and transferred to ICU. possible aspiration. Maintained on FiO2 45%/+8 of PEEP, Diprovan, Levophed.Post endoscopy procedure, abdominal x-ray reported gas- distended loops of bowel, lightly post- procedural,lucency beneath the left hemidiaphragm,pneumoperitoneum not excluded.Surgery consulted,recommendations noted.patient also developed atrial fibrillation with RVR and was started on amiodarone drip as per cardiology. Patient has since converted to sinus rhythm with paroximal runs of Mar[place] vent[place], controlled.this morning underwent bronchoscopy and lavage reporting aspiration pneumonia with extensive airspace disease involving the left lower lobe and lingula. 03/29/2019: Patient is status post CT brain for regular pupils. My recollection is been ongoing since her CVA. She is intubated and currently sedation is off. Patient remains in intensive care unit. Norepinephrine is on hold as well. Patient's maintaining her blood pressure. Past half hour. She remains on Levaquin and clindamycin antibiotics for aspiration pneumonia. PEG tube is to suction. FiO2 is being maintained at 40%. Family were at bedside and critical care's note was reviewed. Objective - Vital Signs Vital signs: Vital Signs Temp 93.1 F L 03/29/19 08:30 Pulse 79 03/29/19 11:55 Resp 20 03/29/19 10:30 BP 100/59 03/29/19 10:30 Pulse Ox 100 03/29/19 10:30 Intake & Output 0803/29/19 03/29/19 18:59 06:59 18:59 Intake Total 6756.664 8615.570 805.682 Output Total 1120 790 240 Balance 144.427 713.570 565.682 Weight 75 kg 75 kg Intake: IV 900 1000 575 Clindamycin 600 mg In 100 Dextrose 5% in Water 50 ml @ 50 mls/hr IVPB Q8H NO Rx#:[id number] Dextrose 5%-0.9% NaCl 1, 900 900 575 000 ml @ 100 mls/hr IV . Q10H NO Rx#:[id number] Intake, IV Titration 364.427 503.570 230.682 Amount Amiodarone 300 mg In 250 Dextrose 5% in Water 250 ml @ 0.5 MG/MIN 25 mls/hr IV .Q10H NO Rx#: [id number] Norepinephrine 4 mg In 14.427 344.170 68.982 Sodium Chloride 0.9% 250 ml @ 0.05 MCG/KG/MIN 13. 526 mls/hr IV .[id number] NO Rx#:[id number] Propofol 1,000 mg In 100 159.4 161.70 Empty Bag 1 bag @ Titrate IV .Q0M NO Rx#: [id number] Output: Urine 1120 790 240 Other: Voiding Method Indwelling Catheter Indwelling Catheter # Voids 1 ABP, PAP, CO, CI - Last Documented Arterial Blood Pressure 146/58 - Exam General: At about his elevated elevated, intubated, patient still appears sedated HEENT: head is normocephalic, atraumatic,PERRL. pale conjunctiva,endotracheal tube present Neck: Supple,trachea midline No adenopathy. Cardiac: [Heart regular in rate and rhythm. No S3. No S4.Mild tachycardia, No clicks, rubs. No murmur.] Mid sternal scarring mid abdominal scarring from bypass surgery, from aneurysm repair surgery Lungs: diminished bibasilar, scattered rhonchi Abdomen: Soft, nontender, nondistended, No organomegaly. Positive bowel sounds. PEG tube in place with suction Extremes: [No edema, no claudication normal pulses] Skin: [No rash.mild mottling of the chest, knees, breasts.] Neurologic: cannot be assessed at this time as patient sedated and on mechanical ventilation. Patient does have differing pupil sizes. The right is approximately 4 mm while the left is approximately 3 mm - Labs CBC & Chem 7: 03/29/19 05:40 03/29/19 05:40 Labs: Abnormal Lab Results - Last 24 Hours (Table) 03/28/19 03/28/19 03/29/19 Range/Units 17:06 23:49 05:39 WBC (3.8-10.6) k/uL RBC (3.80-5.40) m/uL Hgb (11.4-16.0) gm/dL Hct (34.0-46.0) % MCH (25.0-35.0) pg MCHC (31.0-37.0) g/dL RDW (11.5-15.5) % Neutrophils # (1.3-7.7) k/uL Lymphocytes # (1.0-4.8) k/uL ABG pH (7.35-7.45) ABG pO2 (83-108) mmHg ABG HCO3 (21-25) mmol/L ABG O2 Saturation (94-97) % Chloride (98-107) mmol/L Carbon Dioxide (22-30) mmol/L Glucose (74-99) mg/dL POC Glucose (mg/dL) 129 H 126 H 183 H (75-99) mg/dL Calcium (8.4-10.2) mg/dL 03/29/19 03/29/19 03/29/19 Range/Units 05:40 05:40 08:00 WBC 18.9 H (3.8-10.6) k/uL RBC 2.86 L (3.80-5.40) m/uL Hgb 7.0 L (11.4-16.0) gm/dL Hct 24.7 L (34.0-46.0) % MCH 24.5 L (25.0-35.0) pg MCHC 28.4 L (31.0-37.0) g/dL RDW 17.6 H (11.5-15.5) % Neutrophils # 18.1 H (1.3-7.7) k/uL Lymphocytes # 0.3 L (1.0-4.8) k/uL ABG pH 7.29 L (7.35-7.45) ABG pO2 138 H (83-108) mmHg ABG HCO3 20 L (21-25) mmol/L ABG O2 Saturation 99.5 H (94-97) % Chloride 113 H (98-107) mmol/L Carbon Dioxide 20 L (22-30) mmol/L Glucose 172 H (74-99) mg/dL POC Glucose (mg/dL) (75-99) mg/dL Calcium 8.1 L (8.4-10.2) mg/dL 03/29/19 03/29/19 Range/Units 09:27 11:49 WBC (3.8-10.6) k/uL RBC (3.80-5.40) m/uL Hgb (11.4-16.0) gm/dL Hct (34.0-46.0) % MCH (25.0-35.0) pg MCHC (31.0-37.0) g/dL RDW (11.5-15.5) % Neutrophils # (1.3-7.7) k/uL Lymphocytes # (1.0-4.8) k/uL ABG pH (7.35-7.45) ABG pO2 (83-108) mmHg ABG HCO3 (21-25) mmol/L ABG O2 Saturation (94-97) % Chloride (98-107) mmol/L Carbon Dioxide (22-30) mmol/L Glucose (74-99) mg/dL POC Glucose (mg/dL) 158 H 158 H (75-99) mg/dL Calcium (8.4-10.2) mg/dL Microbiology - Last 24 Hours (Table) 03/27/19 15:54 Gram Stain - Final Sputum Sputum Culture - Final Enterobacter hormaechei 03/28/19 10:00 Gram Stain - Preliminary Bronchial Washings - Left Bronchial Washings Culture - Preliminary 03/28/19 10:00 Fungal Culture - Preliminary Bronchial Washings - Left Assessment and Plan (1) Acute respiratory failure Current Visit: Yes Status: Acute Code(s): J96.00 - ACUTE RESPIRATORY FAILURE, UNSP W HYPOXIA OR HYPERCAPNIA SNOMED Code(s): 00062063 (2) Chronic respiratory failure with hypoxia Current Visit: Yes Status: Acute Code(s): J96.11 - CHRONIC RESPIRATORY FAILURE WITH HYPOXIA SNOMED Code(s): 512348520 (3) Aspiration pneumonia Current Visit: Yes Status: Acute Code(s): J69.0 - PNEUMONITIS DUE TO INHALATION OF FOOD AND VOMIT SNOMED Code(s): 244572590 (4) Constipation Current Visit: Yes Status: Acute Code(s): K59.00 - CONSTIPATION, UNSPECIFIED SNOMED Code(s): 80524775 (5) Anemia Current Visit: Yes Status: Acute Code(s): D64.9 - ANEMIA, UNSPECIFIED SNOMED Code(s): 029030204 (6) COPD (chronic obstructive pulmonary disease) Current Visit: Yes Status: Acute Code(s): J44.9 - CHRONIC OBSTRUCTIVE PULMONARY DISEASE, UNSPECIFIED SNOMED Code(s): 18150528 (7) Colon, diverticulosis Current Visit: Yes Status: Acute Code(s): K57.30 - DVRTCLOS OF LG INT W/O PERFORATION OR ABSCESS W/O BLEEDING SNOMED Code(s): 971689953 (8) Generalized weakness Current Visit: Yes Status: Acute Code(s): R53.1 - WEAKNESS SNOMED Code(s): 78677222 (9) History of CVA (cerebrovascular accident) Current Visit: Yes Status: Acute Code(s): Z86.73 - PRSNL HX OF TIA (TIA), AND CEREB INFRC W/O RESID DEFICITS SNOMED Code(s): 486786746 (10) Normocytic hypochromic anemia Current Visit: Yes Status: Acute Code(s): D50.9 - IRON DEFICIENCY ANEMIA, UNSPECIFIED SNOMED Code(s): 76710594 (11) Oropharyngeal dysphagia Current Visit: Yes Status: Acute Code(s): R13.12 - DYSPHAGIA, OROPHARYNGEAL PHASE SNOMED Code(s): 58521999 (12) Presence of externally removable percutaneous endoscopic gastrostomy (PEG) tube Current Visit: Yes Status: Acute Code(s): Z93.1 - GASTROSTOMY STATUS SNOMED Code(s): 168964118 Plan: Plan: Continue on current medication regime ,monitoring and symptomatic treatment.Strict aspiration precautions. follow closely with multiple consults. Maintain supportive care.strict aspiration precautions, head of bed up at all times. Further recommendations to follow. Prognosis guarded given multiple complex medical issues.
--- NOTE | 2019-03-29 13:27 | P.PN ---
Subjective Progress Note Date: 03/29/19 Principal diagnosis: paroxysmal atrial fibrillation The patient is an 84-year-old who is currently admitted to the hospital for GI bleeding. She developed hypoxia after her colonoscopy and therefore was placed on a ventilator. Also during this time she went into atrial fibrillation with RVR. She successfully converted to sinus rhythm on an amiodarone drip and is not a candidate for anticoagulation at this time. Echocardiogram shows LV function of 40-45% with moderate to severe MR, moderate TR, and moderate pulmonary hypertension GENERAL: Sedated currently on ventilator NECK: Supple without JVD or thyromegaly. LUNGS: Breath sounds clear to auscultation bilaterally. Respiration equal and unlabored. No wheezes, rales or rhonchi. HEART: Regular rate and rhythm. Systolic murmur. No rubs or gallops. S1 and S2 heard. EXTREMITIES: Normal range of motion, no edema. No clubbing or cyanosis. Peripheral pulses intact and strong. Labs Assessment: #1 paroxysmal atrial fibrillation with RVR, currently in sinus rhythm #2 Anemia, secondary to acute blood loss #3 CAD s/p CABG #4 Valvular heart disease Plan: Continue current medication regimen. Start anticoagulation when cleared by GI. Continue to monitor as prognosis is guarded. Objective - Vital Signs Vital signs: Vital Signs Temp 97.4 F L 03/29/19 11:45 Pulse 72 03/29/19 12:45 Resp 22 03/29/19 12:45 BP 126/55 03/29/19 12:45 Pulse Ox 94 L 03/29/19 12:45 Intake & Output 03/28/19 03/29/19 03/29/19 18:59 06:59 18:59 Intake Total 4334.685 0324.570 809.957 Output Total 1120 790 240 Balance 144.427 713.570 569.957 Weight 75 kg 76.3 kg 75 kg Intake: IV 900 1000 575 Clindamycin 600 mg In 100 Dextrose 5% in Water 50 ml @ 50 mls/hr IVPB Q8H NO Rx#:[id number] Dextrose 5%-0.9% NaCl 1, 900 900 575 000 ml @ 100 mls/hr IV . Q10H NO Rx#:[id number] Intake, IV Titration 364.427 503.570 234.957 Amount Amiodarone 300 mg In 250 Dextrose 5% in Water 250 ml @ 0.5 MG/MIN 25 mls/hr IV .Q10H NO Rx#: [id number] Norepinephrine 4 mg In 14.427 344.170 68.982 Sodium Chloride 0.9% 250 ml @ 0.05 MCG/KG/MIN 13. 526 mls/hr IV .[id number] NO Rx#:[id number] Propofol 1,000 mg In 100 159.4 165.975 Empty Bag 1 bag @ Titrate IV .Q0M NO Rx#: [id number] Output: Urine 1120 790 240 Other: Voiding Method Indwelling Catheter Indwelling Catheter # Voids 1 ABP, PAP, CO, CI - Last Documented Arterial Blood Pressure 142/60 - Labs CBC & Chem 7: 03/29/19 05:40 03/29/19 05:40 Labs: Abnormal Lab Results - Last 24 Hours (Table) 03/28/19 03/28/19 03/29/19 Range/Units 17:06 23:49 05:39 WBC (3.8-10.6) k/uL RBC (3.80-5.40) m/uL Hgb (11.4-16.0) gm/dL Hct (34.0-46.0) % MCH (25.0-35.0) pg MCHC (31.0-37.0) g/dL RDW (11.5-15.5) % Neutrophils # (1.3-7.7) k/uL Lymphocytes # (1.0-4.8) k/uL ABG pH (7.35-7.45) ABG pO2 (83-108) mmHg ABG HCO3 (21-25) mmol/L ABG O2 Saturation (94-97) % Chloride (98-107) mmol/L Carbon Dioxide (22-30) mmol/L Glucose (74-99) mg/dL POC Glucose (mg/dL) 129 H 126 H 183 H (75-99) mg/dL Calcium (8.4-10.2) mg/dL 03/29/19 03/29/19 03/29/19 Range/Units 05:40 05:40 08:00 WBC 18.9 H (3.8-10.6) k/uL RBC 2.86 L (3.80-5.40) m/uL Hgb 7.0 L (11.4-16.0) gm/dL Hct 24.7 L (34.0-46.0) % MCH 24.5 L (25.0-35.0) pg MCHC 28.4 L (31.0-37.0) g/dL RDW 17.6 H (11.5-15.5) % Neutrophils # 18.1 H (1.3-7.7) k/uL Lymphocytes # 0.3 L (1.0-4.8) k/uL ABG pH 7.29 L (7.35-7.45) ABG pO2 138 H (83-108) mmHg ABG HCO3 20 L (21-25) mmol/L ABG O2 Saturation 99.5 H (94-97) % Chloride 113 H (98-107) mmol/L Carbon Dioxide 20 L (22-30) mmol/L Glucose 172 H (74-99) mg/dL POC Glucose (mg/dL) (75-99) mg/dL Calcium 8.1 L (8.4-10.2) mg/dL 03/29/19 03/29/19 Range/Units 09:27 11:49 WBC (3.8-10.6) k/uL RBC (3.80-5.40) m/uL Hgb (11.4-16.0) gm/dL Hct (34.0-46.0) % MCH (25.0-35.0) pg MCHC (31.0-37.0) g/dL RDW (11.5-15.5) % Neutrophils # (1.3-7.7) k/uL Lymphocytes # (1.0-4.8) k/uL ABG pH (7.35-7.45) ABG pO2 (83-108) mmHg ABG HCO3 (21-25) mmol/L ABG O2 Saturation (94-97) % Chloride (98-107) mmol/L Carbon Dioxide (22-30) mmol/L Glucose (74-99) mg/dL POC Glucose (mg/dL) 158 H 158 H (75-99) mg/dL Calcium (8.4-10.2) mg/dL Microbiology - Last 24 Hours (Table) 03/28/19 10:00 Gram Stain - Preliminary Bronchial Washings - Left Bronchial Washings Culture - Preliminary 03/27/19 15:54 Gram Stain - Final Sputum Sputum Culture - Final Enterobacter hormaechei 03/28/19 10:00 Fungal Culture - Preliminary Bronchial Washings - Left
[2019-03-29] MEDS: LEVOFLOXACIN 500MG-D5W PMX 500 MG in DEXTROSE/WATER 1 100ML.BAG IVPB SCH (15:36)
[2019-03-29 18:32] LABS: Glucose,Whole Blood 119 mg/dL (75-99)
[2019-03-29] MEDS ORDERED: FUROSEMIDE 10 MG/ML 2 ML VIAL IV ONE (18:53)
[2019-03-29] MEDS: ATORVASTATIN 40 MG TAB PO SCH (20:45)
[2019-03-29 23:39] LABS: Glucose,Whole Blood 117 mg/dL (75-99)
[2019-03-30] MEDS: IPRATROPIUM-ALBUTEROL 3 ML NEB INHALATION SCH ×6 (03:06→22:58)
[2019-03-30] MEDS: DEXTROSE 5%-0.9% NACL 1,000 ML IV SCH ×2 (03:52→14:09)
[2019-03-30] MEDS: CLINDAMYCIN 600 MG in DEXTROSE 5% IN WATER 50 ML IVPB SCH ×6 (03:53→21:04)
[2019-03-30 05:21] LABS: Calcium 8.6 mg/dL (8.4-10.2); Potassium 4.1 mmol/L (3.5-5.1)
[2019-03-30 05:34] LABS: Anisocytosis Slight; Basophils % (A) 0 %; Eosinophils % (A) 0 %; HCT 23.4 % (34.0-46.0); Hypochromasia Marked; Lymphocytes # (A) 0.5 k/uL (1.0-4.8); Lymphocytes % (A) 4 %; MCH 26.7 pg (25.0-35.0); MCHC 30.1 g/dL (31.0-37.0); MCV 88.7 fL (80.0-100.0); Mean Platelet Volume 7.4; Monocytes # (A) 0.5 k/uL (0-1.0); Monocytes % (A) 3 %; Neutrophils # (A) 12.4 k/uL (1.3-7.7); Neutrophils % (A) 92 %; Platelet Count 278 k/uL (150-450); Poikilocytosis Moderate; RBC 2.64 m/uL (3.80-5.40); RDW 17.3 % (11.5-15.5); WBC 13.5 k/uL (3.8-10.6)
[2019-03-30] MEDS: LEVOTHYROXINE 100 MCG TAB PO SCH (06:01)
[2019-03-30] MEDS: methylPREDNISolone SOD SUCCI 40 MG/ML 1 ML VIAL IV SCH ×3 (06:01→17:52)
[2019-03-30] MEDS: INSULIN ASPART (NovoLOG) 100 UNIT/ML VIAL SQ SCH ×4 (06:01→23:33)
[2019-03-30 06:04] LABS: Glucose,Whole Blood 152 mg/dL (75-99)
--- NOTE | 2019-03-30 06:25 | XR ---
EXAMINATION TYPE: XR chest 1V portable DATE OF EXAM: 03/30/2019 HISTORY: Tube placement. REFERENCE: Previous study dated 03/29/2019. FINDINGS: There has been a midline sternotomy. The patient remains intubated. ET tube is unchanged in appearance. There is continuing left basilar airspace disease. I suspect a left-sided effusion. There is mild vas cular congestion without coleen edema. Heart size is obscured. IMPRESSION: NO INTERVAL CHANGE IN APPEARANCE OF THE CHEST.
[2019-03-30] MEDS: BUDESONIDE 1 MG/2 ML NEBU INHALATION SCH ×2 (07:01→19:27)
[2019-03-30 07:25] LABS: ABG Base Excess -4.8 mmol/L; ABG HCO3 21 mmol/L (21-25); ABG PCO2 35 mmHg (35-45); ABG PH 7.37 (7.35-7.45); ABG PO2 157 mmHg (83-108); ABG TCO2 22 mmol/L (19-24)
[2019-03-30 07:26] LABS: Allen Test Performed? no
[2019-03-30] MEDS: LIDOCAINE 5% PATCH TOPICAL SCH (07:45)
[2019-03-30] MEDS: CHLORHEXIDINE GLUCONATE 15 ML CUP MUCOUS MEM SCH ×2 (07:51→21:04)
[2019-03-30] MEDS: PANTOPRAZOLE 40 MG/10 ML VIAL IV SCH ×2 (08:00→21:04)
[2019-03-30] MEDS: METOPROLOL TARTRATE 25 MG TAB PO SCH ×2 (08:00→21:04)
[2019-03-30] MEDS: SERTRALINE 25 MG TAB PO SCH (08:00)
[2019-03-30] MEDS: POLYETHYLENE GLYCOL 3350 17 GM POWD.PACK PO SCH ×2 (08:01→21:44)
[2019-03-30] MEDS: DICLOFENAC SODIUM GEL 100 GM TUBE TOPICAL SCH ×4 (09:00→21:33)
--- NOTE | 2019-03-30 10:30 | P.PN ---
Subjective Progress Note Date: 03/30/19 Principal diagnosis: Acute GI bleed This is an 84-year-old female patient who follows with Dr. Art as her primary care physician. She has a history of CVA/TIA, dysphagia status post PEG tube insertion, hypertension, hypothyroidism, coronary artery disease with previous coronary artery artery bypass grafting, former smoker, steroid dependent, oxygen dependent COPD. She was admitted back on 03/18/2019 with shortness of breath and anemia. She was having left lower quadrant abdominal pain. Guaiac positive and dark colored bowel movements. Presenting hemoglobin 5.6. She is status post 3 units of packed red blood cells this admission. Current hemoglobin 8.7. This morning she was to go for a colonoscopy however earlier she was found by the nurse laying flat in bed and having cough and congestion with emesis and suspicion for possible aspiration. Chest x-ray was performed and was reviewed by medicine and she was also evaluated by anesthesia and cleared for colonoscopy later today. She did undergo colonoscopy at approximately 2:30 today. There were no masses or mucosal abnormalities. There is a large amount of liquid stool that was lavaged and suctioned. There was some diverticulosis. Internal hemorrhoids. No active bleeding noted. She was returned to the regular medical floor from the endoscopy suite. Shortly after her arrival to the floor she be came quite hypoxic and tachypneic. An A team was called and the patient ended up requiring intubation and mechanical ventilation. We are seeing her now in consultation in the ICU. Current vent settings assist-control of 16, tidal volume 400, FiO2 100% and a PEEP of 5. Blood gases reveal a P O2 of 73, pCO2 53 and a pH is 7.33. She is also in atrial fibrillation with a rapid ventricular response. She is hypotensive. Chest x-ray reveals good position of the endotracheal tube. There was some perihilar disease on the left which is new. Suspect aspiration pneumonia. Abdominal x-ray revealed gas distended loops of bowel likely postprocedural. There is lucency beneath the left hemidiaphragm indeterminant. Pneumoperitoneum is not excluded. She is currently sedated on propofol at 40 mcg/kg/m. Receiving 0.9 normal saline at 75 ML's per hour. On antibiotics in the form of Levaquin. Reevaluated today on 03/28/2019, patient is now in the ICU, mechanically ventilated, her ventilator settings are assist control rate of 20 tidal volume of 450 FiO2 45% and PEEP is 8 however I cut it down to 5 after reviewing her ABG. Patient remains on propofol, 70 mcg/kg/m, norepinephrine at 0.16 mcg/kg/m, she is also on amiodarone 0.5 mg/m. Chest x-ray showed significant airspace disease involving the left lower lobe and lingula, hence I recommended bronchoscopy and lavage of the left lower lobe and lingula, and this was performed. Fluid was sent for different diagnostic studies. Chest x-ray is much worse today compared to yesterday. ABG this morning showed a pO2 of 105 pCO2 of 43 pH of 7.32, hence her PEEP was cut down to 5. CBC showed leukocytosis with WBC count of 24.4 hemoglobin is 8 holding and hematocrit is 26.4. Electrolytes are normal renal profile is normal blood sugar is 134. Today, the patient is not ready for any form of weaning. Chest x-ray is much worse, and she remains relatively hemodynamically unstable requiring norepinephrine. Family was updated on her condition. She was seen by surgery on consultation yesterday for abnormal abdominal film, and clinically it was felt the patient does not have a surgical abdomen. Patient was reevaluated and seen today on 03/29/2019, remains in the ICU, mechanically ventilated, and her ventilator settings are tidal volume of 450, assist control rate of 20 FiO2 45%, and PEEP of 5. ABG showed a pO2 of 138 pCO2 of 42 pH of 7.29, hence I cut down her FiO2 to 40%. Patient remains on propofol, and on norepinephrine. Her norepinephrine dose is 0.04 mcg/kg/m, and propofol is 60 mcg/kg/m. Patient is sedated, continues to remain nothing by mouth, PEG tube is connected to suction, her labs showed WBC count of 18.9 hemo globin of 7, her basic metabolic profile is normal renal profile is normal. Bicarb is 20. Since admission the patient had received a total of 3 units of packed RBCs, may consider giving her another unit if her hemoglobin goes down below 7. Urine output is excellent. Patient has been in a positive balance over the last 24 hours. Chest x-ray continues to show extensivedisease involving the left lower lobe and left midlung. Not much change since yesterday. Reevaluated today on 03/2019, patient remains in the ICU, intubated, on mechanical ventilation, chest x-ray basically is about the same, continues to show significant consolidation in the left lower lobe and left midlung. Surprisingly her oxygenation seems to be improved. And her ABG is better than expected. Her ventilator settings are assist control rate of 2010 well of 450 FiO2 of 35% that was 40% and PEEP is 5. Patient has been off propofol since yesterday, she is barely waking up, and following simple instructions like sq ueezing hands only. feeding via PEG tube is up to goal. And her IV fluid is D5 0.9 at 100 mL per hour.patient is not requiring any pressors. She is hemodynamically stable. However it's taking her longer to wake up from sedation. CT of the brain was nondiagnostic. CBC showed WBC count of 13.5 he moglobin is 7 platelets are 278. ABG showed a pO2 of 157 pCO2 of 35 pH of 7.37. Basic metabolic profile is relatively normal renal profile is normal. Urine output seems to be quite reasonable. Objective - Vital Signs Vital signs: Vital Signs Temp 98.1 F 03/30/19 08:00 Pulse 66 03/30/19 09:00 Resp 20 03/30/19 09:00 BP 141/71 03/30/19 05:00 Pulse Ox 99 03/30/19 09:00 Intake & Output 03/29/19 03/30/19 03/30/19 18:59 06:59 18:59 Intake Total 1349.957 530 60 Output Total 445 602 25 Balance 904.957 -72 35 Weight 75 kg 79.9 kg Intake: IV 1115 340 40 Clindamycin 600 mg In 100 Dextrose 5% in Water 50 ml @ 50 mls/hr IVPB Q8H [facility] Rx#:[id number] Dextrose 5%-0.9% NaCl 1, 975 220 40 000 ml @ 20 mls/hr IV . Q24H [facility] Rx#:[id number] Levofloxacin 500Mg-D5w 140 20 Pmx 500 mg In Dextrose/ Water 1 100ml.bag @ 100 mls/hr IVPB Q24H [facility] Rx#: [id number] Intake, IV Titration 234.957 Amount Norepinephrine 4 mg In 68.982 Sodium Chloride 0.9% 250 ml @ 0.05 MCG/KG/MIN 13. 526 mls/hr IV .[id number] [facility] Rx#:[id number] Propofol 1,000 mg In 165.975 Empty Bag 1 bag @ Titrate IV .Q0M [facility] Rx#: [id number] Tube Feeding 130 20 Other 60 Output: Urine 445 602 25 Other: Voiding Method Indwelling Catheter Indwelling Catheter Indwelling Catheter ABP, PAP, CO, CI - Last Documented Arterial Blood Pressure 148/65 - Exam Physical Exam: Revealed 84-year-old female intubated, on mechanical ventilation,off propofol, opens eyes to verbal stimuli, follows very minimal simple instructions like squeezing hands. Does not wiggle toes. Head: Atraumatic, normocephalic. HEENT:[Neck is supple.] [No neck masses.] [No thyromegaly.] [No JVD.] moist mucous membranes noted. Chest: [Symmetrical chest expansion, good breath sound bilaterally, minimal crackles at the left base Cardiac Exam: [Irregular rhythm, Normal S1 and S2, no S3 gallop, 2/6 systolic murmur thought the precordium. Abdomen: [Soft, nontender, no megaly, no rebound, no guarding, normal bowel sounds.] PEG tube is noted.tolerating feeding via PEG tube. Extremities: [No clubbing, no edema, no cyanosis.] Neurological Exam: opens eyes to verbal stimuli, squeezes hands, but does not follow any other instructions. Psychiatric cannot be assessed. Skin: No rashes. Lymphatics: No lymphadenopathy. - Labs CBC & Chem 7: 03/30/19 04:45 03/30/19 04:45 Labs: Abnormal Lab Results - Last 24 Hours (Table) 03/29/19 03/29/19 03/29/19 Range/Units 11:49 18:20 23:27 WBC (3.8-10.6) k/uL RBC (3.80-5.40) m/uL Hgb (11.4-16.0) gm/dL Hct (34.0-46.0) % MCHC (31.0-37.0) g/dL RDW (11.5-15.5) % Neutrophils # (1.3-7.7) k/uL Lymphocytes # (1.0-4.8) k/uL ABG pO2 (83-108) mmHg ABG O2 Saturation (94-97) % Chloride (98-107) mmol/L Carbon Dioxide (22-30) mmol/L BUN (7-17) mg/dL Glucose (74-99) mg/dL POC Glucose (mg/dL) 158 H 119 H 117 H (75-99) mg/dL 03/30/19 03/30/19 03/30/19 Range/Units 04:45 04:45 05:53 WBC 13.5 H (3.8-10.6) k/uL RBC 2.64 L (3.80-5.40) m/uL Hgb 7.0 L (11.4-16.0) gm/dL Hct 23.4 L (34.0-46.0) % MCHC 30.1 L (31.0-37.0) g/dL RDW 17.3 H (11.5-15.5) % Neutrophils # 12.4 H (1.3-7.7) k/uL Lymphocytes # 0.5 L (1.0-4.8) k/uL ABG pO2 (83-108) mmHg ABG O2 Saturation (94-97) % Chloride 114 H (98-107) mmol/L Carbon Dioxide 19 L (22-30) mmol/L BUN 23 H (7-17) mg/dL Glucose 139 H (74-99) mg/dL POC Glucose (mg/dL) 152 H (75-99) mg/dL 03/30/19 Range/Units 07:23 WBC (3.8-10.6) k/uL RBC (3.80-5.40) m/uL Hgb (11.4-16.0) gm/dL Hct (34.0-46.0) % MCHC (31.0-37.0) g/dL RDW (11.5-15.5) % Neutrophils # (1.3-7.7) k/uL Lymphocytes # (1.0-4.8) k/uL ABG pO2 157 H (83-108) mmHg ABG O2 Saturation 100.0 H (94-97) % Chloride (98-107) mmol/L Carbon Dioxide (22-30) mmol/L BUN (7-17) mg/dL Glucose (74-99) mg/dL POC Glucose (mg/dL) (75-99) mg/dL - Last 24 Hours (Table) 03/28/19 10:00 Gram Stain - Preliminary Bronchial Washings - Left Bronchial Washings Culture - Preliminary 03/27/19 15:54 Gram Stain - Final Sputum Sputum Culture - Final Enterobacter hormaechei Assessment and Plan Assessment: Impression: 1 acute hypoxic respiratory failure secondary to aspiration pneumonia requiring intubation and mechanical ventilation. 2 atrial fibrillation with RVR, presently well-controlled. 3 hypotension resolved, off norepinephrine. 4 acute GI bleeding and anemia requiring 3 units of packed RBCs since admission, being investigated by gastroenterology on the case. May transfuse the patient if hemoglobin drops below 7. 5 history of dysphagia and previous PEG tube placement. 6 multiple comorbidities including hypertension, hypothyroidism, hyperlipidemia, and overall poor functional performance. Recommendation: Continue ventilatory support Continue to hold propofol until her mental status is improved, based on her mental status at this point, she is not ready for weaning. Continue antibiotics for presumptive aspiration pneumonia based on the clinical case scenario. Continue GI and DVT prophylaxis Consider transfusing the patient if hemoglobin drops below 7 continue IV fluid at 100 mL/h, D5 0.9. Continue nutritional support, patient is on tube feeding via PEG tube. Continue bronchodilators and steroids Awaiting cultures from her bronchoscopy and BAL, Gram stain of the sputum was positive for Enterobacter homachei, sensitive to Levaquin, patient is presently on clindamycin and Levaquin, continue to hold propofol today. And continue to assess mental status on a regular basis. Patient is not ready for weaning and extubation mostly because of her mental status and I am still concerned about significant consolidation noted in the left lower lobe and left midlung. Patient remains critically ill, she will continue on mechanical ventilation, and will continue to keep in the ICU, critical care time is 40 minutes. Time with Patient: Greater than 30
--- NOTE | 2019-03-30 11:16 | P.PN ---
Subjective Progress Note Date: 03/30/19 Principal diagnosis: Paroxysmal atrial fibrillation The patient is an 84-year-old female who is currently admitted for GI bleeding. She continues to be ventilator dependent for hypoxic episode. Currently she is maintaining sinus rhythm and has been transitioned off her amiodarone drip. She is not a candidate for anticoagulation at this time, however she should be once cleared by gastroenterology. GENERAL: Responsive to touch. Currently on ventilator. NECK: Supple without JVD or thyromegaly. LUNGS: Breath sounds clear to auscultation bilaterally. Respiration equal and unlabored. No wheezes, rales or rhonchi. HEART: Regular rate and rhythm. Systolic murmur. No rubs or gallops. S1 and S2 heard. EXTREMITIES: Normal range of motion, no edema. No clubbing or cyanosis. Peripheral pulses intact and strong. Echocardiogram shows EF 40-45% with moderate to severe mitral regurgitation, moderate tricuspid regurgitation and moderate pulmonary hypertension Labs: WBC 13.5, myoglobin 7.0, hematocrit 23.4, platelet 17.3, sodium 141, potassium 4.1, BUN 23, creatinine 0.96 Assessment: #1 paroxysmal atrial fibrillation with RVR, currently maintaining sinus rhythm #2 anemia, secondary to acute blood loss #3 CAD status post CABG #4 valvular heart disease Plan: Continue current medication regimen. Novel anticoagulation when cleared by GI. Outpatient follow-up regarding valvular heart disease. We are signing off at this time. Please don't hesitate to contact for further recommendations if needed. Objective - Vital Signs Vital signs: Vital Signs Temp 98.1 F 03/30/19 08:00 Pulse 71 03/30/19 11:05 Resp 22 03/30/19 10:30 BP 141/71 03/30/19 05:00 Pulse Ox 93 L 03/30/19 10:30 Intake & Output 03/29/19 03/30/19 03/30/19 18:59 06:59 18:59 Intake Total 1349.957 530 260 Output Total 445 602 115 Balance 904.957 -72 145 Weight 75 kg 79.9 kg Intake: IV 1115 340 240 Clindamycin 600 mg In 100 Dextrose 5% in Water 50 ml @ 50 mls/hr IVPB Q8H [facility] Rx#:[id number] Dextrose 5%-0.9% NaCl 1, 975 220 240 000 ml @ 100 mls/hr IV . Q10H [facility] Rx#:[id number] Levofloxacin 500Mg-D5w 140 20 Pmx 500 mg In Dextrose/ Water 1 100ml.bag @ 100 mls/hr IVPB Q24H [facility] Rx#: [id number] Intake, IV Titration 234.957 Amount Norepinephrine 4 mg In 68.982 Sodium Chloride 0.9% 250 ml @ 0.05 MCG/KG/MIN 13. 526 mls/hr IV .[id number] [facility] Rx#:[id number] Propofol 1,000 mg In 165.975 Empty Bag 1 bag @ Titrate IV .Q0M [facility] Rx#: [id number] Tube Feeding 130 20 Other 60 Output: Urine 445 602 115 Other: Voiding Method Indwelling Catheter Indwelling Catheter Indwelling Catheter ABP, PAP, CO, CI - Last Documented Arterial Blood Pressure 155/68 - Labs CBC & Chem 7: 03/30/19 04:45 03/30/19 04:45 Labs: Abnormal Lab Results - Last 24 Hours (Table) 03/29/19 03/29/19 03/29/19 Range/Units 11:49 18:20 23:27 WBC (3.8-10.6) k/uL RBC (3.80-5.40) m/uL Hgb (11.4-16.0) gm/dL Hct (34.0-46.0) % MCHC (31.0-37.0) g/dL RDW (11.5-15.5) % Neutrophils # (1.3-7.7) k/uL Lymphocytes # (1.0-4.8) k/uL ABG pO2 (83-108) mmHg ABG O2 Saturation (94-97) % Chloride (98-107) mmol/L Carbon Dioxide (22-30) mmol/L BUN (7-17) mg/dL Glucose (74-99) mg/dL POC Glucose (mg/dL) 158 H 119 H 117 H (75-99) mg/dL 03/30/19 03/30/19 03/30/19 Range/Units 04:45 04:45 05:53 WBC 13.5 H (3.8-10.6) k/uL RBC 2.64 L (3.80-5.40) m/uL Hgb 7.0 L (11.4-16.0) gm/dL Hct 23.4 L (34.0-46.0) % MCHC 30.1 L (31.0-37.0) g/dL RDW 17.3 H (11.5-15.5) % Neutrophils # 12.4 H (1.3-7.7) k/uL Lymphocytes # 0.5 L (1.0-4.8) k/uL ABG pO2 (83-108) mmHg ABG O2 Saturation (94-97) % Chloride 114 H (98-107) mmol/L Carbon Dioxide 19 L (22-30) mmol/L BUN 23 H (7-17) mg/dL Glucose 139 H (74-99) mg/dL POC Glucose (mg/dL) 152 H (75-99) mg/dL 03/30/19 Range/Units 07:23 WBC (3.8-10.6) k/uL RBC (3.80-5.40) m/uL Hgb (11.4-16.0) gm/dL Hct (34.0-46.0) % MCHC (31.0-37.0) g/dL RDW (11.5-15.5) % Neutrophils # (1.3-7.7) k/uL Lymphocytes # (1.0-4.8) k/uL ABG pO2 157 H (83-108) mmHg ABG O2 Saturation 100.0 H (94-97) % Chloride (98-107) mmol/L Carbon Dioxide (22-30) mmol/L BUN (7-17) mg/dL Glucose (74-99) mg/dL POC Glucose (mg/dL) (75-99) mg/dL Microbiology - Last 24 Hours (Table) 03/28/19 10:00 Gram Stain - Final Bronchial Washings - Left Bronchial Washings Culture - Final 03/27/19 15:54 Gram Stain - Final Sputum Sputum Culture - Final Enterobacter hormaechei
--- NOTE | 2019-03-30 11:25 | P.PN ---
Ronan Rodriguez is an 84-year-old female well-known to my practice who presented presented to the emergency room , yesterday with complaint of abdominal pain left lower quadrant. Patient states the pain has been worsening over last couple of days family states she was pale and not her usual self. Patient also states she feels constipated. Patient has a history of CVA recently and has a feeding tube patient reports no fever denies dysuria hematuria patient has been moving her bowels she states the bleeding she has been doing his made her feel better or worse denies current chest pain denies underlying nausea or vomiting. Patient has steroid-dependent COPD, O2 dependent COPD however she doesn't like to use her oxygen. Known history of diverticulitis 03/20/2019 abdominal pain resolved .maintained on gentle IV fluid hydration .currently no antibiotics recommended as per ID. Development increased pulmonary congestion; new onset rhonchi. Failed modified barium swallow, strict nothing by mouth, strict aspiration precautions maintained. PEG tube feedings currently at 30, goal 65. CT suggestive of constipation versus neoplasm mass, will eventually need colonoscopy. No bowel movement today. Bowel movement yesterday, tested positive for occult blood T bili normal,. Elevated LFTs,,hepatitis panel negative Telemetry sinus rhythm. Denies chest pain, palpitations. 03/21/2019 hemoglobin dropped to 6.3, receiving one unit of packed RBCs currently. Denies chest pain, palpitations or shortness of breath.VSS. 03/24/19 status post EGD over the weekend, and slightly unremarkable receiving prep for a BE with air contrast to rule out possible colonic neoplasm. Tumor markers within normal limits. Denies abdominal pain. Hemoglobin 8.5. Denies chest pain, palpitations or shortness of breath. 03/25/19 BE completed today, limited exam, cannot rule out colonic lesion at the splenic flexure as noted on CT. Colonoscopy recommended as per GI. Patient discussed with family and wishes to proceed, but not until -Requesting a short break from the prep, which is reasonable. Labs pending. No active bleeding reported. Denies abdominal pain. 03/26/2019 early this morning developed an episode of shortness of breath, rec eived nebulized bronchodilators in a dose of Lasix IV push. Currently wheezy, exhausted from loss of sleep. Maintaining O2 sats of high 90s on 2 L nasal cannula. Outpatient colonoscopy offered but patient requesting to proceed with colonoscopy tomorrow. Denies abdominal pain. LFTs within normal limits .Denies chest pain, palpitations or increased shortness of breath. Denies lightheadedness, dizziness or focal deficits. 03/27/19 NPO. Aspirated, Colonscopy cancelled. VSS,O2 increased up to 3 l NC to maintain O2 sats in the 90s. Denies Chest pain, palpitations. Denies light headedness.Labs pending. 03/28/2019underwent colonoscopy yesterday reporting no masses, or mucosa abnormalities to correlate with CT, diverticulosis and internal hemorrhoids.upon transporting from recovery room to [facility],patient began complaining of abdominal pain. Shortly after transferring patient from stretcher to bed,patient developed acute respiratory distress, required intubation and transferred to ICU. possible aspiration. Maintained on FiO2 45%/+8 of PEEP, Diprovan, Levophed.Post endoscopy procedure, abdominal x-ray reported gas- distended loops of bowel, lightly post- procedural,lucency beneath the left hemidiaphragm,pneumoperitoneum not excluded.Surgery consulted,recommendations noted.patient also developed atrial fibrillation with RVR and was started on amiodarone drip as per cardiology. Patient has since converted to sinus rhythm with paroximal runs of tayo Pastor.this morning underwent bronchoscopy and lavage reporting aspiration pneumonia with extensive airspace disease involving the left lower lobe and lingula. 03/29/2019: Patient is status post CT brain for regular pupils. My recollection is been ongoing since her CVA. She is intubated and currently sedation is off. Patient remains in intensive care unit. Norepinephrine is on hold as well. Patient's maintaining her blood pressure. Past half hour. She remains on Levaquin and clindamycin antibiotics for aspiration pneumonia. PEG tube is to suction. FiO2 is being maintained at 40%. Family were at bedside and critical care's note was reviewed. 03/30/2019: The patient remains in the intensive care unit intubated. Patient remains off the propofol, but is not waking up quickly. She is currently on a FiO2 35% and a PEEP of 5. She is off amiodarone per cardiology as her maintained sinus rhythm. She is on tube feeds with a goal of 30 mL/h. No family are at bedside or in the waiting room today. Objective - Vital Signs Vital signs: Vital Signs Temp 98.1 F 03/30/19 08:00 Pulse 67 03/30/19 11:19 Resp 22 03/30/19 10:30 BP 141/71 03/30/19 05:00 Pulse Ox 93 L 03/30/19 10:30 Intake & Output 03/29/19 03/30/19 03/30/19 18:59 06:59 18:59 Intake Total 1349.957 530 260 Output Total 445 602 115 Balance 904.957 -72 145 Weight 75 kg 79.9 kg Intake: IV 1115 340 240 Clindamycin 600 mg In 100 Dextrose 5% in Water 50 ml @ 50 mls/hr IVPB Q8H NO Rx#:[id number] Dextrose 5%-0.9% NaCl 1, 975 220 240 000 ml @ 100 mls/hr IV . Q10H NO Rx#:[id number] Levofloxacin 500Mg-D5w 140 20 Pmx 500 mg In Dextrose/ Water 1 100ml.bag @ 100 mls/hr IVPB Q24H NO Rx#: [id number] Intake, IV Titration 234.957 Amount Norepinephrine 4 mg In 68.982 Sodium Chloride 0.9% 250 ml @ 0.05 MCG/KG/MIN 13. 526 mls/hr IV .[id number] NO Rx#:[id number] Propofol 1,000 mg In 165.975 Empty Bag 1 bag @ Titrate IV .Q0M NO Rx#: [id number] Tube Feeding 130 20 Other 60 Output: Urine 445 602 115 Other: Voiding Method Indwelling Catheter Indwelling Catheter Indwelling Catheter ABP, PAP, CO, CI - Last Documented Arterial Blood Pressure 155/68 - Exam General: At about his elevated elevated, intubated, patient still appears sedated HEENT: head is normocephalic, atraumatic,PERRL. pale conjunctiva,endotracheal tube present Neck: Supple,trachea midline No adenopathy. Cardiac: [Heart regular in rate and rhythm. No S3. No S4.Mild tachycardia, No clicks, rubs. No murmur.] Mid sternal scarring mid abdominal scarring from bypass surgery, from aneurysm repair surgery Lungs: diminished bibasilar, scattered rhonchi Abdomen: Soft, nontender, nondistended, No organomegaly. Positive bowel sounds. PEG tube in place with suction Extremes: [No edema, no claudication normal pulses] Skin: [No rash.mild mottling of the chest, knees, breasts.] Neurologic: cannot be assessed at this time as patient sedated and on mechanical ventilation. Patient does have differing pupil sizes. The right is approximately 4 mm while the left is approximately 3 mm - Labs CBC & Chem 7: 03/30/19 04:45 03/30/19 04:45 Labs: Abnormal Lab Results - Last 24 Hours (Table) 03/29/19 03/29/19 03/29/19 Range/Units 11:49 18:20 23:27 WBC (3.8-10.6) k/uL RBC (3.80-5.40) m/uL Hgb (11.4-16.0) gm/dL Hct (34.0-46.0) % MCHC (31.0-37.0) g/dL RDW (11.5-15.5) % Neutrophils # (1.3-7.7) k/uL Lymphocytes # (1.0-4.8) k/uL ABG pO2 (83-108) mmHg ABG O2 Saturation (94-97) % Chloride (98-107) mmol/L Carbon Dioxide (22-30) mmol/L BUN (7-17) mg/dL Glucose (74-99) mg/dL POC Glucose (mg/dL) 158 H 119 H 117 H (75-99) mg/dL 03/30/19 03/30/19 03/30/19 Range/Units 04:45 04:45 05:53 WBC 13.5 H (3.8-10.6) k/uL RBC 2.64 L (3.80-5.40) m/uL Hgb 7.0 L (11.4-16.0) gm/dL Hct 23.4 L (34.0-46.0) % MCHC 30.1 L (31.0-37.0) g/dL RDW 17.3 H (11.5-15.5) % Neutrophils # 12.4 H (1.3-7.7) k/uL Lymphocytes # 0.5 L (1.0-4.8) k/uL ABG pO2 (83-108) mmHg ABG O2 Saturation (94-97) % Chloride 114 H (98-107) mmol/L Carbon Dioxide 19 L (22-30) mmol/L BUN 23 H (7-17) mg/dL Glucose 139 H (74-99) mg/dL POC Glucose (mg/dL) 152 H (75-99) mg/dL 03/30/19 Range/Units 07:23 WBC (3.8-10.6) k/uL RBC (3.80-5.40) m/uL Hgb (11.4-16.0) gm/dL Hct (34.0-46.0) % MCHC (31.0-37.0) g/dL RDW (11.5-15.5) % Neutrophils # (1.3-7.7) k/uL Lymphocytes # (1.0-4.8) k/uL ABG pO2 157 H (83-108) mmHg ABG O2 Saturation 100.0 H (94-97) % Chloride (98-107) mmol/L Carbon Dioxide (22-30) mmol/L BUN (7-17) mg/dL Glucose (74-99) mg/dL POC Glucose (mg/dL) (75-99) mg/dL Microbiology - Last 24 Hours (Table) 03/28/19 10:00 Gram Stain - Final Bronchial Washings - Left Bronchial Washings Culture - Final 03/27/19 15:54 Gram Stain - Final Sputum Sputum Culture - Final Enterobacter hormaechei Assessment and Plan (1) Acute respiratory failure Current Visit: Yes Status: Acute Code(s): J96.00 - ACUTE RESPIRATORY FAILURE, UNSP W HYPOXIA OR HYPERCAPNIA SNOMED Code(s): 23049894 (2) Chronic respiratory failure with hypoxia Current Visit: Yes Status: Acute Code(s): J96.11 - CHRONIC RESPIRATORY FAILURE WITH HYPOXIA SNOMED Code(s): 249983075 (3) Aspiration pneumonia Current Visit: Yes Status: Acute Code(s): J69.0 - PNEUMONITIS DUE TO INHALATION OF FOOD AND VOMIT SNOMED Code(s): 224154455 (4) Constipation Current Visit: Yes Status: Acute Code(s): K59.00 - CONSTIPATION, UNSPECIFIED SNOMED Code(s): 02369359 (5) Anemia Current Visit: Yes Status: Acute Code(s): D64.9 - ANEMIA, UNSPECIFIED SNOMED Code(s): 857254546 (6) COPD (chronic obstructive pulmonary disease) Current Visit: Yes Status: Acute Code(s): J44.9 - CHRONIC OBSTRUCTIVE PULMONARY DISEASE, UNSPECIFIED SNOMED Code(s): 11164847 (7) Colon, diverticulosis Current Visit: Yes Status: Acute Code(s): K57.30 - DVRTCLOS OF LG INT W/O PERFORATION OR ABSCESS W/O BLEEDING SNOMED Code(s): 463736791 (8) Generalized weakness Current Visit: Yes Status: Acute Code(s): R53.1 - WEAKNESS SNOMED Code(s): 31633390 (9) History of CVA (cerebrovascular accident) Current Visit: Yes Status: Acute Code(s): Z86.73 - PRSNL HX OF TIA (TIA), AND CEREB INFRC W/O RESID DEFICITS SNOMED Code(s): 590658604 (10) Normocytic hypochromic anemia Current Visit: Yes Status: Acute Code(s): D50.9 - IRON DEFICIENCY ANEMIA, U NSPECIFIED SNOMED Code(s): 43027964 (11) Oropharyngeal dysphagia Current Visit: Yes Status: Acute Code(s): R13.12 - DYSPHAGIA, OROPHARYNGEAL PHASE SNOMED Code(s): 86560183 (12) Presence of externally removable percutaneous endoscopic gastrostomy (PEG) tube Current Visit: Yes Status: Acute Code(s): Z93.1 - GASTROSTOMY STATUS SNOMED Code(s): 119802022 Plan: Plan: Await further recommendations from cardiology, GI and critical care. Continue on current medication regime ,monitoring and symptomatic treatment.Strict aspiration precautions. follow closely with multiple consults. Maintain supportive care.strict aspiration precautions, head of bed up at all times. Further recommendations to follow. Prognosis guarded given multiple complex medical issues.
[2019-03-30 12:15] LABS: Glucose,Whole Blood 164 mg/dL (75-99)
[2019-03-30] MEDS ORDERED: FUROSEMIDE 10 MG/ML 2 ML VIAL IV ONE (13:59)
[2019-03-30] MEDS: LEVOFLOXACIN 500MG-D5W PMX 500 MG in DEXTROSE/WATER 1 100ML.BAG IVPB SCH (15:44)
[2019-03-30] MEDS: HYDROmorphone 0.5 MG/0.5 ML SYRINGE IVP PRN (17:52)
[2019-03-30 18:00] LABS: Glucose,Whole Blood 178 mg/dL (75-99)
[2019-03-30] MEDS ORDERED: LORazepam 2 MG/ML INJ IV PRN (19:37)
[2019-03-30] MEDS: NOREPINEPHRINE 4 MG in SODIUM CHLORIDE 0.9% 250 ML IV SCH (20:57)
[2019-03-30] MEDS: ATORVASTATIN 40 MG TAB PO SCH (21:04)
[2019-03-30 23:45] LABS: Glucose,Whole Blood 170 mg/dL (75-99)
[2019-03-31] MEDS: methylPREDNISolone SOD SUCCI 40 MG/ML 1 ML VIAL IV SCH ×4 (00:21→17:24)
[2019-03-31] MEDS: HYDROmorphone 0.5 MG/0.5 ML SYRINGE IVP PRN (00:29)
[2019-03-31] MEDS: IPRATROPIUM-ALBUTEROL 3 ML NEB INHALATION SCH ×6 (03:04→23:21)
[2019-03-31 04:47] LABS: Anisocytosis Slight; HCT 22.2 % (34.0-46.0); Hypochromasia Marked; MCH 26.4 pg (25.0-35.0); MCHC 30.3 g/dL (31.0-37.0); Mean Platelet Volume 7.5; Platelet Count 284 k/uL (150-450); Poikilocytosis Marked; RBC 2.55 m/uL (3.80-5.40); WBC 11.8 k/uL (3.8-10.6)
[2019-03-31 04:50] LABS: ABG Base Excess -4.7 mmol/L; ABG HCO3 21 mmol/L (21-25); ABG Oxygen Saturation 99.6 % (94-97); ABG PCO2 40 mmHg (35-45); ABG PH 7.34 (7.35-7.45); ABG PO2 136 mmHg (83-108); ABG TCO2 22 mmol/L (19-24)
[2019-03-31 04:52] LABS: Albumin 2.3 g/dL (3.5-5.0); Calcium 8.5 mg/dL (8.4-10.2); Potassium 3.4 mmol/L (3.5-5.1); Total Bilirubin 0.3 mg/dL (0.2-1.3); Total Protein 5.3 g/dL (6.3-8.2)
[2019-03-31 05:07] LABS: HGB 6.7 gm/dL (11.4-16.0)
[2019-03-31] MEDS: LEVOTHYROXINE 100 MCG TAB PO SCH (05:55)
[2019-03-31] MEDS: CLINDAMYCIN 600 MG in DEXTROSE 5% IN WATER 50 ML IVPB SCH ×6 (05:55→19:54)
[2019-03-31 06:16] LABS: Glucose,Whole Blood 182 mg/dL (75-99)
[2019-03-31] MEDS: POTASSIUM BICARBONATE/CIT AC 20 MEQ TABLET.EFF PEG/G-TUBE SCH ×2 (06:23→09:14)
[2019-03-31] MEDS: INSULIN ASPART (NovoLOG) 100 UNIT/ML VIAL SQ SCH ×3 (06:23→17:39)
--- NOTE | 2019-03-31 07:15 | P.PN ---
Subjective Progress Note Date: 03/31/19 Principal diagnosis: Paroxysmal atrial fibrillation This is an 84-year-old female patient with a past medical history significant for coronary artery disease, paroxysmal atrial fibrillation, as well as multiple comorbid conditions, who was admitted to the hospital with GI bleeding. The patient underwent an upper endoscopy. Subsequently she went into an acute respiratory failure required intubation and mechanical ventilation. She was receiving oral anticoagulation at home. She underwent an echocardiogram which revealed an EF between 40-45% with normally functioning bioprosthetic aortic valve. On follow-up with her today, 03/31/2019, the patient continues to be intubated but she is not on any sedation. She possibly can be extubated later on today. Hemodynamically, she continues to be stable. She is currently in normal sinus mechanism. She is on metoprolol by mouth. She is not on any oral anticoagulation at this point because of GI bleeding. This morning, the hemoglobin below 7 and the patient should receive one unit of packed RBC. Objective - Vital Signs Vital signs: Vital Signs Temp 97.5 F L 03/31/19 04:00 Pulse 65 03/31/19 06:00 Resp 20 03/31/19 06:00 BP 141/71 03/30/19 05:00 Pulse Ox 100 03/31/19 06:00 Intake & Output 03/30/19 03/31/19 03/31/19 18:59 06:59 18:59 Intake Total 1600 1680 Output Total 1020 655 Balance 580 1025 Weight 80.2 kg Intake: IV 1190 1200 Clindamycin 600 mg In 50 Dextrose 5% in Water 50 ml @ 50 mls/hr IVPB Q8H NO Rx#:[id number] Dextrose 5%-0.9% NaCl 1, 840 1200 000 ml @ 100 mls/hr IV . Q10H NO Rx#:[id number] Levofloxacin 500Mg-D5w 300 Pmx 500 mg In Dextrose/ Water 1 100ml.bag @ 100 mls/hr IVPB Q24H NO Rx#: [id number] Tube Feeding 340 390 Other 70 90 Output: Urine 1020 655 Other: Voiding Method Indwelling Catheter Indwelling Catheter ABP, PAP, CO, CI - Last Documented Arterial Blood Pressure 143/49 - Constitutional General appearance: Present: no acute distress - Respiratory Respiratory: bilateral: diminished - Cardiovascular Rhythm: regular Heart sounds: normal: S1, S2 Abnormal Heart Sounds: Present: systolic murmur - Labs CBC & Chem 7: 03/31/19 04:30 03/31/19 04:30 Labs: Abnormal Lab Results - Last 24 Hours (Table) 03/30/19 03/30/19 03/30/19 Range/Units 07:23 12:03 17:49 WBC (3.8-10.6) k/uL RBC (3.80-5.40) m/uL Hgb (11.4-16.0) gm/dL Hct (34.0-46.0) % MCHC (31.0-37.0) g/dL RDW (11.5-15.5) % ABG pH (7.35-7.45) ABG pO2 157 H (83-108) mmHg ABG O2 Saturation 100.0 H (94-97) % Potassium (3.5-5.1) mmol/L Chloride (98-107) mmol/L Carbon Dioxide (22-30) mmol/L BUN (7-17) mg/dL Glucose (74-99) mg/dL POC Glucose (mg/dL) 164 H 178 H (75-99) mg/dL Total Protein (6.3-8.2) g/dL Albumin (3.5-5.0) g/dL 03/30/19 03/31/19 03/31/19 Range/Units 23:14 04:30 04:30 WBC 11.8 H (3.8-10.6) k/uL RBC 2.55 L (3.80-5.40) m/uL Hgb 6.7 L* (11.4-16.0) gm/dL Hct 22.2 L (34.0-46.0) % MCHC 30.3 L (31.0-37.0) g/dL RDW 17.0 H (11.5-15.5) % ABG pH (7.35-7.45) ABG pO2 (83-108) mmHg ABG O2 Saturation (94-97) % Potassium 3.4 L (3.5-5.1) mmol/L Chloride 114 H (98-107) mmol/L Carbon Dioxide 21 L (22-30) mmol/L BUN 30 H (7-17) mg/dL Glucose 160 H (74-99) mg/dL POC Glucose (mg/dL) 170 H (75-99) mg/dL Total Protein 5.3 L (6.3-8.2) g/dL Albumin 2.3 L (3.5-5.0) g/dL 03/31/19 03/31/19 Range/Units 04:46 06:05 WBC (3.8-10.6) k/uL RBC (3.80-5.40) m/uL Hgb (11.4-16.0) gm/dL Hct (34.0-46.0) % MCHC (31.0-37.0) g/dL RDW (11.5-15.5) % ABG pH 7.34 L (7.35-7.45) ABG pO2 136 H (83-108) mmHg ABG O2 Saturation 99.6 H (94-97) % Potassium (3.5-5.1) mmol/L Chloride (98-107) mmol/L Carbon Dioxide (22-30) mmol/L BUN (7-17) mg/dL Glucose (74-99) mg/dL POC Glucose (mg/dL) 182 H (75-99) mg/dL Total Protein (6.3-8.2) g/dL Albumin (3.5-5.0) g/dL Microbiology - Last 24 Hours (Table) 03/28/19 10:00 Gram Stain - Final Bronchial Washings - Left Bronchial Washings Culture - Final Assessment and Plan Assessment: Assessment #1 GI bleeding #2 follow-up loss anemia secondary to the above #3 paroxysmal atrial fibrillation. Currently the patient is in normal sinus mechanism #4 coronary artery disease and status post revascularization #5 valvular heart disease and status post aVR Plan #1 blood transfusion. The hemoglobin this morning is below 7 #2 continue holding any oral anticoagulation at this point #3 continue the current medical regimen with oral metoprolol. #4 the echocardiogram was reviewed #5 follow-up with the patient
--- NOTE | 2019-03-31 08:05 | XR ---
EXAMINATION TYPE: XR chest 1V portable DATE OF EXAM: 03/31/2019 COMPARISON: 03/30/2019 HISTORY: Tube placement TECHNIQUE: Single frontal view of the chest is obtained. FINDINGS: ET tube and postsurgical changes stable. Bilateral consolidation and pleural effusion stab le. Neoplastic process not excluded on the left. Radiopaque density overlying the left scapula stable and nonspecific. Atherosclerotic change aorta. IMPRESSION: 1. Stable bilateral consolidation and pleural effusion correlate for pneumonia. Underlying CHF not ex cluded. Follow-up to resolution to exclude neoplasm. 2. Radiopaque density overlying the left scapula is indeterminate correlate clinically.
[2019-03-31] MEDS: BUDESONIDE 1 MG/2 ML NEBU INHALATION SCH (08:34)
--- NOTE | 2019-03-31 09:12 | PN ---
PROGRESS NOTE This is a pulmonary/critical care progress note. DATE OF SERVICE: March 31, 2019 This is an 84-year-old female who was admitted on March 18. She was initially admitted with a diagnosis of gastrointestinal bleed. She apparently was intubated after a colonoscopy on March 27. She has been intubated since. Apparently today she seems to be doing a bit better. She has been off a sedation for a number of days now. Her mental status is not great, but her gas exchange is excellent and on PSV 8, CPAP of 5 with a #7 endotracheal tube, she has got great volumes and a very low minute volume. Her respiratory rate is also very low. For that reason, if she has a positive cuff leak, will give her a trial of extubation. In addition, she has a history of atrial fibrillation with RVR, currently well controlled, hypotension, which is resolved after fluid resuscitation and norepinephrine and the GI bleed. She has required 3 units of PRBCs since admission. She has a history of previous PEG tube placement for dysphagia and a number of other medical problems including benign essential hypertension, hypothyroidism, hyperlipidemia, and general medical debility. I read Dr. Malone and Dr. Martinez notes from yesterday. The patient seems to be reasonably stable and a trial of extubation seems reasonable. PHYSICAL EXAMINATION: VITAL SIGNS: Currently, her vital signs are reviewed. Temperature is 97.5, heart rate 67, respiratory rate 20, blood pressure 141/55, saturations are 98. Appears in no acute distress. Responds somewhat but not particularly well. Does open eyes. Does move her hands. HEENT examination is grossly unremarkable. There is an orally placed endotracheal tube and NG tube. She only has a #[address] NECK: Supple. Full range of motion. CARDIOVASCULAR: Examination reveals regular rhythm and rate. Heart rate is 70. S1, S2 normal. No murmur. LUNGS: Reveal a few scattered rhonchi. No wheezes or crackles. ABDOMEN: Soft. Bowel sounds are heard. EXTREMITIES: Are intact. There is no cyanosis or clubbing. Slight edema. SKIN: Without rash. NEUROLOGIC: Examination is difficult to assess. She does open her eyes. She does seem to respond but somewhat poorly. She is getting D5 0.9 at 100 mL an hour and Vital AF at 30 with a goal of 30. As I mentioned, she has a #7 endotracheal tube in. Vent settings are noted and include a volume assist-control mode rate of 20, breathing 26 times a minute, tidal volume 450, FiO2 35%, PEEP of 5. Blood gases as mentioned show pO2 136, pCO2 40, pH 7.34. Blood gases consistent with mild hyperoxia and mild metabolic acidosis. LABS: Labs are reviewed. White count 11.8, hemoglobin 6.7, hematocrit 22.2, platelet count 284,000. Sodium 142, potassium 3.4, chloride 114, CO2 of 21. Anion gap 7. BUN and creatinine were 30 and 0.9. Albumin 2.3. Microbiologic studies show evidence of sputum Gram stain with Enterobacter hormaechei. Chest x-ray shows bibasilar atelectasis and/or pneumonia with some mild fluid overload and small pleural effusions. MEDICATIONS: Medications are reviewed. Medications appear to be appropriate and she is on antibiotics in the form of Levaquin and clindamycin. ASSESSMENT: 1. Acute hypoxemic respiratory failure secondary to presumed aspiration pneumonia requiring intubation and mechanical ventilation on March 27. 2. Initial admission to hospital on March 18 with gastrointestinal bleed. 3. Failure to wean from mechanical ventilation. 4. Atrial fibrillation with rapid ventricular response, currently controlled. 5. Hypotension, resolved with fluid resuscitation and norepinephrine. 6. Acute gastrointestinal bleed, requiring 3 units of PRBCs. 7. History of dysphagia, with previous PEG tube placement for nutrition. 8. History of benign essential hypertension. 9. Hypothyroidism. 10.Hyperlipidemia. 11.General medical debility. PLAN: The patient will be given and has been given a trial on PSV of 8 and CPAP of 5. She looks real comfortable. Tidal volumes are excellent. RSBI is low. Minute volume is low. Respiratory rate is low. She does have a cuff leak. We will give her trial of extubation. We will go through the medication list and discontinue any unnecessary medications. We will make sure we discontinue all medications which may have an effect on her mental status. Overall prognosis remains guarded. We will continue to follow. No additional recommendations are made at this time. Critical care time is 33 minutes. TIMOTHY / NAPOLEON: [id number] / MTDD
[2019-03-31] MEDS: POLYETHYLENE GLYCOL 3350 17 GM POWD.PACK PO SCH ×2 (09:14→19:55)
[2019-03-31] MEDS: PANTOPRAZOLE 40 MG/10 ML VIAL IV SCH ×2 (09:14→19:55)
[2019-03-31] MEDS: SERTRALINE 25 MG TAB PO SCH (09:15)
[2019-03-31] MEDS: METOPROLOL TARTRATE 25 MG TAB PO SCH ×2 (09:15→19:54)
[2019-03-31 12:11] LABS: Glucose,Whole Blood 136 mg/dL (75-99)
[2019-03-31] MEDS ORDERED: FUROSEMIDE 10 MG/ML 2 ML VIAL IV PRN (13:42)
--- NOTE | 2019-03-31 15:00 | P.PN ---
Subjective Progress Note Date: 03/31/19 Siddhartha is an 84-year-old female well-known to my practice who presented presented to the emergency room , yesterday with complaint of abdominal pain left lower quadrant. Patient states the pain has been worsening over last couple of days family states she was pale and not her usual self. Patient also states she feels constipated. Patient has a history of CVA recently and has a feeding tube patient reports no fever denies dysuria hematuria patient has been moving her bowels she states the bleeding she has been doing his made her feel better or worse denies current chest pain denies underlying nausea or vomiting. Patient has steroid-dependent COPD, O2 dependent COPD however she doesn't like to use her oxygen. Known history of diverticulitis 03/20/2019 abdominal pain resolved .maintained on gentle IV fluid hydration .currently no antibiotics recommended as per ID. Development increased pulmo nary congestion; new onset rhonchi. Failed modified barium swallow, strict nothing by mouth, strict aspiration precautions maintained. PEG tube feedings currently at 30, goal 65. CT suggestive of constipation versus neoplasm mass, will eventually need colonoscopy. No bowel movement today. Bowel movement yesterday, tested positive for occult blood T bili normal,. Elevated LFTs,,hepatitis panel negative Telemetry sinus rhythm. Denies chest pain, palpitations. 03/21/2019 hemoglobin dropped to 6.3, receiving one unit of packed RBCs currently. Denies chest pain, palpitations or shortness of breath.VSS. 03/24/19 status post EGD over the weekend, and slightly unremarkable receiving prep for a BE with air contrast to rule out possible colonic neoplasm. Tumor markers within normal limits. Denies abdominal pain. Hemoglobin 8.5. Denies chest pain, palpitations or shortness of breath. 03/25/19 BE completed today, limited exam, cannot rule out colonic lesion at the splenic flexure as noted on CT. Colonoscopy recommended as per GI. Patient discussed with family and wishes to proceed, but not until -Requesting a short break from the prep, which is reasonable. Labs pending. No active bleeding reported. Denies abdominal pain. 03/26/2019 early this morning developed an episode of shortness of breath, received nebulized bronchodilators in a dose of Lasix IV push. Currently wheezy, exhausted from loss of sleep. Maintaining O2 sats of high 90s on 2 L nasal cannula. Outpatient colonoscopy offered but patient requesting to proceed with colonoscopy tomorrow. Denies abdominal pain. LFTs within normal limits .Denies chest pain, palpitations or increased shortness of breath. Denies lightheadedness, dizziness or focal deficits. 03/27/19 NPO. Aspirated, Colonscopy cancelled. VSS,O2 increased up to 3 l NC to maintain O2 sats in the 90s. Denies Chest pain, palpitations. Denies light headedness.Labs pending. 03/28/2019underwent colonoscopy yesterday reporting no masses, or mucosa abnormalities to correlate with CT, diverticulosis and internal hemorrhoids.upon transporting from recovery room to [facility] unit,patient began complaining of abdominal pain. Shortly after transferring patient from stretcher to bed,patient developed acute respiratory distress, required intubation and transferred to ICU. possible aspiration. Maintained on FiO2 45%/+8 of PEEP, Diprovan, Levophed.Post endoscopy procedure, abdominal x-ray reported gas- distended loops of bowel, lightly post- procedural,lucency beneath the left hemidiaphragm,pneumoperitoneum not excluded.Surgery consulted,recommendations noted.patient also developed atrial fibrillation with RVR and was started on amiodarone drip as per cardiology. Patient has since converted to sinus rhythm with paroximal runs of tayo Pastor.this morning underwent bronchoscopy and lavage reporting aspiration pneumonia with extensive airspace disease involving the left lower lobe and lingula. 03/29/2019: Patient is status post CT brain for regular pupils. My recollection is been ongoing since her CVA. She is intubated and currently sedation is off. Patient remains in intensive care unit. Norepinephrine is on hold as well. Patient's maintaining her blood pressure. Past half hour. She remains on Levaquin and clindamycin antibiotics for aspiration pneumonia. PEG tube is to suction. FiO2 is being maintained at 40%. Family were at bedside and critical care's note was reviewed. 03/30/2019: The patient remains in the intensive care unit intubated. Patient remains off the propofol, but is not waking up quickly. She is currently on a FiO2 35% and a PEEP of 5. She is off amiodarone per cardiology as her maintained sinus rhythm. She is on tube feeds with a goal of 30 mL/h. No family are at bedside or in the waiting room today. 03/31/2019 extubated this morning, currently maintaining O2 sats in the mid 90s on 4 L nasal cannula. Chest x-ray reporting stable bilateral consolidat ion/pleural effusion, radiopaque density overlying the left scapula, stable, indeterminate. Hemoglobin 6.7 with no reported bleeding. Continues on no oral anticoagulation secondary to GI bleed. No tachycardia, mild hypertension - systolic blood pressures in the 160s. Potassium 3.4. Maintained on clindamycin and Levaquin. Objective - Vital Signs Vital signs: Vital Signs Temp 97.8 F 03/31/19 12:00 Pulse 76 03/31/19 12:05 Resp 19 03/31/19 12:00 BP 153/82 03/31/19 12:00 Pulse Ox 95 03/31/19 12:00 Intake & Output 03/30/19 03/31/19 03/31/19 18:59 06:59 18:59 Intake Total 1600 1680 680 Output Total 1020 655 219 Balance 580 1025 461 Weight 80.2 kg 80.2 kg Intake: IV 1190 1200 650 Clindamycin 600 mg In 50 50 Dextrose 5% in Water 50 ml @ 50 mls/hr IVPB Q8H NO Rx#:[id number] Dextrose 5%-0.9% NaCl 1, 840 1200 600 000 ml @ 100 mls/hr IV . Q10H NO Rx#:[id number] Levofloxacin 500Mg-D5w 300 Pmx 500 mg In Dextrose/ Water 1 100ml.bag @ 100 mls/hr IVPB Q24H NO Rx#: [id number] Tube Feeding 340 390 30 Other 70 90 Output: Urine 1020 655 219 Other: Voiding Method Indwelling Catheter Indwelling Catheter Indwelling Catheter ABP, PAP, CO, CI - Last Documented Arterial Blood Pressure 163/68 - Exam General:sitting up in bed, recently extubated, stuporous HEENT: head is normocephalic, atraumatic, right pupil appears larger, 4mm compared to left 3mm. Neck: Supple,trachea midline No adenopathy. Cardiac: [Heart irregular in rate and rhythm. No S3. No S4. No clicks, rubs. No murmur.] Mid sternal scarring mid abdominal scarring from bypass surgery, from aneurysm repair surgery Lungs: diminished bibasilar, scattered rhonchi, no crackles, no wheezing. Abdomen: Soft, nontender, nondistended, No organomegaly. Positive bowel sounds. Extremes: [Mild edema, no cyanosis, no clubbing Skin: [No rash. Neurologic: Unable to completely assess at this time as mentioned above patient recently extubated. Patient does follow simple commands appropriately with hands and feet, reflexes sluggish. Microbiology 03/28/19 10:00 Bronchial Washings - Left Gram Stain - Final 03/28/19 10:00 Bronchial Washings - Left Bronchial Washings Culture - Final 03/27/19 15:54 Sputum Gram Stain - Final 03/27/19 15:54 Sputum Sputum Culture - Final Enterobacter hormaechei 03/28/19 10:00 Bronchial Washings - Left Fungal Culture - Preliminary 03/19/19 01:14 Urine,Voided Urine Culture - Final - Labs CBC & Chem 7: 03/31/19 04:30 03/31/19 04:30 Labs: Abnormal Lab Results - Last 24 Hours (Table) 03/30/19 03/30/19 03/31/19 Range/Units 17:49 23:14 04:30 WBC 11.8 H (3.8-10.6) k/uL RBC 2.55 L (3.80-5.40) m/uL Hgb 6.7 L* (11.4-16.0) gm/dL Hct 22.2 L (34.0-46.0) % MCHC 30.3 L (31.0-37.0) g/dL RDW 17.0 H (11.5-15.5) % ABG pH (7.35-7.45) ABG pO2 (83-108) mmHg ABG O2 Saturation (94-97) % Potassium (3.5-5.1) mmol/L Chloride (98-107) mmol/L Carbon Dioxide (22-30) mmol/L BUN (7-17) mg/dL Glucose (74-99) mg/dL POC Glucose (mg/dL) 178 H 170 H (75-99) mg/dL Total Protein (6.3-8.2) g/dL Albumin (3.5-5.0) g/dL 03/31/19 03/31/19 03/31/19 Range/Units 04:30 04:46 06:05 WBC (3.8-10.6) k/uL RBC (3.80-5.40) m/uL Hgb (11.4-16.0) gm/dL Hct (34.0-46.0) % MCHC (31.0-37.0) g/dL RDW (11.5-15.5) % ABG pH 7.34 L (7.35-7.45) ABG pO2 136 H (83-108) mmHg ABG O2 Saturation 99.6 H (94-97) % Potassium 3.4 L (3.5-5.1) mmol/L Chloride 114 H (98-107) mmol/L Carbon Dioxide 21 L (22-30) mmol/L BUN 30 H (7-17) mg/dL Glucose 160 H (74-99) mg/dL POC Glucose (mg/dL) 182 H (75-99) mg/dL Total Protein 5.3 L (6.3-8.2) g/dL Albumin 2.3 L (3.5-5.0) g/dL 03/31/19 Range/Units 11:41 WBC (3.8-10.6) k/uL RBC (3.80-5.40) m/uL Hgb (11.4-16.0) gm/dL Hct (34.0-46.0) % MCHC (31.0-37.0) g/dL RDW (11.5-15.5) % ABG pH (7.35-7.45) ABG pO2 (83-108) mmHg ABG O2 Saturation (94-97) % Potassium (3.5-5.1) mmol/L Chloride (98-107) mmol/L Carbon Dioxide (22-30) mmol/L BUN (7-17) mg/dL Glucose (74-99) mg/dL POC Glucose (mg/dL) 136 H (75-99) mg/dL Total Protein (6.3-8.2) g/dL Albumin (3.5-5.0) g/dL Microbiology - Last 24 Hours (Table) 03/28/19 10:00 Gram Stain - Final Bronchial Washings - Left Bronchial Washings Culture - Final Assessment and Plan Assessment: - Acute hypoxic, hypercapnic respiratory failure secondary to suspected aspiration pneumonia, status post mechanical ventilation. Sputum culture reporteding Enterobacter hormaechei. Current Visit: Yes Status: Acute Code(s): J96.00 - ACUTE RESPIRATORY FAILURE, UNSP W HYPOXIA OR HYPERCAPNIA SNOMED Code(s): 50957329 - Chronic respiratory failure with hypoxia Current Visit: Yes Status: Acute Code(s): J96.11 - CHRONIC RESPIRATORY FAILURE WITH HYPOXIA SNOMED Code(s): 726723872 - Aspiration pneumonia Current Visit: Yes Status: Acute Code(s): J69.0 - PNEUMONITIS DUE TO INHALATION OF FOOD AND VOMIT SNOMED Code(s): 784749208 -chronic paroxysmal atrial fibrillation with RVR status post Cardizem drip - constipation Current Visit: Yes Status: Acute Code(s): K59.00 - CONSTIPATION, UNSPECIFIED SNOMED Code(s): 52998314 - Anemia, acute blood loss ,etiology unclear, possible colonic neoplasm. status post colonoscopy reporting no masses or mucosal abnormalities.status post colonoscopy reported diverticulosis and internal hemorrhoids, no masses or mucosal abnormalities. - chronic Normocytic hypochromic anemia Current Visit: Yes Status: Acute Code(s): D50.9 - IRON DEFICIENCY ANEMIA, UNSPECIFIED SNOMED Code(s): 51513279 -Hypotension, hypovolemic status post pressor support and fluid resuscitation, resolved -COPD (chronic obstructive pulmonary disease), steroid-dependent Current Visit: Yes Status: Acute Code(s): J44.9 - CHRONIC OBSTRUCTIVE PULMONARY DISEASE, UNSPECIFIED SNOMED Code(s): 15126047 - Colon, diverticulosis Current Visit: Yes Status: Acute Code(s): K57.30 - DVRTCLOS OF LG INT W/O PERFORATION OR ABSCESS W/O BLEEDING SNOMED Code(s): 209297115 - Generalized weakness, general medical debility Current Visit: Yes Status: Acute Code(s): R53.1 - WEAKNESS SNOMED Code(s): 15342270 - History of CVA (cerebrovascular accident), failed swallow eval, recent PEG tube placement Current Visit: Yes Status: Acute Code(s): Z86.73 - PRSNL HX OF TIA (TIA), AND CEREB INFRC W/O RESID DEFICITS SNOMED Code(s): 631081441 - Oropharyngeal dysphagia Current Visit: Yes Status: Acute Code(s): R13.12 - DYSPHAGIA, OROPHARYNGEAL PHASE SNOMED Code(s): 66375531 - Presence of externally removable percutaneous endoscopic gastrostomy (PEG) tube Current Visit: Yes Status: Acute Code(s): Z93.1 - GASTROSTOMY STATUS SNOMED Code(s): 408231291 -Abdominal pain, constipation, possible colonic neoplasm per CT. BE limited exam unable to rule out underlying colonic lesion Current Visit: Yes Status: Acute Code(s): R10.9 - UNSPECIFIED ABDOMINAL PAIN SNOMED Code(s): 78501386 -history of abdominal aortic aneurysm as well as new aneurysmal site -Hypothyroidism -Hypertension -Chronic diastolic CHF Plan: Continue on current medication regime ,monitoring and symptomatic treatment.Strict aspiration precautions. Recently extubated , sluggish but following simple commands .continue assessing mentation with possible neurology consult if no improvement. transfuse 1-2 units of packed RBCs with Lasix 20 IV push after each unit. A light supplementation as per replacement protocols.maintain IV antibiotic therapy.hydralazine added for hypertension .Strict aspiration precautions, head of bed up at all times. Prognosis guarded given multiple complex medical issues. The impression and plan of care has been dictated as directed. Dr.: I performed a history and examination of this patient, discussed the same with the dictator. I agree with the dictator's note ,documented as a scribe. Any additional findings or plans will be noted. The impression and plan of care has been dictated as directed. .: I performed a history and examination of this patient, discussed the same with the dictator. I agree with the dictator's note ,documented as a scribe. Any additional findings or plans will be noted.
[2019-03-31] MEDS: DEXTROSE 5%-0.9% NACL 1,000 ML IV SCH ×2 (16:16→23:26)
[2019-03-31] MEDS: LEVOFLOXACIN 500MG-D5W PMX 500 MG in DEXTROSE/WATER 1 100ML.BAG IVPB SCH (17:24)
[2019-03-31 17:47] LABS: Glucose,Whole Blood 160 mg/dL (75-99)
[2019-03-31] MEDS: ACETAMINOPHEN TAB 325 MG TAB PEG/G-TUBE PRN ×2 (18:22→23:20)
[2019-03-31 18:36] LABS: Anisocytosis Slight; HCT 28.5 % (34.0-46.0); Hypochromasia Marked; MCHC 31.2 g/dL (31.0-37.0); MCV 86.6 fL (80.0-100.0); Mean Platelet Volume 7.2; Platelet Count 318 k/uL (150-450); Poikilocytosis Moderate; RBC 3.29 m/uL (3.80-5.40); RDW 17.2 % (11.5-15.5); WBC 14.5 k/uL (3.8-10.6)
[2019-03-31 18:41] LABS: HGB 8.9 gm/dL (11.4-16.0)
[2019-03-31] MEDS: ATORVASTATIN 40 MG TAB PO SCH (19:54)
[2019-03-31] MEDS ORDERED: hydrALAZINE HCL 25 MG TAB PO SCH (21:00)
[2019-03-31] MEDS: amLODIPine 5 MG TAB PO SCH (22:18)
[2019-03-31] MEDS: ONDANSETRON 4 MG/2 ML VIAL IVP PRN (22:25)
[2019-04-01 00:04] LABS: Glucose,Whole Blood 140 mg/dL (75-99)
[2019-04-01] MEDS: methylPREDNISolone SOD SUCCI 40 MG/ML 1 ML VIAL IV SCH ×4 (00:06→17:55)
[2019-04-01] MEDS: INSULIN ASPART (NovoLOG) 100 UNIT/ML VIAL SQ SCH ×4 (00:06→17:56)
[2019-04-01] MEDS ORDERED: traMADol 50 MG TAB PO PRN (02:52)
[2019-04-01] MEDS: MAGNESIUM HYDROXIDE 2,400 MG/10 ML CUP PO PRN ×3 (03:06→17:55)
[2019-04-01] MEDS: IPRATROPIUM-ALBUTEROL 3 ML NEB INHALATION SCH ×6 (03:46→23:16)
[2019-04-01 05:35] LABS: Anisocytosis Slight; HCT 28.2 % (34.0-46.0); HGB 8.8 gm/dL (11.4-16.0); Hypochromasia Marked; MCH 26.7 pg (25.0-35.0); MCHC 31.2 g/dL (31.0-37.0); MCV 85.7 fL (80.0-100.0); Mean Platelet Volume 7.5; Platelet Count 324 k/uL (150-450); Poikilocytosis Moderate; RBC 3.29 m/uL (3.80-5.40); RDW 17.3 % (11.5-15.5); WBC 12.1 k/uL (3.8-10.6)
[2019-04-01] MEDS: LEVOTHYROXINE 100 MCG TAB PO SCH (05:36)
[2019-04-01] MEDS: CLINDAMYCIN 600 MG in DEXTROSE 5% IN WATER 50 ML IVPB SCH ×6 (05:36→19:58)
[2019-04-01 05:53] LABS: Albumin 2.6 g/dL (3.5-5.0); Calcium 8.7 mg/dL (8.4-10.2); Total Bilirubin 0.4 mg/dL (0.2-1.3); Total Protein 5.9 g/dL (6.3-8.2)
[2019-04-01] MEDS: ACETAMINOPHEN TAB 325 MG TAB PEG/G-TUBE PRN ×3 (05:58→17:55)
[2019-04-01 06:26] LABS: Glucose,Whole Blood 156 mg/dL (75-99)
--- NOTE | 2019-04-01 07:07 | P.PN ---
Subjective Progress Note Date: 04/01/19 Principal diagnosis: Paroxysmal atrial fibrillation This is an 84-year-old female patient with a past medical history significant for coronary artery disease, paroxysmal atrial fibrillation, as well as multiple comorbid conditions, who was admitted to the hospital with GI bleeding. The patient underwent an upper endoscopy. Subsequently she went into an acute respiratory failure required intubation and mechanical ventilation. She was receiving oral anticoagulation at home. She underwent an echocardiogram which revealed an EF between 40-45% with normally functioning bioprosthetic aortic valve. On follow-up with the patient became 04/01/2019, she was extubated yesterday. Hemodynamically she is stable at this point and as a matter of fact she was hypertensive and hydralazine was added to the current medical regimen. She continues to be in normal sinus mechanism. The hemoglobin yesterday was below 7 and she received one unit of packed RBC and her hemoglobin this morning is above 8. The chest x-ray continues to show left lower lobe infiltrate. Oral anticoagulation is on hold at this point in view of the GI bleeding. Objective - Vital Signs Vital signs: Vital Signs Temp 97.8 F 04/01/19 04:00 Pulse 80 04/01/19 06:00 Resp 12 04/01/19 06:00 BP 165/90 04/01/19 06:00 Pulse Ox 92 L 04/01/19 06:00 Intake & Output 03/31/19 04/01/19 04/01/19 18:59 06:59 18:59 Intake Total 2060 1410 Output Total 907 1360 Balance 1153 50 Weight 80.2 kg 82.6 kg Intake: IV 1350 1110 Clindamycin 600 mg In 50 Dextrose 5% in Water 50 ml @ 50 mls/hr IVPB Q8H NO Rx#:[id number] Dextrose 5%-0.9% NaCl 1, 1200 1110 000 ml @ 100 mls/hr IV . Q10H NO Rx#:[id number] Levofloxacin 500Mg-D5w 100 Pmx 500 mg In Dextrose/ Water 1 100ml.bag @ 100 mls/hr IVPB Q24H NO Rx#: [id number] Tube Feeding 90 270 Blood Product 620 Rc As-1 Unit 310 [id number] Other 30 Output: Urine 907 1360 Other: Voiding Method Indwelling Catheter Indwelling Catheter ABP, PAP, CO, CI - Last Documented Arterial Blood Pressure 159/74 - Constitutional General appearance: Present: no acute distress - Respiratory Respiratory: bilateral: diminished - Cardiovascular Rhythm: regular Heart sounds: normal: S1, S2 Abnormal Heart Sounds: Present: systolic murmur - Labs CBC & Chem 7: 04/01/19 05:20 04/01/19 05:20 Labs: Abnormal Lab Results - Last 24 Hours (Table) 03/31/19 03/31/19 03/31/19 Range/Units 11:41 13:45 17:36 WBC (3.8-10.6) k/uL RBC (3.80-5.40) m/uL Hgb (11.4-16.0) gm/dL Hct (34.0-46.0) % RDW (11.5-15.5) % Chloride (98-107) mmol/L Carbon Dioxide (22-30) mmol/L BUN (7-17) mg/dL Glucose (74-99) mg/dL POC Glucose (mg/dL) 136 H 160 H (75-99) mg/dL Total Protein (6.3-8.2) g/dL Albumin (3.5-5.0) g/dL Crossmatch See Detail 03/31/19 03/31/19 04/01/19 Range/Units 18:29 23:52 05:20 WBC 14.5 H 12.1 H (3.8-10.6) k/uL RBC 3.29 L 3.29 L (3.80-5.40) m/uL Hgb 8.9 L D 8.8 L (11.4-16.0) gm/dL Hct 28.5 L 28.2 L (34.0-46.0) % RDW 17.2 H 17.3 H (11.5-15.5) % Chloride (98-107) mmol/L Carbon Dioxide (22-30) mmol/L BUN (7-17) mg/dL Glucose (74-99) mg/dL POC Glucose (mg/dL) 140 H (75-99) mg/dL Total Protein (6.3-8.2) g/dL Albumin (3.5-5.0) g/dL Crossmatch 04/01/19 04/01/19 Range/Units 05:20 06:13 WBC (3.8-10.6) k/uL RBC (3.80-5.40) m/uL Hgb (11.4-16.0) gm/dL Hct (34.0-46.0) % RDW (11.5-15.5) % Chloride 113 H (98-107) mmol/L Carbon Dioxide 21 L (22-30) mmol/L BUN 34 H (7-17) mg/dL Glucose 164 H (74-99) mg/dL POC Glucose (mg/dL) 156 H (75-99) mg/dL Total Protein 5.9 L (6.3-8.2) g/dL Albumin 2.6 L (3.5-5.0) g/dL Crossmatch Assessment and Plan Assessment: Assessment #1 GI bleeding #2 follow-up loss anemia secondary to the above #3 paroxysmal atrial fibrillation. Currently the patient is in normal sinus mechanism #4 coronary artery disease and status post revascularization #5 valvular heart disease and status post aVR Plan #1 continue to monitor the blood pressure. Adjust the blood pressure medication to get the pressure under control. #2 continue holding any oral anticoagulation at this point #3 continue the current medical regimen with oral metoprolol. #4 the echocardiogram was reviewed #5 follow-up with the patient
--- NOTE | 2019-04-01 07:48 | PN ---
PROGRESS NOTE PULMONARY CRITICAL CARE PROGRESS NOTE: DATE OF SERVICE: 04/01/2019 This is an 84-year-old female who was admitted on March 18, 2019. She was initially admitted to the hospital with diagnosis of gastrointestinal bleed and was intubated after colonoscopy on March 27, 2019. She had been intubated since and yesterday because of improving air exchange and reasonable spontaneous breathing trial on some PSV and CPAP, and a positive cuff leak, she was extubated successfully. She has been very sleepy and lethargic since that time. Part of it relates to previous use of medications such as benzodiazepine. In addition, she did get Ativan 2 mg IV prior to the extubation yesterday which caused some additional sedation. Currently, she is a bit more awake. She is currently on O2 at 4 L/minute by nasal cannula. She has got a D5 0.9 IV at 100, which we are going to cut back down to adjust KVO or just turn it off completely. She has a PEG tube in place. She is getting Vital AF at 30 with a goal of 30 mL an hours. The patient did receive 1 unit of PRBCs yesterday, her hemoglobin was 6.7. We are going to make some changes. We are going to give DC her tramadol. We are going to give her a dose of Lasix 40 mg IV push x1. In addition, code status absolutely needs to be addressed. She does have a history of chronic atrial fibrillation with RVR, as well as benign essential hypertension, hypothyroidism, hyperlipidemia, and general medical debility. The patient is quite frail. PHYSICAL EXAMINATION: Current vital signs are reviewed. Temperature is 97.8, heart rate 80, respiratory rate 12, blood pressure 165/90 mean 115. Saturations are between 92% to 98%. on 4 L. She appears very lethargic and sleepy. She does arouse. She does answer some basic questions. HEENT: Examination is grossly unremarkable. Mucous membranes are dry. Nasal O2 noted. NECK: Supple. Full range of motion. No adenopathy, thyromegaly or neck vein distention. CARDIOVASCULAR: Examination reveals a regular rhythm and rate. Heart rate 80. She is in atrial fibrillation. Heart sounds are distant. S1, S2 normal. No distinct murmur noted. LUNGS: Reveal coarse rhonchi, particularly on the left side. Some crackles at the left base. No wheezes. ABDOMEN: Soft, bowel sounds are noted. PEG tube noted. EXTREMITIES: Intact. Mild edema. SKIN: Without rash. NEUROLOGIC; Examination is very difficult to assess. MICROBIOLOGY: Shows sputum positive for Enterobacter and part of it is hormaechei. She is being treated for that. LABORATORY DATA: Reviewed. White count 12.1, hemoglobin 8.8, hematocrit 28.2, platelet count 324,000. Sodium 143, potassium 4, chloride 113, CO2 is 21, anion gap is 9, BUN and creatinine were 34 and 0.93. Albumin is 2.6. A chest x-ray dated April 01, 2019 shows some interstitial changes bilaterally and an infiltrate or effusion in the left mid lung, left lower lobe. MEDICATIONS: Reviewed. She is on appropriate medications including eye drops, Zoloft, potassium, MiraLAX, Protonix, Zofran, Narcan, Lopressor, Solu-Medrol, magnesium replacement, Synthroid, Levaquin, Duo Neb, insulin, hydralazine, Lasix, clindamycin, Lipitor, Artificial Tears, amlodipine, and Tylenol. ASSESSMENT: 1. Acute hypoxemic respiratory failure secondary to presumed aspiration pneumonia requiring intubation and mechanical ventilation on March 27 and successful extubation on March 31. 2. Initial admission to the hospital on March 18, 2019 with gastrointestinal bleed, which is currently stable. 3. Failure to wean from mechanical ventilation, status post successful extubation on March 31, 2019. 4. Atrial fibrillation with rapid ventricular rate, controlled. 5. Hypotension, resolved with fluid resuscitation and norepinephrine. 6. Acute gastrointestinal bleed, status post 3 units of PRBCs. 7. History of dysphagia, with poor oral intake, status post PEG tube placement. 8. History of benign essential hypertension. 9. Hypothyroidism. 10.Hyperlipidemia. 11.General medical debility. PLAN: The patient will get 40 mg of Lasix IV push. We will DC the tramadol. Code status absolutely needs to be addressed by the primary service. Her microbiology shows and/or Enterobacter hormaechei. For that, she is on 2 antibiotics in the form of both Levaquin and clindamycin. We will continue to follow closely. Her overall prognosis remains very guarded. She is very frail. She could end up deteriorating very rapidly. That is why code status absolutely needs to be addressed. Additional recommendations and suggestions are forthcoming. CRITICAL CARE TIME: 33 minutes. MMODL / IJN: [id number] /
[2019-04-01] MEDS ORDERED: FUROSEMIDE 10 MG/ML 4 ML VIAL IV ONE (08:00)
--- NOTE | 2019-04-01 08:03 | XR ---
EXAMINATION TYPE: XR abdomen 1V DATE OF EXAM: 04/01/2019 COMPARISON: 03/27/2019 HISTORY: Pain TECHNIQUE: One view abdominal series FINDINGS: The osseous structures are intact. The bowel gas pattern is nonspecific. There is a femoral catheter . Postsurgical changes are noted. Vascular calcification seen. Bilateral consolidation greater on the left noted. Cardiomegaly noted with sternotomy wires. Pleural calcification on the right suggested. Suspect there may be a abdominal aortic aneurysm. IMPRESSION: 1. Nonspecific abdomen. Persistent areas of dilated colon are noted which are improved from the prio r exam. 2. There is a large abdominal aortic aneurysm which has been previously measuring 8.9 cm. 3. Left lower lobe infiltrate
--- NOTE | 2019-04-01 08:22 | XR ---
EXAMINATION TYPE: XR chest 1V portable DATE OF EXAM: 04/01/2019 COMPARISON: 03/31/2018 HISTORY: Tube placement TECHNIQUE: Single frontal view of the chest is obtained. FINDINGS: ET tube and postsurgical changes stable. Bilateral consolidation and pleural effusion stab le. Neoplastic process not excluded on the left. Radiopaque density overlying the left scapula stable and nonspecific. Atherosclerotic change aorta. IMPRESSION: 1. Stable bilateral consolidation and pleural effusion correlate for pneumonia. Underlying CHF not ex cluded. Follow-up to resolution to exclude neoplasm. 2. Radiopaque density overlying the left scapula is indeterminate correlate clinically.
[2019-04-01] MEDS: METOPROLOL TARTRATE 25 MG TAB PO SCH ×2 (08:39→19:59)
[2019-04-01] MEDS: PANTOPRAZOLE 40 MG/10 ML VIAL IV SCH ×2 (08:39→19:59)
[2019-04-01] MEDS: POLYETHYLENE GLYCOL 3350 17 GM POWD.PACK PO SCH ×2 (08:39→19:59)
[2019-04-01] MEDS: amLODIPine 5 MG TAB PO SCH (08:40)
[2019-04-01] MEDS: hydrALAZINE HCL 25 MG TAB PO SCH ×3 (08:40→22:47)
[2019-04-01] MEDS: SERTRALINE 25 MG TAB PO SCH (08:40)
[2019-04-01 11:58] LABS: Glucose,Whole Blood 160 mg/dL (75-99)
--- NOTE | 2019-04-01 14:10 | P.PN ---
Subjective Progress Note Date: 04/01/19 Siddhartha is an 84-year-old female well-known to my practice who presented presented to the emergency room , yesterday with complaint of abdominal pain left lower quadrant. Patient states the pain has been worsening over last couple of days family states she was pale and not her usual self. Patient also states she feels constipated. Patient has a history of CVA recently and has a feeding tube patient reports no fever denies dysuria hematuria patient has been moving her bowels she states the bleeding she has been doing his made her feel better or worse denies current chest pain denies underlying nausea or vomiting. Patient has steroid-dependent COPD, O2 dependent COPD however she doesn't like to use her oxygen. Known history of diverticulitis 03/20/2019 abdominal pain resolved .maintained on gentle IV fluid hydration .currently no antibiotics recommended as per ID. Development increased pulmo nary congestion; new onset rhonchi. Failed modified barium swallow, strict nothing by mouth, strict aspiration precautions maintained. PEG tube feedings currently at 30, goal 65. CT suggestive of constipation versus neoplasm mass, will eventually need colonoscopy. No bowel movement today. Bowel movement yesterday, tested positive for occult blood T bili normal,. Elevated LFTs,,hepatitis panel negative Telemetry sinus rhythm. Denies chest pain, palpitations. 03/21/2019 hemoglobin dropped to 6.3, receiving one unit of packed RBCs currently. Denies chest pain, palpitations or shortness of breath.VSS. 03/24/19 status post EGD over the weekend, and slightly unremarkable receiving prep for a BE with air contrast to rule out possible colonic neoplasm. Tumor markers within normal limits. Denies abdominal pain. Hemoglobin 8.5. Denies chest pain, palpitations or shortness of breath. 03/25/19 BE completed today, limited exam, cannot rule out colonic lesion at the splenic flexure as noted on CT. Colonoscopy recommended as per GI. Patient discussed with family and wishes to proceed, but not until -Requesting a short break from the prep, which is reasonable. Labs pending. No active bleeding reported. Denies abdominal pain. 03/26/2019 early this morning developed an episode of shortness of breath, received nebulized bronchodilators in a dose of Lasix IV push. Currently wheezy, exhausted from loss of sleep. Maintaining O2 sats of high 90s on 2 L nasal cannula. Outpatient colonoscopy offered but patient requesting to proceed with colonoscopy tomorrow. Denies abdominal pain. LFTs within normal limits .Denies chest pain, palpitations or increased shortness of breath. Denies lightheadedness, dizziness or focal deficits. 03/27/19 NPO. Aspirated, Colonscopy cancelled. VSS,O2 increased up to 3 l NC to maintain O2 sats in the 90s. Denies Chest pain, palpitations. Denies light headedness.Labs pending. 03/28/2019underwent colonoscopy yesterday reporting no masses, or mucosa abnormalities to correlate with CT, diverticulosis and internal hemorrhoids.upon transporting from recovery room to [facility] unit,patient began complaining of abdominal pain. Shortly after transferring patient from stretcher to bed,patient developed acute respiratory distress, required intubation and transferred to ICU. possible aspiration. Maintained on FiO2 45%/+8 of PEEP, Diprovan, Levophed.Post endoscopy procedure, abdominal x-ray reported gas- distended loops of bowel, lightly post- procedural,lucency beneath the left hemidiaphragm,pneumoperitoneum not excluded.Surgery consulted,recommendations noted.patient also developed atrial fibrillation with RVR and was started on amiodarone drip as per cardiology. Patient has since converted to sinus rhythm with paroximal runs of tayo Pastor.this morning underwent bronchoscopy and lavage reporting aspiration pneumonia with extensive airspace disease involving the left lower lobe and lingula. 03/29/2019: Patient is status post CT brain for regular pupils. My recollection is been ongoing since her CVA. She is intubated and currently sedation is off. Patient remains in intensive care unit. Norepinephrine is on hold as well. Patient's maintaining her blood pressure. Past half hour. She remains on Levaquin and clindamycin antibiotics for aspiration pneumonia. PEG tube is to suction. FiO2 is being maintained at 40%. Family were at bedside and critical care's note was reviewed. 03/30/2019: The patient remains in the intensive care unit intubated. Patient remains off the propofol, but is not waking up quickly. She is currently on a FiO2 35% and a PEEP of 5. She is off amiodarone per cardiology as her maintained sinus rhythm. She is on tube feeds with a goal of 30 mL/h. No family are at bedside or in the waiting room today. 03/31/2019 extubated this morning, currently maintaining O2 sats in the mid 90s on 4 L nasal cannula. Chest x-ray reporting stable bilateral consolidat ion/pleural effusion, radiopaque density overlying the left scapula, stable, indeterminate. Hemoglobin 6.7 with no reported bleeding. Continues on no oral anticoagulation secondary to GI bleed. No tachycardia, mild hypertension - systolic blood pressures in the 160s. Potassium 3.4. Maintained on clindamycin and Levaquin. 04/01/2019 Telemetry sinus rhythm with right bundle branch block, maintaining O2 sats of high 90s on 4 L nasal cannula. Systolic blood pressures 150s to 160s, hydralazine increased, Norvasc added to med regime. Chest x-ray reporting stable bilateral consolidation/pleural effusion, possible CHF, possible neoplasm of the left. Received a dose of Lasix IV push this morning. More alert today, answering questions appropriately, following simple commands. Hemoglobin 8.8. Tolerating PEG tube feedings, with rates increased to 40/goal of 65. Passing flatus, no bowel movement. Objective - Vital Signs Vital signs: Vital Signs Temp 97.5 F L 04/01/19 08:00 Pulse 78 04/01/19 09:00 Resp 19 04/01/19 09:00 BP 156/86 04/01/19 09:00 Pulse Ox 97 04/01/19 09:00 Intake & Output 03/31/19 04/01/19 04/01/19 18:59 06:59 18:59 Intake Total 2060 1410 70 Output Total 907 1360 205 Balance 1153 50 -135 Weight 80.2 kg 82.6 kg Intake: IV 1350 1110 40 Clindamycin 600 mg In 50 Dextrose 5% in Water 50 ml @ 50 mls/hr IVPB Q8H NO Rx#:[id number] Dextrose 5%-0.9% NaCl 1, 1200 1110 40 000 ml @ 100 mls/hr IV . Q10H NO Rx#:[id number] Levofloxacin 500Mg-D5w 100 Pmx 500 mg In Dextrose/ Water 1 100ml.bag @ 100 mls/hr IVPB Q24H NO Rx#: [id number] Tube Feeding 90 270 30 Blood Product 620 Rc As-1 Unit 310 [id number] Other 30 Output: Urine 907 1360 205 Other: Voiding Method Indwelling Catheter Indwelling Catheter Indwelling Catheter ABP, PAP, CO, CI - Last Documented Arterial Blood Pressure 164/99 - Exam General:sitting up in bed, no acute distress HEENT: head is normocephalic, atraumatic, right pupil appears sl larger Neck: Supple,trachea midline No adenopathy. Cardiac: [Heart irregular in rate and rhythm. No S3. No S4. No clicks, rubs. No murmur.] Mid sternal scarring mid abdominal scarring from bypass surgery, from aneurysm repair surgery Lungs: diminished bibasilar, scattered rhonchi, fine bibasilar crackles, no wheezing. Abdomen: Soft, nontender, nondistended, No organomegaly. Positive bowel sounds. Extremes: [Mild edema, no cyanosis, no clubbing Skin: [No rash. Neurologic: Alert and oriented 3 ;follow simple commands Microbiology 03/28/19 10:00 Bronchial Washings - Left Gram Stain - Final 03/28/19 10:00 Bronchial Washings - Left Bronchial Washings Culture - Final 03/27/19 15:54 Sputum Gram Stain - Final 03/27/19 15:54 Sputum Sputum Culture - Final Enterobacter hormaechei 03/28/19 10:00 Bronchial Washings - Left Fungal Culture - Preliminary 03/19/19 01:14 Urine,Voided Urine Culture - Final - Labs CBC & Chem 7: 04/01/19 05:20 04/01/19 05:20 Labs: Abnormal Lab Results - Last 24 Hours (Table) 03/31/19 03/31/19 03/31/19 Range/Units 11:41 13:45 17:36 WBC (3.8-10.6) k/uL RBC (3.80-5.40) m/uL Hgb (11.4-16.0) gm/dL Hct (34.0-46.0) % RDW (11.5-15.5) % Chloride (98-107) mmol/L Carbon Dioxide (22-30) mmol/L BUN (7-17) mg/dL Glucose (74-99) mg/dL POC Glucose (mg/dL) 136 H 160 H (75-99) mg/dL Total Protein (6.3-8.2) g/dL Albumin (3.5-5.0) g/dL Crossmatch See Detail 03/31/19 03/31/19 04/01/19 Range/Units 18:29 23:52 05:20 WBC 14.5 H 12.1 H (3.8-10.6) k/uL RBC 3.29 L 3.29 L (3.80-5.40) m/uL Hgb 8.9 L D 8.8 L (11.4-16.0) gm/dL Hct 28.5 L 28.2 L (34.0-46.0) % RDW 17.2 H 17.3 H (11.5-15.5) % Chloride (98-107) mmol/L Carbon Dioxide (22-30) mmol/L BUN (7-17) mg/dL Glucose (74-99) mg/dL POC Glucose (mg/dL) 140 H (75-99) mg/dL Total Protein (6.3-8.2) g/dL Albumin (3.5-5.0) g/dL Crossmatch 04/01/19 04/01/19 Range/Units 05:20 06:13 WBC (3.8-10.6) k/uL RBC (3.80-5.40) m/uL Hgb (11.4-16.0) gm/dL Hct (34.0-46.0) % RDW (11.5-15.5) % Chloride 113 H (98-107) mmol/L Carbon Dioxide 21 L (22-30) mmol/L BUN 34 H (7-17) mg/dL Glucose 164 H (74-99) mg/dL POC Glucose (mg/dL) 156 H (75-99) mg/dL Total Protein 5.9 L (6.3-8.2) g/dL Albumin 2.6 L (3.5-5.0) g/dL Crossmatch Assessment and Plan Assessment: - Acute hypoxic, hypercapnic respiratory failure secondary to suspected aspiration pneumonia, status post mechanical ventilation. Sputum culture reporteding Enterobacter hormaechei. Current Visit: Yes Status: Acute Code(s): J96.00 - ACUTE RESPIRATORY FAILURE, UNSP W HYPOXIA OR HYPERCAPNIA SNOMED Code(s): 22906691 - Chronic respiratory failure with hypoxia Current Visit: Yes Status: Acute Code(s): J96.11 - CHRONIC RESPIRATORY FAILURE WITH HYPOXIA SNOMED Code(s): 887773449 - Aspiration pneumonia with Enterobacter hormaechei Current Visit: Yes Status: Acute Code(s): J69.0 - PNEUMONITIS DUE TO INHALATION OF FOOD AND VOMIT SNOMED Code(s): 263443298 -chronic paroxysmal atrial fibrillation with RVR status post Cardizem drip - constipation Current Visit: Yes Status: Acute Code(s): K59.00 - CONSTIPATION, UNSPECIFIED SNOMED Code(s): 83831414 - Anemia, acute blood loss ,etiology unclear, possible colonic neoplasm. status post colonoscopy reporting no masses or mucosal abnormalities.status post colonoscopy reported diverticulosis and internal hemorrhoids, no masses or mucosal abnormalities. - chronic Normocytic hypochromic anemia Current Visit: Yes Status: Acute Code(s): D50.9 - IRON DEFICIENCY ANEMIA, UNSPECIFIED SNOMED Code(s): 46077532 -Hypotension, hypovolemic status post pressor support and fluid resuscitation, resolved -COPD (chronic obstructive pulmonary disease), steroid-dependent Current Visit: Yes Status: Acute Code(s): J44.9 - CHRONIC OBSTRUCTIVE PULMONARY DISEASE, UNSPECIFIED SNOMED Code(s): 80184317 - Colon, diverticulosis Current Visit: Yes Status: Acute Code(s): K57.30 - DVRTCLOS OF LG INT W/O PERFORATION OR ABSCESS W/O BLEEDING SNOMED Code(s): 846690996 - Generalized weakness, general medical debility Current Visit: Yes Status: Acute Code(s): R53.1 - WEAKNESS SNOMED Code(s): 73134504 - History of CVA (cerebrovascular accident), failed swallow eval, recent PEG tube placement Current Visit: Yes Status: Acute Code(s): Z86.73 - PRSNL HX OF TIA (TIA), AND CEREB INFRC W/O RESID DEFICITS SNOMED Code(s): 827391101 - Oropharyngeal dysphagia Current Visit: Yes Status: Acute Code(s): R13.12 - DYSPHAGIA, OROPHARYNGEAL PHASE SNOMED Code(s): 34304229 - Presence of externally removable percutaneous endoscopic gastrostomy (PEG) tube Current Visit: Yes Status: Acute Code(s): Z93.1 - GASTROSTOMY STATUS SNOMED Code(s): 306877990 -Abdominal pain, constipation, possible colonic neoplasm per CT. BE limited exam unable to rule out underlying colonic lesion Current Visit: Yes Status: Acute Code(s): R10.9 - UNSPECIFIED ABDOMINAL PAIN SNOMED Code(s): 33960577 -history of abdominal aortic aneurysm as well as new aneurysmal site -Hypothyroidism -Hypertension -Chronic diastolic CHF -radiopaque density overlying the left scapula, indeterminate, possible neoplasm of the left per chest x-ray. Plan: Continue on current medication regime ,monitoring and symptomatic treatment.Strict aspiration precautions. Sister and brother at bedside, CODE STATUS discussed.they will discuss it further with patient's children .Close monitoring of blood pressure, antihypertensives further adjusted as mentioned above . Prognosis guarded given multiple complex medical issues. The impression and plan of care has been dictated as directed. : I performed a history and examination of this patient, discussed the same with the dictator. I agree with the dictator's note ,documented as a scribe. Any additional findings or plans will be noted. The impression and plan of care has been dictated as directed. .: I performed a history and examination of this patient, discussed the same with the dictator. I agree with the dictator's note ,documented as a scribe. Any additional findings or plans will be noted.
[2019-04-01] MEDS: LEVOFLOXACIN 500MG-D5W PMX 500 MG in DEXTROSE/WATER 1 100ML.BAG IVPB SCH (16:39)
[2019-04-01 17:57] LABS: Glucose,Whole Blood 150 mg/dL (75-99)
[2019-04-01] MEDS: ATORVASTATIN 40 MG TAB PO SCH (19:59)
[2019-04-02] MEDS: methylPREDNISolone SOD SUCCI 40 MG/ML 1 ML VIAL IV SCH ×4 (02:08→18:08)
[2019-04-02] MEDS: INSULIN ASPART (NovoLOG) 100 UNIT/ML VIAL SQ SCH ×5 (02:13→23:52)
[2019-04-02 02:20] LABS: Glucose,Whole Blood 139 mg/dL (75-99)
[2019-04-02] MEDS: IPRATROPIUM-ALBUTEROL 3 ML NEB INHALATION SCH ×5 (03:13→20:20)
[2019-04-02 06:28] LABS: Glucose,Whole Blood 158 mg/dL (75-99)
[2019-04-02] MEDS: LEVOTHYROXINE 100 MCG TAB PO SCH (06:35)
[2019-04-02] MEDS: MAGNESIUM HYDROXIDE 2,400 MG/10 ML CUP PO PRN (06:36)
[2019-04-02 06:39] LABS: Anisocytosis Slight; Basophils % (A) 0 %; Eosinophils % (A) 0 %; HCT 28.9 % (34.0-46.0); Hypochromasia Marked; Lymphocytes # (A) 0.5 k/uL (1.0-4.8); Lymphocytes % (A) 4 %; MCH 26.7 pg (25.0-35.0); MCHC 31.2 g/dL (31.0-37.0); MCV 85.5 fL (80.0-100.0); Mean Platelet Volume 7.6; Monocytes # (A) 0.6 k/uL (0-1.0); Monocytes % (A) 6 %; Neutrophils # (A) 9.4 k/uL (1.3-7.7); Neutrophils % (A) 88 %; Platelet Count 339 k/uL (150-450); Poikilocytosis Moderate; RBC 3.39 m/uL (3.80-5.40); RDW 17.7 % (11.5-15.5); WBC 10.6 k/uL (3.8-10.6)
[2019-04-02 06:43] LABS: Calcium 8.9 mg/dL (8.4-10.2); Potassium 4.1 mmol/L (3.5-5.1)
--- NOTE | 2019-04-02 07:16 | P.PN ---
Subjective Progress Note Date: 04/02/19 Principal diagnosis: Paroxysmal atrial fibrillation This is an 84-year-old female patient with a past medical history significant for coronary artery disease, paroxysmal atrial fibrillation, as well as multiple comorbid conditions, who was admitted to the hospital with GI bleeding. The patient underwent an upper endoscopy. Subsequently she went into an acute respiratory failure required intubation and mechanical ventilation. She was receiving oral anticoagulation at home. She underwent an echocardiogram which revealed an EF between 40-45% with normally functioning bioprosthetic aortic valve. On follow-up with the patient today, April 022018, the patient continues to be in normal sinus rhythm. She is hemodynamically stable. The chest x-ray from today continues to show worsening left pleural effusion. Also she does have bilateral lower extremities pitting edema. I am going to add Lasix IV at 40 mg daily to her current medical regimen beach she has been diuresing very well. Continue holding any anticoagulation at this point in view of the GI bleeding. Objective - Vital Signs Vital signs: Vital Signs Temp 97.8 F 04/02/19 04:00 Pulse 76 04/02/19 07:00 Resp 19 04/02/19 07:00 BP 143/66 04/02/19 06:00 Pulse Ox 98 04/02/19 07:00 Intake & Output 04/01/19 04/02/19 04/02/19 18:59 06:59 18:59 Intake Total 930 1034 Output Total 2710 750 Balance -1780 284 Intake: IV 140 170 .9 kvo 80 120 Clindamycin 600 mg In 50 Dextrose 5% in Water 50 ml @ 50 mls/hr IVPB Q8H NO Rx#:[id number] Dextrose 5%-0.9% NaCl 1, 60 000 ml @ 100 mls/hr IV . Q10H NO Rx#:[id number] Tube Feeding 790 774 Other 90 Output: Urine 2710 750 Other: Voiding Method Indwelling Catheter Indwelling Catheter ABP, PAP, CO, CI - Last Documented Arterial Blood Pressure 164/99 - Constitutional General appearance: Present: no acute distress - Respiratory Respiratory: left: diminished - Cardiovascular Rhythm: regular Heart sounds: normal: S1, S2 Abnormal Heart Sounds: Present: systolic murmur - Labs CBC & Chem 7: 04/02/19 06:00 04/02/19 06:00 Labs: Abnormal Lab Results - Last 24 Hours (Table) 04/01/19 04/01/19 04/02/19 Range/Units 11:46 17:46 02:08 RBC (3.80-5.40) m/uL Hgb (11.4-16.0) gm/dL Hct (34.0-46.0) % RDW (11.5-15.5) % Neutrophils # (1.3-7.7) k/uL Lymphocytes # (1.0-4.8) k/uL Chloride (98-107) mmol/L BUN (7-17) mg/dL Glucose (74-99) mg/dL POC Glucose (mg/dL) 160 H 150 H 139 H (75-99) mg/dL 04/02/19 04/02/19 04/02/19 Range/Units 06:00 06:00 06:18 RBC 3.39 L (3.80-5.40) m/uL Hgb 9.0 L (11.4-16.0) gm/dL Hct 28.9 L (34.0-46.0) % RDW 17.7 H (11.5-15.5) % Neutrophils # 9.4 H (1.3-7.7) k/uL Lymphocytes # 0.5 L (1.0-4.8) k/uL Chloride 108 H (98-107) mmol/L BUN 47 H (7-17) mg/dL Glucose 149 H (74-99) mg/dL POC Glucose (mg/dL) 158 H (75-99) mg/dL Assessment and Plan Assessment: Assessment #1 GI bleeding #2 follow-up loss anemia secondary to the above #3 paroxysmal atrial fibrillation. Currently the patient is in normal sinus mechanism #4 coronary artery disease and status post revascularization #5 valvular heart disease and status post aVR Plan #1 continue the current medical regimen #2 add Lasix to the current medical regimen #3 continue monitor the kidney function and electrolytes #4 continue monitor the hemoglobin #5 follow-up with the patient
--- NOTE | 2019-04-02 07:47 | PN ---
PROGRESS NOTE This is a pulmonary/critical care progress note. DATE OF SERVICE: 04/02/2019 This is an 84-year-old female who was admitted back on March 18. She was initially admitted to the hospital with a diagnosis of GI bleed. She had a colonoscopy on March 27 and was intubated afterwards. She had been intubated since that time until more recently when I extubated her. She was actually extubated on March 31. Since that time, she has been on nasal O2 at 4 L during the daytime and on BiPAP at 12 and 5 for IPAP and EPAP settings at 40%. The patient's overall prognosis has been very poor. Dr. Art has apparently been talking to the patient and the patient's family about code status. Apparently last night, she decided to become a DNR. Currently other than that, she is doing reasonably well. The patient is currently on BiPAP at 12 and 5 and 40%. Her IV is saline at 10 mL an hour. She is getting Vital AF 1.2 at 50 mL an hour with a goal of 65 mL an hour via her PEG tube. Her clindamycin is being discontinued. Her sputum showed evidence of Enterobacter hormaechei. The patient could be downgraded to a select overflow patient. We also did take the time to go through her med list very carefully and DC all her unnecessary medications and a medications that may have an influence on her respiratory status or her mental status. She does have a history of chronic atrial fibrillation with RVR, although she is currently in sinus rhythm, benign essential hypertension, hypothyroidism, hyperlipidemia, and general medical debility. Her mental status is improved a bit. Again additional unnecessary and superfluous medications were discontinued. PHYSICAL EXAMINATION: VITAL SIGNS: Current vital signs are reviewed. Her temperature is 97.2, heart rate 65, respiratory rate 15, blood pressure 150/75, mean 100, saturations are mid-to-high 90s. She appears in no acute distress. Maybe a bit more awake and alert. HEENT: Examination is grossly unremarkable. Mucous membranes are dry. BiPAP mask in place. NECK: Supple. Full range of motion. No adenopathy or thyromegaly. Neck veins are flat. CARDIOVASCULAR: Examination reveals a regular rhythm and rate. She appears to be in sinus rhythm. S1, S2 normal. No S3, S4, or murmur. LUNGS: Reveal a few scattered coarse rhonchi. Breath sounds are diminished. She does not take real deep breaths. No wheezes or crackles. ABDOMEN: Soft. Bowel sounds are noted. PEG tube is also noted. EXTREMITIES: Are intact. There is some very mild edema. SKIN: Without rash. NEUROLOGIC: Examination is difficult to assess, but she seems to be much more awake and alert. Microbiologic studies show evidence of Enterobacter hormaechei. She is being treated for that. She is currently on Levaquin for that bacteria. Again, the clindamycin has been discontinued. LABORATORY DATA: Laboratory data from today is currently not yet back. Her most recent glucose was 139. There has not been a chest x-ray yet today. Her chest x-ray yesterday was stable and showed some diffuse bilateral bibasilar consolidations with infiltrates and small effusions. The chest x-ray really has not changed all that much. MEDICATIONS: Medications are reviewed. Again, the clindamycin was discontinued. ASSESSMENT: 1. Acute hypoxemic respiratory failure secondary to presumed aspiration pneumonia secondary to Enterobacter hormaechei, status post intubation on March 27 and successful extubation on March 31. 2. Initial admission to the hospital on March 18 for gastrointestinal bleed, which is stable. 3. Failure to wean from mechanical ventilation, with successful extubation on March 31. 4. Atrial fibrillation with rapid ventricular rate, controlled. 5. Hypotension, resolved with fluid resuscitation and norepinephrine. 6. Acute gastrointestinal bleed, status post 3 units of PRBCs. 7. History of dysphagia with poor oral intake, status post PEG tube placement with tube feeds. 8. History of benign essential hypertension. 9. Hypothyroidism. 10.Hyperlipidemia. 11.General medical debility. 12. Possible fluid overload. PLAN: The patient is maybe a bit better today. Will discontinue her clindamycin. The tramadol was discontinued. Ativan was discontinued. Her code status has been addressed. She is a DNR. The nurse called me about that yesterday. She is being treated for her Enterobacter hormaechei infection. She is currently on Levaquin. She is frail. Discharge planning is underway. She could be downgraded to selective overflow. Additional recommendations and suggestions are forthcoming. Prognosis is guarded. MMODL / IJN: [id number] / MTDD
--- NOTE | 2019-04-02 08:39 | XR ---
EXAMINATION TYPE: XR chest 1V portable DATE OF EXAM: 04/02/2019 COMPARISON: Prior chest x-ray 04/01/2019 HISTORY: Abnormal chest x-ray, ICU management TECHNIQUE: Single frontal view of the chest is obtained. FINDINGS: Prominent interstitium and central vascularity again noted. No pneumothorax. Possible over lying artifact at the left lung apex, there are overlying cardiac leads. Patient is post median ge otomy. Aorta appears aneurysmal. Retrocardiac density with obscured left hemidiaphragm and left heart border again noted. Heart is obscured. 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 IMPRESSION: Correlate for congestive heart failure, pneumonia not excluded. Aortic aneurysm.
[2019-04-02] MEDS: METOPROLOL TARTRATE 25 MG TAB PO SCH ×2 (09:58→20:05)
[2019-04-02] MEDS: FUROSEMIDE 10 MG/ML 4 ML VIAL IV SCH (09:59)
[2019-04-02] MEDS: amLODIPine 5 MG TAB PO SCH (09:59)
[2019-04-02] MEDS: SERTRALINE 25 MG TAB PO SCH (10:00)
[2019-04-02] MEDS: hydrALAZINE HCL 25 MG TAB PO SCH ×3 (10:01→23:11)
[2019-04-02] MEDS: PANTOPRAZOLE 40 MG/10 ML VIAL IV SCH ×2 (10:01→20:05)
[2019-04-02] MEDS: POLYETHYLENE GLYCOL 3350 17 GM POWD.PACK PO SCH ×2 (10:03→19:53)
[2019-04-02 12:32] LABS: Glucose,Whole Blood 174 mg/dL (75-99)
--- NOTE | 2019-04-02 13:37 | P.PN ---
Subjective Progress Note Date: 04/02/19 Siddhartha is an 84-year-old female well-known to my practice who presented presented to the emergency room , yesterday with complaint of abdominal pain left lower quadrant. Patient states the pain has been worsening over last couple of days family states she was pale and not her usual self. Patient also states she feels constipated. Patient has a history of CVA recently and has a feeding tube patient reports no fever denies dysuria hematuria patient has been moving her bowels she states the bleeding she has been doing his made her feel better or worse denies current chest pain denies underlying nausea or vomiting. Patient has steroid-dependent COPD, O2 dependent COPD however she doesn't like to use her oxygen. Known history of diverticulitis 03/20/2019 abdominal pain resolved .maintained on gentle IV fluid hydration .currently no antibiotics recommended as per ID. Development increased pulmo nary congestion; new onset rhonchi. Failed modified barium swallow, strict nothing by mouth, strict aspiration precautions maintained. PEG tube feedings currently at 30, goal 65. CT suggestive of constipation versus neoplasm mass, will eventually need colonoscopy. No bowel movement today. Bowel movement yesterday, tested positive for occult blood T bili normal,. Elevated LFTs,,hepatitis panel negative Telemetry sinus rhythm. Denies chest pain, palpitations. 03/21/2019 hemoglobin dropped to 6.3, receiving one unit of packed RBCs currently. Denies chest pain, palpitations or shortness of breath.VSS. 03/24/19 status post EGD over the weekend, and slightly unremarkable receiving prep for a BE with air contrast to rule out possible colonic neoplasm. Tumor markers within normal limits. Denies abdominal pain. Hemoglobin 8.5. Denies chest pain, palpitations or shortness of breath. 03/25/19 BE completed today, limited exam, cannot rule out colonic lesion at the splenic flexure as noted on CT. Colonoscopy recommended as per GI. Patient discussed with family and wishes to proceed, but not until -Requesting a short break from the prep, which is reasonable. Labs pending. No active bleeding reported. Denies abdominal pain. 03/26/2019 early this morning developed an episode of shortness of breath, received nebulized bronchodilators in a dose of Lasix IV push. Currently wheezy, exhausted from loss of sleep. Maintaining O2 sats of high 90s on 2 L nasal cannula. Outpatient colonoscopy offered but patient requesting to proceed with colonoscopy tomorrow. Denies abdominal pain. LFTs within normal limits .Denies chest pain, palpitations or increased shortness of breath. Denies lightheadedness, dizziness or focal deficits. 03/27/19 NPO. Aspirated, Colonscopy cancelled. VSS,O2 increased up to 3 l NC to maintain O2 sats in the 90s. Denies Chest pain, palpitations. Denies light headedness.Labs pending. 03/28/2019underwent colonoscopy yesterday reporting no masses, or mucosa abnormalities to correlate with CT, diverticulosis and internal hemorrhoids.upon transporting from recovery room to [facility] unit,patient began complaining of abdominal pain. Shortly after transferring patient from stretcher to bed,patient developed acute respiratory distress, required intubation and transferred to ICU. possible aspiration. Maintained on FiO2 45%/+8 of PEEP, Diprovan, Levophed.Post endoscopy procedure, abdominal x-ray reported gas- distended loops of bowel, lightly post- procedural,lucency beneath the left hemidiaphragm,pneumoperitoneum not excluded.Surgery consulted,recommendations noted.patient also developed atrial fibrillation with RVR and was started on amiodarone drip as per cardiology. Patient has since converted to sinus rhythm with paroximal runs of tayo Pastor.this morning underwent bronchoscopy and lavage reporting aspiration pneumonia with extensive airspace disease involving the left lower lobe and lingula. 03/29/2019: Patient is status post CT brain for regular pupils. My recollection is been ongoing since her CVA. She is intubated and currently sedation is off. Patient remains in intensive care unit. Norepinephrine is on hold as well. Patient's maintaining her blood pressure. Past half hour. She remains on Levaquin and clindamycin antibiotics for aspiration pneumonia. PEG tube is to suction. FiO2 is being maintained at 40%. Family were at bedside and critical care's note was reviewed. 03/30/2019: The patient remains in the intensive care unit intubated. Patient remains off the propofol, but is not waking up quickly. She is currently on a FiO2 35% and a PEEP of 5. She is off amiodarone per cardiology as her maintained sinus rhythm. She is on tube feeds with a goal of 30 mL/h. No family are at bedside or in the waiting room today. 03/31/2019 extubated this morning, currently maintaining O2 sats in the mid 90s on 4 L nasal cannula. Chest x-ray reporting stable bilateral consolidat ion/pleural effusion, radiopaque density overlying the left scapula, stable, indeterminate. Hemoglobin 6.7 with no reported bleeding. Continues on no oral anticoagulation secondary to GI bleed. No tachycardia, mild hypertension - systolic blood pressures in the 160s. Potassium 3.4. Maintained on clindamycin and Levaquin. 04/01/2019 Telemetry sinus rhythm with right bundle branch block, maintaining O2 sats of high 90s on 4 L nasal cannula. Systolic blood pressures 150s to 160s, hydralazine increased, Norvasc added to med regime. Chest x-ray reporting stable bilateral consolidation/pleural effusion, possible CHF, possible neoplasm of the left. Received a dose of Lasix IV push this morning. More alert today, answering questions appropriately, following simple commands. Hemoglobin 8.8. Tolerating PEG tube feedings, with rates increased to 40/goal of 65. Passing flatus, no bowel movement. 04/02/2019 more alert today, conversing appropriately. Telemetry sinus rhythm. Tube feeds at 50/:goal of 65. Patient was changed to no code, no CPR, no intubation last night. Family requesting hospice consult. O2 sat in the 90s on 4 L nasal cannula, and use BiPAP during the night and when necessary throughout the day. Maintained on Levaquin.VSS. Anticoagulation remains on hold . hemoglobin currently 9.Chest x-ray reporting worsening left pleural effusion. Objective - Vital Signs Vital signs: Vital Signs Temp 97.8 F 04/02/19 04:00 Pulse 76 04/02/19 07:40 Resp 19 04/02/19 07:00 BP 143/66 04/02/19 06:00 Pulse Ox 98 04/02/19 07:00 Intake & Output 04/01/19 04/02/19 04/02/19 18:59 06:59 18:59 Intake Total 930 1034 Output Total 7970 750 Balance -1780 284 Intake: IV 140 170 .9 kvo 80 120 Clindamycin 600 mg In 50 Dextrose 5% in Water 50 ml @ 50 mls/hr IVPB Q8H [facility] Rx#:[id number] Dextrose 5%-0.9% NaCl 1, 60 000 ml @ 100 mls/hr IV . Q10H [facility] Rx#:[id number] Tube Feeding 790 774 Other 90 Output: Urine 2710 750 Other: Voiding Method Indwelling Catheter Indwelling Catheter # Bowel Movements 1 ABP, PAP, CO, CI - Last Documented Arterial Blood Pressure 164/99 - Exam General:sitting up in bed, no acute distress, conversing with family HEENT: head is normocephalic, atraumatic, conjunctivae normal Neck: Supple,trachea midline No adenopathy. Cardiac: [Heart regular in rate and rhythm. Systolic murmur.] Mid sternal scarring mid abdominal scarring from bypass surgery, from aneurysm repair surgery Lungs: diminished bibasilar, scattered rhonchi, fine bibasilar crackles, no wheezing. Abdomen: Soft, nontender, nondistended, No organomegaly. Positive bowel sounds. Extremes: [Mild edema, no cyanosis, no clubbing Skin: [No rash. Neurologic: Alert and oriented 3 ;follow simple commands Microbiology 03/28/19 10:00 Bronchial Washings - Left Gram Stain - Final 03/28/19 10:00 Bronchial Washings - Left Bronchial Washings Culture - Final 03/27/19 15:54 Sputum Gram Stain - Final 03/27/19 15:54 Sputum Sputum Culture - Final Enterobacter hormaechei 03/28/19 10:00 Bronchial Washings - Left Fungal Culture - Preliminary 03/19/19 01:14 Urine,Voided Urine Culture - Final - Labs CBC & Chem 7: 04/02/19 06:00 04/02/19 06:00 Labs: Abnormal Lab Results - Last 24 Hours (Table) 04/01/19 04/01/19 04/02/19 Range/Units 11:46 17:46 02:08 RBC (3.80-5.40) m/uL Hgb (11.4-16.0) gm/dL Hct (34.0-46.0) % RDW (11.5-15.5) % Neutrophils # (1.3-7.7) k/uL Lymphocytes # (1.0-4.8) k/uL Chloride (98-107) mmol/L BUN (7-17) mg/dL Glucose (74-99) mg/dL POC Glucose (mg/dL) 160 H 150 H 139 H (75-99) mg/dL 04/02/19 04/02/19 04/02/19 Range/Units 06:00 06:00 06:18 RBC 3.39 L (3.80-5.40) m/uL Hgb 9.0 L (11.4-16.0) gm/dL Hct 28.9 L (34.0-46.0) % RDW 17.7 H (11.5-15.5) % Neutrophils # 9.4 H (1.3-7.7) k/uL Lymphocytes # 0.5 L (1.0-4.8) k/uL Chloride 108 H (98-107) mmol/L BUN 47 H (7-17) mg/dL Glucose 149 H (74-99) mg/dL POC Glucose (mg/dL) 158 H (75-99) mg/dL Assessment and Plan Assessment: - Acute hypoxic, hypercapnic respiratory failure secondary to suspected aspiration pneumonia, status post mechanical ventilation. Sputum culture reporteding Enterobacter hormaechei. Current Visit: Yes Status: Acute Code(s): J96.00 - ACUTE RESPIRATORY FAILURE, UNSP W HYPOXIA OR HYPERCAPNIA SNOMED Code(s): 27704413 - Chronic respiratory failure with hypoxia Current Visit: Yes Status: Acute Code(s): J96.11 - CHRONIC RESPIRATORY FAILURE WITH HYPOXIA SNOMED Code(s): 039145681 - Aspiration pneumonia with Enterobacter hormaechei Current Visit: Yes Status: Acute Code(s): J69.0 - PNEUMONITIS DUE TO INHALATION OF FOOD AND VOMIT SNOMED Code(s): 505257228 -chronic paroxysmal atrial fibrillation with RVR status post Cardizem drip - Anemia, acute blood loss ,etiology unclear, possible colonic neoplasm. status post colonoscopy reporting no masses or mucosal abnormalities.status post colonoscopy reported diverticulosis and internal hemorrhoids, no masses or mucosal abnormalities. - chronic Normocytic hypochromic anemia Current Visit: Yes Status: Acute Code(s): D50.9 - IRON DEFICIENCY ANEMIA, UNSPECIFIED SNOMED Code(s): 35655499 -COPD (chronic obstructive pulmonary disease), steroid-dependent, wears BiPAP Current Visit: Yes Status: Acute Code(s): J44.9 - CHRONIC OBSTRUCTIVE PULMONARY DISEASE, UNSPECIFIED SNOMED Code(s): 95228009 - Colon, diverticulosis Current Visit: Yes Status: Acute Code(s): K57.30 - DVRTCLOS OF LG INT W/O PERFORATION OR ABSCESS W/O BLEEDING SNOMED Code(s): 495931131 - Generalized weakness, general medical debility Current Visit: Yes Status: Acute Code(s): R53.1 - WEAKNESS SNOMED Code(s): 83765825 - History of CVA (cerebrovascular accident), failed swallow eval, recent PEG tube placement Current Visit: Yes Status: Acute Code(s): Z86.73 - PRSNL HX OF TIA (TIA), AND CEREB INFRC W/O RESID DEFICITS SNOMED Code(s): 028924591 - Oropharyngeal dysphagia, chronic secondary to CVA Current Visit: Yes Status: Acute Code(s): R13.12 - DYSPHAGIA, OROPHARYNGEAL PHASE SNOMED Code(s): 28559811 -Abdominal pain, constipation, possible colonic neoplasm per CT. BE limited exam unable to rule out underlying colonic lesion Current Visit: Yes Status: Acute Code(s): R10.9 - UNSPECIFIED ABDOMINAL PAIN SNOMED Code(s): 42364089 -history of abdominal aortic aneurysm as well as new aneurysmal site -Hypothyroidism -Hypertension -Chronic diastolic CHF -radiopaque density overlying the left scapula, indeterminate, possible neoplasm of the left per chest x-ray. -No code, no CPR, no intubation Plan: Continue on current medication regime ,monitoring and symptomatic treatment.Strict aspiration precautions. As mentioned above patient was changed to no code, no CPR, no intubation yesterday. Hospice consulted for i nformational meeting as per family's request .Patient requesting to go home . Discharge planning in progress for potential Sunday. Cleared for transfer out of ICU as per batch trucker .Prognosis guarded given multiple complex medical issues. The impression and plan of care has been dictated as directed. Dr.: I performed a history and examination of this patient, discussed the same with the dictator. I agree with the dictator's note ,documented as a scribe. Any additional findings or plans will be noted. The impression and plan of care has been dictated as directed. .: I performed a history and examination of this patient, discussed the same with the dictator. I agree with the dictator's note ,documented as a scribe. Any additional findings or plans will be noted.
[2019-04-02] MEDS: LEVOFLOXACIN 500MG-D5W PMX 500 MG in DEXTROSE/WATER 1 100ML.BAG IVPB SCH (16:40)
[2019-04-02 18:25] LABS: Glucose,Whole Blood 115 mg/dL (75-99)
[2019-04-02] MEDS: ACETAMINOPHEN TAB 325 MG TAB PEG/G-TUBE PRN (20:04)
[2019-04-02] MEDS: ATORVASTATIN 40 MG TAB PO SCH (20:05)
[2019-04-02] MEDS ORDERED: IPRATROPIUM-ALBUTEROL 3 ML NEB INHALATION PRN (20:27)
[2019-04-03 00:02] LABS: Glucose,Whole Blood 94 mg/dL (75-99)
[2019-04-03] MEDS: methylPREDNISolone SOD SUCCI 40 MG/ML 1 ML VIAL IV SCH ×4 (00:23→17:16)
[2019-04-03 05:14] LABS: Anisocytosis Slight; Basophils % (A) 0 %; Eosinophils % (A) 0 %; HCT 29.7 % (34.0-46.0); HGB 9.2 gm/dL (11.4-16.0); Hypochromasia Marked; Lymphocytes # (A) 0.6 k/uL (1.0-4.8); Lymphocytes % (A) 5 %; MCH 26.4 pg (25.0-35.0); MCHC 31.1 g/dL (31.0-37.0); Mean Platelet Volume 7.2; Monocytes # (A) 0.6 k/uL (0-1.0); Monocytes % (A) 5 %; Neutrophils # (A) 10.4 k/uL (1.3-7.7); Neutrophils % (A) 88 %; Platelet Count 352 k/uL (150-450); Poikilocytosis Moderate; RBC 3.49 m/uL (3.80-5.40); WBC 11.8 k/uL (3.8-10.6)
[2019-04-03 05:24] LABS: Calcium 9.1 mg/dL (8.4-10.2); Potassium 4.1 mmol/L (3.5-5.1)
--- NOTE | 2019-04-03 06:30 | PN ---
PROGRESS NOTE DATE OF SERVICE: 04/03/2019 This is a pulmonary critical care progress note. This is an 84-year-old female who was admitted way back on March 18. She was initially admitted with a diagnosis of GI bleed. Post colonoscopy, she was intubated for respiratory failure. She was thought to have aspirated. Anyway, the patient was eventually extubated successfully on March 31. Since that time, she has been in the ICU. Currently, she is using BiPAP at nighttime at 12 and 5 and 35% and nasal O2 of 4 L during the daytime. She is a NO CODE patient. Apparently the patient and family are considering hospice referral. Overall prognosis has been poor. Anyway today's hemoglobin is 9.2. She is more awake than she has been in the past. The patient has no major complaints. She does have a PEG tube in place. She is getting Vital AF 1.2 at 65 with a goal of 65 mL an hour. Her saline IV is running at 10 mL an hour. She really does not need that per se. She does have a history of chronic atrial fibrillation with RVR, GI bleed, essential hypertension, hypothyroidism, hyperlipidemia, and general medical debility. PHYSICAL EXAMINATION: VITAL SIGNS: Current vital signs are reviewed. Temperature is 96.9, heart rate 64, respiratory rate 16, blood pressure 134/89, mean 104 and saturations on 4 L are 98%. Appears in no acute distress. HEENT: Examination is grossly unremarkable. Mucous membranes are moist. No oral lesions. NECK: Supple. Full range of motion. No adenopathy or thyromegaly. Neck veins are flat. CARDIOVASCULAR: Examination reveals regular rhythm and rate. She is in sinus rhythm. S1, S2 normal. No distinct murmur. LUNGS: Relatively clear. No wheezes or rhonchi. No crackles. Breath sounds are diminished throughout. ABDOMEN: Soft. Bowel sounds are heard. EXTREMITIES are intact. No significant edema. SKIN: Without rash. NEUROLOGIC: Examination reveals that she is moving all 4 extremities. Mental status is slightly improved. Microbiology reveals a sputum of 03/27 showing Enterobacter hormaechei, This is being currently treated. The rest of her specimens including blood and urine is negative. LAB DATA: Lab data is reviewed. White count 11.8, hemoglobin 9.2, hematocrit 29.7, platelet count 352,000. Sodium, potassium, chloride, CO2 all essentially normal. Anion gap is 4. BUN and creatinine were 53 and 0.82. No chest x-ray was done. From yesterday, she is minus 1.5 L. MEDICATIONS: Her current medications are reviewed. From an antibiotic standpoint, she is on Levaquin. That could certainly be given orally. ASSESSMENT: 1. Acute hypoxemic respiratory failure secondary to presumed aspiration pneumonia and acute hypoxemic respiratory failure, presumed secondary to aspiration, and caused by Enterobacter hormaechei, with intubation on March 27 and successful extubation on March 31. 2. Initial admission to the hospital for gastrointestinal bleed, which is stable. 3. Failure to wean from mechanical ventilation, with subsequent successful extubation on March 31. 4. History of chronic atrial fibrillation with RVR, controlled. 5. Hypotension, resolved, secondary to fluid resuscitation and norepinephrine. 6. History of acute gastrointestinal bleed, status post 3 units of PRBCs. 7. History of dysphagia, status post PEG tube placement. 8. History of benign essential hypertension. 9. Hypothyroidism. 10.Hyperlipidemia. 11.General medical debility. 12.Mild fluid overload. PLAN: The patient was diuresed. She is about 1.5 L down. Her overall respiratory status is stable. Currently, she is receiving her PEG tube feedings. She is using O2 at 4 L. She is a DNR. Hemoglobin is stable at 9.2. The patient could be transferred to general medical floor with telemetry. No additional recommendations are made. Overall prognosis remains very poor. MMODL / RENUN: [id number] /
[2019-04-03] MEDS: LEVOTHYROXINE 100 MCG TAB PO SCH (06:48)
[2019-04-03] MEDS: LEVOFLOXACIN 500 MG TAB PO SCH (06:48)
[2019-04-03] MEDS: INSULIN ASPART (NovoLOG) 100 UNIT/ML VIAL SQ SCH ×3 (06:48→19:11)
[2019-04-03 06:51] LABS: Glucose,Whole Blood 141 mg/dL (75-99)
[2019-04-03] MEDS: IPRATROPIUM-ALBUTEROL 3 ML NEB INHALATION SCH ×4 (07:00→19:08)
[2019-04-03] MEDS: FUROSEMIDE 10 MG/ML 4 ML VIAL IV SCH (08:56)
[2019-04-03] MEDS: SERTRALINE 25 MG TAB PO SCH ×2 (08:57→09:00)
[2019-04-03] MEDS: hydrALAZINE HCL 25 MG TAB PO SCH ×3 (08:57→22:26)
[2019-04-03] MEDS: METOPROLOL TARTRATE 25 MG TAB PO SCH ×2 (08:58→22:26)
[2019-04-03] MEDS: PANTOPRAZOLE 40 MG/10 ML VIAL IV SCH ×2 (08:59→22:26)
[2019-04-03] MEDS: amLODIPine 5 MG TAB PO SCH (08:59)
[2019-04-03] MEDS: POLYETHYLENE GLYCOL 3350 17 GM POWD.PACK PO SCH ×2 (09:01→22:27)
--- NOTE | 2019-04-03 09:03 | P.PN ---
Subjective Progress Note Date: 04/03/19 Principal diagnosis: Paroxysmal atrial fibrillation This is an 84-year-old female patient with a past medical history significant for coronary artery disease, paroxysmal atrial fibrillation, as well as multiple comorbid conditions, who was admitted to the hospital with GI bleeding. The patient underwent an upper endoscopy. Subsequently she went into an acute respiratory failure required intubation and mechanical ventilation. She was receiving oral anticoagulation at home. She underwent an echocardiogram which revealed an EF between 40-45% with normally functioning bioprosthetic aortic valve. On follow-up with the patient today, 04/03/2019, the patient seems to be less lethargic. She continues to be hemodynamically stable. She was started on Lasix IV yesterday and she has been diuresing very well. She continues to be in normal sinus mechanism. No anticoagulation on board in view of the GI bleeding. Objective - Vital Signs Vital signs: Vital Signs Temp 96.9 F L 04/03/19 04:00 Pulse 75 04/03/19 07:21 Resp 16 04/03/19 04:00 BP 134/89 04/03/19 04:00 Pulse Ox 98 04/03/19 04:00 Intake & Output 04/02/19 04/03/19 04/03/19 18:59 06:59 18:59 Intake Total 1710 Output Total 705 Balance 1005 Weight 82.6 kg 79.6 kg Intake: IV 220 .9 kvo 220 Tube Feeding 1490 Output: Urine 705 Other: Voiding Method Indwelling Catheter Indwelling Catheter # Bowel Movements 1 1 ABP, PAP, CO, CI - Last Documented Arterial Blood Pressure 164/99 - Constitutional General appearance: Present: no acute distress - Respiratory Respiratory: bilateral: diminished - Cardiovascular Rhythm: regular - Labs CBC & Chem 7: 04/03/19 05:00 04/03/19 05:00 Labs: Abnormal Lab Results - Last 24 Hours (Table) 04/02/19 04/02/19 04/03/19 Range/Units 12:19 18:13 05:00 WBC 11.8 H (3.8-10.6) k/uL RBC 3.49 L (3.80-5.40) m/uL Hgb 9.2 L (11.4-16.0) gm/dL Hct 29.7 L (34.0-46.0) % RDW 18.0 H (11.5-15.5) % Neutrophils # 10.4 H (1.3-7.7) k/uL Lymphocytes # 0.6 L (1.0-4.8) k/uL Carbon Dioxide (22-30) mmol/L BUN (7-17) mg/dL Glucose (74-99) mg/dL POC Glucose (mg/dL) 174 H 115 H (75-99) mg/dL 04/03/19 04/03/19 Range/Units 05:00 06:39 WBC (3.8-10.6) k/uL RBC (3.80-5.40) m/uL Hgb (11.4-16.0) gm/dL Hct (34.0-46.0) % RDW (11.5-15.5) % Neutrophils # (1.3-7.7) k/uL Lymphocytes # (1.0-4.8) k/uL Carbon Dioxide 32 H (22-30) mmol/L BUN 53 H (7-17) mg/dL Glucose 159 H (74-99) mg/dL POC Glucose (mg/dL) 141 H (75-99) mg/dL Assessment and Plan Assessment: Assessment #1 GI bleeding #2 follow-up loss anemia secondary to the above #3 paroxysmal atrial fibrillation. Currently the patient is in normal sinus mechanism #4 coronary artery disease and status post revascularization #5 valvular heart disease and status post aVR Plan #1 continue the current medical regimen #2 continue IV Lasix #3 continue monitor the kidney function and electrolytes #4 continue monitor the hemoglobin #5 follow-up with the patient
[2019-04-03] MEDS: ACETAMINOPHEN TAB 325 MG TAB PEG/G-TUBE PRN ×2 (10:10→18:54)
[2019-04-03 12:19] LABS: Glucose,Whole Blood 180 mg/dL (75-99)
--- NOTE | 2019-04-03 17:08 | P.PN ---
Subjective Progress Note Date: 04/03/19 Siddhartha is an 84-year-old female well-known to my practice who presented presented to the emergency room , yesterday with complaint of abdominal pain left lower quadrant. Patient states the pain has been worsening over last couple of days family states she was pale and not her usual self. Patient also states she feels constipated. Patient has a history of CVA recently and has a feeding tube patient reports no fever denies dysuria hematuria patient has been moving her bowels she states the bleeding she has been doing his made her feel better or worse denies current chest pain denies underlying nausea or vomiting. Patient has steroid-dependent COPD, O2 dependent COPD however she doesn't like to use her oxygen. Known history of diverticulitis 03/20/2019 abdominal pain resolved .maintained on gentle IV fluid hydration .currently no antibiotics recommended as per ID. Development increased pulmo nary congestion; new onset rhonchi. Failed modified barium swallow, strict nothing by mouth, strict aspiration precautions maintained. PEG tube feedings currently at 30, goal 65. CT suggestive of constipation versus neoplasm mass, will eventually need colonoscopy. No bowel movement today. Bowel movement yesterday, tested positive for occult blood T bili normal,. Elevated LFTs,,hepatitis panel negative Telemetry sinus rhythm. Denies chest pain, palpitations. 03/21/2019 hemoglobin dropped to 6.3, receiving one unit of packed RBCs currently. Denies chest pain, palpitations or shortness of breath.VSS. 03/24/19 status post EGD over the weekend, and slightly unremarkable receiving prep for a BE with air contrast to rule out possible colonic neoplasm. Tumor markers within normal limits. Denies abdominal pain. Hemoglobin 8.5. Denies chest pain, palpitations or shortness of breath. 03/25/19 BE completed today, limited exam, cannot rule out colonic lesion at the splenic flexure as noted on CT. Colonoscopy recommended as per GI. Patient discussed with family and wishes to proceed, but not until -Requesting a short break from the prep, which is reasonable. Labs pending. No active bleeding reported. Denies abdominal pain. 03/26/2019 early this morning developed an episode of shortness of breath, received nebulized bronchodilators in a dose of Lasix IV push. Currently wheezy, exhausted from loss of sleep. Maintaining O2 sats of high 90s on 2 L nasal cannula. Outpatient colonoscopy offered but patient requesting to proceed with colonoscopy tomorrow. Denies abdominal pain. LFTs within normal limits .Denies chest pain, palpitations or increased shortness of breath. Denies lightheadedness, dizziness or focal deficits. 03/27/19 NPO. Aspirated, Colonscopy cancelled. VSS,O2 increased up to 3 l NC to maintain O2 sats in the 90s. Denies Chest pain, palpitations. Denies light headedness.Labs pending. 03/28/2019underwent colonoscopy yesterday reporting no masses, or mucosa abnormalities to correlate with CT, diverticulosis and internal hemorrhoids.upon transporting from recovery room to [facility] unit,patient began complaining of abdominal pain. Shortly after transferring patient from stretcher to bed,patient developed acute respiratory distress, required intubation and transferred to ICU. possible aspiration. Maintained on FiO2 45%/+8 of PEEP, Diprovan, Levophed.Post endoscopy procedure, abdominal x-ray reported gas- distended loops of bowel, lightly post- procedural,lucency beneath the left hemidiaphragm,pneumoperitoneum not excluded.Surgery consulted,recommendations noted.patient also developed atrial fibrillation with RVR and was started on amiodarone drip as per cardiology. Patient has since converted to sinus rhythm with paroximal runs of tayo Pastor.this morning underwent bronchoscopy and lavage reporting aspiration pneumonia with extensive airspace disease involving the left lower lobe and lingula. 03/29/2019: Patient is status post CT brain for regular pupils. My recollection is been ongoing since her CVA. She is intubated and currently sedation is off. Patient remains in intensive care unit. Norepinephrine is on hold as well. Patient's maintaining her blood pressure. Past half hour. She remains on Levaquin and clindamycin antibiotics for aspiration pneumonia. PEG tube is to suction. FiO2 is being maintained at 40%. Family were at bedside and critical care's note was reviewed. 03/30/2019: The patient remains in the intensive care unit intubated. Patient remains off the propofol, but is not waking up quickly. She is currently on a FiO2 35% and a PEEP of 5. She is off amiodarone per cardiology as her maintained sinus rhythm. She is on tube feeds with a goal of 30 mL/h. No family are at bedside or in the waiting room today. 03/31/2019 extubated this morning, currently maintaining O2 sats in the mid 90s on 4 L nasal cannula. Chest x-ray reporting stable bilateral consolidat ion/pleural effusion, radiopaque density overlying the left scapula, stable, indeterminate. Hemoglobin 6.7 with no reported bleeding. Continues on no oral anticoagulation secondary to GI bleed. No tachycardia, mild hypertension - systolic blood pressures in the 160s. Potassium 3.4. Maintained on clindamycin and Levaquin. 04/01/2019 Telemetry sinus rhythm with right bundle branch block, maintaining O2 sats of high 90s on 4 L nasal cannula. Systolic blood pressures 150s to 160s, hydralazine increased, Norvasc added to med regime. Chest x-ray reporting stable bilateral consolidation/pleural effusion, possible CHF, possible neoplasm of the left. Received a dose of Lasix IV push this morning. More alert today, answering questions appropriately, following simple commands. Hemoglobin 8.8. Tolerating PEG tube feedings, with rates increased to 40/goal of 65. Passing flatus, no bowel movement. 04/02/2019 more alert today, conversing appropriately. Telemetry sinus rhythm. Tube feeds at 50/:goal of 65. Patient was changed to no code, no CPR, no intubation last night. Family requesting hospice consult. O2 sat in the 90s on 4 L nasal cannula, and use BiPAP during the night and when necessary throughout the day. Maintained on Levaquin.VSS. Anticoagulation remains on hold . hemoglobin currently 9.Chest x-ray reporting worsening left pleural effusion. 04/03/2019 ALert. VSS. declining PT/OT currently. Diuresing well on Lasix IV push with 24-hour I&O reflecting a negative fluid balance. Maintaining O2 sats of 90s on 4 L nasal cannula. Hospice informational meeting occurred last night. Staff reports -Patient does not meet criteria for GIP but does meet criteria for outpatient hospice. Hospice family meeting today. Objective - Vital Signs Vital signs: Vital Signs Temp 98.2 F 04/03/19 12:00 Pulse 67 04/03/19 15:02 Resp 17 04/03/19 15:02 BP 169/84 04/03/19 12:00 Pulse Ox 98 04/03/19 04:00 Intake & Output 04/02/19 04/03/1904/03/19 18:59 06:59 18:59 Intake Total 1710 250 Output Total 705 2600 Balance 1005 -2350 Weight 82.6 kg 79.6 kg Intake: IV 220 120 .9 kvo 220 120 Tube Feeding 1490 130 Output: Urine 705 2600 Other: Voiding Method Indwelling Catheter Indwelling Catheter Indwelling Catheter # Bowel Movements 1 1 ABP, PAP, CO, CI - Last Documented Arterial Blood Pressure 164/99 - Exam General:sitting up in bed, no acute distress HEENT: head is normocephalic, atraumatic, conjunctivae normal Neck: Supple,trachea midline No adenopathy. Cardiac: [Heart regular in rate and rhythm. Systolic murmur.] Mid sternal scarring mid abdominal scarring from bypass surgery, from aneurysm repair surgery Lungs: diminished bibasilar, scattered rhonchi, fine bibasilar crackles, no wheezing. Abdomen: Soft, nontender, nondistended, No organomegaly. Positive bowel sounds. Extremes: [Mild edema, no cyanosis, no clubbing Neurologic: Alert and oriented 3 ;follow simple commands Microbiology 03/28/19 10:00 Bronchial Washings - Left Gram Stain - Final 03/28/19 10:00 Bronchial Washings - Left Bronchial Washings Culture - Final 03/27/19 15:54 Sputum Gram Stain - Final 03/27/19 15:54 Sputum Sputum Culture - Final Enterobacter hormaechei 03/28/19 10:00 Bronchial Washings - Left Fungal Culture - Preliminary 03/19/19 01:14 Urine,Voided Urine Culture - Final - Labs CBC & Chem 7: 04/03/19 05:00 04/03/19 05:00 Labs: Abnormal Lab Results - Last 24 Hours (Table) 04/02/19 04/03/19 04/03/19 Range/Units 18:13 05:00 05:00 WBC 11.8 H (3.8-10.6) k/uL RBC 3.49 L (3.80-5.40) m/uL Hgb 9.2 L (11.4-16.0) gm/dL Hct 29.7 L (34.0-46.0) % RDW 18.0 H (11.5-15.5) % Neutrophils # 10.4 H (1.3-7.7) k/uL Lymphocytes # 0.6 L (1.0-4.8) k/uL Carbon Dioxide 32 H (22-30) mmol/L BUN 53 H (7-17) mg/dL Glucose 159 H (74-99) mg/dL POC Glucose (mg/dL) 115 H (75-99) mg/dL 04/03/19 04/03/19 Range/Units 06:39 12:07 WBC (3.8-10.6) k/uL RBC (3.80-5.40) m/uL Hgb (11.4-16.0) gm/dL Hct (34.0-46.0) % RDW (11.5-15.5) % Neutrophils # (1.3-7.7) k/uL Lymphocytes # (1.0-4.8) k/uL Carbon Dioxide (22-30) mmol/L BUN (7-17) mg/dL Glucose (74-99) mg/dL POC Glucose (mg/dL) 141 H 180 H (75-99) mg/dL Assessment and Plan Assessment: - Acute hypoxic, hypercapnic respiratory failure secondary to suspected aspiration pneumonia, status post mechanical ventilation. Sputum culture reporteding Enterobacter hormaechei. Current Visit: Yes Status: Acute Code(s): J96.00 - ACUTE RESPIRATORY FAILURE, UNSP W HYPOXIA OR HYPERCAPNIA SNOMED Code(s): 91660569 - Chronic respiratory failure with hypoxia Current Visit: Yes Status: Acute Code(s): J96.11 - CHRONIC RESPIRATORY FAILURE WITH HYPOXIA SNOMED Code(s): 167684551 - Aspiration pneumonia with Enterobacter hormaechei Current Visit: Yes Status: Acute Code(s): J69.0 - PNEUMONITIS DUE TO INHALA TION OF FOOD AND VOMIT SNOMED Code(s): 889238262 -chronic paroxysmal atrial fibrillation with RVR status post Cardizem drip - Anemia, acute blood loss ,etiology unclear, possible colonic neoplasm. status post colonoscopy reporting no masses or mucosal abnormalities.status post colonoscopy reported diverticulosis and internal hemorrhoids, no masses or mucosal abnormalities. - chronic Normocytic hypochromic anemia Current Visit: Yes Status: Acute Code(s): D50.9 - IRON DEFICIENCY ANEMIA, UNSPECIFIED SNOMED Code(s): 69493731 -COPD (chronic obstructive pulmonary disease), steroid-dependent, wears BiPAP Current Visit: Yes Status: Acute Code(s): J44.9 - CHRONIC OBSTRUCTIVE PULMONARY DISEASE, UNSPECIFIED SNOMED Code(s): 60977271 - Colon, diverticulosis Current Visit: Yes Status: Acute Code(s): K57.30 - DVRTCLOS OF LG INT W/O PERFORATION OR ABSCESS W/O BLEEDING SNOMED Code(s): 198128466 - Generalized weakness, general medical debility Current Visit: Yes Status: Acute Code(s): R53.1 - WEAKNESS SNOMED Code(s): 94469475 - History of CVA (cerebrovascular accident), failed swallow eval, recent PEG tube placement Current Visit: Yes Status: Acute Code(s): Z86.73 - PRSNL HX OF TIA (TIA), AND CEREB INFRC W/O RESID DEFICITS SNOMED Code(s): 765701293 - Oropharyngeal dysphagia, chronic secondary to CVA Current Visit: Yes Status: Acute Code(s): R13.12 - DYSPHAGIA, OROPHARYNGEAL PHASE SNOMED Code(s): 53426564 -Abdominal pain, constipation, possible colonic neoplasm per CT. BE limited exam unable to rule out underlying colonic lesion Current Visit: Yes Status: Acute Code(s): R10.9 - UNSPECIFIED ABDOMINAL PAIN SNOMED Code(s): 97386782 -history of abdominal aortic aneurysm as well as new aneurysmal site -Hypothyroidism -Hypertension -Chronic diastolic CHF -radiopaque density overlying the left scapula, indeterminate, possible neoplasm of the left per chest x-ray. -No code, no CPR, no intubation Plan: Continue on current medication regime ,monitoring and symptomatic treatment.Strict aspiration precautions at all times. Family meeting with hospice today. Close monitoring of renal function, electrolyte with repeat labs ordered for a.m. Prognosis guarded given multiple complex medical issues. The impression and plan of care has been dictated as directed. .: I performed a history and examination of this patient, discussed the same with the dictator. I agree with the dictator's note ,documented as a scribe. Any additional findings or plans will be noted. The impression and plan of care has been dictated as directed. .: I performed a history and examination of this patient, discussed the same with the dictator. I agree with the dictator's note ,documented as a scribe. Any additional findings or plans will be noted.
[2019-04-03 18:09] LABS: Glucose,Whole Blood 117 mg/dL (75-99)
[2019-04-03] MEDS: ATORVASTATIN 40 MG TAB PO SCH (22:26)
[2019-04-04 00:45] LABS: Glucose,Whole Blood 114 mg/dL (75-99)
[2019-04-04] MEDS: INSULIN ASPART (NovoLOG) 100 UNIT/ML VIAL SQ SCH ×5 (01:40→23:54)
[2019-04-04] MEDS: methylPREDNISolone SOD SUCCI 40 MG/ML 1 ML VIAL IV SCH ×5 (01:41→23:55)
[2019-04-04] MEDS: LEVOTHYROXINE 100 MCG TAB PO SCH (05:32)
[2019-04-04 05:43] LABS: Glucose,Whole Blood 188 mg/dL (75-99)
[2019-04-04 08:05] LABS: Anisocytosis Slight; Basophils % (A) 0 %; Eosinophils % (A) 0 %; HCT 32.3 % (34.0-46.0); Hypochromasia Marked; Lymphocytes # (A) 0.5 k/uL (1.0-4.8); Lymphocytes % (A) 5 %; MCH 26.5 pg (25.0-35.0); MCHC 30.8 g/dL (31.0-37.0); Mean Platelet Volume 7.4; Monocytes # (A) 0.4 k/uL (0-1.0); Monocytes % (A) 4 %; Neutrophils # (A) 9.8 k/uL (1.3-7.7); Neutrophils % (A) 90 %; Platelet Count 361 k/uL (150-450); Poikilocytosis Slight; RBC 3.76 m/uL (3.80-5.40); RDW 18.3 % (11.5-15.5); WBC 10.8 k/uL (3.8-10.6)
[2019-04-04 08:19] LABS: Calcium 9.2 mg/dL (8.4-10.2); Potassium 4.2 mmol/L (3.5-5.1)
[2019-04-04] MEDS: POLYETHYLENE GLYCOL 3350 17 GM POWD.PACK PO SCH ×2 (08:55→22:32)
[2019-04-04] MEDS: FUROSEMIDE 10 MG/ML 4 ML VIAL IV SCH (08:57)
[2019-04-04] MEDS: amLODIPine 5 MG TAB PO SCH (08:57)
[2019-04-04] MEDS: hydrALAZINE HCL 25 MG TAB PO SCH ×3 (08:57→23:35)
[2019-04-04] MEDS: METOPROLOL TARTRATE 25 MG TAB PO SCH ×2 (08:57→22:25)
[2019-04-04] MEDS: LEVOFLOXACIN 500 MG TAB PO SCH (08:57)
[2019-04-04] MEDS: SERTRALINE 25 MG TAB PO SCH (08:58)
[2019-04-04] MEDS: PANTOPRAZOLE 40 MG/10 ML VIAL IV SCH ×2 (08:58→22:32)
[2019-04-04] MEDS: LIDOCAINE 5% PATCH TOPICAL SCH (09:16)
[2019-04-04] MEDS: IPRATROPIUM-ALBUTEROL 3 ML NEB INHALATION SCH ×4 (09:18→19:57)
[2019-04-04] MEDS: CLINDAMYCIN 600 MG in DEXTROSE 5% IN WATER 50 ML IVPB SCH ×2 (12:31)
[2019-04-04 14:37] LABS: Glucose,Whole Blood 137 mg/dL (75-99)
--- NOTE | 2019-04-04 16:10 | P.PN ---
Subjective Progress Note Date: 04/04/19 Siddhartha is an 84-year-old female well-known to my practice who presented presented to the emergency room , yesterday with complaint of abdominal pain left lower quadrant. Patient states the pain has been worsening over last couple of days family states she was pale and not her usual self. Patient also states she feels constipated. Patient has a history of CVA recently and has a feeding tube patient reports no fever denies dysuria hematuria patient has been moving her bowels she states the bleeding she has been doing his made her feel better or worse denies current chest pain denies underlying nausea or vomiting. Patient has steroid-dependent COPD, O2 dependent COPD however she doesn't like to use her oxygen. Known history of diverticulitis 03/20/2019 abdominal pain resolved .maintained on gentle IV fluid hydration .currently no antibiotics recommended as per ID. Development increased pulmo nary congestion; new onset rhonchi. Failed modified barium swallow, strict nothing by mouth, strict aspiration precautions maintained. PEG tube feedings currently at 30, goal 65. CT suggestive of constipation versus neoplasm mass, will eventually need colonoscopy. No bowel movement today. Bowel movement yesterday, tested positive for occult blood T bili normal,. Elevated LFTs,,hepatitis panel negative Telemetry sinus rhythm. Denies chest pain, palpitations. 03/21/2019 hemoglobin dropped to 6.3, receiving one unit of packed RBCs currently. Denies chest pain, palpitations or shortness of breath.VSS. 03/24/19 status post EGD over the weekend, and slightly unremarkable receiving prep for a BE with air contrast to rule out possible colonic neoplasm. Tumor markers within normal limits. Denies abdominal pain. Hemoglobin 8.5. Denies chest pain, palpitations or shortness of breath. 03/25/19 BE completed today, limited exam, cannot rule out colonic lesion at the splenic flexure as noted on CT. Colonoscopy recommended as per GI. Patient discussed with family and wishes to proceed, but not until -Requesting a short break from the prep, which is reasonable. Labs pending. No active bleeding reported. Denies abdominal pain. 03/26/2019 early this morning developed an episode of shortness of breath, received nebulized bronchodilators in a dose of Lasix IV push. Currently wheezy, exhausted from loss of sleep. Maintaining O2 sats of high 90s on 2 L nasal cannula. Outpatient colonoscopy offered but patient requesting to proceed with colonoscopy tomorrow. Denies abdominal pain. LFTs within normal limits .Denies chest pain, palpitations or increased shortness of breath. Denies lightheadedness, dizziness or focal deficits. 03/27/19 NPO. Aspirated, Colonscopy cancelled. VSS,O2 increased up to 3 l NC to maintain O2 sats in the 90s. Denies Chest pain, palpitations. Denies light headedness.Labs pending. 03/28/2019underwent colonoscopy yesterday reporting no masses, or mucosa abnormalities to correlate with CT, diverticulosis and internal hemorrhoids.upon transporting from recovery room to [facility] unit,patient began complaining of abdominal pain. Shortly after transferring patient from stretcher to bed,patient developed acute respiratory distress, required intubation and transferred to ICU. possible aspiration. Maintained on FiO2 45%/+8 of PEEP, Diprovan, Levophed.Post endoscopy procedure, abdominal x-ray reported gas- distended loops of bowel, lightly post- procedural,lucency beneath the left hemidiaphragm,pneumoperitoneum not excluded.Surgery consulted,recommendations noted.patient also developed atrial fibrillation with RVR and was started on amiodarone drip as per cardiology. Patient has since converted to sinus rhythm with paroximal runs of tayo Pastor.this morning underwent bronchoscopy and lavage reporting aspiration pneumonia with extensive airspace disease involving the left lower lobe and lingula. 03/29/2019: Patient is status post CT brain for regular pupils. My recollection is been ongoing since her CVA. She is intubated and currently sedation is off. Patient remains in intensive care unit. Norepinephrine is on hold as well. Patient's maintaining her blood pressure. Past half hour. She remains on Levaquin and clindamycin antibiotics for aspiration pneumonia. PEG tube is to suction. FiO2 is being maintained at 40%. Family were at bedside and critical care's note was reviewed. 03/30/2019: The patient remains in the intensive care unit intubated. Patient remains off the propofol, but is not waking up quickly. She is currently on a FiO2 35% and a PEEP of 5. She is off amiodarone per cardiology as her maintained sinus rhythm. She is on tube feeds with a goal of 30 mL/h. No family are at bedside or in the waiting room today. 03/31/2019 extubated this morning, currently maintaining O2 sats in the mid 90s on 4 L nasal cannula. Chest x-ray reporting stable bilateral consolidat ion/pleural effusion, radiopaque density overlying the left scapula, stable, indeterminate. Hemoglobin 6.7 with no reported bleeding. Continues on no oral anticoagulation secondary to GI bleed. No tachycardia, mild hypertension - systolic blood pressures in the 160s. Potassium 3.4. Maintained on clindamycin and Levaquin. 04/01/2019 Telemetry sinus rhythm with right bundle branch block, maintaining O2 sats of high 90s on 4 L nasal cannula. Systolic blood pressures 150s to 160s, hydralazine increased, Norvasc added to med regime. Chest x-ray reporting stable bilateral consolidation/pleural effusion, possible CHF, possible neoplasm of the left. Received a dose of Lasix IV push this morning. More alert today, answering questions appropriately, following simple commands. Hemoglobin 8.8. Tolerating PEG tube feedings, with rates increased to 40/goal of 65. Passing flatus, no bowel movement. 04/02/2019 more alert today, conversing appropriately. Telemetry sinus rhythm. Tube feeds at 50/:goal of 65. Patient was changed to no code, no CPR, no intubation last night. Family requesting hospice consult. O2 sat in the 90s on 4 L nasal cannula, and use BiPAP during the night and when necessary throughout the day. Maintained on Levaquin.VSS. Anticoagulation remains on hold . hemoglobin currently 9.Chest x-ray reporting worsening left pleural effusion. 04/03/2019 ALert. VSS. declining PT/OT currently. Diuresing well on Lasix IV push with 24-hour I&O reflecting a negative fluid balance. Maintaining O2 sats of 90s on 4 L nasal cannula. Hospice informational meeting occurred last night. Staff reports -Patient does not meet criteria for GIP but does meet criteria for outpatient hospice. Hospice family meeting today. 04/04/2019 patient on MedSurg unit, doing well.. Patient expresses she would like to attempt rehab at a subacute rehab at this time, authorization in progress. Maintaining O2 sats in the low 90s on 2 L nasal cannula. Denies chest pain, palpitation or increasing shortness of breath. Denies lightheadedness, dizziness or focal deficits. Afebrile. Objective - Vital Signs Vital signs: Vital Signs Temp 96.8 F L 04/04/19 11:45 Pulse 66 04/04/19 11:45 Resp 16 04/04/19 11:45 BP 138/62 04/04/19 11:45 Pulse Ox 92 L 04/04/19 11:45 Intake & Output 04/03/19 04/04/19 04/04/19 18:59 06:59 18:59 Intake Total 120 165 585 Output Total 4100 1000 2100 Balance -2287 -975 -1365 Weight 77 kg Intake: IV 120 .9 kvo 120 Oral 0 Tube Feeding 165 585 Output: Urine 4100 1000 2100 Other: Voiding Method Indwelling Catheter Indwelling Catheter Indwelling Catheter # Bowel Movements 2 ABP, PAP, CO, CI - Last Documented Arterial Blood Pressure 164/99 - Exam General:sitting up in bed, no acute distress HEENT: head is normocephalic, atraumatic, conjunctivae normal Neck: Supple,trachea midline No adenopathy. Cardiac: [Heart regular in rate and rhythm. Systolic murmur.] Mid sternal scarring mid abdominal scarring from bypass surgery, from aneurysm repair surgery Lungs: diminished bibasilar, scattered rhonchi, fine bibasilar crackles, no wheezing. Abdomen: Soft, nontender, nondistended, No organomegaly. Positive bowel sounds. Extremes: [Mild edema, no cyanosis, no clubbing Neurologic: Alert and oriented 3 ;follow simple commands Microbiology 03/28/19 10:00 Bronchial Washings - Left Gram Stain - Final 03/28/19 10:00 Bronchial Washings - Left Bronchial Washings Culture - Final 03/27/19 15:54 Sputum Gram Stain - Final 03/27/19 15:54 Sputum Sputum Culture - Final Enterobacter hormaechei 03/28/19 10:00 Bronchial Washings - Left Fungal Culture - Preliminary 03/19/19 01:14 Urine,Voided Urine Culture - Final - Labs CBC & Chem 7: 04/04/19 06:56 04/04/19 06:56 Labs: Abnormal Lab Results - Last 24 Hours (Table) 04/03/19 04/04/19 04/04/19 Range/Units 17:58 00:43 05:41 WBC (3.8-10.6) k/uL RBC (3.80-5.40) m/uL Hgb (11.4-16.0) gm/dL Hct (34.0-46.0) % MCHC (31.0-37.0) g/dL RDW (11.5-15.5) % Neutrophils # (1.3-7.7) k/uL Lymphocytes # (1.0-4.8) k/uL Carbon Dioxide (22-30) mmol/L BUN (7-17) mg/dL Glucose (74-99) mg/dL POC Glucose (mg/dL) 117 H 114 H 188 H (75-99) mg/dL 04/04/19 04/04/19 04/04/19 Range/Units 06:56 06:56 14:27 WBC 10.8 H (3.8-10.6) k/uL RBC 3.76 L (3.80-5.40) m/uL Hgb 10.0 L (11.4-16.0) gm/dL Hct 32.3 L (34.0-46.0) % MCHC 30.8 L (31.0-37.0) g/dL RDW 18.3 H (11.5-15.5) % Neutrophils # 9.8 H (1.3-7.7) k/uL Lymphocytes # 0.5 L (1.0-4.8) k/uL Carbon Dioxide 32 H (22-30) mmol/L BUN 58 H (7-17) mg/dL Glucose 157 H (74-99) mg/dL POC Glucose (mg/dL) 137 H (75-99) mg/dL Assessment and Plan Assessment: - Acute hypoxic, hypercapnic respiratory failure secondary to suspected aspira tion pneumonia, status post mechanical ventilation. Sputum culture reporteding Enterobacter hormaechei. Current Visit: Yes Status: Acute Code(s): J96.00 - ACUTE RESPIRATORY FAILURE, UNSP W HYPOXIA OR HYPERCAPNIA SNOMED Code(s): 92493342 - Chronic respiratory failure with hypoxia Current Visit: Yes Status: Acute Code(s): J96.11 - CHRONIC RESPIRATORY FAILURE WITH HYPOXIA SNOMED Code(s): 315538823 - Aspiration pneumonia with Enterobacter hormaechei Current Visit: Yes Status: Acute Code(s): J69.0 - PNEUMONITIS DUE TO INHALATION OF FOOD AND VOMIT SNOMED Code(s): 239919557 -chronic paroxysmal atrial fibrillation with RVR status post Cardizem drip - Anemia, acute blood loss ,etiology unclear, possible colonic neoplasm. status post colonoscopy reporting no masses or mucosal abnormalities.status post colonoscopy reported diverticulosis and internal hemorrhoids, no masses or mucosal abnormalities. - chronic Normocytic hypochromic anemia Current Visit: Yes Status: Acute Code(s): D50.9 - IRON DEFICIENCY ANEMIA, UNSPECIFIED SNOMED Code(s): 23437047 -COPD (chronic obstructive pulmonary disease), steroid-dependent, wears BiPAP Current Visit: Yes Status: Acute Code(s): J44.9 - CHRONIC OBSTRUCTIVE PULMONARY DISEASE, UNSPECIFIED SNOMED Code(s): 77422176 - Colon, diverticulosis Current Visit: Yes Status: Acute Code(s): K57.30 - DVRTCLOS OF LG INT W/O PERFORATION OR ABSCESS W/O BLEEDING SNOMED Code(s): 066952797 - Generalized weakness, general medical debility Current Visit: Yes Status: Acute Code(s): R53.1 - WEAKNESS SNOMED Code(s): 66219015 - History of CVA (cerebrovascular accident), failed swallow eval, recent PEG tube placement Current Visit: Yes Status: Acute Code(s): Z86.73 - PRSNL HX OF TIA (TIA), AND CEREB INFRC W/O RESID DEFICITS SNOMED Code(s): 790952251 - Oropharyngeal dysphagia, chronic secondary to CVA Current Visit: Yes Status: Acute Code(s): R13.12 - DYSPHAGIA, OROPHARYNGEAL PHASE SNOMED Code(s): 80289408 -Abdominal pain, constipation, possible colonic neoplasm per CT. BE limited exam unable to rule out underlying colonic lesion Current Visit: Yes Status: Acute Code(s): R10.9 - UNSPECIFIED ABDOMINAL PAIN SNOMED Code(s): 44841994 -history of abdominal aortic aneurysm as well as new aneurysmal site -Hypothyroidism -Hypertension -Chronic diastolic CHF -radiopaque density overlying the left scapula, indeterminate, possible neoplasm of the left per chest x-ray. -No code, no CPR, no intubation Plan: Continue on current medication regime ,monitoring and symptomatic t reatment.Strict aspiration precautions at all times. Per patient and son, patient will attempt rehab at subacute rehab. Close monitoring of renal function, electrolyte with repeat labs ordered for a.m. Prognosis guarded given multiple complex medical issues. The impression and plan of care has been dictated as directed. .: I performed a history and examination of this patient, discussed the same with the dictator. I agree with the dictator's note ,documented as a scribe. Any additional findings or plans will be noted. The impression and plan of care has been dictated as directed. Dr.: I performed a history and examination of this patient, discussed the same with the dictator. I agree with the dictator's note ,documented as a scribe. Any additional findings or plans will be noted.
[2019-04-04 18:03] LABS: Glucose,Whole Blood 157 mg/dL (75-99)
[2019-04-04] MEDS: ATORVASTATIN 40 MG TAB PO SCH (22:25)
[2019-04-04 23:50] LABS: Glucose,Whole Blood 202 mg/dL (75-99)
[2019-04-05] MEDS: ACETAMINOPHEN TAB 325 MG TAB PEG/G-TUBE PRN (04:25)
[2019-04-05 06:00] LABS: Glucose,Whole Blood 144 mg/dL (75-99)
[2019-04-05] MEDS: methylPREDNISolone SOD SUCCI 40 MG/ML 1 ML VIAL IV SCH ×3 (06:32→16:44)
[2019-04-05] MEDS: LEVOTHYROXINE 100 MCG TAB PO SCH (06:32)
[2019-04-05] MEDS: INSULIN ASPART (NovoLOG) 100 UNIT/ML VIAL SQ SCH ×3 (06:32→17:40)
[2019-04-05] MEDS: IPRATROPIUM-ALBUTEROL 3 ML NEB INHALATION SCH ×4 (07:37→19:15)
[2019-04-05] MEDS: LIDOCAINE 5% PATCH TOPICAL SCH (08:35)
[2019-04-05] MEDS: METOPROLOL TARTRATE 25 MG TAB PO SCH ×2 (08:36→22:52)
[2019-04-05] MEDS: POLYETHYLENE GLYCOL 3350 17 GM POWD.PACK PO SCH ×2 (08:36→22:53)
[2019-04-05] MEDS: amLODIPine 5 MG TAB PO SCH (08:36)
[2019-04-05] MEDS: SERTRALINE 25 MG TAB PO SCH (08:36)
[2019-04-05] MEDS: LEVOFLOXACIN 500 MG TAB PO SCH ×2 (08:36→08:37)
[2019-04-05] MEDS: hydrALAZINE HCL 25 MG TAB PO SCH ×2 (08:37→16:42)
[2019-04-05] MEDS: FUROSEMIDE 10 MG/ML 4 ML VIAL IV SCH (08:37)
[2019-04-05] MEDS: PANTOPRAZOLE 40 MG/10 ML VIAL IV SCH ×2 (08:37→22:53)
[2019-04-05 11:40] LABS: Glucose,Whole Blood 145 mg/dL (75-99)
--- NOTE | 2019-04-05 12:19 | P.PN ---
Subjective Progress Note Date: 04/05/19 Principal diagnosis: GI bleed, anemia Episode of respiratory arrest with intubation Mrs. willis well-known patient to me [facility] with a GI bleed and abdominal pain and elevated liver enzymes. Patient is feeling improved had recent stroke is not currently guarding airway . Feeding tube in place for tube feeds, patient has poor oral hygiene and comfort, history of AAA repair with a new aneurysm noted, CT dated 03/18/2019 suggests severe degree colonic hemostasis and colonic spasm versus neoplasm of the splenic flexure, she had a tumor markers were completely normal and certainly not within norm for diagnosis for GI cancers however this patient is significantly debilitated and less invasive the procedure the better. We'll recommend her contrast barium enema to at least attempt to identify whether or not patient has neoplasm GI tract or just 04/05/2019 Patient subsequently underwent barium enema with little or no findings, ultimately underwent colonoscopy, 03/25/2019. Patient subsequently underwent pulmonary arrest and was intubated on 03/27/2019. Patient was extubated on 03/31/2019, has been alert oriented. Discussed hospice with family on 2 different occasions and initially agreed upon hospice consultation. However on 04/04/2019 patient was moved to the [facility] unit family wanted to give her an opportunity and decided wished for a consultation with Dr. Cyril Ahumada MD, PMNR for inpatient rehab placement. Patient is awake and alert today up in the bed currently getting tube feeds O2 sats in the low 90s on 2 L nasal cannula denies chest pain denies palpitation or increasing shortness of breath Objective - Vital Signs Vital signs: Vital Signs Temp 97.7 F 04/05/19 04:00 Pulse 72 04/05/19 11:19 Resp 20 04/05/19 04:00 BP 168/81 04/05/19 04:00 Pulse Ox 99 04/05/19 04:00 Intake & Output 04/04/19 04/05/19 04/05/19 18:59 06:59 18:59 Intake Total 585 780 260 Output Total 2500 600 600 Balance -1915 180 -340 Weight 77 kg Intake: Tube Feeding 585 780 260 Output: Urine 2500 600 600 Uretheral (Olsen) 600 600 Other: Voiding Method Indwelling Catheter Indwelling Catheter # Bowel Movements 1 ABP, PAP, CO, CI - Last Documented Arterial Blood Pressure 164/99 - Exam General: [Patient awake, alert and oriented times 3. Patient in no acute distress.] HEENT: [PERRL. EOMI. No pharyngeal erythema or exudate.] Neck: [No adenopathy.] Cardiac: [Heart regular in rate and rhythm. No S3. No S4. No clicks, rubs. No murmur.] Midsternal surgical scar with lower abdominal scar Lungs: Coarse breath sounds improved from yesterday Abdomen: [No mass. No organomegaly. Bowel sounds presnt and normoactive in all 4 quadrants.] Minimal tenderness, feeding tube in place, dressing clean and dry Extremes: [No edema no cyanosis no claudication normal pulses] : normal female genitalia Musculoskeletal: [No joint erythema, edema or tenderness.] Skin: [No rash.] Neurologic: [No lateralizing deficits. CN II - XII grossly intact.] Lymphatic: [No adenopathy.] - Labs CBC & Chem 7: 04/04/19 06:56 04/04/19 06:56 Labs: Abnormal Lab Results - Last 24 Hours (Table) 04/04/19 04/04/19 04/04/19 Range/Units 14:27 18:01 23:48 POC Glucose (mg/dL) 137 H 157 H 202 H (75-99) mg/dL 04/05/19 04/05/19 Range/Units 05:58 11:34 POC Glucose (mg/dL) 144 H 145 H (75-99) mg/dL Assessment and Plan (1) Abdominal pain Current Visit: Yes Status: Acute Code(s): R10.9 - UNSPECIFIED ABDOMINAL PAIN SNOMED Code(s): 75623253 (2) Anemia Current Visit: Yes Status: Acute Code(s): D64.9 - ANEMIA, UNSPECIFIED SNOMED Code(s): 921913752 (3) GI bleed Current Visit: Yes Status: Acute Code(s): K92.2 - GASTROINTESTINAL HEMORRHAGE, UNSPECIFIED SNOMED Code(s): 95860074 Plan: Patient improved slightly and hemoglobin stable Consultation with Dr. Ahumada for possible placement [facility] inpatient rehab, at son's request Awaiting eval, long-term prognosis questionable Time with Patient: Greater than 30
[2019-04-05 17:42] LABS: Glucose,Whole Blood 126 mg/dL (75-99)
[2019-04-05] MEDS: ATORVASTATIN 40 MG TAB PO SCH (22:52)
[2019-04-05 23:53] LABS: Glucose,Whole Blood 155 mg/dL (75-99)
[2019-04-06] MEDS: methylPREDNISolone SOD SUCCI 40 MG/ML 1 ML VIAL IV SCH ×4 (00:15→18:02)
[2019-04-06] MEDS: ACETAMINOPHEN TAB 325 MG TAB PEG/G-TUBE PRN ×3 (02:50→17:30)
[2019-04-06 06:14] LABS: Glucose,Whole Blood 151 mg/dL (75-99)
[2019-04-06] MEDS: LEVOTHYROXINE 100 MCG TAB PO SCH (06:18)
[2019-04-06] MEDS: INSULIN ASPART (NovoLOG) 100 UNIT/ML VIAL SQ SCH ×4 (06:18→18:36)
[2019-04-06] MEDS: IPRATROPIUM-ALBUTEROL 3 ML NEB INHALATION SCH ×4 (08:36→19:11)
[2019-04-06] MEDS: SERTRALINE 25 MG TAB PO SCH (09:46)
[2019-04-06] MEDS: hydrALAZINE HCL 25 MG TAB PO SCH ×4 (09:46→20:49)
[2019-04-06] MEDS: FUROSEMIDE 10 MG/ML 4 ML VIAL IV SCH (09:46)
[2019-04-06] MEDS: METOPROLOL TARTRATE 25 MG TAB PO SCH ×2 (09:46→20:49)
[2019-04-06] MEDS: PANTOPRAZOLE 40 MG/10 ML VIAL IV SCH ×2 (09:47→20:49)
[2019-04-06] MEDS: amLODIPine 5 MG TAB PO SCH (09:47)
[2019-04-06] MEDS: LIDOCAINE 5% PATCH TOPICAL SCH (09:47)
[2019-04-06] MEDS: POLYETHYLENE GLYCOL 3350 17 GM POWD.PACK PO SCH ×2 (09:50→20:49)
--- NOTE | 2019-04-06 12:52 | P.PN ---
Subjective Progress Note Date: 04/06/19 Principal diagnosis: GI bleed, anemia Episode of respiratory arrest with intubation Mrs. willis well-known patient to me percent with a GI bleed and abdominal pain and elevated liver enzymes. Patient is feeling improved had recent stroke is not currently guarding airway . Feeding tube in place for tube feeds, patient has poor oral hygiene and comfort, history of AAA repair with a new aneurysm noted, CT dated 03/18/2019 suggests severe degree colonic hemostasis and colonic spasm versus neoplasm of the splenic flexure, she had a tumor markers were completely normal and certainly not within norm for diagnosis for GI cancers however this patient is significantly debilitated and less invasive the procedure the better. We'll recommend her contrast barium enema to at least attempt to identify whether or not patient has neoplasm GI tract or just 04/05/2019 Patient subsequently underwent barium enema with little or no findings, ultimately underwent colonoscopy, 03/25/2019. Patient subsequently underwent pulmonary arrest and was intubated on 03/27/2019. Patient was extubated on 03/31/2019, has been alert oriented. Discussed hospice with family on 2 different occasions and initially agreed upon hospice consultation. However on 04/04/2019 patient was moved to the [facility] unit family wanted to give her an opportunity and decided wished for a consultation with Dr. Cyril Ahumada MD, PMNR for inpatient rehab placement. Patient is awake and alert today up in the bed currently getting tube feeds O2 sats in the low 90s on 2 L nasal cannula denies chest pain denies palpitation or increasing shortness of breath Patient is awake alert oriented to person and place, vitals stable afebrile Awaiting an evaluation for rehab placement Objective - Vital Signs Vital signs: Vital Signs Temp 97.1 F L 04/06/19 05:00 Pulse 68 04/06/19 11:41 Resp 16 04/06/19 08:25 BP 118/57 04/06/19 05:00 Pulse Ox 96 04/06/19 05:00 Intake & Output 04/05/19 04/06/19 04/06/19 18:59 06:59 18:59 Intake Total 780 780 260 Output Total 5000 601 202 Balance -4220 179 58 Weight 76 kg Intake: Oral 0 Tube Feeding 780 780 260 Output: Urine 5000 600 200 Uretheral (Olsen) 1800 600 100 Stool 0 1 2 Other: Voiding Method Indwelling Catheter Indwelling Catheter Indwelling Catheter # Voids 1 1 # Bowel Movements 1 ABP, PAP, CO, CI - Last Documented Arterial Blood Pressure 164/99 - Exam General: [Patient awake, alert and oriented times 3. Patient in no acute distress.] HEENT: [PERRL. EOMI. No pharyngeal erythema or exudate.] Neck: [No adenopathy.] Cardiac: [Heart regular in rate and rhythm. No S3. No S4. No clicks, rubs. No murmur.] Midsternal surgical scar with lower abdominal scar Lungs: Coarse breath sounds improved from yesterday Abdomen: [No mass. No organomegaly. Bowel sounds presnt and normoactive in all 4 quadrants.] Minimal tenderness, feeding tube in place, dressing clean and dry Extremes: [No edema no cyanosis no claudication normal pulses] : normal female genitalia Musculoskeletal: [No joint erythema, edema or tenderness.] Skin: [No rash.] Neurologic: [No lateralizing deficits. CN II - XII grossly intact.] Lymphatic: [No adenopathy.] - Labs CBC & Chem 7: 04/04/19 06:56 04/04/19 06:56 Labs: Abnormal Lab Results - Last 24 Hours (Table) 04/05/19 04/05/19 04/06/19 Range/Units 17:39 23:52 06:10 POC Glucose (mg/dL) 126 H 155 H 151 H (75-99) mg/dL Assessment and Plan (1) Abdominal pain Current Visit: Yes Status: Acute Code(s): R10.9 - UNSPECIFIED ABDOMINAL PAIN SNOMED Code(s): 15952837 (2) Anemia Current Visit: Yes Status: Acute Code(s): D64.9 - ANEMIA, UNSPECIFIED SNOMED Code(s): 328234818 (3) GI bleed Current Visit: Yes Status: Acute Code(s): K92.2 - GASTROINTESTINAL HEMORRHAGE, UNSPECIFIED SNOMED Code(s): 34711918 Plan: Patient improved slightly and hemoglobin stable Consultation with Dr. Ahumada for possible placement [facility] inpatient rehab, at son's request Awaiting eval, long-term prognosis questionable
[2019-04-06 17:52] LABS: Glucose,Whole Blood 124 mg/dL (75-99)
[2019-04-06] MEDS: ATORVASTATIN 40 MG TAB PO SCH (20:49)
[2019-04-06 23:46] LABS: Glucose,Whole Blood 135 mg/dL (75-99)
[2019-04-07] MEDS: INSULIN ASPART (NovoLOG) 100 UNIT/ML VIAL SQ SCH ×4 (00:05→18:01)
[2019-04-07] MEDS: methylPREDNISolone SOD SUCCI 40 MG/ML 1 ML VIAL IV SCH ×4 (00:05→18:01)
[2019-04-07] MEDS: ONDANSETRON 4 MG/2 ML VIAL IVP PRN (01:47)
[2019-04-07] MEDS: LEVOTHYROXINE 100 MCG TAB PO SCH (05:36)
--- NOTE | 2019-04-07 06:39 | P.CONS ---
History of Present Illness - Chief Complaint Medical debility - History of Present Illness I had the opportunity to see patient for inpatient rehab consultation with regard to medical debility. She was admitted to [facility] March 18 with shortness of breath, asthma exacerbation and also abdominal pain. Seen by Dr. agarwal for abdominal pain and notes possible GI bleed. Seen by Dr. Leon for possible septic source. Seen by Dr. Kim for acute hypoxic respiratory failure. CT of abdomen and pelvis demonstrated aortic aneurysm, hyper nephrosis and dilatation of bilateral duct. Barium enema limited study but did also demonstrate an aortic aneurysm. Lower extremity Doppler negative for DVT right or left leg. Head CT with atrophy and chronic white matter change. Abdominal x-rays followed and note aortic aneurysm and left lower lobe infiltrate. Chest x-rays noted CHF and aortic aneurysm. His started therapies. PT and OT both reports two-person total assistance. I have just prescribed speech therapy at this time. Patient may have suffered stroke April 05. Previous functional history unobtainable from patient currently. Review of Systems Review of systems: ENT: Denies sneezes or discharge. Eyes: Denies discharge or photophobia. Cardiac: Denies chest pain or palpitation. Pulmonary: Denies cough or shortness of breath. Breast: Denies discharge or lumps. Gastrointestinal: Denies nausea, emesis, constipation, diarrhea. Genitourinary: Denies discharge or frequency. Musculoskeletal: Denies muscle or bone aches. Neurologic: Poor mentation. Endocrine: Denies shakes or sweats. Oncology: Denies cancers. Dermatologic: Denies rash, itching, pruritus. ALLERGY/immunology: Denies sneezes, rashes. Past Medical History Past Medical History: CVA/TIA, Hypertension, Thyroid Disorder Additional Past Medical History / Comment(s): feeding tube History of Any Multi-Drug Resistant Organisms: None Reported Past Surgical History: Cholecystectomy, Coronary Bypass/CABG, Hysterectomy Additional Past Surgical History / Comment(s): aorta aneurysm repair Past Anesthesia/Blood Transfusion Reactions: No Reported Reaction Past Psychological History: No Psychological Hx Reported Smoking Status: Former smoker Past Alcohol Use History: None Reported Past Drug Use History: None Reported - Past Family History Father Family Medical History: Coronary Artery Disease (CAD), Thyroid Disorder Medications and Allergies Home Medications Medication Instructions Recorded Confirmed Type Sertraline [Zoloft] 75 mg PO DAILY 11/06/15 03/18/19 History Ipratropium-Albuterol Nebulize 3 ml INHALATION RT-Q4H PRN 03/26/18 03/18/19 History [Duoneb 0.5 mg-3 mg/3 ml Soln] Apixaban [Eliquis] 5 mg PO BID 03/18/19 03/18/19 History Aspirin EC [Ecotrin Low Dose] 81 mg PO W/SUPPER 03/18/19 03/18/19 History Atorvastatin Calcium [Lipitor] 40 mg PO HS 03/18/19 03/18/19 History Carboxymethylcellulose Sodium 1 drop BOTH EYES DAILY PRN 03/18/19 03/18/19 History [Refresh Tears] Famotidine 20 mg PO DAILY 03/18/19 03/18/19 History Furosemide [Lasix] 40 mg PO DAILY 03/18/19 03/18/19 History Levothyroxine Sodium [Synthroid] 100 mcg PO DAILY 03/18/19 03/18/19 History Lidocaine 5% Patch [Lidoderm] 1 patch TOPICAL DAILY 03/18/19 03/18/19 History Metoprolol Tartrate [Lopressor] 75 mg PO BID 03/18/19 03/18/19 History Mometasone/Formoterol [Dulera 100 2 puff INHALATION BID 03/18/19 03/18/19 Hi story Mcg/5 Mcg Inhaler] Allergies Allergy/AdvReac Type Severity Reaction Status Date / Time Penicillins Allergy Swelling Verified 03/18/19 07:54 Physical Exam Vitals: Vital Signs Temp Pulse Pulse Pulse Pulse Resp BP 04/06/19 21:00 97.5 F L 67 18 113/70 04/06/19 19:22 72 04/06/19 19:13 70 04/06/19 16:02 72 04/06/19 15:57 62 63 62 16 04/06/19 15:48 72 04/06/19 13:00 98.2 F 70 18 121/68 04/06/19 11:41 68 04/06/19 11:31 68 04/06/19 08:25 62 63 62 16 Pulse Ox 04/06/19 21:00 95 04/06/19 19:22 04/06/19 19:13 04/06/19 16:02 04/06/19 15:57 04/06/19 15:48 04/06/19 13:00 92 L 04/06/19 11:41 04/06/19 11:31 04/06/19 08:25 Intake and Output 04/06/19 04/06/19 04/07/19 14:59 22:59 06:59 Intake Total 520 780 520 Output Total 1502 1303 1300 Balance -982 -523 -780 Intake: Oral 0 Tube Feeding 520 780 520 Output: Urine 1500 1300 1300 Uretheral (Olsen) 200 100 Stool 2 3 Other: Voiding Method Indwelling Catheter Indwelling Catheter # Voids 1 1 # Bowel Movements 1 Weight 76.3 kg Skin: Atrophic, intact. General: Medium build and comfortable appearance. Head: Normocephalic, atraumatic. Eyes: Symmetric. Pupils equal round. Ears: Symmetric. Hearing within normal limits. Mouth: Clear. Neck: Supple. Carotid without bruit. Cardiac: Regular rate and rhythm. Lungs: Clear anteriorly and posteriorly. Abdomen: Soft active nontender. Extremities: Normal tone. Neurological: Mental status: Alert, cooperative, pleasant. Cranial nerves: Symmetric facial tone and trapezius. Motor: Response to noxious stimulus locally. Sensation: Intact throughout. DTRs: Symmetric and equal throughout. Mobility: Requires two-person assist for bed mobility and care. Results CBC & Chem 7: 04/04/19 06:56 04/04/19 06:56 Labs: Abnormal Lab Results - Last 24 Hours (Table) 04/06/19 04/06/19 Range/Units 12:56 23:37 POC Glucose (mg/dL) 124 H 135 H (75-99) mg/dL Assessment and Plan (1) Acute respiratory failure Current Visit: Yes Status: Acute Code(s): J96.00 - ACUTE RESPIRATORY FAILURE, UNSP W HYPOXIA OR HYPERCAPNIA SNOMED Code(s): 01380877 Plan: Impression: 1. Medical debility. 2. COPD exacerbation. 3. Acute hypoxic respiratory failure. 4. Colonic diverticulosis. 6. Possible stroke April 05. Comments and plan: PT and OT are ongoing. I have added speech therapy at this time. At this time rehab prognosis guarded patient requires 24-hour care multiple persons.
[2019-04-07 07:33] LABS: Glucose,Whole Blood 141 mg/dL (75-99)
[2019-04-07 07:37] VITALS: RESP 20
[2019-04-07] MEDS: IPRATROPIUM-ALBUTEROL 3 ML NEB INHALATION SCH ×3 (07:38→15:36)
[2019-04-07] MEDS: POLYETHYLENE GLYCOL 3350 17 GM POWD.PACK PO SCH (08:32)
[2019-04-07] MEDS: FUROSEMIDE 10 MG/ML 4 ML VIAL IV SCH (08:44)
[2019-04-07] MEDS: SERTRALINE 25 MG TAB PO SCH (08:44)
[2019-04-07] MEDS: PANTOPRAZOLE 40 MG/10 ML VIAL IV SCH (08:44)
[2019-04-07] MEDS: hydrALAZINE HCL 25 MG TAB PO SCH ×2 (08:45→18:01)
[2019-04-07] MEDS: amLODIPine 5 MG TAB PO SCH (08:45)
[2019-04-07] MEDS: LEVOFLOXACIN 500 MG TAB PO SCH (08:45)
[2019-04-07] MEDS: METOPROLOL TARTRATE 25 MG TAB PO SCH (08:45)
[2019-04-07] MEDS: LIDOCAINE 5% PATCH TOPICAL SCH (08:46)
[2019-04-07] MEDS: ACETAMINOPHEN TAB 325 MG TAB PEG/G-TUBE PRN (09:59)
--- NOTE | 2019-04-07 11:23 | P.DS ---
Providers Date of admission: 03/18/19 12:12 Expected date of discharge: 04/07/19 Attending physician: Dao Art Consults: 03/18/19 18:34 Consult Physician Routine Consulting Provider: Louie Leon Consult Reason/Comments: sepsis risk Do you want consulting provider notified?: Yes 03/27/19 15:52 Consult Physician Stat Consulting Provider: Sabina Malone Consult Reason/Comments: ICU management Do you want consulting provider notified?: Already Contacted 03/27/19 16:29 Consult Physician Stat Consulting Provider: Nona Olvera Consult Reason/Comments: afib RVR Do you want consulting provider notified?: Yes 04/05/19 12:03 Consult Physician Routine Consulting Provider: Cyril Ahumada Consult Reason/Comments: Inpatient rehab admission Do you want consulting provider notified?: Yes Primary care physician: [facility] Course: Final DIagnoses: - Acute hypoxic, hypercapnic respiratory failure secondary to suspected aspiration pneumonia, status post mechanical ventilation. Sputum culture reporteding Enterobacter hormaechei. Current Visit: Yes Status: Acute Code(s): J96.00 - ACUTE RESPIRATORY FAILURE, UNSP W HYPOXIA OR HYPERCAPNIA SNOMED Code(s): 68106840 -Anoxic encephalopathy - Chronic respiratory failure with hypoxia Current Visit: Yes Status: Acute Code(s): J96.11 - CHRONIC RESPIRATORY FAILURE WITH HYPOXIA SNOMED Code(s): 579599114 - Aspiration pneumonia with Enterobacter hormaechei Current Visit: Yes Status: Acute Code(s): J69.0 - PNEUMONITIS DUE TO INHALATION OF FOOD AND VOMIT SNOMED Code(s): 190169706 -chronic paroxysmal atrial fibrillation with RVR status post Cardizem drip - Anemia, acute blood loss ,etiology unclear, possible colonic neoplasm. status post colonoscopy reporting no masses or mucosal abnormalities.status post colonoscopy reported diverticulosis and internal hemorrhoids, no masses or mucosal abnormalities. - chronic Normocytic hypochromic anemia Current Visit: Yes Status: Acute Code(s): D50.9 - IRON DEFICIENCY ANEMIA, UNSPECIFIED SNOMED Code(s): 47504564 -COPD (chronic obstructive pulmonary disease), steroid-dependent, wears BiPAP Current Visit: Yes Status: Acute Code(s): J44.9 - CHRONIC OBSTRUCTIVE PULMONARY DISEASE, UNSPECIFIED SNOMED Code(s): 19256380 - Generalized weakness, general medical debility Current Visit: Yes Status: Acute Code(s): R53.1 - WEAKNESS SNOMED Code(s): 42958090 - History of CVA (cerebrovascular accident), failed swallow eval, recent PEG tube placement Current Visit: Yes Status: Acute Code(s): Z86.73 - PRSNL HX OF TIA (TIA), AND CEREB INFRC W/O RESID DEFICITS SNOMED Code(s): 188549996 - Oropharyngeal dysphagia, chronic secondary to CVA Current Visit: Yes Status: Acute Code(s): R13.12 - DYSPHAGIA, OROPHARYNGEAL PHASE SNOMED Code(s): 42513511 -Abdominal pain, constipation, possible colonic neoplasm per CT. BE limited exam unable to rule out underlying colonic lesion Current Visit: Yes Status: Acute Code(s): R10.9 - UNSPECIFIED ABDOMINAL PAIN SNOMED Code(s): 41030715 -history of abdominal aortic aneurysm as well as new aneurysmal site -Hypothyroidism -Hypertension -Chronic diastolic CHF -radiopaque density overlying the left scapula, indeterminate, possible neoplasm of the left per chest x-ray. -No code, no CPR, no intubation HOSPITAL COURSE:Siddhartha is an 84-year-old female well-known to my practice who presented presented to the emergency room , yesterday with complaint of abdominal pain left lower quadrant. Patient states the pain has been worsening over last couple of days family states she was pale and not her usual self. Patient also states she feels constipated. Patient has a history of CVA recently and has a feeding tube patient reports no fever denies dysuria hematuria patient has been moving her bowels she states the bleeding she has been doing his made her feel better or worse denies current chest pain denies underlying nausea or vomiting. Patient has steroid-dependent COPD, O2 dependent COPD however she doesn't like to use her oxygen. Known history of diverticulitis 03/20/2019 abdominal pain resolved .maintained on gentle IV fluid hydration .currently no antibiotics recommended as per ID. Development increased pulmona ry congestion; new onset rhonchi. Failed modified barium swallow, strict nothing by mouth, strict aspiration precautions maintained. PEG tube feedings currently at 30, goal 65. CT suggestive of constipation versus neoplasm mass, will eventually need colonoscopy. No bowel movement today. Bowel movement yesterday, tested positive for occult blood T bili normal,. Elevated LFTs,,hepatitis panel negative Telemetry sinus rhythm. Denies chest pain, palpitations. 03/21/2019 hemoglobin dropped to 6.3, receiving one unit of packed RBCs currently. Denies chest pain, palpitations or shortness of breath.VSS. 03/24/19 status post EGD over the weekend, and slightly unremarkable receiving prep for a BE with air contrast to rule out possible colonic neoplasm. Tumor markers within normal limits. Denies abdominal pain. Hemoglobin 8.5. Denies chest pain, palpitations or shortness of breath. 03/25/19 BE completed today, limited exam, cannot rule out colonic lesion at the splenic flexure as noted on CT. Colonoscopy recommended as per GI. Patient discussed with family and wishes to proceed, but not until -Requesting a short break from the prep, which is reasonable. Labs pending. No active bleeding reported. Denies abdominal pain. 03/26/2019 early this morning developed an episode of shortness of breath, received nebulized bronchodilators in a dose of Lasix IV push. Currently wheezy, exhausted from loss of sleep. Maintaining O2 sats of high 90s on 2 L nasal cannula. Outpatient colonoscopy offered but patient requesting to proceed with colonoscopy tomorrow. Denies abdominal pain. LFTs within normal limits .Denies chest pain, palpitations or increased shortness of breath. Denies lightheadedness, dizziness or focal deficits. 03/27/19 NPO. Aspirated, Colonscopy cancelled. VSS,O2 increased up to 3 l NC to maintain O2 sats in the 90s. Denies Chest pain, palpitations. Denies light headedness.Labs pending. 03/28/2019underwent colonoscopy yesterday reporting no masses, or mucosa abnormalities to correlate with CT, diverticulosis and internal hemorrhoids.upon transporting from recovery room to [facility],patient began complaining of abdominal pain. Shortly after transferring patient from stretcher to bed,patient developed acute respiratory distress, required intubation and transferred to ICU. possible aspiration. Maintained on FiO2 45%/+8 of PEEP, Diprovan, Levophed.Post endoscopy procedure, abdominal x-ray reported gas- distended loops of bowel, lightly post- procedural,lucency beneath the left hemidiaphragm,pneumoperitoneum not excluded.Surgery consulted,recommendations noted.patient also developed atrial fibrillation with RVR and was started on amiodarone drip as per cardiology. Patient has since converted to sinus rhythm with paroximal runs of Marcos ventura, tayo.this morning underwent bronchoscopy and lavage reporting aspiration pneumonia with extensive airspace disease involving the left lower lobe and lingula. 03/29/2019: Patient is status post CT brain for regular pupils. My recollection is been ongoing since her CVA. She is intubated and currently sedation is off. Patient remains in intensive care unit. Norepinephrine is on hold as well. Patient's maintaining her blood pressure. Past half hour. She remains on Levaquin and clindamycin antibiotics for aspiration pneumonia. PEG tube is to suction. FiO2 is being maintained at 40%. Family were at bedside and critical care's note was reviewed. 03/30/2019: The patient remains in the intensive care unit intubated. Patient remains off the propofol, but is not waking up quickly. She is currently on a FiO2 35% and a PEEP of 5. She is off amiodarone per cardiology as her maintained sinus rhythm. She is on tube feeds with a goal of 30 mL/h. No family are at bedside or in the waiting room today. 03/31/2019 extubated this morning, currently maintaining O2 sats in the mid 90s on 4 L nasal cannula. Chest x-ray reporting stable bilateral consolidatio n/pleural effusion, radiopaque density overlying the left scapula, stable, indeterminate. Hemoglobin 6.7 with no reported bleeding. Continues on no oral anticoagulation secondary to GI bleed. No tachycardia, mild hypertension - systolic blood pressures in the 160s. Potassium 3.4. Maintained on clindamycin and Levaquin. 04/01/2019 Telemetry sinus rhythm with right bundle branch block, maintaining O2 sats of high 90s on 4 L nasal cannula. Systolic blood pressures 150s to 160s, hydralazine increased, Norvasc added to med regime. Chest x-ray reporting stable bilateral consolidation/pleural effusion, possible CHF, possible neoplasm of the left. Received a dose of Lasix IV push this morning. More alert today, answering questions appropriately, following simple commands. Hemoglobin 8.8. Tolerating PEG tube feedings, with rates increased to 40/goal of 65. Passing flatus, no bowel movement. 04/02/2019 more alert today, conversing appropriately. Telemetry sinus rhythm. Tube feeds at 50/:goal of 65. Patient was changed to no code, no CPR, no intubation last night. Family requesting hospice consult. O2 sat in the 90s on 4 L nasal cannula, and use BiPAP during the night and when necessary throughout the day. Maintained on Levaquin.VSS. Anticoagulation remains on hold .hemoglobin currently 9.Chest x-ray reporting worsening left pleural effusion. 04/03/2019 ALert. VSS. declining PT/OT currently. Diuresing well on Lasix IV push with 24-hour I&O reflecting a negative fluid balance. Maintaining O2 sats of 90s on 4 L nasal cannula. Hospice informational meeting occurred last night. Staff reports -Patient does not meet criteria for GIP but does meet criteria for outpatient hospice. Hospice family meeting today. 04/04/2019 patient on MedSurg unit, doing well.. Patient expresses she would like to attempt rehab at a subacute rehab at this time, authorization in progress. Maintaining O2 sats in the low 90s on 2 L nasal cannula. Denies chest pain, palpitation or increasing shortness of breath. Denies lightheadedness, dizziness or focal deficits. Afebrile. Significant clinical improvement. Cleared by all consults for discharge. Patient is being discharged to [facility] subacute rehab in a stable condition with guarded prognosis. - Exam General:sitting up in bed, no acute distress HEENT: head is normocephalic, atraumatic, conjunctivae normal Neck: Supple,trachea midline No adenopathy. Cardiac: [Heart regular in rate and rhythm. Systolic murmur.] Mid sternal scarring mid abdominal scarring from bypass surgery, from aneurysm repair surgery Lungs: diminished bibasilar, scattered rhonchi, fine bibasilar crackles, no wheezing. Abdomen: Soft, nontender, nondistended, No organomegaly. Positive bowel sounds. Extremes: [Mild edema, no cyanosis, no clubbing Neurologic: Alert and oriented 3 ;follow simple commands Microbiology 03/28/19 10:00 Bronchial Washings - Left Gram Stain - Final 03/28/19 10:00 Bronchial Washings - Left Bronchial Washings Culture - Final 03/27/19 15:54 Sputum Gram Stain - Final 03/27/19 15:54 Sputum Sputum Culture - Final Enterobacter hormaechei 03/28/19 10:00 Bronchial Washings - Left Fungal Culture - Preliminary 03/19/19 01:14 Urine,Voided Urine Culture - Final The impression and plan of care has been dictated as directed. : I performed a history and examination of this patient, discussed the same with the dictator. I agree with the dictator's note ,documented as a scribe. Any additional findings or plans will be noted. Time Taken :35 min Patient Condition at Discharge: Stable Plan - Discharge Summary Discharge Rx Participant: Yes New Discharge Prescriptions: New Pantoprazole Sodium [Protonix] 40 mg PO BID #1 tablet. hydrALAZINE HCL [Apresoline] 25 mg PO TID tab Ipratropium-Albuterol Nebulize [Duoneb 0.5 mg-3 mg/3 ml Soln] 3 ml INHALATION RT-QID ampul.neb Ipratropium-Albuterol Nebulize [Duoneb 0.5 mg-3 mg/3 ml Soln] 3 ml INHALATION Q4H PRN ampul.neb PRN Reason: Shortness Of Breath Or Wheezing Levofloxacin [Levaquin] 500 mg PO Q24H #7 tab Polyethylene Glycol 3350 [Miralax] 17 gm PO BID powd.pack amLODIPine [Norvasc] 5 mg PO DAILY tab predniSONE 10 mg PO DIRECTED #30 tab Acetaminophen Tab [Tylenol] 650 mg PEG/G-TUBE Q6HR PRN tab PRN Reason: Mild Pain Or Fever > 100.5 Continue Sertraline [Zoloft] 75 mg PO DAILY Mometasone/Formoterol [Dulera 100 Mcg/5 Mcg Inhaler] 2 puff INHALATION BID Lidocaine 5% Patch [Lidoderm 5% Patch] 1 patch TOPICAL DAILY Carboxymethylcellulose Sodium [Refresh Tears] 1 drop BOTH EYES DAILY PRN PRN Reason: Dry Eye(S) Atorvastatin Calcium [Lipitor] 40 mg PO HS Metoprolol Tartrate [Lopressor] 75 mg PO BID Levothyroxine Sodium [Synthroid] 100 mcg PO DAILY Furosemide [Lasix] 40 mg PO DAILY Discontinued Ipratropium-Albuterol Nebulize [Duoneb 0.5 mg-3 mg/3 ml Soln] 3 ml INHALATION RT-Q4H PRN PRN Reason: Shortness Of Breath Famotidine 20 mg PO DAILY Aspirin EC [Ecotrin Low Dose] 81 mg PO W/SUPPER Apixaban [Eliquis] 5 mg PO BID Discharge Medication List Sertraline [Zoloft] 75 mg PO DAILY 11/06/15 [History] Atorvastatin Calcium [Lipitor] 40 mg PO HS 03/18/19 [History] Carboxymethylcellulose Sodium [Refresh Tears] 1 drop BOTH EYES DAILY PRN 03/18/19 [History] Furosemide [Lasix] 40 mg PO DAILY 03/18/19 [History] Levothyroxine Sodium [Synthroid] 100 mcg PO DAILY 03/18/19 [History] Lidocaine 5% Patch [Lidoderm 5% Patch] 1 patch TOPICAL DAILY 03/18/19 [History] Metoprolol Tartrate [Lopressor] 75 mg PO BID 03/18/19 [History] Mometasone/Formoterol [Dulera 100 Mcg/5 Mcg Inhaler] 2 puff INHALATION BID 03/18/19 [History] Acetaminophen Tab [Tylenol] 650 mg PEG/G-TUBE Q6HR PRN tab 04/07/19 [Rx] Ipratropium-Albuterol Nebulize [Duoneb 0.5 mg-3 mg/3 ml Soln] 3 ml INHALATION Q4H PRN ampul.neb 04/07/19 [Rx] Ipratropium-Albuterol Nebulize [Duoneb 0.5 mg-3 mg/3 ml Soln] 3 ml INHALATION RT-QID ampul.neb 04/07/19 [Rx] Levofloxacin [Levaquin] 500 mg PO Q24H #7 tab 04/07/19 [Rx] Pantoprazole Sodium [Protonix] 40 mg PO BID #1 tablet.dr 04/07/19 [Rx] Polyethylene Glycol 3350 [Miralax] 17 gm PO BID powd.pack 04/07/19 [Rx] amLODIPine [Norvasc] 5 mg PO DAILY tab 04/07/19 [Rx] hydrALAZINE HCL [Apresoline] 25 mg PO TID tab 04/07/19 [Rx] predniSONE 10 mg PO DIRECTED #30 tab 04/07/19 [Rx] Follow up Appointment(s)/Referral(s): Chano Arvizu, [NON-STAFF] - As Needed [facility], [REFERRING] - 1 Week [facility] Visiting Nurse, [NON-STAFF] - 1-2 Days Dao Art Jr, DO [Primary Care Provider] - 3 Days Activity/Diet/Wound Care/Special Instructions: [facility] STRICT ASPIRATION Precautions at all times, Unable to PRotect [place]way Diet:Vital AF 1.2 COntinous via peg 65ml/hr Free Water 70ml q 4h Activity: as tolerated CBC,BMP In 3 days 2lNC O2 Discharge Disposition: TRANSFER TO SNF/ECF
[2019-04-07 11:27] LABS: Glucose,Whole Blood 185 mg/dL (75-99)
[2019-04-07 11:54] VITALS: BMI 24.1
[2019-04-07 12:51] VITALS: BP 118/56; TEMP 96.9
[2019-04-07 15:54] VITALS: PULSE 64
== END 2019-04-07 19:10 | DRG 987 ==
LOC: EC 07:07 → 3SCARD 12:12 → 4SSUR 03-25 07:03 → 2SICU 03-27 15:55 → 3NMEDONC 04-03 21:17
PROVIDERS: ADMIT Family Medicine; ATTEND Family Medicine
PROC: 30233N1 Transfusion of Nonautologous Red Blood Cells into Peripheral Vein, Percutaneous Approach (ICD-10-PCS; 2019-03-18)
PROC: 0DJ08ZZ Inspection of Upper Intestinal Tract, Via Natural or Artificial Opening Endoscopic (ICD-10-PCS; 2019-03-22)
PROC: 0DJD8ZZ Inspection of Lower Intestinal Tract, Via Natural or Artificial Opening Endoscopic (ICD-10-PCS; 2019-03-27)
PROC: 5A1945Z Respiratory Ventilation, 24-96 Consecutive Hours (ICD-10-PCS; 2019-03-27)
PROC: 0BH17EZ Insertion of Endotracheal Airway into Trachea, Via Natural or Artificial Opening (ICD-10-PCS; 2019-03-27)
PROC: 06HM33Z Insertion of Infusion Device into Right Femoral Vein, Percutaneous Approach (ICD-10-PCS; 2019-03-27)
PROC: 03HY32Z Insertion of Monitoring Device into Upper Artery, Percutaneous Approach (ICD-10-PCS; 2019-03-27)
PROC: 0B9J8ZX Drainage of Left Lower Lung Lobe, Via Natural or Artificial Opening Endoscopic, Diagnostic (ICD-10-PCS; 2019-03-28)
PROC: 0B9H8ZX Drainage of Lung Lingula, Via Natural or Artificial Opening Endoscopic, Diagnostic (ICD-10-PCS; principal; 2019-03-28 10:00)
DX: K92.2 Gastrointestinal hemorrhage, unspecified (principal); J69.0 Pneumonitis due to inhalation of food and vomit; J96.21 Acute and chronic respiratory failure with hypoxia; J96.22 Acute and chronic respiratory failure with hypercapnia; D62 Acute posthemorrhagic anemia; G93.1 Anoxic brain damage, not elsewhere classified; I50.32 Chronic diastolic (congestive) heart failure; J44.1 Chronic obstructive pulmonary disease with (acute) exacerbation; J45.901 Unspecified asthma with (acute) exacerbation; J98.11 Atelectasis; I95.9 Hypotension, unspecified; E86.0 Dehydration; E86.1 Hypovolemia; I11.0 Hypertensive heart disease with heart failure; I27.20 Pulmonary hypertension, unspecified; I48.2 Chronic atrial fibrillation; E87.70 Fluid overload, unspecified; I08.1 Rheumatic disorders of both mitral and tricuspid valves; R13.12 Dysphagia, oropharyngeal phase; I45.10 Unspecified right bundle-branch block; B96.89 Other specified bacterial agents as the cause of diseases classified elsewhere; I69.991 Dysphagia following unspecified cerebrovascular disease; E03.9 Hypothyroidism, unspecified; E78.00 Pure hypercholesterolemia, unspecified; E78.5 Hyperlipidemia, unspecified; I25.10 Atherosclerotic heart disease of native coronary artery without angina pectoris; I71.4 Abdominal aortic aneurysm, without rupture; K44.9 Diaphragmatic hernia without obstruction or gangrene; K57.30 Diverticulosis of large intestine without perforation or abscess without bleeding; K59.00 Constipation, unspecified; K64.8 Other hemorrhoids; R74.0 Nonspecific elevation of levels of transaminase and lactic acid dehydrogenase [LDH]; R74.8 Abnormal levels of other serum enzymes; Z66 Do not resuscitate; R10.9 Unspecified abdominal pain; K21.9 Gastro-esophageal reflux disease without esophagitis; H91.90 Unspecified hearing loss, unspecified ear; R32 Unspecified urinary incontinence; Z79.01 Long term (current) use of anticoagulants; Z79.51 Long term (current) use of inhaled steroids; Z79.52 Long term (current) use of systemic steroids; Z79.890 Hormone replacement therapy; Z79.899 Other long term (current) drug therapy; Z79.82 Long term (current) use of aspirin; Z93.1 Gastrostomy status; Z95.2 Presence of prosthetic heart valve; Z88.0 Allergy status to penicillin; Z86.79 Personal history of other diseases of the circulatory system; Z87.891 Personal history of nicotine dependence; Z90.710 Acquired absence of both cervix and uterus; Z90.49 Acquired absence of other specified parts of digestive tract; Z99.81 Dependence on supplemental oxygen; Z95.1 Presence of aortocoronary bypass graft; Z91.19 Patient's noncompliance with other medical treatment and regimen; Z82.49 Family history of ischemic heart disease and other diseases of the circulatory system; Z83.49 Family history of other endocrine, nutritional and metabolic diseases
CPT/HCPCS: 31624; 36415; 36600; 43235; 45378; 70450; 71045; 71046; 74018; 74177; 74280; 80048; 80053; 80074; 80076; 81001; 81003; 82105; 82140; 82150; 82248; 82272; 82378; 82805; 83605; 83690; 83735; 84075; 84100; 84132; 84450; 84460; 84484; 84550; 85025; 85027; 85379; 85610; 85652; 85730; 86140; 86301; 86850; 86900; 86901; 86920; 87070; 87077; 87086; 87102; 87186; 87205; 89050; 93005; 93306; 93970; 94002; 94003; 94640; 94660; 94760; 96361; 96374; 96375; 99291

== ENCOUNTER → 2019-06-09 | Outpatient (CLI) | payer MEDICARE ==
--- NOTE | 2019-06-09 12:07 | FL ---
EXAMINATION TYPE: FL barium swallow w video DATE OF EXAM: 06/09/2019 COMPARISON: NONE HISTORY: Dysphagia TECHNIQUE: Fluoroscopy. FINDINGS: Fluoroscopic guidance was provided for the procedure performed in conjunction with the [facility] pathology department. Please see complete report forthcoming from the Speech Pathology departmen t. Various consistencies from thin liquid to solids were administered. Fluoroscopy time 2 minutes 48 seconds. Number of images: 0. There is deep penetration with thin liquids. The patient was prompted to cough which prevented aspira tion. Mild pooling was observed in the vallecula. The upper oral bolus formation was mildly limited. However, the proximal esophagus had essentially no propulsion and no contraction. The cricopharyngeus muscle was not visualized. IMPRESSION: 1. Deep penetration with thin liquids. Remaining consistencies were without aspiration or penetration . 2. Nonpropulsion of the proximal esophageal bolus.
== END | disposition home or self-care (01) ==
LOC: RADFLMAIN 11:01
PROVIDERS: ATTEND Family Medicine
DX: R13.10 Dysphagia, unspecified (principal); Z88.0 Allergy status to penicillin
CPT/HCPCS: 74230

== ENCOUNTER 2019-07-24 16:16 | Inpatient (IN) | payer MEDICARE ==
[2019-07-24] MEDS ORDERED: SODIUM CHLORIDE 0.9% 1,000 ML IV STA (16:24)
[2019-07-24] MEDS ORDERED: cefTRIAXone IN SWFI 1,000 MG/10 ML SYRINGE IVP STA (16:26)
--- NOTE | 2019-07-24 16:34 | ED ---
SOB HPI - General Stated Complaint: Sob Time Seen by Provider: 07/24/19 16:16 Source: patient, EMS, RN notes reviewed, old records reviewed Mode of arrival: EMS Limitations: no limitations - History of Present Illness Initial Comments: This is a 84-year-old female who presents by EMS with complaints of shortness of breath which started this morning she also had fever chills sweats he had nausea vomiting he has had a cough with some phlegm no chest pain she has had generalized weakness she was noted be hypoxemic per the EMS crew. She was transported from home. No diarrhea reported no other modifying factors at this time she is on home oxygen at home. MD Complaint: shortness of breath, cough - Related Data Home Medications Medication Instructions Recorded Confirmed Sertraline [Zoloft] 75 mg PO DAILY 11/06/15 03/18/19 Atorvastatin Calcium [Lipitor] 40 mg PO HS 03/18/19 03/18/19 Carboxymethylcellulose Sodium 1 drop BOTH EYES DAILY PRN 03/18/19 03/18/19 [Refresh Tears] Furosemide [Lasix] 40 mg PO DAILY 03/18/19 03/18/19 Levothyroxine Sodium [Synthroid] 100 mcg PO DAILY 03/18/19 03/18/19 Lidocaine 5% Patch [Lidoderm 5% 1 patch TOPICAL DAILY 03/18/19 03/18/19 Patch] Metoprolol Tartrate [Lopressor] 75 mg PO BID 03/18/19 03/18/19 Mometasone/Formoterol [Dulera 100 2 puff INHALATION BID 03/18/19 03/18/19 Mcg/5 Mcg Inhaler] Previous Rx's Medication Instructions Recorded Acetaminophen Tab [Tylenol] 650 mg PEG/G-TUBE Q6HR PRN tab 04/07/19 Ipratropium-Albuterol Nebulize 3 ml INHALATION Q4H PRN ampul.neb 04/07/19 [Duoneb 0.5 mg-3 mg/3 ml Soln] Ipratropium-Albuterol Nebulize 3 ml INHALATION RT-QID ampul.neb 04/07/19 [Duoneb 0.5 mg-3 mg/3 ml Soln] Levofloxacin [Levaquin] 500 mg PO Q24H #7 tab 04/07/19 Pantoprazole Sodium [Protonix] 40 mg PO BID #1 tablet. 04/07/19 Polyethylene Glycol 3350 [Miralax] 17 gm PO BID powd.pack 04/07/19 amLODIPine [Norvasc] 5 mg PO DAILY tab 04/07/19 hydrALAZINE HCL [Apresoline] 25 mg PO TID tab 04/07/19 predniSONE 10 mg PO DIRECTED #30 tab 04/07/19 Allergies Allergy/AdvReac Type Severity Reaction Status Date / Time Penicillins Allergy Swelling Verified 07/24/19 16:31 Review of Systems ROS Statement: Those systems with pertinent positive or pertinent negative responses have been documented in the HPI. ROS Other: All systems not noted in ROS Statement are negative. Past Medical History Past Medical History: CVA/TIA, Hypertension, Thyroid Disorder Additional Past Medical History / Comment(s): feeding tube, indwelling urinary catheter History of Any Multi-Drug Resistant Organisms: None Reported Past Surgical History: Cholecystectomy, Coronary Bypass/CABG, Hysterectomy Additional Past Surgical History / Comment(s): aorta aneurysm repair Past Anesthesia/Blood Transfusion Reactions: No Reported Reaction Past Psychological History: No Psychological Hx Reported Smoking Status: Former smoker Past Alcohol Use History: None Reported Past Drug Use History: None Reported - Past Family History Father Family Medical History: Coronary Artery Disease (CAD), Thyroid Disorder General Exam - General Exam Comments Initial Comments: Is a well-developed sec appearing female who is awake alert oriented 3 she is actively using a nebulizer at this time Limitations: no limitations General appearance: alert, anxious, in distress Head exam: Present: atraumatic, normocephalic, normal inspection Eye exam: Present: normal appearance, PERRL, EOMI. Absent: scleral icterus, conjunctival injection, periorbital swelling ENT exam: Present: mucous membranes dry Neck exam: Present: normal inspection, full ROM, other (No stridor JVD or bruits ). Absent: tenderness, meningismus, lymphadenopathy Respiratory exam: Present: rhonchi (Left lower lobe rhonchi), accessory muscle use, decreased breath sounds. Absent: respiratory distress, wheezes, rales, stridor Cardiovascular Exam: Present: regular rate, normal rhythm, normal heart sounds. Absent: systolic murmur, diastolic murmur, rubs, gallop, clicks GI/Abdominal exam: Present: soft, normal bowel sounds, other (J-tube in place). Absent: distended, tenderness, guarding, rebound, rigid Extremities exam: Present: normal inspection, full ROM, normal capillary refill. Absent: tenderness, pedal edema, joint swelling, calf tenderness Back exam: Present: other (Kyphosis is demonstrated) Neurological exam: Present: alert, oriented X3, CN II-XII intact Psychiatric exam: Present: normal affect, normal mood Skin exam: Present: warm, dry, intact, normal color. Absent: rash Course Vital Signs 07/24/19 16:27 Temperature 100.8 F H Pulse Rate 93 Respiratory 22 Rate Blood Pressure 134/64 O2 Sat by Pulse 93 L Oximetry Medical Decision Making - Medical Decision Making I did discuss the findings with patient family members as well as Dr. Guardado. Patient be admitted she does demonstrate evidence of right lower lobe pneumonia. - Lab Data Result diagrams: 07/24/19 16:30 07/24/19 16:30 Lab Results 07/24/19 07/24/19 07/24/19 Range/Units 16:30 16:30 16:30 WBC 22.3 H (3.8-10.6) k/uL RBC 4.20 (3.80-5.40) m/uL Hgb 10.6 L (11.4-16.0) gm/dL Hct 32.9 L (34.0-46.0) % MCV 78.2 L (80.0-100.0) fL MCH 25.1 (25.0-35.0) pg MCHC 32.1 (31.0-37.0) g/dL RDW 16.7 H (11.5-15.5) % Plt Count 284 (150-450) k/uL Neutrophils % 94 % Lymphocytes % 2 % Monocytes % 4 % Eosinophils % 0 % Basophils % 0 % Neutrophils # 20.9 H (1.3-7.7) k/uL Lymphocytes # 0.5 L (1.0-4.8) k/uL Monocytes # 0.8 (0-1.0) k/uL Eosinophils # 0.0 (0-0.7) k/uL Basophils # 0.0 (0-0.2) k/uL Hypochromasia Slight Anisocytosis Slight Microcytosis Slight PT 10.2 (9.0-12.0) sec INR 0.9 (<1.2) APTT 23.4 (22.0-30.0) sec Sodium 138 (137-145) mmol/L Potassium 3.9 (3.5-5.1) mmol/L Chloride 99 (98-107) mmol/L Carbon Dioxide 26 (22-30) mmol/L Anion Gap 13 mmol/L BUN 79 H (7-17) mg/dL Creatinine 0.88 (0.52-1.04) mg/dL Est GFR (CKD-EPI)AfAm 70 (>60 ml/min/1.73 sqM) Est GFR (CKD-EPI)NonAf 61 (>60 ml/min/1.73 sqM) Glucose 220 H (74-99) mg/dL Plasma Lactic Acid Miguel (0.7-2.0) mmol/L Calcium 9.9 (8.4-10.2) mg/dL Magnesium 1.9 (1.6-2.3) mg/dL Total Bilirubin 0.7 (0.2-1.3) mg/dL AST 67 H (14-36) U/L ALT 53 H (9-52) U/L Alkaline Phosphatase 101 (38-126) U/L Creatine Kinase 20 L (30-135) U/L Troponin I (0.000-0.034) ng/mL Total Protein 7.6 (6.3-8.2) g/dL Albumin 4.1 (3.5-5.0) g/dL 07/24/19 07/24/19 Range/Units 16:30 16:30 WBC (3.8-10.6) k/uL RBC (3.80-5.40) m/uL Hgb (11.4-16.0) gm/dL Hct (34.0-46.0) % MCV (80.0-100.0) fL MCH (25.0-35.0) pg MCHC (31.0-37.0) g/dL RDW (11.5-15.5) % Plt Count (150-450) k/uL Neutrophils % % Lymphocytes % % Monocytes % % Eosinophils % % Basophils % % Neutrophils # (1.3-7.7) k/uL Lymphocytes # (1.0-4.8) k/uL Monocytes # (0-1.0) k/uL Eosinophils # (0-0.7) k/uL Basophils # (0-0.2) k/uL Hypochromasia Anisocytosis Microcytosis PT (9.0-12.0) sec INR (<1.2) APTT (22.0-30.0) sec Sodium (137-145) mmol/L Potassium (3.5-5.1) mmol/L Chloride (98-107) mmol/L Carbon Dioxide (22-30) mmol/L Anion Gap mmol/L BUN (7-17) mg/dL Creatinine (0.52-1.04) mg/dL Est GFR (CKD-EPI)AfAm (>60 ml/min/1.73 sqM) Est GFR (CKD-EPI)NonAf (>60 ml/min/1.73 sqM) Glucose (74-99) mg/dL Plasma Lactic Acid Miguel 1.1 (0.7-2.0) mmol/L Calcium (8.4-10.2) mg/dL Magnesium (1.6-2.3) mg/dL Total Bilirubin (0.2-1.3) mg/dL AST (14-36) U/L ALT (9-52) U/L Alkaline Phosphatase (38-126) U/L Creatine Kinase (30-135) U/L Troponin I <0.012 (0.000-0.034) ng/mL Total Protein (6.3-8.2) g/dL Albumin (3.5-5.0) g/dL - EKG Data -: EKG Interpreted by Nc EKG Comments: Sinus rhythm occasional PVCs rate was 89 192 QRS duration 162 QT/QTC of 414/503 left exodeviation left bundle-branch block present these were seen them previous EKG dated both 03/18/19 and 03/27/19 - Radiology Data Radiology results: image reviewed (I did review the imaging is evidence a right lower lobe infiltrate.) Disposition Clinical Impression: Right lower lobe pneumonia, Acute bronchospasm, Febrile illness, acute, Leukocytosis, Acute exacerbation of chronic obstructive pulmonary disease Disposition: ADMITTED IP TO THIS HOSP Condition: Fair Referrals: Dao Art Jr, [Primary Care Provider] - 1-2 days
[2019-07-24 17:04] LABS: Anisocytosis Slight; Basophils % (A) 0 %; Eosinophils % (A) 0 %; HCT 32.9 % (34.0-46.0); HGB 10.6 gm/dL (11.4-16.0); Hypochromasia Slight; Lymphocytes # (A) 0.5 k/uL (1.0-4.8); Lymphocytes % (A) 2 %; MCH 25.1 pg (25.0-35.0); MCHC 32.1 g/dL (31.0-37.0); MCV 78.2 fL (80.0-100.0); Mean Platelet Volume 5.9; Microcytosis Slight; Monocytes # (A) 0.8 k/uL (0-1.0); Monocytes % (A) 4 %; Neutrophils # (A) 20.9 k/uL (1.3-7.7); Neutrophils % (A) 94 %; Platelet Count 284 k/uL (150-450); RDW 16.7 % (11.5-15.5); WBC 22.3 k/uL (3.8-10.6)
[2019-07-24 17:13] LABS: INR 0.9 (<1.2); Partial Thromboplastin Time 23.4 sec (22.0-30.0); Prothrombin Time 10.2 sec (9.0-12.0)
[2019-07-24 17:18] LABS: Albumin 4.1 g/dL (3.5-5.0); Calcium 9.9 mg/dL (8.4-10.2); Magnesium 1.9 mg/dL (1.6-2.3); Potassium 3.9 mmol/L (3.5-5.1); Total Bilirubin 0.7 mg/dL (0.2-1.3); Total Protein 7.6 g/dL (6.3-8.2)
[2019-07-24] MEDS ORDERED: PNEUMONIA PROTOCOL UTILIZED 1 EACH MISC PO PRN (17:37)
[2019-07-24] MEDS ORDERED: AZITHROMYCIN 500 MG in SODIUM CHLORIDE 0.9% 250 ML IVPB STA (17:37)
[2019-07-24] MEDS ORDERED: ACETAMINOPHEN TAB 325 MG TAB PEG/G-TUBE PRN (17:39)
[2019-07-24] MEDS ORDERED: ARTIFICIAL TEARS-HYPROMELLOSE DROPS 15 ML BTL BOTH EYES PRN (17:39)
--- NOTE | 2019-07-24 17:42 | XR ---
EXAMINATION TYPE: XR chest 2V DATE OF EXAM: 07/24/2019 COMPARISON: 04/02/2019 HISTORY: Short of breath TECHNIQUE: Frontal and lateral views of the chest are obtained. FINDINGS: Heart is enlarged. There is some mild infiltrate in the lower lobes. There is mild pulmona ry congestion. There is some amorphous 4 cm area of calcification over the medial left shoulder joint region. There is slight blunting right costophrenic angle. There are sternal wires. There are chest leads. IMPRESSION: Compared to last exam there is almost complete clearing of the consolidation left lower lobe. There is clearing of the pulmonary edema. There is small right pleural effusion. There is evide nce of mild heart failure improved compared to last exam. There is mild predominantly interstitial in filtrates in the lower lobes increased on the right side compared to last exam.
[2019-07-24] MEDS ORDERED: IPRATROPIUM-ALBUTEROL 3 ML NEB INHALATION PRN (19:11)
[2019-07-24] MEDS ORDERED: IPRATROPIUM-ALBUTEROL 3 ML NEB INHALATION SCH ×2 (20:00)
[2019-07-24] MEDS: IPRATROPIUM-ALBUTEROL 3 ML NEB INHALATION SCH (20:08)
[2019-07-24] MEDS: SYMBICORT 80-4.5 MCG INHALER INHALATION SCH (20:09)
[2019-07-24] MEDS ORDERED: POLYETHYLENE GLYCOL 3350 17 GM POWD.PACK PEG/G-TUBE PRN (21:00)
[2019-07-24] MEDS ORDERED: PANTOPRAZOLE 40 MG TABLET PO SCH (21:00)
[2019-07-24] MEDS: hydrALAZINE HCL 25 MG TAB PEG/G-TUBE SCH (21:32)
[2019-07-24] MEDS: ATORVASTATIN 40 MG TAB PEG/G-TUBE SCH (21:32)
[2019-07-24] MEDS: METOPROLOL TARTRATE 25 MG TAB PEG/G-TUBE SCH (21:32)
[2019-07-24] MEDS ORDERED: hydrALAZINE HCL 25 MG TAB PEG/G-TUBE SCH (22:00)
[2019-07-25] MEDS: LEVOTHYROXINE 125 MCG TAB PEG/G-TUBE SCH (05:59)
[2019-07-25] MEDS ORDERED: LEVOTHYROXINE 100 MCG TAB PEG/G-TUBE SCH (06:30)
[2019-07-25] MEDS: SYMBICORT 80-4.5 MCG INHALER INHALATION SCH ×2 (08:07→20:01)
[2019-07-25] MEDS: IPRATROPIUM-ALBUTEROL 3 ML NEB INHALATION SCH ×4 (08:07→20:01)
--- NOTE | 2019-07-25 08:17 | XR ---
EXAMINATION TYPE: XR chest 2V DATE OF EXAM: 07/25/2019 COMPARISON: Prior chest x-ray 07/24/2019 HISTORY: Pneumonia, shortness of breath TECHNIQUE: Frontal and lateral views of the chest are obtained. FINDINGS: The heart is enlarged as on prior exam. Patient is post median sternotomy. Aorta is dense and aneurysmal. Interstitium is increased. Patchy basilar airspace disease noted on the right. No sara dent pneumothorax. Soft tissue density persists of the left upper region. Prominent lung volumes are consistent with underlying COPD. IMPRESSION: Correlate for congestive heart failure, pneumonia not excluded. Aortic aneurysm.
[2019-07-25] MEDS ORDERED: FUROSEMIDE 40 MG TAB PEG/G-TUBE SCH (09:00)
[2019-07-25] MEDS ORDERED: SERTRALINE 50 MG TAB PEG/G-TUBE SCH (09:00)
[2019-07-25] MEDS: PANTOPRAZOLE SODIUM 40 MG GRANULE PKT PEG/G-TUBE SCH (10:30)
[2019-07-25] MEDS: LIDOCAINE 5% PATCH TOPICAL SCH (10:31)
[2019-07-25] MEDS: hydrALAZINE HCL 25 MG TAB PEG/G-TUBE SCH ×2 (10:31→22:35)
[2019-07-25] MEDS: amLODIPine 5 MG TAB PEG/G-TUBE SCH (10:31)
[2019-07-25] MEDS: SERTRALINE 50 MG TAB PEG/G-TUBE SCH (10:34)
[2019-07-25] MEDS: METOPROLOL TARTRATE 25 MG TAB PEG/G-TUBE SCH ×2 (10:52→21:58)
--- NOTE | 2019-07-25 12:14 | P.HPIM ---
History of Present Illness H&P Date: 07/25/19 Chief Complaint: Suspected aspiration pneumonia This is an 84-year-old white female well-known to me. She has a history of CVA with significant dysphagia, dysphasia, PEG tube for nutrition, severe COPD and is oxygen dependent. She is brought emergency room via EMS after having cough and shortness of breath yesterday. I had last seen her in the [facility] where she underwent rehabilitation. She was told to be nothing by mouth at that time and receive all nutrition through the PEG tube. She was considering hospice and comfort foods orally with the understanding that she could develop an aspiration pneumonia. She indicates that she been eating food when this started. She denies any recent nausea or vomiting. Denies any chest pains or pressures. She has constant shortness of breath due to her COPD. She seems slightly confused today with my discussions with her. PEG tube is in place but does appear dirty as if it's not been used recently. Review of Systems ROS unobtainable: due to mental status (N dysphasia) Past Medical History Past Medical History: Atrial Fibrillation, Blood Disorder (Anemia), COPD (Oxygen dependent), CVA/TIA, GI Bleed, Hypertension, Neurologic Disorder (Dysphagia), Sleep Apnea/CPAP/BIPAP, Thyroid Disorder (Thyroidism) Additional Past Medical History / Comment(s): Chronic indwelling Olsen, chronic diastolic congestive heart failure History of Any Multi-Drug Resistant Organisms: None Reported Past Surgical History: Cholecystectomy, Coronary Bypass/CABG, Hysterectomy Additional Past Surgical History / Comment(s): aortic aneurysm repair, PEG tube placement Past Anesthesia/Blood Transfusion Reactions: No Reported Reaction Past Psychological History: No Psychological Hx Reported Smoking Status: Former smoker Past Alcohol Use History: None Reported Past Drug Use History: None Reported - Past Family History Father Family Medical History: Coronary Artery Disease (CAD), Thyroid Disorder Medications and Allergies Home Medications Medication Instructions Recorded Confirmed Type Carboxymethylcellulose Sodium 1 drop BOTH EYES DAILY 03/18/19 07/24/19 History [Refresh Tears] Furosemide [Lasix] 40 mg PEG/G-TUBE DAILY@0600 03/18/19 07/24/19 History Acetaminophen [Tylenol Arthritis] 1,300 mg PEG/G-TUBE DAILY@0600 07/24/19 07/24/19 History Acetaminophen [Tylenol Arthritis] 650 mg PEG/G-TUBE Q8H PRN 07/24/19 07/24/19 History Artificial Tears-Hypromellose 1 drop BOTH EYES TID PRN 07/24/19 07/24/19 History [Artificial Tear Drops] Atorvastatin [Lipitor] 40 mg PEG/G-TUBE HS@2200 07/24/19 07/24/19 History Ipratropium-Albuterol Nebulize 3 ml INHALATION RT-QID PRN 07/24/19 07/24/19 History [Duoneb 0.5 mg-3 mg/3 ml Soln] Levothyroxine Sodium 125 mcg PEG/G-TUBE DAILY@0600 07/24/19 07/24/19 History Lidocaine 5% Patch [Lidoderm] 1 patch TRANSDERM DAILY PRN 07/24/19 07/24/19 History Metoprolol Tartrate [Lopressor] 50 mg PEG/G-TUBE DAILY@0600 07/24/19 07/24/19 History Mometasone/Formoterol [Dulera 100 2 puff INHALATION RT-BID 07/24/19 07/24/19 History Mcg/5 Mcg Inhaler] Polyethylene Glycol 3350 [Miralax] 17 gm PEG/G-TUBE DAILY PRN 07/24/19 07/24/19 History Protonix Packet 40mg 40 mg PEG/G-TUBE DAILY@0800 07/24/19 07/24/19 History Sertraline [Zoloft] 100 mg PEG/G-TUBE DAILY@0600 07/24/19 07/24/19 History Tamsulosin [Flomax] 0.4 mg PEG/G-TUBE HS@2200 07/24/19 07/24/19 History amLODIPine [Norvasc] 5 mg PEG/G-TUBE DAILY@0600 07/24/19 07/24/19 History hydrALAZINE HCL [Apresoline] 25 mg PEG/G-TUBE BID@0800,1700 07/24/19 07/24/19 History Allergies Allergy/AdvReac Type Severity Reaction Status Date / Time Penicillins Allergy Swelling Verified 07/24/19 16:31 Physical Exam Vitals: Vital Signs Temp Pulse Pulse Resp BP BP Pulse Ox 07/25/19 11:04 80 134/73 07/25/19 08:18 80 07/25/19 08:07 80 07/25/19 05:26 98.3 F 78 18 102/60 97 07/25/19 00:00 18 07/24/19 21:22 98.1 F 96 18 116/65 93 L 07/24/19 20:16 88 07/24/19 20:11 88 07/24/19 18:00 100.9 F H 87 20 126/78 92 L 07/24/19 17:37 22 07/24/19 16:27 100.8 F H 93 22 134/64 93 L Intake and Output 07/24/19 07/25/19 07/25/19 22:59 06:59 14:59 Intake Total 770 Output Total 900 Balance 770 -900 Intake: Amount of Fluid Infused ( 300 ml) Intake, IV Titration 450 Amount Azithromycin 500 mg In 250 Sodium Chloride 0.9% 250 ml @ 250 mls/hr IVPB ONCE STA Rx#:[id number] Sodium Chloride 0.9% 1, 200 000 ml @ 100 mls/hr IV . Q10H STA Rx#:[id number] Oral 0 Other 20 Output: Urine 900 Other: Voiding Method Indwelling Catheter Weight 77.111 kg General:sitting up in bed, no acute distress HEENT: head is normocephalic, atraumatic, conjunctivae normal, bilateral droop ing of eyelids Neck: Supple,trachea midline No adenopathy. Cardiac: Heart regular in rate and rhythm. Systolic murmur. No rubs Mid sternal scarring mid abdominal scarring from bypass surgery, from aneurysm repair surgery Lungs: diminished bibasilar, scattered rhonchi, fine bibasilar crackles, no wh eezing. Abdomen: Soft, nontender, nondistended, No organomegaly. Positive bowel sounds. Extremes: Mild edema, no cyanosis, no clubbing Neurologic: Alert and oriented ;follow simple commands Results CBC & Chem 7: 07/24/19 16:30 07/24/19 16:30 Labs: Abnormal Lab Results - Last 24 Hours (Table) 07/24/19 07/24/19 Range/Units 16:30 16:30 WBC 22.3 H (3.8-10.6) k/uL Hgb 10.6 L (11.4-16.0) gm/dL Hct 32.9 L (34.0-46.0) % MCV 78.2 L (80.0-100.0) fL RDW 16.7 H (11.5-15.5) % Neutrophils # 20.9 H (1.3-7.7) k/uL Lymphocytes # 0.5 L (1.0-4.8) k/uL BUN 79 H (7-17) mg/dL Glucose 220 H (74-99) mg/dL AST 67 H (14-36) U/L ALT 53 H (9-52) U/L Creatine Kinase 20 L (30-135) U/L Chest x-ray: report reviewed (Mild CHF, possible pneumonia) Thrombosis Risk Factor Assmnt - DVT/VTE Prophylaxis DVT/VTE Prophylaxis: Contraindicated - See note (Recent GI bleed, anemia) - Choose All That Apply Any of the Below Risk Factors Present?: Yes Each Factor Represents 1 point: Abnormal pulmonary function (COPD) Each Risk Factor Represents 3 Points: Age 75 years or older Thrombosis Risk Factor Assessment Total Risk Factor Score: 4 Thrombosis Risk Factor Assessment Level: Moderate Risk Assessment and Plan (1) Aspiration pneumonia Current Visit: No Status: Acute Priority: High Code(s): J69.0 - PNEUMONI TIS DUE TO INHALATION OF FOOD AND VOMIT SNOMED Code(s): 565227034 (2) Acute exacerbation of chronic obstructive pulmonary disease Current Visit: Yes Status: Acute Code(s): J44.1 - CHRONIC OBSTRUCTIVE PULMONARY DISEASE W (ACUTE) EXACERBATION SNOMED Code(s): 933453618 (3) Atrial fib/flutter, transient Current Visit: Yes Status: Acute Code(s): NGG1181 - SNOMED Code(s): 515398216 (4) Oropharyngeal dysphagia Current Visit: Yes Status: Acute Code(s): R13.12 - DYSPHAGIA, OROPHARYNGEAL PHASE SNOMED Code(s): 66224316 (5) Diastolic CHF Current Visit: Yes Status: Acute Code(s): I50.30 - UNSPECIFIED DIASTOLIC (CONGESTIVE) HEART FAILURE SNOMED Code(s): 505532686 (6) Leukocytosis Current Visit: Yes Status: Acute Code(s): D72.829 - ELEVATED WHITE BLOOD CELL COUNT, UNSPECIFIED SNOMED Code(s): 629424642 (7) COPD (chronic obstructive pulmonary disease) Current Visit: No Status: Acute Code(s): J44.9 - CHRONIC OBSTRUCTIVE PULMONARY DISEASE, UNSPECIFIED SNOMED Code(s): 85761234 (8) Chronic respiratory failure with hypoxia Current Visit: No Status: Acute Code(s): J96.11 - CHRONIC RESPIRATORY FAILURE WITH HYPOXIA SNOMED Code(s): 993638769 (9) G tube feedings Current Visit: No Status: Acute Code(s): Z93.1 - GASTROSTOMY STATUS SNOMED Code(s): 119625014 (10) History of CVA (cerebrovascular accident) Current Visit: No Status: Acute Code(s): Z86.73 - PRSNL HX OF TIA (TIA), AND CEREB INFRC W/O RESID DEFICITS SNOMED Code(s): 834843530 (11) O2 dependent Current Visit: No Status: Acute Code(s): Z99.81 - DEPENDENCE ON SUPPLEMENTAL OXYGEN SNOMED Code(s): 519255106964 (12) Presence of externally removable percutaneous endoscopic gastrostomy (PEG) tube Current Visit: No Status: Acute Code(s): Z93.1 - GASTROSTOMY STATUS SNOMED Code(s): 471549999 Plan: Consult pulmonology, RD consult for use of PEG tube, Neck consult cardiology regarding congestive heart failure, Continue Rocephin at IV Flagyl for aspiration pneumonia coverage. PT/OT to reevaluate. Social work to discuss the family how much she is actually eating at home versus using her PEG tube. Repeat labs in a.m. She'll be reevaluated next 24 hours.
[2019-07-25] MEDS ORDERED: FUROSEMIDE 20 MG TAB PO SCH (12:30)
[2019-07-25] MEDS ORDERED: LEVOFLOXACIN 750MG-D5W PMX 750 MG in DEXTROSE/WATER 1 150ML.BAG IVPB SCH ×2 (13:00→19:00)
[2019-07-25 14:14] VITALS: BMI 24.3
--- NOTE | 2019-07-25 14:20 | P.CRDCN ---
History of Present Illness Consult date: 07/25/19 History of present illness: This is a pleasant 84-year-old female patient who was somewhat a poor historian as well as does have significant slurred speech related to recent stroke was admitted to the hospital because of shortness of breath associated with cough. The patient suffered recently from a stroke with consequences severe dysphagia. Beside that the patient does have coronary artery disease and she underwent CABG in the past at [facility] as well as known history of chronic obstructive pulmonary disease. She is somewhat poor historian. She was admitted to the hospital mainly because of shortness of breath and cough. The initial diagnosis was possible aspiration pneumonia but the chest x-ray showed findings consistent was congestive heart failure. The patient denies having any symptoms of chest pain or chest discomfort. She stated that the shortness of breath is slightly better. Denies any dizziness or lightheadedness, heart raci ng or fluttering. The EKG showed sinus rhythm with LBBB. The first set of troponin came in to be normal. The initial chest x-ray showed possible aspiration pneumonia. The chest x-ray today what was repeated and showed improvement. Currently the patient on Lasix by mouth. Otherwise she doesn't look in any overt congestive heart failure when she was seen and evaluated this morning. She underwent an echocardiogram earlier this year and that revealed impaired LV function with EF between 35-40% with evidence of moderate MR, moderate TR, and moderate pulmonary hypertension. Past Medical History Past Medical History: Atrial Fibrillation, Blood Disorder (Anemia), COPD (Oxygen dependent), CVA/TIA, GI Bleed, Hypertension, Neurologic Disorder (Dysphagia), Sleep Apnea/CPAP/BIPAP, Thyroid Disorder (Thyroidism) Additional Past Medical History / Comment(s): Chronic indwelling Olsen, chronic diastolic congestive heart failure History of Any Multi-Drug Resistant Organisms: None Reported Past Surgical History: Cholecystectomy, Coronary Bypass/CABG, Hysterectomy Additional Past Surgical History / Comment(s): aortic aneurysm repair, PEG tube placement Past Anesthesia/Blood Transfusion Reactions: No Reported Reaction Past Psychological History: No Psychological Hx Reported Smoking Status: Former smoker Past Alcohol Use History: None Reported Past Drug Use History: None Reported - Past Family History Father Family Medical History: Coronary Artery Disease (CAD), Thyroid Disorder Medications and Allergies Home Medications Medication Instructions Recorded Confirmed Type Carboxymethylcellulose Sodium 1 drop BOTH EYES DAILY 03/18/19 07/24/19 History [Refresh Tears] Furosemide [Lasix] 40 mg PEG/G-TUBE DAILY@0600 03/18/19 07/24/19 History Acetaminophen [Tylenol Arthritis] 1,300 mg PEG/G-TUBE DAILY@0600 07/24/19 07/24/19 History Acetaminophen [Tylenol Arthritis] 650 mg PEG/G-TUBE Q8H PRN 07/24/19 07/24/19 H istory Artificial Tears-Hypromellose 1 drop BOTH EYES TID PRN 07/24/19 07/24/19 History [Artificial Tear Drops] Atorvastatin [Lipitor] 40 mg PEG/G-TUBE HS@2200 07/24/19 07/24/19 History Ipratropium-Albuterol Nebulize 3 ml INHALATION RT-QID PRN 07/24/19 07/24/19 History [Duoneb 0.5 mg-3 mg/3 ml Soln] Levothyroxine Sodium 125 mcg PEG/G-TUBE DAILY@0600 07/24/19 07/24/19 History Lidocaine 5% Patch [Lidoderm] 1 patch TRANSDERM DAILY PRN 07/24/19 07/24/19 History Metoprolol Tartrate [Lopressor] 50 mg PEG/G-TUBE DAILY@0600 07/24/19 07/24/19 History Mometasone/Formoterol [Dulera 100 2 puff INHALATION RT-BID 07/24/19 07/24/19 History Mcg/5 Mcg Inhaler] Polyethylene Glycol 3350 [Miralax] 17 gm PEG/G-TUBE DAILY PRN 07/24/19 07/24/19 History Protonix Packet 40mg 40 mg PEG/G-TUBE DAILY@0800 07/24/19 07/24/19 History Sertraline [Zoloft] 100 mg PEG/G-TUBE DAILY@0600 07/24/19 07/24/19 History Tamsulosin [Flomax] 0.4 mg PEG/G-TUBE HS@2200 07/24/19 07/24/19 History amLODIPine [Norvasc] 5 mg PEG/G-TUBE DAILY@0600 07/24/19 07/24/19 History hydrALAZINE HCL [Apresoline] 25 mg PEG/G-TUBE BID@0800,1700 07/24/19 07/24/19 History Allergies Allergy/AdvReac Type Severity Reaction Status Date / Time Penicillins Allergy Swelling Verified 07/24/19 16:31 Physical Exam Vitals: Vital Signs Temp Pulse Pulse Resp BP BP Pulse Ox 07/25/19 12:18 82 07/25/19 12:15 97.7 F 63 16 116/66 99 07/25/19 12:06 80 07/25/19 11:04 80 134/73 07/25/19 08:18 80 07/25/19 08:07 80 07/25/19 05:26 98.3 F 78 18 102/60 97 07/25/19 00:00 18 07/24/19 21:22 98.1 F 96 18 116/65 93 L 07/24/19 20:16 88 07/24/19 20:11 88 07/24/19 18:00 100.9 F H 87 20 126/78 92 L 07/24/19 17:37 22 07/24/19 16:27 100.8 F H 93 22 134/64 93 L Intake and Output 07/24/19 07/25/19 07/25/19 22:59 06:59 14:59 Intake Total 770 Output Total 900 Balance 770 -900 Intake: Amount of Fluid Infused ( 300 ml) Intake, IV Titration 450 Amount Azithromycin 500 mg In 250 Sodium Chloride 0.9% 250 ml @ 250 mls/hr IVPB ONCE STA Rx#:[id number] Sodium Chloride 0.9% 1, 200 000 ml @ 100 mls/hr IV . Q10H STA Rx#:[id number] Oral 0 Other 20 Output: Urine 900 Other: Voiding Method Indwelling Catheter Indwelling Catheter Weight 77.111 kg 77.111 kg - Constitutional General appearance: no acute distress - Respiratory Respiratory: bilateral: rhonchi - Cardiovascular Rhythm: regular Heart sounds: normal: S1, S2 Abnormal Heart Sounds: systolic murmur Results 07/24/19 16:30 07/24/19 16:30 Cardiac Enzymes 07/24/19 07/24/19 Range/Units 16:30 16:30 AST 67 H (14-36) U/L Troponin I <0.012 (0.000-0.034) ng/mL Coagulation 07/24/19 Range/Units 16:30 PT 10.2 (9.0-12.0) sec APTT 23.4 (22.0-30.0) sec CBC 07/24/19 Range/Units 16:30 WBC 22.3 H (3.8-10.6) k/uL RBC 4.20 (3.80-5.40) m/uL Hgb 10.6 L (11.4-16.0) gm/dL Hct 32.9 L (34.0-46.0) % Plt Count 284 (150-450) k/uL Comprehensive Metabolic Panel 07/24/19 Range/Units 16:30 Sodium 138 (137-145) mmol/L Potassium 3.9 (3.5-5.1) mmol/L Chloride 99 (98-107) mmol/L Carbon Dioxide 26 (22-30) mmol/L BUN 79 H (7-17) mg/dL Creatinine 0.88 (0.52-1.04) mg/dL Glucose 220 H (74-99) mg/dL Calcium 9.9 (8.4-10.2) mg/dL AST 67 H (14-36) U/L ALT 53 H (9-52) U/L Alkaline Phosphatase 101 (38-126) U/L Total Protein 7.6 (6.3-8.2) g/dL Albumin 4.1 (3.5-5.0) g/dL Current Medications Generic Name Dose Route Start Last Admin Trade Name Freq PRN Reason Stop Dose Admin Acetaminophen 650 mg 07/24/19 17:39 Tylenol Tab PEG/G-TUBE Q6HR PRN Mild Pain or Fever > 100.5 Albuterol/Ipratropium 3 ml 07/24/19 19:11 Duoneb 0.5 Mg-3 Mg/3 Ml Soln INHALATION RT-Q2H PRN Shortness Of Breath Or Wheezing Albuterol/Ipratropium 3 ml 07/24/19 20:00 07/25/19 12:06 Duoneb 0.5 Mg-3 Mg/3 Ml Soln INHALATION 3 ml RT-QID NO Administration Amlodipine Besylate 5 mg 07/25/19 09:00 07/25/19 10:31 Norvasc PEG/G-TUBE 5 mg DAILY NO Administration Artificial Tears 1 drops 07/24/19 17:39 Artificial Tear Drops BOTH EYES DAILY PRN Dry Eye(s) Atorvastatin Calcium 40 mg 07/24/19 21:00 07/24/19 21:32 Lipitor PEG/G-TUBE 40 mg HS NO Administration Budesonide/Formoterol Fumarate 2 puff 07/24/19 20:00 07/25/19 08:07 Symbicort 80-4.5 Mcg Inhaler INHALATION Not Given RT-BID NO Furosemide 40 mg 07/26/19 08:00 Lasix PEG/G-TUBE Q24H NO Furosemide 20 mg 07/25/19 12:45 Lasix PEG/G-TUBE DAILY@1200 NO Hydralazine HCl 25 mg 07/24/19 21:00 07/25/19 10:31 Apresoline PEG/G-TUBE 25 mg BID NO Administration Metronidazole 500 mg/ IV 100 mls @ 100 mls/hr 07/25/19 12:15 Solution IVPB Q6HR NO Levofloxacin 750 mg/ IV 150 mls @ 100 mls/hr 07/25/19 13:00 Solution IVPB Q24H NO Cefepime HCl 1 gm/ Sodium 50 mls @ 100 mls/hr 07/25/19 14:00 Chloride IVPB Q12HR@0000,1200 NO Levothyroxine Sodium 125 mcg 07/25/19 06:30 07/25/19 05:59 Synthroid PEG/G-TUBE 125 mcg DAILY@0630 NO Administration Lidocaine 1 patch 07/25/19 09:00 07/25/19 10:31 Lidoderm TOPICAL Not Given DAILY NO Metoprolol Tartrate 75 mg 07/24/19 21:00 07/25/19 10:52 Lopressor PEG/G-TUBE 75 mg BID NO Administration Miscellaneous Information 1 each 07/24/19 17:37 Pneumonia Protocol Utilized PO ONCE PRN Per Protocol Pantoprazole Sodium 40 mg 07/25/19 07:30 07/25/19 10:30 Protonix PEG/G-TUBE 40 mg [id number]-[id number] NO Administration Polyethylene Glycol 17 gm 07/24/19 21:00 Miralax PEG/G-TUBE DAILY PRN CONSTIPATION Sertraline HCl 100 mg 07/25/19 09:00 07/25/19 10:34 Zoloft PEG/G-TUBE 100 mg DAILY NO Administration Intake and Output 07/24/19 07/25/19 07/25/19 22:59 06:59 14:59 Intake Total 770 Output Total 900 Balance 770 -900 Intake: Amount of Fluid Infused ( 300 ml) Intake, IV Titration 450 Amount Azithromycin 500 mg In 250 Sodium Chloride 0.9% 250 ml @ 250 mls/hr IVPB ONCE STA Rx#:[id number] Sodium Chloride 0.9% 1, 200 000 ml @ 100 mls/hr IV . Q10H STA Rx#:[id number] Oral 0 Other 20 Output: Urine 900 Other: Voiding Method Indwelling Catheter Indwelling Catheter Weight 77.111 kg 77.111 kg Patient Weight 07/26/19 06:59 Weight 77.111 kg 07/24/19 16:30 07/24/19 16:30 Assessment and Plan Assessment: Assessment #1 history of stroke #2 possible aspiration pneumonia #3 mild congestive heart failure exacerbation secondary to systolic dysfunction #4 valvular heart disease with mitral and tricuspid regurgitation #5 coronary artery disease and prior revascularization #6 multiple comorbid conditions Plan #1 continue the current dose of Lasix by mouth #2 continue monitor the kidney function and electrolytes #3 no need to repeat the echo in view of recent echo showing impaired LV functio n #4 follow-up with the patient Thank you for allowing us participate in the care of the patient
[2019-07-25] MEDS: metroNIDAZOLE-NS PMX 500 MG in SALINE 1 100ML.BAG IVPB SCH ×2 (14:22→18:16)
--- NOTE | 2019-07-25 15:20 | P.CNPUL ---
History of Present Illness Consult date: 07/25/19 Reason for consult: dyspnea, pneumonia History of present illness: 84-year-old female patient presented to the hospital because of worsening shor tness of breath. She has had previous history of CVA and chronic oropharyngeal dysphagia and currently she has a PEG tube in place and the patient is receiving enteral feeding for nutritional support. The patient has suffered a stroke with secondary dysphagia. The patient is known to me from previous hospitalizations. She has had previous history of coronary artery disease with previous bypass surgery, COPD and the patient is oxygen dependent in addition to hypertension, hypothyroidism, and she has no aortic aneurysm that has been repaired surgically, along with history of hypertension and hyperlipidemia and previous history of atrial fibrillation. The patient has had also previous history of intubation mechanical ventilation and hypoxic respiratory failure related to pneumonia. For now, the patient is having GERD congested cough. Unable to bring up much sputum. Her white cell count is up to 22. She has a dense consolidation of the right lower lobe consistent with pneumonia. The patient is a mild degree of respiratory distress. Her echocardiogram at shown a LV dysfunction with an ejection fraction of 35-40% along with moderate MR, moderate TR, moderate degree of pulmonary hypertension. I saw her in consultation and also broaden antibiotic coverage to include a combination of cefepime and Levaquin. She is penicillin ALLERGIC. Review of Systems Constitutional: Reports fatigue, Reports poor appetite, Reports weakness Eyes: denies as per HPI, denies blurred vision, denies bulging eye, denies decreased vision Ears: deny: decreased hearing, ear discharge, earache, tinnitus Ears, nose, mouth and throat: Reports dysphagia Breasts: absent: as per HPI, change in shape, gynecomastia, masses, nipple discharge, pain, skin changes, swelling Cardiovascular: Reports decreased exercise tolerance, Reports dyspnea on exertion Respiratory: Reports cough, Reports dyspnea, Reports respiratory infections Gastrointestinal: Reports as per HPI Genitourinary: Reports as per HPI Menstruation: Reports as per HPI Musculoskeletal: Reports as per HPI Musculoskeletal: absent: ankle pain, ankle stiffness, ankle swelling Integumentary: Reports as per HPI Neurological: Reports gait dysfunction, Reports motor disturbance, Reports weakness Psychiatric: Reports as per HPI Endocrine: Reports as per HPI, Reports fatigue Hematologic/Lymphatic: Reports as per HPI Allergic/Immunologic: Reports as per HPI Past Medical History Past Medical History: Atrial Fibrillation, Blood Disorder (Anemia), COPD (Oxygen dependent), CVA/TIA, GI Bleed, Hypertension, Neurologic Disorder (Dysphagia), Sleep Apnea/CPAP/BIPAP, Thyroid Disorder (Thyroidism) Additional Past Medical History / Comment(s): Coronary artery disease with previous bypass surgery, COPD, CHF with EF of around 35% with moderate MR, moderate TR, moderate pulmonary hypertension, history of CVA, oropharyngeal dysphagia currently has a PEG tube in place, chronic hypoxic respiratory failure on oxygen related to COPD, chronic anemia, hypertension, hyperlipidemia, hypothyroidism, chronic indwelling Olsen catheter, history of severe obstructive sleep apnea currently not utilizing any form of CPAP therapy an AHI of been more than 50. Previous history of ventilator dependent respiratory failure secondary to pneumonia. History of Any Multi-Drug Resistant Organisms: None Reported Past Surgical History: Cholecystectomy, Coronary Bypass/CABG, Hysterectomy Additional Past Surgical History / Comment(s): aortic aneurysm repair, PEG tube placement Past Anesthesia/Blood Transfusion Reactions: No Reported Reaction Past Psychological History: No Psychological Hx Reported Smoking Status: Former smoker Past Alcohol Use History: None Reported Past Drug Use History: None Reported - Past Family History Father Family Medical History: Coronary Artery Disease (CAD), Thyroid Disorder Medications and Allergies Home Medications Medication Instructions Recorded Confirmed Type Carboxymethylcellulose Sodium 1 drop BOTH EYES DAILY 03/18/19 07/24/19 History [Refresh Tears] Furosemide [Lasix] 40 mg PEG/G-TUBE DAILY@0600 03/18/19 07/24/19 History Acetaminophen [Tylenol Arthritis] 1,300 mg PEG/G-TUBE DAILY@0600 07/24/19 07/24/19 History Acetaminophen [Tylenol Arthritis] 650 mg PEG/G-TUBE Q8H PRN 07/24/19 07/24/19 History Artificial Tears-Hypromellose 1 drop BOTH EYES TID PRN 07/24/19 07/24/19 History [Artificial Tear Drops] Atorvastatin [Lipitor] 40 mg PEG/G-TUBE HS@2200 07/24/19 07/24/19 History Ipratropium-Albuterol Nebulize 3 ml INHALATION RT-QID PRN 07/24/19 07/24/19 History [Duoneb 0.5 mg-3 mg/3 ml Soln] Levothyroxine Sodium 125 mcg PEG/G-TUBE DAILY@0600 07/24/19 07/24/19 History Lidocaine 5% Patch [Lidoderm] 1 patch TRANSDERM DAILY PRN 07/24/19 07/24/19 Hist ory Metoprolol Tartrate [Lopressor] 50 mg PEG/G-TUBE DAILY@0600 07/24/19 07/24/19 History Mometasone/Formoterol [Dulera 100 2 puff INHALATION RT-BID 07/24/19 07/24/19 History Mcg/5 Mcg Inhaler] Polyethylene Glycol 3350 [Miralax] 17 gm PEG/G-TUBE DAILY PRN 07/24/19 07/24/19 History Protonix Packet 40mg 40 mg PEG/G-TUBE DAILY@0800 07/24/19 07/24/19 History Sertraline [Zoloft] 100 mg PEG/G-TUBE DAILY@0600 07/24/19 07/24/19 History Tamsulosin [Flomax] 0.4 mg PEG/G-TUBE HS@2200 07/24/19 07/24/19 History amLODIPine [Norvasc] 5 mg PEG/G-TUBE DAILY@0600 07/24/19 07/24/19 History hydrALAZINE HCL [Apresoline] 25 mg PEG/G-TUBE BID@0800,1700 07/24/19 07/24/19 History Allergies Allergy/AdvReac Type Severity Reaction Status Date / Time Penicillins Allergy Swelling Verified 07/24/19 16:31 Physical Exam Vitals: Vital Signs Temp Pulse Pulse Resp BP BP Pulse Ox 07/25/19 12:18 82 07/25/19 12:15 97.7 F 63 16 116/66 99 07/25/19 12:06 80 07/25/19 11:04 80 134/73 07/25/19 08:18 80 07/25/19 08:07 80 07/25/19 05:26 98.3 F 78 18 102/60 97 07/25/19 00:00 18 07/24/19 21:22 98.1 F 96 18 116/65 93 L 07/24/19 20:16 88 07/24/19 20:11 88 07/24/19 18:00 100.9 F H 87 20 126/78 92 L 07/24/19 17:37 22 07/24/19 16:27 100.8 F H 93 22 134/64 93 L Intake and Output 07/25/19 07/25/19 07/25/19 06:59 14:59 22:59 Output Total 900 Balance -900 Output: Urine 900 Other: Voiding Method Indwelling Catheter Indwelling Catheter Weight 77.111 kg Gen. appearance, comfortable nonacute distress. Her voice is muffled speech is able to communicate. Head exam was generally normal. There was no scleral icterus or corneal arcus. Mucous membranes were moist. Neck was supple and without jugular venous distension, thyromegaly, or carotid bruits. Carotids were easily palpable bilaterally. There was no adenopathy. Oral mucosa is dry and the patient has a candidate for secretions within the oropharyngeal area and she has dentures. Lungs sounds are diminished special lung bases and there is also some right basilar crackles. Scattered rhonchi. Scattered expiratory wheeze. Cardiac exam revealed the PMI to be normally situated and sized. The rhythm was regular and no extrasystoles were noted during several minutes of auscultation. The first and second heart sounds were normal and physiologic splitting of the second heart sound was noted. There were no murmurs, rubs, clicks, or gallops. Abdominal exam revealed normal bowel sounds. The abdomen was soft, non-tender, and without masses, organomegaly, or appreciable enlargement of the abdominal aorta. The patient has a PEG tube in place. Exit site is clean. Examination of the extremities revealed easily palpable radial, femoral and pedal pulses. There was no cyanosis, clubbing or edema. Examination of the skin revealed no evidence of significant rashes, suspicious appearing nevi or other concerning lesions. Neurologically the patient is awake and alert and she is following commands. She has motor weakness in all 4 extremities and she has difficulty with mobility and gait. Results - Laboratory Findings CBC and BMP: 07/24/19 16:30 07/24/19 16:30 PT/INR, D-dimer PT 10.2 sec (9.0-12.0) 07/24/19 16:30 INR 0.9 (<1.2) 07/24/19 16:30 Abnormal lab findings: Abnormal Labs 07/24/19 07/24/19 16:30 16:30 WBC 22.3 H Hgb 10.6 L Hct 32.9 L MCV 78.2 L RDW 16.7 H Neutrophils # 20.9 H Lymphocytes # 0.5 L BUN 79 H Glucose 220 H AST 67 H ALT 53 H Creatine Kinase 20 L - Diagnostic Findings Chest x-ray: image reviewed Assessment and Plan Plan: 1 right lower lobe pneumonia with extensive constellation of the right lung base. Consider aspiration pneumonia. Consider healthcare sedated pneumonia 2 acute hypoxic respiratory failure secondary to above, on top of chronic hypoxic respiratory failure in patient is on 4 L of oxygen by nasal cannula 3 previous history of CVA with oropharyngeal dysphagia and the patient has PEG tube feeding for enteral feeding and nutritional support 4 COPD with chronic hypoxic history failure 5 coronary artery disease appears bypass surgery 6 CHF with EF around 35% with moderate MR, moderate TR and secondary pulmonary hypertension 7 hypertension 8 hyperlipidemia 9 hypothyroidism 10 previous history of of aortic aneurysm that has been repaired surgically 11 paroxysmal atrial fibrillation current rhythm is sinus with left bundle branch block pattern and premature ventricular beats. The patient has been on long-term and to coagulation with Eliquis 12 previous history of ventilator dependent respiratory failure related to pneumonia 13 acute leukocytosis secondary to above Plan Obtain sputum Gram stain and culture. We'll do the antibiotic coverage the news a combination of Zosyn and Levaquin and Flagyl . Continue DuoNeb about treatments around the clock. Discontinue the Symbicort and put the patient on Perforomist and Pulmicort updrafts twice a day.Aspiration precautions. Continue enteral feeding for nutritional support. Establish a CODE STATUS. We'll continue to follow.
[2019-07-25] MEDS: CEFEPIME 1 GM in SODIUM CHLORIDE 0.9% 50 ML IVPB SCH (16:56)
[2019-07-25] MEDS: FUROSEMIDE 20 MG TAB PEG/G-TUBE SCH (17:00)
[2019-07-25] MEDS ORDERED: AZITHROMYCIN 500 MG TAB PEG/G-TUBE SCH (18:00)
[2019-07-25] MEDS: ATORVASTATIN 40 MG TAB PEG/G-TUBE SCH (21:58)
[2019-07-26 00:04] LABS: Hemoglobin A1C 5.2 % (4.0-6.0)
[2019-07-26] MEDS: CEFEPIME 1 GM in SODIUM CHLORIDE 0.9% 50 ML IVPB SCH ×2 (00:13→13:04)
[2019-07-26] MEDS: metroNIDAZOLE-NS PMX 500 MG in SALINE 1 100ML.BAG IVPB SCH ×3 (00:57→13:05)
[2019-07-26] MEDS: LEVOTHYROXINE 125 MCG TAB PEG/G-TUBE SCH (06:20)
[2019-07-26 07:41] LABS: Glucose,Whole Blood 153 mg/dL (75-99)
[2019-07-26 07:45] LABS: Albumin 3.3 g/dL (3.5-5.0); Magnesium 2.2 mg/dL (1.6-2.3); Potassium 3.9 mmol/L (3.5-5.1); Total Bilirubin 0.6 mg/dL (0.2-1.3); Total Protein 6.5 g/dL (6.3-8.2)
[2019-07-26] MEDS ORDERED: FUROSEMIDE 40 MG TAB PEG/G-TUBE SCH (08:00)
[2019-07-26] MEDS: SYMBICORT 80-4.5 MCG INHALER INHALATION SCH ×2 (08:09→19:38)
[2019-07-26] MEDS: IPRATROPIUM-ALBUTEROL 3 ML NEB INHALATION SCH ×4 (08:09→19:39)
[2019-07-26] MEDS: hydrALAZINE HCL 25 MG TAB PEG/G-TUBE SCH (09:24)
[2019-07-26] MEDS: PANTOPRAZOLE SODIUM 40 MG GRANULE PKT PEG/G-TUBE SCH (09:24)
[2019-07-26] MEDS: METOPROLOL TARTRATE 25 MG TAB PEG/G-TUBE SCH (09:24)
[2019-07-26] MEDS: SERTRALINE 50 MG TAB PEG/G-TUBE SCH (09:24)
[2019-07-26] MEDS: amLODIPine 5 MG TAB PEG/G-TUBE SCH (09:24)
[2019-07-26] MEDS: LIDOCAINE 5% PATCH TOPICAL SCH (09:25)
[2019-07-26] MEDS ORDERED: CHLORHEXIDINE GLUCONATE 15 ML CUP MUCOUS MEM ONE (10:30)
[2019-07-26 10:31] LABS: Glucose,Whole Blood 189 mg/dL (75-99)
[2019-07-26 10:42] LABS: Anisocytosis Slight; Basophils % (A) 0 %; Eosinophils % (A) 0 %; HCT 28.3 % (34.0-46.0); Hypochromasia Slight; Lymphocytes # (A) 0.7 k/uL (1.0-4.8); Lymphocytes % (A) 6 %; MCH 25.3 pg (25.0-35.0); MCHC 31.3 g/dL (31.0-37.0); Mean Platelet Volume 7.3; Microcytosis Slight; Monocytes # (A) 0.9 k/uL (0-1.0); Monocytes % (A) 8 %; Neutrophils # (A) 9.5 k/uL (1.3-7.7); Neutrophils % (A) 85 %; Platelet Count 246 k/uL (150-450); RBC 3.49 m/uL (3.80-5.40); RDW 17.6 % (11.5-15.5); WBC 11.2 k/uL (3.8-10.6)
[2019-07-26 10:48] LABS: HGB 8.8 gm/dL (11.4-16.0)
[2019-07-26 11:13] LABS: Glucose,Whole Blood 227 mg/dL (75-99)
[2019-07-26] MEDS ORDERED: NALOXONE 0.4 MG/ML 1 ML VIAL IV PRN (11:21)
[2019-07-26 11:37] LABS: ABG HCO3 20 mmol/L (21-25); ABG PCO2 35 mmHg (35-45); ABG PH 7.36 (7.35-7.45); ABG PO2 122 mmHg (83-108); ABG TCO2 21 mmol/L (19-24); Allen Test Performed? Yes
[2019-07-26 11:39] LABS: ABG Oxygen Saturation >100.0 % (94-97)
--- NOTE | 2019-07-26 12:00 | XR ---
EXAMINATION TYPE: XR chest 1V portable DATE OF EXAM: 07/26/2019 CLINICAL HISTORY: Difficulty breathing had to be intubated. TECHNIQUE: Single AP portable semiupright view of the chest is obtained. COMPARISON: Chest x-ray from one day earlier and older studies. FINDINGS: New endotracheal tube ends at inferior aortic knob suspected roughly 3 cm above the radha, consider pulling back 2 to 3 cm. There is new orogastric tube projecting below diaphragm. 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 Overlying sternal wires redemonstrated. Cardiomegaly with atherosclerotic and ectatic aortic knob red emonstrated. Reticulonodular interstitial changes bilaterally remain present with new opacities great er on the right side. No large pleural effusion or pneumothorax. Cloudy density left shoulder level a gain seen presumed soft tissue calcification. IMPRESSION: 1. New endotracheal and orogastric tubes satisfactory in position, consider pulling back endotracheal tube 2 to 3 cm to be in more ideal position. 2. There is new alveolar and interstitial edema and/or infiltrates more prominent in the right lung o n background chronic parenchyma change and cardiomegaly.
[2019-07-26 12:02] LABS: Anisocytosis Slight; Basophils % (A) 0 %; Eosinophils # (A) 0.1 k/uL (0-0.7); Eosinophils % (A) 0 %; HCT 31.8 % (34.0-46.0); HGB 9.5 gm/dL (11.4-16.0); Hypochromasia Moderate; Lymphocytes # (A) 0.8 k/uL (1.0-4.8); Lymphocytes % (A) 4 %; MCH 24.5 pg (25.0-35.0); MCHC 29.8 g/dL (31.0-37.0); MCV 82.3 fL (80.0-100.0); Mean Platelet Volume 6.8; Monocytes # (A) 0.7 k/uL (0-1.0); Monocytes % (A) 3 %; Neutrophils % (A) 93 %; Platelet Count 272 k/uL (150-450); RBC 3.87 m/uL (3.80-5.40); RDW 17.5 % (11.5-15.5); WBC 22.7 k/uL (3.8-10.6)
[2019-07-26 12:11] LABS: Albumin 3.1 g/dL (3.5-5.0); Calcium 9.5 mg/dL (8.4-10.2); Magnesium 2.2 mg/dL (1.6-2.3); Phosphorus 6.1 mg/dL (2.5-4.5); Total Bilirubin 0.7 mg/dL (0.2-1.3); Total Protein 6.4 g/dL (6.3-8.2)
--- NOTE | 2019-07-26 12:27 | P.PN ---
Subjective Progress Note Date: 07/26/19 84-year-old female patient presented to the hospital because of worsening shortness of breath. She has had previous history of CVA and chronic oropharyngeal dysphagia and currently she has a PEG tube in place and the patient is receiving enteral feeding for nutritional support. The patient has suffered a stroke with secondary dysphagia. The patient is known to me from previous hospitalizations. She has had previous history of coronary artery disease with previous bypass surgery, COPD and the patient is oxygen dependent in addition to hypertension, hypothyroidism, and she has no aortic aneurysm that has been repaired surgically, along with history of hypertension and hyperlipidemia and previous history of atrial fibrillation. The patient has had also previous history of intubation mechanical ventilation and hypoxic respiratory failure related to pneumonia. For now, the patient is having GERD congested cough. Unable to bring up much sputum. Her white cell count is up to 22. She has a dense consolidation of the right lower lobe consistent with pneumonia. The patient is a mild degree of respiratory distress. Her echocardiogram at shown a LV dysfunction with an ejection fraction of 35-40% along with moderate MR, moderate TR, moderate degree of pulmonary hypertension. I saw her in consultation and also broaden antibiotic coverage to include a combination of cefepime and Levaquin. She is penicillin ALLERGIC. On 07/26/2019 the patient is being seen in the intensive care unit following an acute respiratory/cardiac arrest. The patient was seen yesterday in consultation she was doing poorly. I told that she had a significant aspiration pneumonia of the right lung. I had her on a combination of cefepime and Levaquin as broad-spectrum antibiotic coverage. This morning at around 10:20 AM the patient was found to be unresponsive. CPR was initiated at 10:23 AM after a CODE BLUE was called. The patient was found to be pulseless and PEA and later on asystole. She received rounds of epinephrine no shocks and CPR. There was a return of spontaneous circulation at 10:37 AM. She was intubated during the process. Copious amount of material was aspirated and suctioned from the mouth and later on from the ET tube post intubation. Currently she is intubated on a mechanical ventilator. No sedation. She is asynchronous with a mechanical ventilator. She has a rate of 12 with a tidal volume of 450 and FiO2 of 100% and a PEEP of 5. The peak airway pressures around 25. The blood gas showed a pH of 7.35 with a pCO2 of 35 and pO2 of 122. The chest x-ray showed diffuse bilateral pulmonary infiltrates more so on the right. The patient had consolidation of the right lung bases addition to nausea and alert and granular infiltrates throughout the lung trevino bilaterally more so on the right. Tube feeds are currently on hold and the stomach has been suctioned out. He is on no pressors. She is on IV fluids at 50 mL an hour. She is having equal and symmetrical pulses in all 4 extremities. Her cardiac rhythm is atrial fibrillation the patient has a bundle-branch block pattern. Family is contemplating comfort care measures as the patient was supposed to be a DNR/DNI CODE STATUS and this was not in the computer. I did raise this issue yesterday with the nursing staff. Objective - Vital Signs Vital signs: Vital Signs Temp 97.9 F 07/25/19 23:00 Pulse 77 07/26/19 04:34 Resp 18 07/26/19 04:34 BP 131/60 07/26/19 04:34 Pulse Ox 97 07/26/19 04:34 Intake & Output 07/25/19 07/26/19 07/26/19 18:59 06:59 18:59 Intake Total 60 970 180 Output Total 1100 Balance 60 -130 180 Weight 72.4 kg 72 kg Intake: Intake, IV Titration 250 Amount Levofloxacin 750Mg-D5w 150 Pmx 750 mg In Dextrose/ Water 1 150ml.bag @ 100 mls/hr IVPB Q24H NO Rx#: [id number] metroNIDAZOLE-NS PMX 500 100 mg In Saline 1 100ml.bag @ 100 mls/hr IVPB Q6HR [facility] Rx#:[id number] Tube Feeding 60 720 180 Output: Urine 1100 Other: Voiding Method Indwelling Catheter Indwelling Catheter Indwelling Catheter - Exam Gen. appearance she is calm and comfortable somewhat thinkers with the mechanical ventilator. No agitation. She is on no sedation for now. Intubated on a mechanical ventilator. Head exam was generally normal. There was no scleral icterus or corneal arcus. Mucous membranes were moist. Neck was supple and without jugular venous distension, thyromegaly, or carotid bruits. Carotids were easily palpable bilaterally. There was no adenopathy. The patient has a orogastric and orotracheal tube are both in place. Lungs show diffuse rhonchi heard throughout the lung bases bilaterally. Breath sounds are somewhat symmetrical. There is diffuse EXPIRATORY WHEEZES. Cardiac exam revealed the PMI to be normally situated and sized. The rhythm was regular and no extrasystoles were noted during several minutes of auscultation. The first and second heart sounds were normal and physiologic splitting of the second heart sound was noted. There were no murmurs, rubs, clicks, or gallops. Abdominal exam revealed normal bowel sounds. The abdomen was soft, non-tender, and without masses, organomegaly, or appreciable enlargement of the abdominal aorta. The patient has a PEG tube in place. Extremities show no cyanosis or clubbing. Neurologically she is unresponsive. Upon delivering painful stimulation, she would go into the cerebral posterior. No corneal. Pupils are 3 mm in size and somewhat very sluggishly responsive to light. She has roving eye movements and occasional nystagmus. No facial asymmetry. No cough or gag. Reflexes are diminished in all 4 extremities. No Babinski. No clonus. She is completely unresponsive. - Labs CBC & Chem 7: 07/26/19 11:37 07/26/19 07:03 Labs: Abnormal Lab Results - Last 24 Hours (Table) 07/26/19 07/26/19 07/26/19 Range/Units 07:03 07:03 07:40 WBC 11.2 H (3.8-10.6) k/uL RBC 3.49 L (3.80-5.40) m/uL Hgb 8.8 L D (11.4-16.0) gm/dL Hct 28.3 L (34.0-46.0) % MCH (25.0-35.0) pg MCHC (31.0-37.0) g/dL RDW 17.6 H (11.5-15.5) % Neutrophils # 9.5 H (1.3-7.7) k/uL Lymphocytes # 0.7 L (1.0-4.8) k/uL ABG pO2 (83-108) mmHg ABG HCO3 (21-25) mmol/L ABG O2 Saturation (94-97) % Sodium 148 H (137-145) mmol/L Chloride 112 H (98-107) mmol/L BUN 62 H (7-17) mg/dL Glucose 131 H (74-99) mg/dL POC Glucose (mg/dL) 153 H (75-99) mg/dL Albumin 3.3 L (3.5-5.0) g/dL 07/26/19 07/26/19 07/26/19 Range/Units 10:29 11:11 11:35 WBC (3.8-10.6) k/uL RBC (3.80-5.40) m/uL Hgb (11.4-16.0) gm/dL Hct (34.0-46.0) % MCH (25.0-35.0) pg MCHC (31.0-37.0) g/dL RDW (11.5-15.5) % Neutrophils # (1.3-7.7) k/uL Lymphocytes # (1.0-4.8) k/uL ABG pO2 122 H (83-108) mmHg ABG HCO3 20 L (21-25) mmol/L ABG O2 Saturation >100.0 H (94-97) % Sodium (137-145) mmol/L Chloride (98-107) mmol/L BUN (7-17) mg/dL Glucose (74-99) mg/dL POC Glucose (mg/dL) 189 H 227 H (75-99) mg/dL Albumin (3.5-5.0) g/dL 07/26/19 Range/Units 11:37 WBC 22.7 H (3.8-10.6) k/uL RBC (3.80-5.40) m/uL Hgb 9.5 L (11.4-16.0) gm/dL Hct 31.8 L (34.0-46.0) % MCH 24.5 L (25.0-35.0) pg MCHC 29.8 L (31.0-37.0) g/dL RDW 17.5 H (11.5-15.5) % Neutrophils # 21.0 H (1.3-7.7) k/uL Lymphocytes # 0.8 L (1.0-4.8) k/uL ABG pO2 (83-108) mmHg ABG HCO3 (21-25) mmol/L ABG O2 Saturation (94-97) % Sodium (137-145) mmol/L Chloride (98-107) mmol/L BUN (7-17) mg/dL Glucose (74-99) mg/dL POC Glucose (mg/dL) (75-99) mg/dL Albumin (3.5-5.0) g/dL Microbiology - Last 24 Hours (Table) 07/25/19 13:50 Urine Culture - Preliminary Urine,Catheterized 07/24/19 16:30 Blood Culture - Preliminary Blood No Growth after 24 hours Assessment and Plan Plan: 1 acute cardiopulmonary arrest with a downtime of around 12 minutes. The patient is completely unresponsive and she is showing signs of hypoxic encephalopathy . This cardiopulmonary arrest was mainly respiratory fall by cardiac arrest. I think the patient was aspirating and she developed multilobar pneumonia with subsequent respiratory and then cardiac arrest. She has developed return of spontaneous circulation and current rhythm is atrial fibrillation with a bundle-branch block pattern. 2 multilobar pneumonia more so in the right lower lobe area secondary to aspiration. The patient presented with acute hypoxic respiratory failure is being treated with IV IV antibiotics and subsequently her condition decompensated and she went into cardiopulmonary arrest. She is quite debilitated. She had a weak cough and a gag. She was receiving enteral feeding for nutritional support. She was essentially nothing by mouth. 3 previous history of CVA with oropharyngeal dysphagia and the patient has PEG tube feeding for enteral feeding and nutritional support 4 COPD with chronic hypoxic history failure 5 coronary artery disease appears bypass surgery 6 CHF with EF around 35% with moderate MR, moderate TR and secondary pulmonary hypertension 7 hypertension 8 hyperlipidemia 9 hypothyroidism 10 previous history of of aortic aneurysm that has been repaired surgically 11 paroxysmal atrial fibrillation current rhythm is sinus with left bundle branch block pattern and premature ventricular beats. The patient has been on long-term and to coagulation with Eliquis 12 previous history of ventilator dependent respiratory failure related to pneumonia 13 acute leukocytosis secondary to above Plan Full prognosis. Continue vent support. Continue antibiotics. Hold tube feeds. Unfortunately there are signs of hypoxic encephalopathy. The patient's wishes weren't DNR/DNI. I'm going to have a further meeting with the family and established a CODE STATUS again and proceed with comfort care measures if this is some limited there would like to proceed. I discussed this case with her primary care physician Dr. Guardado. She has multiple comorbidities. She is quite debilitated. Performance and functional status been extremely poor. Her course was further complicated with massive aspiration pneumonia and cardiopulmonary arrest. We'll continue to follow. There is a critically care evaluation that was done and more than 30 minutes. Time with Patient: Greater than 30
--- NOTE | 2019-07-26 12:29 | P.PN ---
Subjective Progress Note Date: 07/26/19 This is an 84-year-old white female well-known to me. She has a history of CVA with significant dysphagia, dysphasia, PEG tube for nutrition, severe COPD and is oxygen dependent. She is brought emergency room via EMS after having cough and shortness of breath yesterday. I had last seen her in the [facility] where she underwent rehabilitation. She was told to be nothing by mouth at that time and receive all nutrition through the PEG tube. She was considering hospice and comfort foods orally with the understanding that she could develop an aspiration pneumonia. She indicates that she been eating food when this started. She denies any recent nausea or vomiting. Denies any chest pains or pressures. She has constant shortness of breath due to her COPD. She seems slightly confused today with my discussions with her. PEG tube is in place but does appear dirty as if it's not been used recently. 07/26/2019: A few moments for my arrival on the floor, the patient began choking. She pushed the call button for the nurse and then proceeded to have cardiac arrest. Staff informed me that 10-15 minutes worth of CPR performed and she was transferred to the intensive care unit. I'd seen in the intensive care unit. She is not sedated. She is intubated. She is unconscious and overbreathing the vent slightly. She is moving well blood gases are being drawn. I discussed her case with her family and with the bank sales and service manager, Dr. Connell. Patient was to be no code due to her deteriorated quality of life, severe COPD, PEG tube, history of CVA with significant dysphagia. Objective - Vital Signs Vital signs: Vital Signs Temp 97.9 F 07/25/19 23:00 Pulse 112 H 07/26/19 12:17 Resp 18 07/26/19 04:34 BP 131/60 07/26/19 04:34 Pulse Ox 97 07/26/19 04:34 Intake & Output 07/25/19 07/26/19 07/26/19 18:59 06:59 18:59 Intake Total 60 970 180 Output Total 1100 Balance 60 -130 180 Weight 72.4 kg 72 kg Intake: Intake, IV Titration 250 Amount Levofloxacin 750Mg-D5w 150 Pmx 750 mg In Dextrose/ Water 1 150ml.bag @ 100 mls/hr IVPB Q24H [facility] Rx#: [id number] metroNIDAZOLE-NS PMX 500 100 mg In Saline 1 100ml.bag @ 100 mls/hr IVPB Q6HR [facility] Rx#:[id number] Tube Feeding 60 720 180 Output: Urine 1100 Other: Voiding Method Indwelling Catheter Indwelling Catheter Indwelling Catheter - Exam General: The patient is unconscious but we'll will drop from pain. She is intubated but not sedated currently. Eyes have been taped shut Neck: The neck is supple, there is no thyromegaly, lymphadenopathy, tenderness or JVD. Cardiovascular: S1S2 is normal, There is a irregular rate and rhythm. No murmur, rub or gallop is appreciated. Respiratory: Lungs are coarse with significantly poor air exchange. She is mechanically ventilated. PEEP of 5 Gastrointestinal: Soft, non-distended, abdomen without masses or organomegaly noted. There is no rebound or guarding present. Bowel sounds are unremarkable. Musculoskeletal:There is no calf tenderness or swelling. No cords were appreciated. Neurological: Intubated but not sedated, she remains unconscious Skin: Skin is warm and dry and no rashes or lesions are noted. - Labs CBC & Chem 7: 07/26/19 11:37 07/26/19 11:37 Labs: Abnormal Lab Results - Last 24 Hours (Table) 07/26/19 07/26/19 07/26/19 Range/Units 07:03 07:03 07:40 WBC 11.2 H (3.8-10.6) k/uL RBC 3.49 L (3.80-5.40) m/uL Hgb 8.8 L D (11.4-16.0) gm/dL Hct 28.3 L (34.0-46.0) % MCH (25.0-35.0) pg MCHC (31.0-37.0) g/dL RDW 17.6 H (11.5-15.5) % Neutrophils # 9.5 H (1.3-7.7) k/uL Lymphocytes # 0.7 L (1.0-4.8) k/uL ABG pO2 (83-108) mmHg ABG HCO3 (21-25) mmol/L ABG O2 Saturation (94-97) % Sodium 148 H (137-145) mmol/L Chloride 112 H (98-107) mmol/L BUN 62 H (7-17) mg/dL Glucose 131 H (74-99) mg/dL POC Glucose (mg/dL) 153 H (75-99) mg/dL Phosphorus (2.5-4.5) mg/dL AST (14-36) U/L ALT (9-52) U/L Alkaline Phosphatase (38-126) U/L Albumin 3.3 L (3.5-5.0) g/dL 07/26/19 07/26/19 07/26/19 Range/Units 10:29 11:11 11:35 WBC (3.8-10.6) k/uL RBC (3.80-5.40) m/uL Hgb (11.4-16.0) gm/dL Hct (34.0-46.0) % MCH (25.0-35.0) pg MCHC (31.0-37.0) g/dL RDW (11.5-15.5) % Neutrophils # (1.3-7.7) k/uL Lymphocytes # (1.0-4.8) k/uL ABG pO2 122 H (83-108) mmHg ABG HCO3 20 L (21-25) mmol/L ABG O2 Saturation >100.0 H (94-97) % Sodium (137-145) mmol/L Chloride (98-107) mmol/L BUN (7-17) mg/dL Glucose (74-99) mg/dL POC Glucose (mg/dL) 189 H 227 H (75-99) mg/dL Phosphorus (2.5-4.5) mg/dL AST (14-36) U/L ALT (9-52) U/L Alkaline Phosphatase (38-126) U/L Albumin (3.5-5.0) g/dL 07/26/19 07/26/19 Range/Units 11:37 11:37 WBC 22.7 H (3.8-10.6) k/uL RBC (3.80-5.40) m/uL Hgb 9.5 L (11.4-16.0) gm/dL Hct 31.8 L (34.0-46.0) % MCH 24.5 L (25.0-35.0) pg MCHC 29.8 L (31.0-37.0) g/dL RDW 17.5 H (11.5-15.5) % Neutrophils # 21.0 H (1.3-7.7) k/uL Lymphocytes # 0.8 L (1.0-4.8) k/uL ABG pO2 (83-108) mmHg ABG HCO3 (21-25) mmol/L ABG O2 Saturation (94-97) % Sodium (137-145) mmol/L Chloride 114 H (98-107) mmol/L BUN 59 H (7-17) mg/dL Glucose 208 H (74-99) mg/dL POC Glucose (mg/dL) (75-99) mg/dL Phosphorus 6.1 H (2.5-4.5) mg/dL AST 816 H (14-36) U/L ALT 506 H (9-52) U/L Alkaline Phosphatase 203 H (38-126) U/L Albumin 3.1 L (3.5-5.0) g/dL Microbiology - Last 24 Hours (Table) 07/25/19 13:50 Urine Culture - Preliminary Urine,Catheterized 07/24/19 16:30 Blood Culture - Preliminary Blood No Growth after 24 hours Assessment and Plan (1) Cardiac arrest due to respiratory disorder Current Visit: Yes Status: Acute Code(s): J98.9 - RESPIRATORY DISORDER, UNSPECIFIED; I46.8 - CARDIAC ARREST DUE TO OTHER UNDERLYING CONDITION SNOMED Code(s): 318936514 (2) Aspiration pneumonia Current Visit: No Status: Acute Priority: High Code(s): J69.0 - PNEUMONITIS DUE TO INHALATION OF FOOD AND VOMIT SNOMED Code(s): 080005625 (3) Acute exacerbation of chronic obstructive pulmonary disease Current Visit: Yes Status: Acute Code(s): J44.1 - CHRONIC OBSTRUCTIVE PULMONARY DISEASE W (ACUTE) EXACERBATION SNOMED Code(s): 830173220 (4) Atrial fib/flutter, transient Current Visit: Yes Status: Acute Code(s): GSL0625 - SNOMED Code(s): 545432337 (5) Oropharyngeal dysphagia Current Visit: Yes Status: Acute Code(s): R13.12 - DYSPHAGIA, OROPHARYNGEAL PHASE SNOMED Code(s): 94403028 (6) Diastolic CHF Current Visit: Yes Status: Acute Code(s): I50.30 - UNSPECIFIED DIASTOLIC (CONGESTIVE) HEART FAILURE SNOMED Code(s): 848824858 (7) Leukocytosis Current Visit: Yes Status: Acute Code(s): D72.829 - ELEVATED WHITE BLOOD CELL COUNT, UNSPECIFIED SNOMED Code(s): 955730690 (8) COPD (chronic obstructive pulmonary disease) Current Visit: No Status: Acute Code(s): J44.9 - CHRONIC OBSTRUCTIVE PULMONARY DISEASE, UNSPECIFIED SNOMED Code(s): 70647603 (9) Chronic respiratory failure with hypoxia Current Visit: No Status: Acute Code(s): J96.11 - CHRONIC RESPIRATORY FAILURE WITH HYPOXIA SNOMED Code(s): 792733643 (10) G tube feedings Current Visit: No Status: Acute Code(s): Z93.1 - GASTROSTOMY STATUS SNOMED Code(s): 262204709 (11) History of CVA (cerebrovascular accident) Current Visit: No Status: Acute Code(s): Z86.73 - PRSNL HX OF TIA (TIA), AND CEREB INFRC W/O RESID DEFICITS SNOMED Code(s): 645855435 (12) O2 dependent Current Visit: No Status: Acute Code(s): Z99.81 - DEPENDENCE ON SUPPLEMENTAL OXYGEN SNOMED Code(s): 942047731791 (13) Presence of externally removable percutaneous endoscopic gastrostomy (PEG) tube Current Visit: No Status: Acute Code(s): Z93.1 - GASTROSTOMY STATUS SNOMED Code(s): 164771626 Plan: She is intubated in intensive care unit but not sedated. She underwent a code for 10-15 minutes, most likely sustained some brain damage from this. I met with family and discussed my recommendations that she be terminally weaned due to her significant comorbidities, and current status. Discussed her case with the bank sales and service manager/critical care, Dr. Connell. Expect the family and power of estate planning attorney will agree to this once family present have visited with her.
[2019-07-26] MEDS ORDERED: LORazepam 2 MG/ML INJ IV PRN (12:45)
[2019-07-26] MEDS ORDERED: MORPHINE SULFATE 4 MG/ML SYRINGE IV PRN (12:45)
[2019-07-26] MEDS ORDERED: SCOPOLAMINE 1.5MG/72HR PATCH TRANSDERM SCH (12:45)
[2019-07-26] MEDS ORDERED: MORPHINE SULFATE 4 MG/ML SYRINGE IM STA (12:53)
[2019-07-26] MEDS ORDERED: MORPHINE SULFATE (100 MG/2 ML) 100 MG in SODIUM CHLORIDE 0.9% 100 ML IV SCH (13:00)
[2019-07-26] MEDS: FUROSEMIDE 20 MG TAB PEG/G-TUBE SCH (13:05)
[2019-07-26 16:46] VITALS: BP 116/62; RESP 17; TEMP 98
[2019-07-26 17:34] VITALS: PULSE 77
[2019-07-26] MEDS ORDERED: CHLORHEXIDINE GLUCONATE 15 ML CUP MUCOUS MEM SCH (21:00)
--- NOTE | 2019-08-01 13:04 | CDI ---
Documentation Clarification Form Date: 08/01/2019 12:37:47 PM From: Lenka STERLING,CCDS,RN Email: [email or web address] Admit Date: 07/24/2019 5:37:00 PM Patient Name: Jennifer Carl Visit Number: [id number] Discharge Date: 07/26/2019 9:10:00 PM ATTENTION: The Clinical Documentation Specialists (CDI) and [facility] Coding Staff appreciate your assistance in clarifying documentation. Please respond to the clarification below the line at the bottom and electronically sign. The CDI & [facility] Coding staff will review the response and follow-up if needed. Please note: Queries are made part of the Legal Health Record. If you have any questions, please contact the author of this message via ITS. Dr. Rafael Guardado The patient presented with the aspiration pneumonia and hypoxemia and chronic indwelling Olsen Catheter History/Risk Factors: CVA with dyspahgia and PEG for nutrition. CAD s/p CABG, Severe COPD on home O2 with chronic respiratory failure ,GIB,CARMINE, Afib, hypothyroidism, Chronic indwelling Catheter, Choking on food Clinical Indicators: ED notes fever, chills and sweats, nausea and vomiting prior to presentation ED impression Acute bronchospasm, Acute exacerbation of COPD, RT LL pneumonia, Febrile illness, acute leukocytosis, HP notes suspected aspiration pneumonia, no acute distress, a bit confused, Leukocytosis PN state aspiration pneumonia and mild exacerbation of systolic CHF. PN 07/26 plan for Terminal wean due to her significant comorbidities and current status WBC 22.3 with neutrophils 20.9 Lactic acid: 1.1 Blood cultures: no growth Vitals signs on admission: 100.8-100.9 HR 93 RR 22 134/64 Pulse ox 93% room air to 92% on 4lnc 07/25/2019 Urine culture 50,000-100,000 Entercococcus VRE colony count with 10,000-49,000 apparent skin and genital karo in addition to the reported isolates No UA available Treatment:Lasix Po for CHF Antibiotics:Azithromycin, Cefepime 07/25, Rocephin,Levaquin 07/25,flagyl 1L IVF 07/24 at 100 cc hrs then reduced to 50 cc hr Clinical significance of diagnostic testing and treatment CANNOT be assumed or coded without physician documentation of significance if any. Please clarify clinical significance, if any, urine culture results represent Vancomycin resistance Enterococcus Urinary tract infection 2nd to chronic indwelling Olsen POA Vancomycin resistance Enterococcus Urinary tract infection not associated with Olsen POA Abnormal Lab Value not clinically significant Unable to determine Other, please specify (Last Revision: May 2017) MTDD
--- NOTE | 2019-08-01 13:06 | CDI ---
Documentation Clarification Form Date: 08/01/2019 From: Lenka STERLING,CCDS,RN [email or web address] Admit Date: 07/24/2019 5:37:00 PM Patient Name: Jennifer Carl Visit Number: [id number] Discharge Date: 07/26/2019 9:10:00 PM ATTENTION: The Clinical Documentation Specialists (CDI) and [facility] Coding Staff appreciate your assistance in clarifying documentation. Please respond to the clarification below the line at the bottom and electronically sign. The CDI & [facility] Coding staff will review the response and follow-up if needed. Please note: Queries are made part of the Legal Health Record. If you have any questions, please contact the author of this message via ITS. Dr. Rafael Guardado The patient presented with the aspiration pneumonia and hypoxemia History/Risk Factors: CVA with dyspahgia and PEG for nutrition. CAD s/p CABG, Severe COPD on home O2 with chronic respiratory failure, GIB, CARMINE, Afib, hypothyroidism, Chronic indwelling Catheter, Choking on food Clinical Indicators: ED notes fever, chills and sweats, nausea and vomiting prior to presentation ED impression acute bronchospasm, Acute exacerbation of COPD, RT LL pneumonia, Febrile illness, acute leukocytosis, large amount of secretions suctioned with intubation. HP notes suspected aspiration pneumonia, no acute distress, a bit confused, Leukocytosis PN state aspiration pneumonia and mild exacerbation of systolic CHF. WBC 22.3 with neutrophils 20.9 Lactic acid: 1.1 Blood cultures: no growth Vitals signs on admission: 100.8-100.9 HR 93 RR 22 134/64 Pulse ox 93% room air to 92% on 4lnc 07/25/2019 Urine culture 50,000-100,000 Entercococcus VRE colony count with 10,000-49,000 apparent skin and genital karo in addition to the reported isolates Chest 07/24/2019: small right pleural effusion, evidence of mild heart failure, mild predominantly interstitial infiltrate in the lower lobes increase on the right side compared to last exam Treatment: Lasix Po for CHF Antibiotics: Azithromycin, Cefepime 07/25, Rocephin, Levaquin 07/25, Flagyl 1L IVF 07/24 at 100 cc hrs then reduced to 50 cc hr In your professional opinion, please render your opinion if pts presenting status signify one of the following conditions, if known: Sepsis 2nd to Aspiration Pneumonia Sepsis 2nd to Aspiration Pneumonia and Vancomycin resistance Enterococcus Catheter associated urinary tract infection Sepsis 2nd to Vancomycin resistance Enterococcus Catheter associated urinary tract infection Localized infection only Other, please specify SIRS Criteria (2 or more of the following may indicate SIRS): -Temperature < 96.8F (36C) or > 101.0F (38.3C) -Heart Rate > 90 bpm -Respiratory Rate > 20 breaths/min or PaCO2 < 32 mmHg -White Blood Cell Count > 12,000 or < 4,000 cells/mm3 or > 10% bands -Lactate >2.0 mmol/L (>4.0 is equivalent to septic shock) (Last Revision: November 2017) MTDD
--- NOTE | 2019-08-05 10:29 | P.DS ---
Providers Date of admission: 07/24/19 17:37 Expected date of discharge: 07/26/19 Attending physician: Rafael Guardado Consults: 07/25/19 10:24 Consult Physician Routine Consulting Provider: Vance Connell Consult Reason/Comments: pneumonia Do you want consulting provider notified?: Yes 07/25/19 12:16 Consult Physician Routine Consulting Provider: Mamadou Luther Consult Reason/Comments: afib, CHF Do you want consulting provider notified?: Yes Primary care physician: Dao Art - Gil Diagnosis(es) (1) Cardiac arrest due to respiratory disorder Status: Acute (2) Aspiration pneumonia Status: Acute Priority: High (3) Acute exacerbation of chronic obstructive pulmonary disease Status: Acute (4) Atrial fib/flutter, transient Status: Acute (5) Oropharyngeal dysphagia Status: Acute (6) Diastolic CHF Status: Acute (7) Leukocytosis Status: Acute (8) COPD (chronic obstructive pulmonary disease) Status: Acute (9) Chronic respiratory failure with hypoxia Status: Acute (10) G tube feedings Status: Acute (11) History of CVA (cerebrovascular accident) Status: Acute (12) O2 dependent Status: Acute (13) Presence of externally removable percutaneous endoscopic gastrostomy (PEG) tube Status: Acute Hospital Course: his is an 84-year-old white female well-known to me. She has a history of CVA with significant dysphagia, dysphasia, PEG tube for nutrition, severe COPD and is oxygen dependent. She is brought emergency room via EMS after having cough and shortness of breath yesterday. I had last seen her in the [facility] where she underwent rehabilitation. She was told to be nothing by mouth at that time and receive all nutrition through the PEG tube. She was considering hospice and comfort foods orally with the understanding that she could develop an aspiration pneumonia. She indicates that she been eating food when this started. She denies any recent nausea or vomiting. Denies any chest pains or pressures. She has constant shortness of breath due to her COPD. She seems slightly confused today with my discussions with her. PEG tube is in place but does appear dirty as if it's not been used recently. 07/26/2019: A few moments for my arrival on the floor, the patient began choking. She pushed the call button for the nurse and then proceeded to have cardiac arrest. Staff informed me that 10-15 minutes worth of CPR performed and she was transferred to the intensive care unit. I'd seen in the intensive care unit. She is not sedated. She is intubated. She is unconscious and overbreathing the vent slightly. She is moving while blood gases are being d rawn. I discussed her case with her family and with the lead technician, Dr. Connell. Patient was to be no code due to her deteriorated quality of life, severe COPD, PEG tube, history of CVA with significant dysphagia. addendum: pateints family had seen and visited with her, a terminal wean was then performed and patient a few minutes after the Wean. Patient Condition at Discharge: Fair Plan - Discharge Summary Discharge Rx Participant: No Discharge Disposition: - Preliminary Cause of Preliminary Cause of : respiratroy failure due to aspiration pneumonia
--- NOTE | 2019-08-06 14:55 | CDI ---
Documentation Clarification Form Date: 08/01/2019 From: Lenka STERLING,CCDS,RN [email or web address] Admit Date: 07/24/2019 5:37:00 PM Patient Name: Jennifer Carl Visit Number: [id number] Discharge Date: 07/26/2019 9:10:00 PM ATTENTION: The Clinical Documentation Specialists (CDI) and [facility] Coding Staff appreciate your assistance in clarifying documentation. Please respond to the clarification below the line at the bottom and electronically sign. The CDI & [facility] Coding staff will review the response and follow-up if needed. Please note: Queries are made part of the Legal Health Record. If you have any questions, please contact the author of this message via ITS. Dr. Rafael Guardado The patient presented with the aspiration pneumonia and hypoxemia History/Risk Factors: CVA with dyspahgia and PEG for nutrition. CAD s/p CABG, Severe COPD on home O2 with chronic respiratory failure, GIB, CARMINE, Afib, hypothyroidism, Chronic indwelling Catheter, Choking on food Clinical Indicators: ED notes fever, chills and sweats, nausea and vomiting prior to presentation ED impression acute bronchospasm, Acute exacerbation of COPD, RT LL pneumonia, Febrile illness, acute leukocytosis, large amount of secretions suctioned with intubation. HP notes suspected aspiration pneumonia, no acute distress, a bit confused, Leukocytosis PN state aspiration pneumonia and mild exacerbation of systolic CHF. WBC 22.3 with neutrophils 20.9 Lactic acid: 1.1 Blood cultures: no growth Vitals signs on admission: 100.8-100.9 HR 93 RR 22 134/64 Pulse ox 93% room air to 92% on 4lnc 07/25/2019 Urine culture 50,000-100,000 Entercococcus VRE colony count with 10,000-49,000 apparent skin and genital karo in addition to the reported isolates Chest 07/24/2019: small right pleural effusion, evidence of mild heart failure, mild predominantly interstitial infiltrate in the lower lobes increase on the right side compared to last exam Treatment: Lasix Po for CHF Antibiotics: Azithromycin, Cefepime 07/25, Rocephin, Levaquin 07/25, flagyl 1L IVF 07/24 at 100 cc hrs then reduced to 50 cc hr In your professional opinion, please render your opinion if pts presenting status signify one of the following conditions, if known: ------>Sepsis 2nd to Aspiration Pneumonia Sepsis 2nd to Aspiration Pneumonia and Vancomycin resistance Enterococcus Catheter associated urinary tract infection Sepsis 2nd to Vancomycin resistance Enterococcus Catheter associated urinary tract infection Localized infection only Other, please specify SIRS Criteria (2 or more of the following may indicate SIRS): -Temperature < 96.8F (36C) or > 101.0F (38.3C) -Heart Rate > 90 bpm -Respiratory Rate > 20 breaths/min or PaCO2 < 32 mmHg -White Blood Cell Count > 12,000 or < 4,000 cells/mm3 or > 10% bands -Lactate >2.0 mmol/L (>4.0 is equivalent to septic shock) (Last Revision: November 2017) MTDD
--- NOTE | 2019-08-06 14:57 | CDI ---
Documentation Clarification Form Date: 08/01/2019 12:37:47 PM From: Lenka STERLING,CCDS,RN Email: [email or web address] Admit Date: 07/24/2019 5:37:00 PM Patient Name: Jennifer Carl Visit Number: [id number] Discharge Date: 07/26/2019 9:10:00 PM ATTENTION: The Clinical Documentation Specialists (CDI) and [facility] Coding Staff appreciate your assistance in clarifying documentation. Please respond to the clarification below the line at the bottom and electronically sign. The CDI & [facility] Coding staff will review the response and follow-up if needed. Please note: Queries are made part of the Legal Health Record. If you have any questions, please contact the author of this message via ITS. Dr. Rafael Guardado The patient presented with the aspiration pneumonia and hypoxemia and chronic indwelling Olsen Cathete.r History/Risk Factors:CVA with dyspahgia and PEG for nutrition. CAD s/p CABG, Severe COPD on home O2 with chronic respiratory failure ,GIB,CARMINE, Afib, hypothyroidism, Chronic indwelling Catheter, Choking on food Clinical Indicators: ED notes fever, chills and sweats, nausea and vomiting prior to presentation ED impression Acute bronchospasm, Acute exacerbation of COPD, RT LL pneumonia, Febrile illness, acute leukocytosis, HP notes suspected aspiration pneumonia, no acute distress, a bit confused, Leukocytosis PN state aspiration pneumonia and mild exacerbation of systolic CHF. PN 07/26 plan for Terminal wean due to her significant comorbidities and current status WBC 22.3 with neutrophils 20.9 Lactic acid: 1.1 Blood cultures: no growth Vitals signs on admission: 100.8-100.9 HR 93 RR 22 134/64 Pulse ox 93% room air to 92% on 4lnc 07/25/2019 Urine culture 50,000-100,000 Entercococcus VRE colony count with 10,000-49,000 apparent skin and genital karo in addition to the reported isolates No UA available Treatment:Lasix Po for CHF Antibiotics:Azithromycin, Cefepime 07/25, Rocephin,Levaquin 07/25,flagyl 1L IVF 07/24 at 100 cc hrs then reduced to 50 cc hr Clinical significance of diagnostic testing and treatment CANNOT be assumed or coded without physician documentation of significance if any. Please clarify clinical significance, if any, urine culture results represent: Vancomycin resistance Enterococcus Urinary tract infection 2nd to chronic indwelling Olsen POA Vancomycin resistance Enterococcus Urinary tract infection not associated with Olsen POA Abnormal Lab Value not clinically significant Unable to determine Other, please specify (Last Revision: May 2017) MTDD
== END 2019-07-26 21:10 | disposition expired | DRG 871 ==
LOC: EC 16:16 → 3NMEDONC 17:37 → 2SICU 07-26 10:47
PROVIDERS: ADMIT Family Medicine; ATTEND Family Medicine
PROC: 3E0G76Z Introduction of Nutritional Substance into Upper GI, Via Natural or Artificial Opening (ICD-10-PCS; principal; 2019-07-26)
PROC: 5A1935Z Respiratory Ventilation, Less than 24 Consecutive Hours (ICD-10-PCS; principal; 2019-07-26)
PROC: 0BH18EZ Insertion of Endotracheal Airway into Trachea, Via Natural or Artificial Opening Endoscopic (ICD-10-PCS; principal; 2019-07-26)
DX: A41.9 Sepsis, unspecified organism (principal); J69.0 Pneumonitis due to inhalation of food and vomit; I50.43 Acute on chronic combined systolic (congestive) and diastolic (congestive) heart failure; J96.21 Acute and chronic respiratory failure with hypoxia; R40.2114 Coma scale, eyes open, never, 24 hours or more after hospital admission; R40.2214 Coma scale, best verbal response, none, 24 hours or more after hospital admission; I48.92 Unspecified atrial flutter; J44.1 Chronic obstructive pulmonary disease with (acute) exacerbation; G93.1 Anoxic brain damage, not elsewhere classified; E03.9 Hypothyroidism, unspecified; E78.5 Hyperlipidemia, unspecified; I08.1 Rheumatic disorders of both mitral and tricuspid valves; I11.0 Hypertensive heart disease with heart failure; I25.10 Atherosclerotic heart disease of native coronary artery without angina pectoris; I27.20 Pulmonary hypertension, unspecified; I44.7 Left bundle-branch block, unspecified; I46.8 Cardiac arrest due to other underlying condition; K21.9 Gastro-esophageal reflux disease without esophagitis; I69.391 Dysphagia following cerebral infarction; R13.12 Dysphagia, oropharyngeal phase; Z51.5 Encounter for palliative care; Z66 Do not resuscitate; Z99.81 Dependence on supplemental oxygen; Z95.1 Presence of aortocoronary bypass graft; Z93.1 Gastrostomy status; Z79.51 Long term (current) use of inhaled steroids; Z79.890 Hormone replacement therapy; Z79.899 Other long term (current) drug therapy; Z82.49 Family history of ischemic heart disease and other diseases of the circulatory system; Z87.891 Personal history of nicotine dependence; Z88.0 Allergy status to penicillin; Z90.710 Acquired absence of both cervix and uterus; Z90.49 Acquired absence of other specified parts of digestive tract; I48.0 Paroxysmal atrial fibrillation; R40.2334 Coma scale, best motor response, abnormal flexion, 24 hours or more after hospital admission
CPT/HCPCS: 36415; 36600; 71045; 71046; 80053; 82550; 82805; 83036; 83605; 83735; 83880; 84100; 84134; 84443; 84484; 85025; 85610; 85730; 87040; 87077; 87086; 87186; 93005; 94002; 94640; 94660; 96361; 96374; 99285